=== PATIENT | male | born 1940 | race Caucasian/White ===

== ENCOUNTER 2023-05-15 16:21 | Emergency (ER) | payer MEDICARE, BC, SELFPAY ==
[2023-05-15 16:31] VITALS: BP 130/63
[2023-05-15 16:53] LABS: % Basophils 0.4 % (0-2); % Eosinophils 0.7 % (0-6); % Immature Granulocytes 0.4 % (0-0.5); Absolute Eosinophils 0.1 10^3/uL (0-0.7); Hemoglobin 13.1 g/dL (13.0-18.0); Nucleated Red Blood Cells % 0 % (-)
[2023-05-15 16:55] LABS: % Lymphocytes 4.2 % (20.5-51.1); % Monocytes 8.8 % (1.7-9.3); % Neutrophils 85.5 % (42.2-75.2); Absolute Lymphocytes 0.3 10^3/uL (1.2-3.4); Absolute Monocytes 0.6 10^3/uL (0.1-0.6); Absolute Neutrophils 6.1 10^3/uL (1.4-6.5); Hematocrit 36.7 % (39.0-52.0); Mean Corp Hgb Conc. 35.7 g/dL (33.0-37.0); Mean Corpuscular Hgb 31.7 pg (27.0-31.0); Mean Corpuscular Volume 88.9 fL (80.0-94.0); Mean Platelet Volume 9.6 fL (7.4-10.4); Platelet Count 141 10^3/uL (130-400); Red Blood Cell Count 4.13 10^6/uL (4.70-6.10); Red Cell Dist. Width 12.7 % (11.5-14.5); White Blood Cell Count 7.1 10^3/uL (4.8-10.8)
[2023-05-15 17:07] LABS: COVID-19 Antigen Positive (Negative)
[2023-05-15 17:11] LABS: ALT (SGPT) 14 U/L (0-50); AST (SGOT) 25 U/L (17-59); Albumin 4.1 g/dl (3.5-5.0); Alkaline Phosphatase 56 U/L (38-126); Blood Urea Nitrogen 20 mg/dl (9-20); Calcium 9.7 mg/dl (8.4-10.2); Carbon Dioxide 22 mmol/L (22-30); Chloride 101 mmol/L (98-107); Glucose 149 mg/dl (70-99); Potassium 3.8 mmol/L (3.5-5.1); Sodium 135 mmol/L (135-145); Total Protein 6.9 g/dl (6.3-8.2); eGFR > 60.00
--- NOTE | 2023-05-15 17:32 | ED.GENMED ---
History of Present Illness
General
Chief Complaint: Cold/Flu/URI Symptoms
Source: patient and spouse
Exam Limitations: none
Time Seen by Provider: 05/15/23 17:31
Nursing documentation reviewed up to this point in time: agreed with
Travel History
Have you had any contact with someone who has COVID-19?: No
Do you have any symptoms of coronavirus? Fever > 100 degrees, chills, cough, shortness of breath, sore throat, loss of taste or smell, muscle aches, or headache?: Yes
Symptoms:: cough, sore throat, n/v.
History of Present Illness
History of Present Illness:
83-year-old male with history of HTN, HLD, GERD presents stating he began to feel sick last evening with sore throat and general fatigue. Nausea around midnight and vomited once this afternoon. Denies nausea now. He fell today due to general
weakness and had to call EMS as he couldn't get himself up. He denies hitting head or any injury from the fall.
Denies chest pain, cough or trouble breathing.
Past History
Past History
ED Past Medical History: GERD, HTN and Hypercholesterolemia
Social History
Tobacco: Non-smoker
Personal:
Living: with family
Review of Systems
Review of Systems
Allergies reviewed?: Yes
All Other Systems: ROS reviewed and negative except as documented in HPI and ROS
Constitutional: Reports fatigue; Denies fever
EENT: Reports sore throat
Respiratory: Denies trouble breathing
Cardiac: Denies chest pain or syncope
ABD/GI: Reports nausea and vomiting (Vomited once earlier today. Denies nausea at this time); Denies abdominal pain, diarrhea or constipated
: Denies dysuria
Musculoskeletal: Reports no symptoms; Denies edema
Skin: Reports no symptoms
Neurological: Reports no symptoms
Phy Exam
Physical Exam
Physical Exam:
GENERAL: No acute distress. A&Ox3.
CONSTITUTIONAL: Afebrile.
EYES: PERRL, conjunctivae normal
Neck: Supple
ENMT: moist mucus membranes, Pharynx nl
RESPIRATORY: Regular respirations, nonlabored, lungs clear.
CARDIOVASCULAR: Regular rate and rhythm, no murmurs, no rubs.
GI: Soft, nontender, normal BS
MUSCULOSKELETAL: Moves with ease. Well perfused.
SKIN: Warm, dry, pink
PSYCH: Normal mood and affect. Well kept, interactive and appropriate
NEUROLOGIC: Awake, alert and oriented. No focal neurological deficits
Course
Orders/Labs/Results
Orders:
Orders
05/15/23 16:46
COVID-19 Antigen Urgent
Source: Nasal Swab
Complete Blood Count/With Diff Urgent
Comprehensive Metabolic Panel Urgent
Influenza A+B Rapid Molecular Urgent
LONNIE Source: Nasal Swab
Specimen Description:
05/15/23 17:45
0.9% Sodium Chloride 1000 ml [Nss] 1,000 ml IV BOLUS
Acetaminophen [Tylenol] 1,000 mg PO NOW STA
Abnormal Lab Results
05/15/23
16:46
RBC 4.13 L 10^6/uL
(4.70-6.10)
Hct 36.7 L %
(39.0-52.0)
MCH 31.7 H pg
(27.0-31.0)
Absolute Lymphs (auto) 0.3 L 10^3/uL
(1.2-3.4)
Neutrophils % 85.5 H %
(42.2-75.2)
Lymphocytes % 4.2 L %
(20.5-51.1)
Creatinine 0.6 L mg/dL
(0.7-1.3)
Glucose 149 H mg/dl
(70-99)
SARS-CoV-2 Antigen Positive A
(Negative)
05/15/23 16:46
05/15/23 16:46
Vital Signs
Initial and Last Documented VS:
Initial Vital Signs
Temp Pulse Resp BP Pulse Ox
99.1 F 78 16 130/63 95
05/15/23 16:31 05/15/23 16:31 05/15/23 16:31 05/15/23 16:31 05/15/23 16:31
Last Documented Vital Signs
Temp Pulse Resp BP Pulse Ox
99.1 F 78 16 129/68 93
05/15/23 18:00 05/15/23 16:31 05/15/23 16:31 05/15/23 19:00 05/15/23 19:45
MDM/Problems Addressed
Differential Diagnosis Includes:
Dehydration, COVID, flu
MDM/Problems Addressed:
83-year-old male with history of HTN, HLD, GERD presents stating he began to feel sick last evening with sore throat and general fatigue. Nausea around midnight and vomited once this afternoon. Denies nausea now. He fell today due to general
weakness and had to call EMS as he couldn't get himself up. He denies hitting head or any injury from the fall.
Denies chest pain, cough or trouble breathing.
Afebrile, NAD
05/15/2023 1733 PM
CBC with no clinically significant abnormality
CMP with no clinically significant abnormality
Influenza negative
COVID-positive
is inquiring about Paxlovid. Pt is not immunocompromise, does not appear acutely ill, no significant major medical history, he would have to stop his simvastatin. I explained this to patient and and they are absolutely fine with not
taking the Paxlovid
05/15/2023 1925 PM
IV fluids and Tylenol administered
Patient out of bed and ambulated to bathroom and back initially a little unsteady but then with steady gait
Patient and are comfortable going home, they have help at home to get him into the house if needed
*Critical Care Note
Total Time (30-74mins, 75-104mins- exclusive of procedures): Not Applicable
ED Attending Note
-
Portions of this chart may have been created with voice recognition software.� Occasional wrong word or��sound alike� substitutions may have occurred due to the inherent limitations of voice recognition software.
Discharge Plan
Departure
Patient Disposition: Home (Routine Discharge)
Date of Disposition: 05/15/23
Time of Disposition: 19:46
Patient with high blood pressure during this ER visit?: No
Condition: Fair
Covid-19: Confirmed COVID-19
Discharge Problem:
COVID-19
Instructions: COVID-19 (DC), Coronavirus Home Quarantine
Referrals:
Camilo Troncoso MD [Family Provider] - As needed
Activity Restrictions/Additional Instructions:
As we discussed, rest, drink plenty fluids, Tylenol as needed for body aches or sore throat or fever
Interventions
Interventions:
*Risk Screen - Suicide Last Done: 05/15/23 17:57
*General Assessment Last Done: 05/15/23 17:57
*Neglect/Abuse Screening Last Done: 05/15/23 17:57
ED- Fall Risk Assessment Last Done: 05/15/23 19:57
*ED COVID-19 Vaccine History Last Done: 05/15/23 17:57
*Nursing Disposition Last Done: 05/15/23 19:57
ED- Pulmonary Assessment Last Done: 05/15/23 18:08
[2023-05-15 17:57] VITALS: BMI 26.5
[2023-05-15] MEDS: NSS 1000 IV (18:04)
[2023-05-15 18:05] VITALS: BP 134/60
[2023-05-15] MEDS: TYLENOL 1000 MG PO (18:09)
[2023-05-15 19:00] VITALS: BP 129/68
== END 2023-05-15 19:57 | disposition home or self-care (01) ==
LOC: EMR 16:21
PROVIDERS: EMERGENCY PHYSICIAN Emergency Medicine; FAMILY PHYSICIAN Internal Medicine Geriatric Medicine
DX: U07.1 COVID-19 (principal); R11.2 Nausea with vomiting, unspecified; Z11.52 Encounter for screening for COVID-19; W19.XXXA Unspecified fall, initial encounter; I10 Essential (primary) hypertension; E78.00 Pure hypercholesterolemia, unspecified; K21.9 Gastro-esophageal reflux disease without esophagitis; Z85.828 Personal history of other malignant neoplasm of skin; Z91.048 Other nonmedicinal substance allergy status
CPT/HCPCS: 99283; 80053; 85025; 87502; 87811

== ENCOUNTER → 2023-10-12 06:57 | Outpatient (REF) | payer MEDICARE, BC, SELFPAY ==
[2023-10-12 09:54] LABS: ALT (SGPT) 14 U/L (0-50); AST (SGOT) 27 U/L (17-59); Albumin 4.4 g/dl (3.5-5.0); Alkaline Phosphatase 58 U/L (38-126); Blood Urea Nitrogen 16 mg/dl (9-20); Carbon Dioxide 24 mmol/L (22-30); Chloride 105 mmol/L (98-107); Glucose 105 mg/dl (70-99); Potassium 3.9 mmol/L (3.5-5.1); Sodium 139 mmol/L (135-145); Total Bilirubin 0.8 mg/dl (0.2-1.3); Total Protein 7.1 g/dl (6.3-8.2); eGFR > 60.00
[2023-10-12 10:11] LABS: Vitamin D, 25-OH*** 39.6 ng/mL (30-80)
== END ==
LOC: HWLAB 06:57
PROVIDERS: ATTENDING PHYSICIAN Internal Medicine; FAMILY PHYSICIAN Internal Medicine Geriatric Medicine
DX: E55.9 Vitamin D deficiency, unspecified (principal); M81.0 Age-related osteoporosis without current pathological fracture
CPT/HCPCS: 36415; 80053; 82306

== ENCOUNTER → 2024-05-20 09:39 | Outpatient (REF) | payer MEDICARE, BC, SELFPAY ==
[2024-05-20 12:42] LABS: % Basophils 0.5 % (0-2); % Eosinophils 1.8 % (0-6); % Immature Granulocytes 0.3 % (0-0.5); % Lymphocytes 27.7 % (20.5-51.1); % Neutrophils 60.7 % (42.2-75.2); Absolute Eosinophils 0.1 10^3/uL (0-0.7); Absolute Lymphocytes 2.2 10^3/uL (1.2-3.4); Absolute Monocytes 0.7 10^3/uL (0.1-0.6); Absolute Neutrophils 4.7 10^3/uL (1.4-6.5); Hematocrit 38.7 % (39.0-52.0); Mean Corp Hgb Conc. 33.6 g/dL (33.0-37.0); Mean Corpuscular Hgb 30.8 pg (27.0-31.0); Mean Corpuscular Volume 91.7 fL (80.0-94.0); Mean Platelet Volume 10.3 fL (7.4-10.4); Nucleated Red Blood Cells % 0 % (-); Platelet Count 174 10^3/uL (130-400); Red Blood Cell Count 4.22 10^6/uL (4.70-6.10); Red Cell Dist. Width 12.7 % (11.5-14.5); White Blood Cell Count 7.8 10^3/uL (4.8-10.8)
[2024-05-20 12:48] LABS: Urine Albumin 1+ (Neg - Trace); Urine Bilirubin Negative (Negative); Urine Character Clear (Clear); Urine Color Yellow; Urine Glucose Negative (Negative); Urine Ketone Negative (Negative); Urine Leukocyte Negative (Negative); Urine Nitrite Negative (Negative); Urine Occult Blood 2+ (Negative); Urine Urobilinogen Negative (Neg - 1+)
[2024-05-20 13:16] LABS: ALT (SGPT) 13 U/L (0-50); AST (SGOT) 24 U/L (17-59); Albumin 4.6 g/dl (3.5-5.0); Alkaline Phosphatase 72 U/L (38-126); Blood Urea Nitrogen 20 mg/dl (9-20); Calcium 9.8 mg/dl (8.4-10.2); Carbon Dioxide 24 mmol/L (22-30); Chloride 103 mmol/L (98-107); Glucose 101 mg/dl (70-99); HDL Cholesterol 60 mg/dl; LDL Cholesterol, Calculated 65 mg/dl; Potassium 3.9 mmol/L (3.5-5.1); Sodium 139 mmol/L (135-145); Total Bilirubin 1.3 mg/dl (0.2-1.3); Total Cholesterol 140 mg/dl (50-199); Total Protein 7.3 g/dl (6.3-8.2); Triglyceride 76 mg/dl (10-149); Very Low Density Lipoprotein 15 mg/dl (0-30); eGFR > 60.00
[2024-05-20 13:26] LABS: Urine Hyaline Cast 0-2 /LPF (0-2)
[2024-05-20 13:28] LABS: Urine Bacteria Few (Negative)
[2024-05-20 13:49] LABS: Erythrocyte Sed Rate 1 mm/hour (0-20)
[2024-05-20 13:50] LABS: C-Reactive Protein < 5.00 mg/L (0.0-10.00)
== END ==
LOC: HWLAB 09:39
PROVIDERS: ATTENDING PHYSICIAN Internal Medicine Geriatric Medicine
DX: E78.5 Hyperlipidemia, unspecified (principal); R53.1 Weakness; I73.9 Peripheral vascular disease, unspecified; M79.606 Pain in leg, unspecified; K21.9 Gastro-esophageal reflux disease without esophagitis; I10 Essential (primary) hypertension; R23.3 Spontaneous ecchymoses; R26.89 Other abnormalities of gait and mobility; Z13.89 Encounter for screening for other disorder; R51.9 Headache, unspecified
CPT/HCPCS: 36415; 80053; 80061; 81003; 81015; 85025; 85652; 86140

== ENCOUNTER 2024-06-10 02:27 | Emergency (ER) | payer MEDICARE, BC, SELFPAY ==
[2024-06-10 02:37] VITALS: BP 128/80
[2024-06-10 02:54] LABS: Urine Albumin 1+ (Neg - Trace); Urine Bilirubin Negative (Negative); Urine Character Clear (Clear); Urine Color Yellow; Urine Glucose Negative (Negative); Urine Ketone Negative (Negative); Urine Leukocyte Negative (Negative); Urine Nitrite Negative (Negative); Urine Occult Blood 4+ (Negative); Urine Urobilinogen Negative (Neg - 1+)
[2024-06-10 02:55] LABS: % Basophils 0.5 % (0-2); % Eosinophils 2.6 % (0-6); % Immature Granulocytes 0.2 % (0-0.5); % Lymphocytes 24.8 % (20.5-51.1); % Monocytes 7.3 % (1.7-9.3); % Neutrophils 64.6 % (42.2-75.2); Absolute Eosinophils 0.2 10^3/uL (0-0.7); Absolute Monocytes 0.6 10^3/uL (0.1-0.6); Absolute Neutrophils 5.2 10^3/uL (1.4-6.5); Hematocrit 35.1 % (39.0-52.0); Hemoglobin 12.3 g/dL (13.0-18.0); Mean Corpuscular Hgb 31.1 pg (27.0-31.0); Mean Corpuscular Volume 88.9 fL (80.0-94.0); Mean Platelet Volume 9.8 fL (7.4-10.4); Nucleated Red Blood Cells % 0 % (-); Platelet Count 153 10^3/uL (130-400); Red Blood Cell Count 3.95 10^6/uL (4.70-6.10); Red Cell Dist. Width 12.9 % (11.5-14.5)
[2024-06-10 03:08] VITALS: BP 140/86
[2024-06-10 03:08] LABS: Urine Mucus Moderate
[2024-06-10 03:09] LABS: Urine Red Blood Cell >100 /HPF (0-2)
[2024-06-10 03:11] LABS: ALT (SGPT) 14 U/L (0-50); AST (SGOT) 24 U/L (17-59); Albumin 4.6 g/dl (3.5-5.0); Alkaline Phosphatase 61 U/L (38-126); Blood Urea Nitrogen 25 mg/dl (9-20); Calcium 10.3 mg/dl (8.4-10.2); Carbon Dioxide 25 mmol/L (22-30); Chloride 105 mmol/L (98-107); Glucose 126 mg/dl (70-99); Potassium 3.8 mmol/L (3.5-5.1); Sodium 140 mmol/L (135-145); Total Bilirubin 0.9 mg/dl (0.2-1.3); Total Protein 7.1 g/dl (6.3-8.2); eGFR > 60.00
[2024-06-10 03:19] LABS: Urine Amorphous Seen; Urine Squamous Cell >30 /LPF (Few); Urine Urothelial Cell >30 /LPF (FEW)
[2024-06-10 03:20] VITALS: BMI 25.7
[2024-06-10 03:21] LABS: Urine Bacteria Moderate (Negative)
--- NOTE | 2024-06-10 04:33 | ED.GENMED ---
History of Present Illness
General
Chief Complaint: Flank Pain
Source: patient
Exam Limitations: none
Time Seen by Provider: 06/10/24 04:35
Nursing documentation reviewed up to this point in time: agreed with
History of Present Illness
History of Present Illness:
Pleasant 84-year-old male presents to the emergency department with sudden onset left flank pain. Happened around 11 PM. Family called 911. Patient received Zofran and route to the hospital. Upon arrival, pain has resolved. Patient reports no
fever, chills, nausea or vomiting. Is accompanied by and son.
Past History
Past History
ED Past Medical History: GERD, HTN and Hypercholesterolemia
Social History
Tobacco: Non-smoker
Personal:
Living: with family
Review of Systems
Review of Systems
Allergies reviewed?: Yes
All Other Systems: ROS reviewed and negative except as documented in HPI and ROS
Constitutional: Reports no symptoms
EENT: Reports no symptoms
Respiratory: Reports no symptoms
Cardiac: Reports no symptoms
ABD/GI: Reports no symptoms
: Reports flank pain
Musculoskeletal: Reports no symptoms
Skin: Reports no symptoms
Neurological: Reports no symptoms
Endocrine: Reports no symptoms
Hematologic/Lymphatic: Reports no symptoms
Psychiatric: Reports no symptoms
Phy Exam
General Physical Exam
General Presentation: well appearing and no apparent distress
General Skin: warm and dry
General Habitus: normal
General Mental: alert
General Hydration: appears well hydrated
ENT Exam
ENT Exam: EOMI, pharynx normal, neck supple and normocephalic
Eye Exam
Eye Exam: PERRL, cornea clear and conjunctiva normal
Cardiovascular Exam
Cardiovascular Exam: regular rate/rhythm, no edema, no murmur and normal peripheral pulses
Pulmonary Exam
Pulmonary Exam: lungs clear, no respiratory distress, no rales, no crackles, no rhonchi, no stridor, no wheezing and no cough
Gastrointestinal Exam
Gastrointestinal Exam: normal bowel sounds, non tender, soft, no organomegaly, no pulsatile mass and non distended
Neurological Exam
Neurological Exam: alert and oriented x3
Musculoskeletal Exam
Musculoskeletal Exam: neuro vasc intact and other (No CVA tenderness)
Skin Exam
Skin Exam: normal color
Psychiatric Exam
Psychiatric Exam: normal mood/affect
Course
Orders/Labs/Results
Orders:
Orders
06/10/24 02:41
CMP [Comprehensive Metabolic Panel] Urgent
Complete Blood Count/With Diff Urgent
06/10/24 02:46
Urinalysis Reflex To Culture Urgent
Date Specimen was Collected: 06/10/24
Time Specimen was Collected: 02:36
Urine Microscopic Reflex Cult Urgent
Urine Culture Urgent
LONNIE Source: U
Specimen Description:
Date Specimen was Collected: 06/10/24
Time Specimen was Collected: 02:36
06/10/24 03:06
CT Abd/pel Without Iv Or Oral Urgent
Comment:
Reason For Exam: left flank pain
06/10/24 04:31
0.9% Sodium Chloride 500 ml [Nss] 500 ml IV BOLUS
Abnormal Lab Results
06/10/24 06/10/24
02:41 02:46
RBC 3.95 L 10^6/uL
(4.70-6.10)
Hgb 12.3 L g/dL
(13.0-18.0)
Hct 35.1 L %
(39.0-52.0)
MCH 31.1 H pg
(27.0-31.0)
BUN 25 H mg/dl
(9-20)
Glucose 126 H mg/dl
(70-99)
Calcium 10.3 H mg/dl
(8.4-10.2)
Ur Occult Blood Reflex 4+ A
(Negative)
Urine RBC >100 A /HPF
(0-2)
Urine Bacteria (Reflex) Moderate A
(Negative)
Urine Albumin (Reflex) 1+ A
(Neg - Trace)
06/10/24 02:41
06/10/24 02:41
Vital Signs
Initial and Last Documented VS:
Initial Vital Signs
Temp Pulse BP Pulse Ox
97.8 F 76 128/80 95
06/10/24 02:37 06/10/24 02:37 06/10/24 02:37 06/10/24 02:37
Last Documented Vital Signs
Temp Pulse Resp BP Pulse Ox
98.0 F 72 20 140/86 94
06/10/24 03:08 06/10/24 03:08 06/10/24 03:08 06/10/24 03:08 06/10/24 03:08
*Critical Care Note
Total Time (30-74mins, 75-104mins- exclusive of procedures): Not Applicable
Update Note
Update Note:
Preliminary Radiology Report
[facility], [facility] - Phone
[facility]
NAME: BLAKE ASHBY
DATE OF EXAM: 06/10/2024
Patient No: [id number]
Physician: EFRAIN^Poornima
Date of : 1940
Past Medical History (entered by Technologist):
Reason For Exam (entered by Technologist): lt flank pain
Other Notes (entered by Technologist): priors
Additional Information (per [facility]):
CT ABDOMEN/PELVIS wo CONTRAST
IMPRESSION:
1. Mild gastric wall thickening, can be correlated with signs or symptoms of gastritis. Incidental gastric diverticulum
2. No bowel obstruction. Normal gallbladder.
Incidentals:
-Diverticulosis without evidence diverticulitis. Moderate stool burden. Bladder wall thickening, can be correlated with urinalysis
- No obstructive uropathy.
- No hepatic or pancreatic mass.
- No abdominal aortic aneurysm.
-Age-indeterminate compression deformities of the T12, and L2-L4 vertebral bodies, with approximately 40% height loss, and no significant retropulsion. Unchanged L1 compression deformity.
-Reticulation of the lung peripheries. Calcified coronary atherosclerosis. Bibasilar atelectasis.
- No acute abnormality within the visualized soft tissues.
ED Attending Note
-
Portions of this chart may have been created with voice recognition software.� Occasional wrong word or��sound alike� substitutions may have occurred due to the inherent limitations of voice recognition software.
Discharge Plan
Departure
Patient Disposition: Home (Routine Discharge)
Date of Disposition: 06/10/24
Time of Disposition: 05:47
Patient with high blood pressure during this ER visit?: Yes
Condition: Good
Discharge Problem:
Acute left flank pain
Instructions: Flank Pain (DC), Dehydration in adults - ED discharge instructions, BLOOD PRESSURE
Prescriptions:
New
tamsulosin [Flomax] 0.4 mg Capsule
0.4 mg PO DAILY Qty: 5 0RF
diclofenac sodium 75 mg tablet,delayed release (DR/EC)
75 mg PO BID Qty: 10 0RF
Referrals:
Camilo Troncoso MD [Family Provider] -
Activity Restrictions/Additional Instructions:
Your prescriptions were sent electronically to the pharmacy that you specified.
It was a pleasure meeting you and taking part in your care. We hope for your continued healing and wellness.
Please read discharge instructions in their entirety. However, they are for general education and may not describe your exact diagnosis at discharge. Information on your ER visit and medical conditions were discussed with you along with appropriate
follow up information...
If indicated, please take your medications as instructed and indicated on discharge paperwork.
Please schedule a follow up appointment as directed. Call to schedule an appointment
Please return to the emergency department with ANY change in, persisting, or worsening of symptoms. If any of your symptoms do not improve, or persist, or become more severe within 6-12 hours, please return to the emergency department for further
care.
Please return to the emergency department if you develop a headache, neck pain/stiffness, fever greater than 100.4F, chest pain, shortness of breath, persistent nausea, vomiting, slurred speech, difficulty walking, numbness/tingling, weakness, signs
of infection or any other symptoms that are worrisome to you.
If you have any questions or concerns please do not hesitate to call the Hospital at or E-mail me directly at [email or web address]
Interventions
Interventions:
*Risk Screen - Suicide Last Done: 06/10/24 02:28
*General Assessment Last Done: 06/10/24 02:28
*Neglect/Abuse Screening Last Done: 06/10/24 02:28
*ED- Fall Risk Assessment Last Done: 06/10/24 03:09
*ED COVID-19 Vaccine History Last Done: 06/10/24 02:47
PA-Kvvecf-Mukvwfiphx Assessment Last Done: 06/10/24 03:10
ED-Male Genitourinary Assessment Last Done: 06/10/24 03:13
Discharge Date and Time
Print Language: [id number]
[2024-06-10] MEDS: NSS 500 IV (04:38)
== END 2024-06-10 06:15 | disposition home or self-care (01) ==
LOC: EMR 02:27
PROVIDERS: EMERGENCY PHYSICIAN Student in an Organized Health Care Education/Training Program; FAMILY PHYSICIAN Internal Medicine Geriatric Medicine
DX: R10.9 Unspecified abdominal pain (principal); I10 Essential (primary) hypertension
CPT/HCPCS: 99284; 96360; 74176; 80053; 81003; 81015; 85025; 87086

== ENCOUNTER → 2024-06-21 09:12 | Outpatient (REF) | payer MEDICARE, BC, SELFPAY ==
[2024-06-21 12:37] LABS: Urine Albumin 1+ (Neg - Trace); Urine Bilirubin Negative (Negative); Urine Character Clear (Clear); Urine Color Yellow; Urine Glucose Negative (Negative); Urine Ketone Negative (Negative); Urine Leukocyte Negative (Negative); Urine Nitrite Negative (Negative); Urine Occult Blood 3+ (Negative); Urine Specific Gravity 1.005 (<1.030); Urine Urobilinogen Negative (Neg - 1+)
[2024-06-21 13:11] LABS: Urine Squamous Cell 0-2 /LPF (Few)
== END ==
LOC: HWLAB 09:12
PROVIDERS: ATTENDING PHYSICIAN Internal Medicine Geriatric Medicine
DX: E78.5 Hyperlipidemia, unspecified (principal); R53.1 Weakness; I73.9 Peripheral vascular disease, unspecified; M79.606 Pain in leg, unspecified; K21.9 Gastro-esophageal reflux disease without esophagitis; I10 Essential (primary) hypertension; R25.3 Fasciculation; R26.89 Other abnormalities of gait and mobility; R51.9 Headache, unspecified; Z13.89 Encounter for screening for other disorder
CPT/HCPCS: 81003; 81015

== ENCOUNTER 2024-10-19 14:36 | Emergency (ER) | payer MEDICARE, BC, SELFPAY ==
[2024-10-19 14:42] VITALS: BP 126/71
[2024-10-19 15:14] VITALS: BP 150/82
[2024-10-19 15:54] LABS: Hematocrit 32.7 % (39.0-52.0); Hemoglobin 11.4 g/dL (13.0-18.0); Mean Corp Hgb Conc. 34.9 g/dL (33.0-37.0); Mean Corpuscular Volume 88.6 fL (80.0-94.0); Nucleated Red Blood Cells % 0 % (-); Platelet Count 158 10^3/uL (130-400); Red Cell Dist. Width 13.6 % (11.5-14.5)
[2024-10-19 16:31] LABS: ALT (SGPT) < 10 U/L (0-50); AST (SGOT) 22 U/L (17-59); Albumin 4.1 g/dl (3.5-5.0); Alkaline Phosphatase 58 U/L (38-126); Blood Urea Nitrogen 11 mg/dl (9-20); Calcium 9.8 mg/dl (8.4-10.2); Carbon Dioxide 20 mmol/L (22-30); Chloride 109 mmol/L (98-107); Glucose 101 mg/dl (70-99); Potassium 3.7 mmol/L (3.5-5.1); Sodium 139 mmol/L (135-145); Total Protein 6.9 g/dl (6.3-8.2); eGFR > 60.00
--- NOTE | 2024-10-19 16:40 | ED.GENMED ---
History of Present Illness
<Cecilia Norman CODING SUPPORT SPECIALIST - Last Filed: 10/19/24 23:11>
General
Chief Complaint: Breathing Problem
Source: patient and spouse
Exam Limitations: none
Time Seen by Provider: 10/19/24 16:40
Nursing documentation reviewed up to this point in time: agreed with
History of Present Illness
History of Present Illness:
84-year-old male with history of HTN, HLD, GERD, BPH, appendectomy, hernia repair presents with a chief complaint of worsening insomnia over the past month, which has resulted in significant distress. He reports that he has been unable to sleep at
night and states, 'I cant take this anymore.' As a result of the insomnia, he experiences dizziness and describes feeling 'really bad' and unable to function. Additionally, he reports experiencing shortness of breath, which has been aggravated over
the last two to three weeks, especially upon exertion. He has also been having intermittent chest 'pressure.'
The patient also reports the onset of diarrhea approximately one week ago, occurring twice daily but notes that although the frequency has decreased, he had diarrhea as recently as yesterday. He denies any abdominal pain, nausea, vomiting, or
urinary symptoms.appetite has been poor.
He walked into his doctor's office today to request evaluation and was sent here.
Past History
<Cecilia Norman CODING SUPPORT SPECIALIST - Last Filed: 10/19/24 23:11>
Past History
ED Past Medical History: GERD, HTN and Hypercholesterolemia
Social History
Tobacco: Non-smoker
Personal:
Living: with family
Review of Systems
<Cecilia Norman CODING SUPPORT SPECIALIST - Last Filed: 10/19/24 23:11>
Review of Systems
Allergies reviewed?: Yes
All Other Systems: ROS reviewed and negative except as documented in HPI and ROS
Constitutional: Reports fatigue; Denies fever
Respiratory: Reports trouble breathing (MORENO)
Cardiac: Reports chest pain ('not pain, just pressure' intermittently, none now); Denies diaphoresis, palpitations or syncope
ABD/GI: Reports anorexia; Denies abdominal pain, nausea, vomiting or diarrhea
: Denies dysuria, frequency or difficulty voiding
Musculoskeletal: Reports no symptoms
Skin: Reports no symptoms
Neurological: Reports weakness (generalized); Denies dizzy or numbness
Phy Exam
<Cecilia Norman, CODING SUPPORT SPECIALIST - Last Filed: 10/19/24 23:11>
Physical Exam
Physical Exam:
GENERAL: No acute distress. A&Ox3.
CONSTITUTIONAL: Afebrile.
EYES: clear, conjunctivae normal
ENMT: moist mucus membranes, Pharynx nl
RESPIRATORY: Regular respirations, nonlabored, lungs clear.
CARDIOVASCULAR: Regular rate and rhythm, no murmurs, no rubs.
GI: Soft, nontender, normal BS
MUSCULOSKELETAL: Moves with ease. Well perfused.
SKIN: Warm, dry, pale no edema
PSYCH: Normal mood and affect. Well kept, interactive and appropriate
NEUROLOGIC: Awake, alert and oriented. No focal neurological deficits
Scores
<Cecilia Norman, CODING SUPPORT SPECIALIST - Last Filed: 10/19/24 23:11>
Heart Failure Risk
Heart Failure Risk Score: Yes
History of Stroke or TIA: No
History of intubation for respiratory distress: No
Heart rate on ED arrival >/= 110: No
SaO2 <90% on arrival on room air: No
HR >/=110 during 3min walk test (or too ill to perform test): No
ECG has acute ischemic changes: No
Urea >/=12mmol/L (BUN 33.6mg/dL): No
Serum CO2>/=35mmol/L: No
Troponin I or T elevated to [place] Level (0.4mg/dL): No
NT-proBNP >/=5,000ng/L (5,000pg/ml): Yes
HF Risk Score: 1
Admission Status: MEDIUM RISK 5.1% Consider observation or discharge to home with homecare & f/u visit to PCP/[facility], or SNF for treatment
Course
<Cecilia Norman, CODING SUPPORT SPECIALIST - Last Filed: 10/19/24 23:11>
Orders/Labs/Results
Orders:
Orders
10/19/24 14:37
EKG [Electrocardiogram (*1)] Urgent
Reason for Study: Abnormal EKG
EKG- Treatment ONCE
10/19/24 15:43
Complete Blood Count/With Diff Urgent
Comprehensive Metabolic Panel Urgent
TSH Reflex To Free T4 Urgent
Comment: ADD ON
10/19/24 16:52
Add On- LAB Urgent
Tests Added?: TSH reflex T4
10/19/24 17:48
CT Chest PE Study Urgent
Comment:
Reason For Exam: MORENO, new onset a fib
10/19/24 18:15
NT-proBNP Urgent
Comment: ADD ON
Troponin I Urgent
10/19/24 20:14
Add On- LAB Urgent
Tests Added?: Pro BNP
10/19/24 21:28
Diltiazem Extended Release [Cardizem Cd] 120 mg PO NOW STA
Furosemide [Lasix] 40 mg IV NOW STA
10/19/24 21:30
Apixaban [Eliquis] 10 mg PO NOW STA
Abnormal Lab Results
10/19/24
15:43
RBC 3.69 L 10^6/uL
(4.70-6.10)
Hgb 11.4 L g/dL
(13.0-18.0)
Hct 32.7 L %
(39.0-52.0)
Absolute Monos (auto) 0.7 H 10^3/uL
(0.1-0.6)
Monocytes % 10.8 H %
(1.7-9.3)
Chloride 109 H mmol/L
(98-107)
Carbon Dioxide 20 L mmol/L
(22-30)
Creatinine 0.6 L mg/dL
(0.7-1.3)
Glucose 101 H mg/dl
(70-99)
10/19/24 15:43
10/19/24 15:43
Vital Signs
Initial and Last Documented VS:
Initial Vital Signs
Temp Pulse Resp BP Pulse Ox
98.5 F 66 20 126/71 95
10/19/24 14:42 10/19/24 14:42 10/19/24 14:42 10/19/24 14:42 10/19/24 14:42
Last Documented Vital Signs
Temp Pulse Resp BP Pulse Ox
98.0 F 108 28 144/74 98
10/19/24 15:26 10/19/24 20:30 10/19/24 20:30 10/19/24 17:00 10/19/24 16:45
Business Computers Teacher consulted with Physician
Business Computers Teacher consulted with physician?: Yes
Name of Physician Consulted: Evans
<Deven Krueger MD - Last Filed: 10/19/24 18:06>
Orders/Labs/Results
Orders:
Orders
10/19/24 14:37
EKG [Electrocardiogram (*1)] Urgent
Reason for Study: Abnormal EKG
EKG- Treatment ONCE
10/19/24 15:43
Complete Blood Count/With Diff Urgent
Comprehensive Metabolic Panel Urgent
TSH Reflex To Free T4 Urgent
Comment: ADD ON
10/19/24 16:52
Add On- LAB Urgent
Tests Added?: TSH reflex T4
10/19/24 17:48
CT Chest PE Study Urgent
Comment:
Reason For Exam: MORENO, new onset a fib
10/19/24 18:15
NT-proBNP Urgent
Comment: ADD ON
Troponin I Urgent
10/19/24 20:14
Add On- LAB Urgent
Tests Added?: Pro BNP
10/19/24 21:28
Diltiazem Extended Release [Cardizem Cd] 120 mg PO NOW STA
Furosemide [Lasix] 40 mg IV NOW STA
10/19/24 21:30
Apixaban [Eliquis] 10 mg PO NOW STA
Abnormal Lab Results
10/19/24
15:43
RBC 3.69 L 10^6/uL
(4.70-6.10)
Hgb 11.4 L g/dL
(13.0-18.0)
Hct 32.7 L %
(39.0-52.0)
Absolute Monos (auto) 0.7 H 10^3/uL
(0.1-0.6)
Monocytes % 10.8 H %
(1.7-9.3)
Chloride 109 H mmol/L
(98-107)
Carbon Dioxide 20 L mmol/L
(22-30)
Creatinine 0.6 L mg/dL
(0.7-1.3)
Glucose 101 H mg/dl
(70-99)
10/19/24 15:43
10/19/24 15:43
Vital Signs
Initial and Last Documented VS:
Initial Vital Signs
Temp Pulse Resp BP Pulse Ox
98.5 F 66 20 126/71 95
10/19/24 14:42 10/19/24 14:42 10/19/24 14:42 10/19/24 14:42 10/19/24 14:42
Last Documented Vital Signs
Temp Pulse Resp BP Pulse Ox
98.0 F 108 28 144/74 98
10/19/24 15:26 10/19/24 20:30 10/19/24 20:30 10/19/24 17:00 10/19/24 16:45
<Cecilia Norman NP - Last Filed: 10/19/24 23:11>
MDM/Problems Addressed
Differential Diagnosis Includes:
The Differential Diagnosis includes, in no particular order and is not limited to:
1. New onset a fib
2. Congestive Heart Failure
3. Chronic Obstructive Pulmonary Disease (COPD)
4. Medication Side Effects
5. Anemia
6. Electrolyte Imbalance
MDM/Problems Addressed:
84-year-old male with history of HTN, HLD, GERD, BPH, appendectomy, hernia repair presents with a chief complaint of worsening insomnia over the past month, which has resulted in significant distress. He reports that he has been unable to sleep at
night and states, 'I cant take this anymore.' As a result of the insomnia, he experiences dizziness and describes feeling 'really bad' and unable to function. Additionally, he reports experiencing shortness of breath, which has been aggravated over
the last two to three weeks, especially upon exertion. He has also been having intermittent chest 'pressure.'
The patient also reports the onset of diarrhea approximately one week ago, occurring twice daily but notes that although the frequency has decreased, he had diarrhea as recently as yesterday. He denies any abdominal pain, nausea, vomiting, or
urinary symptoms.appetite has been poor.
He walked into his doctor's office today to request evaluation and was sent here.
EKG: A-fib with RVR rate 119
CBC with no clinically significant abnormality
CMP with no clinically significant abnormality
Troponin WNL
Case discussed with Dr. Krueger who evaluated patient
Plan:
Heart rate stable in 70s-80s, atrial fibrillation without chest pain. Plan to perform chest CT to rule out pulmonary embolism. If negative, consider initiating low-dose diltiazem, starting anticoagulation, and consulting cardiology. Admission
decision pending based on patients comfort and cardiology input.
9:00p.m.
Elderly male with symptomatic new onset a fib, nocturnal and exertional SOB, generalized weakness, HR now 110-124 afib on monitor
Pro BNP [address] radiology report read: IMPRESSION:
1. No evidence of pulmonary embolism.
2. Findings of chronic interstitial lung disease with increased interlobular septal thickening with scattered ground glass opacities, most pronounced in the right upper lobe. There is a small right and trace left pleural effusion. Findings may
represent mild pulmonary edema although pneumonia is possible. There are prominent mediastinal and right hilar lymph nodes, possibly reactive. Recommend follow-up CT chest to ensure resolution.
3. Cardiomegaly with reflux of contrast into the IVC suggestive of elevated right heart pressure.
4. Partially visualized right-sided hydronephrosis. Consider dedicated ultrasound or CT for further evaluation.
5. 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
Pt is refusing admission. Discussed possible complications of uncontrolled a fib including stroke, heart failure, syncope. He is adamant about going home.
Consulted salvage worker Dr. Maya, informed of patient status and starting Eliquis, Cardizem CD120 and Lasix, he will have someone from the office reach out to patient tomorrow for close follow-up.
Patient understands he could without having these problems treated very soon
9:35 PM:
Attempted for the third time to get patient to stay but he refuses.
Prescriptions for Eliquis, Cardizem CD and Lasix sent to his pharmacy
<Cecilia Norman CODING SUPPORT SPECIALIST - Last Filed: 10/19/24 23:11>
*Pulse Oximetry
SaO2: 95
Oxygen Mode of Delivery: Room air
Patient hypoxic: no
*EKG
EKG Intrepretation Date: 10/19/24
Interpretation: abnormal
Heart Rate: 112
Rate: tachycardiac
Rhythm: a-fib
[place]: normal axis
QRS Pattern: right bundle branch block
Ischemia: no ischemia
*Critical Care Note
Total Time (30-74mins, 75-104mins- exclusive of procedures): Not Applicable
ED Attending Note
<Cecilia Norman NP - Last Filed: 10/19/24 23:11>
-
Portions of this chart may have been created with voice recognition software.� Occasional wrong word or��sound alike� substitutions may have occurred due to the inherent limitations of voice recognition software.
<Deven Krueger MD - Last Filed: 10/19/24 18:06>
ED Attending Note
Patient seen and examined by attending physician: Yes
I performed the substantive portion of visit, reviewed & personally made and approve the management plan that is documented in note by myself or GALDINO.: Yes
ED Attending Note:
Patient presents with 3 weeks of shortness of breath with exertion and shortness of breath overnight. No chest pain no palpitations no syncope. Saw his primary physician noted to be in atrial fibrillation and sent to the ER for further evaluation.
Denies current chest pain palpitations pleuritic pain leg pain leg swelling.
On exam patient is nontoxic in no distress. He is warm and dry perfusing well. Lungs are clear and equal. No respiratory distress. Heart irregular irregular no murmur. Abdomen nontender. Warm dry and perfusing well.
EKG shows atrial fibrillation. Labs and thyroid are normal. With shortness of breath with exertion we will get a CT angio to rule out pulmonary emboli. And discussed with cardiology. Clearly warrants anticoagulation. Clinically not in heart
failure. Will discuss whether he needs further rate control and group decision on admission versus close outpatient follow-up
Discharge Plan
Departure
Patient Disposition: Home (Routine Discharge)
Date of Disposition: 10/19/24
Time of Disposition: 21:32
Patient with high blood pressure during this ER visit?: No
Condition: Fair
Discharge Problem:
Bilateral pleural effusion, CHF (congestive heart failure), New onset a-fib, Atrial fibrillation with RVR
Instructions: Apixaban, Atrial fibrillation - Discharge instructions, *CBC Heart Failure Instructions
Prescriptions:
New
furosemide [Lasix] 40 mg tablet
40 mg PO DAILY Qty: 20 0RF
diltiazem HCl [Cardizem CD] 120 mg capsule,extended release 24hr
120 mg PO DAILY Qty: 20 0RF
Eliquis 5 mg tablet
5 mg PO BID Qty: 70 0RF
Rx Instructions:
10 mg BID x 7 days, then 5 mg BID
No Action
tamsulosin [Flomax] 0.4 mg Capsule
0.4 mg PO DAILY Qty: 5 0RF
diclofenac sodium 75 mg tablet,delayed release (DR/EC)
75 mg PO BID Qty: 10 0RF
Referrals:
Richar Maya MD [Active, Cardiology] - Tomorrow
Camilo Troncoso MD [Family Provider, Internal Medicine]
Activity Restrictions/Additional Instructions:
As we discussed, I sent a prescription to your pharmacy for 3 medications you need to start tomorrow
#1. Cardizem CD1 20 mg daily
#2. Eliquis 5 mg tablets, take 10 mg twice a day for 7 days and then 5 mg twice a day until further
#3. Lasix which is a water pill to take 40 mg a day
Start these medications tomorrow as we gave you a dose here tonight
You have atrial fibrillation with an uncontrolled heart rate, you have some heart failure, if these are not treated promptly they could get worse and you could
Someone from the cardiology office will call you tomorrow for an appointment
Interventions
Interventions:
*Risk Screen - Suicide Last Done: 10/19/24 14:42
*General Assessment Last Done: 10/19/24 14:42
*Neglect/Abuse Screening Last Done: 10/19/24 14:42
*ED- Fall Risk Assessment Last Done: 10/19/24 14:42
*ED COVID-19 Vaccine History Last Done: 10/19/24 14:42
*Nursing Disposition Last Done: 10/19/24 21:59
ED- Cardiac Assessment Last Done: 10/19/24 15:21
ED- Pulmonary Assessment Last Done: 10/19/24 15:21
Discharge Date and Time
Discharge Date/Time: 10/19/24 22:00
Print Language: [id number]
[2024-10-19 17:00] VITALS: BP 144/74
[2024-10-19 18:51] LABS: Troponin I 0.020 ng/ml
[2024-10-19] MEDS: CARDIZEM CD 120 MG PO (21:34)
[2024-10-19] MEDS: ELIQUIS 10 MG PO (21:34)
[2024-10-19] MEDS: LASIX 40 MG IV (21:34)
== END 2024-10-19 22:00 | disposition home or self-care (01) ==
LOC: EMR 14:36
PROVIDERS: Registered Nurse; EMERGENCY PHYSICIAN Emergency Medicine; FAMILY PHYSICIAN Internal Medicine Geriatric Medicine
DX: I50.9 Heart failure, unspecified (principal); I48.91 Unspecified atrial fibrillation; I11.0 Hypertensive heart disease with heart failure; K21.9 Gastro-esophageal reflux disease without esophagitis; N40.0 Benign prostatic hyperplasia without lower urinary tract symptoms; E78.00 Pure hypercholesterolemia, unspecified; G47.00 Insomnia, unspecified; Z79.01 Long term (current) use of anticoagulants
CPT/HCPCS: 99284; 96374; 71275; 80053; 83880; 84443; 84484; 85025; 93005; Q9967

== ENCOUNTER → 2024-10-27 10:17 | Outpatient (REF) | payer MEDICARE, BC, SELFPAY ==
[2024-10-27 12:50] LABS: Albumin 4.4 g/dl (3.5-5.0); Blood Urea Nitrogen 17 mg/dl (9-20); Calcium 9.6 mg/dl (8.4-10.2); Carbon Dioxide 30 mmol/L (22-30); Chloride 105 mmol/L (98-107); Glucose 103 mg/dl (70-99); Potassium 3.6 mmol/L (3.5-5.1); Sodium 143 mmol/L (135-145); eGFR > 60.00
== END ==
LOC: HWRCS 10:17
PROVIDERS: ATTENDING PHYSICIAN Internal Medicine Cardiovascular Disease; FAMILY PHYSICIAN Internal Medicine Geriatric Medicine
DX: R07.89 Other chest pain (principal); R06.02 Shortness of breath; I48.92 Unspecified atrial flutter; I50.1 Left ventricular failure, unspecified
CPT/HCPCS: 36415; 80069; 93306

== ENCOUNTER → 2024-10-28 11:27 | Outpatient (REF) | payer MEDICARE, BC, SELFPAY | LOC: HWRAD 11:27 | PROVIDERS: ATTENDING PHYSICIAN Internal Medicine Geriatric Medicine | DX: N13.30 Unspecified hydronephrosis (principal) | CPT/HCPCS: 76770 ==

== ENCOUNTER → 2024-11-04 11:57 | Outpatient (REF) | payer MEDICARE, BC, SELFPAY | LOC: RCS 11:57 | PROVIDERS: ATTENDING PHYSICIAN Internal Medicine Cardiovascular Disease; FAMILY PHYSICIAN Internal Medicine Geriatric Medicine | DX: R07.89 Other chest pain (principal); I42.9 Cardiomyopathy, unspecified | CPT/HCPCS: 78452; 93017; A9500; J2785 ==

== ENCOUNTER → 2024-11-08 07:40 | Outpatient (REF) | payer MEDICARE, BC, SELFPAY ==
[2024-11-08 11:33] LABS: Albumin 4.2 g/dl (3.5-5.0); Blood Urea Nitrogen 17 mg/dl (9-20); Calcium 9.6 mg/dl (8.4-10.2); Carbon Dioxide 26 mmol/L (22-30); Chloride 105 mmol/L (98-107); Glucose 156 mg/dl (70-99); Potassium 3.6 mmol/L (3.5-5.1); Sodium 140 mmol/L (135-145); eGFR > 60.00
== END ==
LOC: HWLAB 07:40
PROVIDERS: ATTENDING PHYSICIAN Internal Medicine Cardiovascular Disease; FAMILY PHYSICIAN Internal Medicine Geriatric Medicine
DX: R07.89 Other chest pain (principal); R06.02 Shortness of breath; I48.92 Unspecified atrial flutter; I50.1 Left ventricular failure, unspecified
CPT/HCPCS: 36415; 80069; 83880

== ENCOUNTER → 2024-12-12 12:43 | Outpatient (REF) | payer MEDICARE, BC, SELFPAY | LOC: RAD 12:43 | PROVIDERS: ATTENDING PHYSICIAN Urology; FAMILY PHYSICIAN Internal Medicine Geriatric Medicine | DX: N13.30 Unspecified hydronephrosis (principal); R31.29 Other microscopic hematuria | CPT/HCPCS: 74178; Q9967 ==

== ENCOUNTER 2024-12-14 01:37 | Inpatient (IN) | payer MEDICARE, BC, SELFPAY ==
[2024-12-13] VITALS (7 sets, daily range): BP systolic 145–181; BP diastolic 81–112; BMI 26.0
[2024-12-13 15:16] LABS: Hematocrit 37.3 % (39.0-52.0); Hemoglobin 12.9 g/dL (13.0-18.0); Mean Corp Hgb Conc. 34.6 g/dL (33.0-37.0); Mean Corpuscular Volume 90.3 fL (80.0-94.0); Nucleated Red Blood Cells % 0 % (-); Platelet Count 171 10^3/uL (130-400); Red Cell Dist. Width 13.3 % (11.5-14.5)
[2024-12-13 15:31] LABS: ALT (SGPT) 13 U/L (0-50); AST (SGOT) 21 U/L (17-59); Albumin 4.4 g/dl (3.5-5.0); Alkaline Phosphatase 79 U/L (38-126); Blood Urea Nitrogen 21 mg/dl (9-20); Calcium 9.7 mg/dl (8.4-10.2); Carbon Dioxide 21 mmol/L (22-30); Chloride 108 mmol/L (98-107); Estimated Creatinine Clearance 75 ml/min; Glucose 162 mg/dl (70-99); Lipase 30 U/L (23-300); Potassium 4.0 mmol/L (3.5-5.1); Sodium 140 mmol/L (135-145); Total Protein 7.4 g/dl (6.3-8.2); eGFR > 60.00
[2024-12-13] MEDS: ZOFRAN 4 MG IV ×2 (16:13→20:24)
[2024-12-13] MEDS: MORPHINE SULFATE 4 MG IV ×3 (16:13→20:24)
[2024-12-13] MEDS: NSS 500 IV (16:14)
--- NOTE | 2024-12-13 17:26 | ED.GENMED ---
History of Present Illness
<Korin Gillis PA-C - Last Filed: 12/14/24 00:57>
General
Chief Complaint: Abdominal Symptoms
Source: patient and family
Exam Limitations: none
Time Seen by Provider: 12/13/24 15:42
Nursing documentation reviewed up to this point in time: agreed with
History of Present Illness
History of Present Illness:
Patient is an 84-year-old male with history atrial fibrillation on Eliquis who presents to the emergency department with abdominal pain and intractable nausea/vomiting. Pain started yesterday around 10 PM after eating pizza for dinner. He
describes pain in his right upper abdomen however also some in the lower abdomen. Pain has been relatively constant. He has had multiple episodes of vomiting throughout the day and has been unable to tolerate oral intake.
Patient denies any fever, diarrhea, urinary symptoms. He denies any chest pain or shortness of breath.
Of note�patient did have a scheduled CT scan of his abdomen/pelvis due yesterday to evaluate ongoing urology issues.
Patient is compliant with Eliquis however has not taken this in the past 3 days in preparation for a dental procedure.
Past History
<Korin Gillis PA-C - Last Filed: 12/14/24 00:57>
Past History
ED Past Medical History: GERD, HTN and Hypercholesterolemia
Social History
Tobacco: Non-smoker
Personal:
Living: with family
Review of Systems
<Korin Gillis PA-C - Last Filed: 12/14/24 00:57>
Review of Systems
Allergies reviewed?: Yes
All Other Systems: ROS reviewed and negative except as documented in HPI and ROS
Phy Exam
<Korin Gillis PA-C - Last Filed: 12/14/24 00:57>
Physical Exam
Physical Exam:
Vitals: Hypertensive, otherwise vital signs stable. Afebrile
General: Patient appears uncomfortable
Skin: Warm and dry, no rashes or lesions
Head: Normocephalic, atraumatic
Eyes: Sclera nonicteric. EOMs intact. No nystagmus.
Throat: Protecting airway
Neck: Normal ROM, no cervical spine tenderness, no meningismus
Cardiac: Irregularly irregular rhythm, normal rate, no murmurs.
Pulm: Normal respiratory effort, no wheezes, rales, rhonchi heard on exam
Abdomen: Abdomen soft with diffuse tenderness and voluntary guarding.
Extremities: No evidence of cyanosis or edema. Perfusing well
Neuro: AAOx3. Grossly intact
Psychiatric: Normal affect.
Course
<Korin Gillis PA-C - Last Filed: 12/14/24 00:57>
Orders/Labs/Results
Orders:
Orders
12/13/24 Dinner
NPO
Allow oral meds: No
Allow clear liquids: No
12/13/24 15:01
Complete Blood Count/With Diff Urgent
Comprehensive Metabolic Panel Urgent
Lipase Urgent
12/13/24 16:02
0.9% Sodium Chloride 500 ml [Nss] 500 ml IV BOLUS
Morphine Sulfate 4 mg IV NOW STA
Ondansetron Injectable [Zofran] 4 mg IV NOW STA
US Abdomen Complete/Upper Urgent
Comment:
Reason For Exam: RUQ pain +nausea/vomiting
12/13/24 16:04
Electrocardiogram (*1) Urgent
Reason for Study: Abdominal Pain
EKG- Treatment ONCE
12/13/24 16:12
Lactic Acid Q4H
Comment: CANCEL 2nd LACTIC ACID IF 1st LACTIC ACID IS LESS THAN 2
12/13/24 18:24
CT Abd/pelvis W Iv Cont Urgent
Comment:
Reason For Exam: Severe abdominal pain; intractable nausea/vomiting
12/13/24 18:40
Morphine Sulfate 4 mg IV NOW STA
12/13/24 19:53
Morphine Sulfate 4 mg IV NOW STA
Ondansetron Injectable [Zofran] 4 mg IV NOW STA
12/13/24 20:38
Dexamethasone Sod Phosphate [Decadron] 20 mg .ROUTE .STK-MED ONE
Fentanyl Citrate/Pf [Sublimaze] 100 mcg .ROUTE .STK-MED ONE
Lidocaine 2% Mpf [Xylocaine Mpf 2%] 100 mg .ROUTE .STK-MED ONE
Ondansetron Injectable [Zofran] 4 mg .ROUTE .STK-MED ONE
Phenylephrine HCl/0.9% NaCl [Armaan-Synephrine] 1,000 mcg .ROUTE .STK-MED ONE
Propofol [Diprivan] 20 ml .ROUTE .STK-MED
Rocuronium [place] [Rocuronium] 50 mg .ROUTE .STK-MED ONE
Succinylcholine Chloride [Succinylcholine] 200 mg .ROUTE .STK-MED ONE
12/13/24 20:53
Fentanyl Citrate/Pf [Sublimaze] 25 mcg IV [id number] PRN
HYDROmorphone [Dilaudid] 0.25 mg IV PACU-Q5MPRN PRN
Morphine Sulfate 1 mg IV PACU-Q5MPRN PRN
Ondansetron Injectable [Zofran] 4 mg IV PACU-ONCEPRN PRN
Prochlorperazine [Compazine] 5 mg IV PACU-ONCEPRN PRN
Notify MD As Directed
Notify physician if: for SDS patients with known or suspected sleep obstructive sleep apnea, monitor in the
PACU.
Notify MD for any apneic/desaturation episodes
O2 Therapy [RESP] Urgent
Titrate/Wean O2 to maintain O2 sat greater than (%): 92
Special Instructions: -Provide supplemental oxygen to achieve O2 sat of 92% or greater.
-After 15 min, may wean O2 and discontinue if patient is able to maintain O2 sat of 92%
or greater during recovery period.
If patient is a discharge home, without oxygen therapy, notify anestheiologist if
unable to maintain O2 SAT of 92% or greater on room air for MD clearance.
12/13/24 21:00
Flush (0.9% Sodium Chloride) [Flush (Nss)] See Dose Instructions IV PER PROTOCOL
Normosol (Mult Electrolytes) [Normosol-R/Plasmalyte-A] 1,000 ml IV PER PROTOCOL
Piperacillin/Tazo 3.375 Gram [Zosyn] 3.375 gram in 50 ml .ROUTE .STK-MED
12/13/24 21:07
Lactic Acid Q4H
Comment: CANCEL 2nd LACTIC ACID IF 1st LACTIC ACID IS LESS THAN 2
12/13/24 21:17
Admit/Transfer Patient As Directed
Co-Sign Provider:
Level of Care: Inpatient admission
Assign to:: IMU- Intermediate Care
Physician / Group: Spencer Norwood
Diagnosis: closed loop bowel obstruction
Reason for Hospitalization: closed loop bowel obstruction
Expected length of stay greater than two midnights?: Yes
ELOS- Estimated Length of Stay in days: 3
I certify the patient meets the requirements for IP care: Yes
PRN Pain Medication Management As Directed
May give lesser potent ordered pain med per pt: Yes
preference::
Protocol:: Medication orders for pain may be administered in a
manner that supports deferring to patient preference
when the pt is:
- Requesting an ordered lesser potent pain medication.
Least to most potent pain medications are defined
as: acetaminophen < NSAID < tramadol < opioids
(morphine, oxycodone, hydromorphone).
- Requesting a lesser dose of the same medication IF
ORDERED.
- Requesting a less intrusive route of administration
if both routes are prescribed by the provider (PO <
IV).
12/13/24 21:18
Code Status As Directed
Resuscitation Status: Do not resuscitate
Reached after discussion with pt or family/Healthcare POA: Yes
Decision communicated with: patient and spouse
DNR Bracelet Application ONCE
12/13/24 21:24
Bupivacaine 0.5%Pf/Epinephrin [Sensorcain-Mpf Epi 0.5%-0.0005] 30 ml .ROUTE .STK-MED ONE
12/13/24 21:50
EPINEPHrine [Adrenalin 1 mg/10 ml] 2 mg .ROUTE .STK-MED ONE
12/13/24 22:06
Calcium CHLORIDE [Calcium Chloride 10% Syringe] 1,000 mg .ROUTE .STK-MED ONE
12/13/24 22:11
Calcium CHLORIDE [Calcium Chloride 10% Syringe] 1,000 mg .ROUTE .STK-MED ONE
12/13/24 22:38
EPINEPHrine PF [Adrenalin] 1 mg .ROUTE .STK-MED ONE
12/13/24 22:52
OR Pathology Routine
Pre-Operative Diagnosis: closed loop small bowel obstruction
Post-Operative Diagnosis: closed loop small bowel obstruction
Operative Procedure: Exploratory laparotomy
Surgeon: Kimmie
Circulating Nurse: Sravanthi Edmonds
Specimen Type: Ileum
12/13/24 23:18
HYDROmorphone [Dilaudid] 1 mg .ROUTE .STK-MED ONE
12/13/24 23:26
Morphine Sulfate 2 mg IV Q4HPRN PRN
Ondansetron Injectable [Zofran] 4 mg IV Q6HPRN PRN
12/13/24 23:26
SURGICAL CONSULT Routine
Consulting Provider: Ki Burks
Was physician already notified: Yes
Activity As Directed
Activity Level: As Tolerated
Pneumatic Compression Sleeves As Directed
Type: Knee high
Vital Signs As Directed
Frequency: Per unit guidelines
O2 Therapy [RESP] Routine
Titrate/Wean O2 to maintain O2 sat greater than (%): 93
Pulse Ox/spot Check [RESP] Routine
Quantity: 1
Pt Eval And Treat Routine
Activity Level: As Tolerated
DX Deep Vein Thrombosis Video Routine
12/13/24 23:56
Sugammadex Sodium [Bridion] 200 mg .ROUTE .STK-MED ONE
12/14/24 00:00
Metoprolol [Lopressor] 2.5 mg IV Q6
12/14/24 00:11
Dextrose 50%-Water [Dextrose 50% Syringe] 12.5 grams IV PROCEDURE-PRN PRN
Insulin Aspart [NOVOLOG vial] See Protocol SC PROCEDURE- Q2H PRN PRN
NORepinephrine 4 MG/250 ML [Levophed] 4 mg in 250 ml IV NOW
Initial dose in mcg/min, then titrate:: 2
Titrate to keep:: MAP > 65 mmHg
Titrate by mcg/min:: taper every 5-15 minutes
Frequency of titrations (minutes):: 5
Maximum dose in ICU in mcg/min:: 30
Maximum dose in IMU in mcg/min:: 8
Maximum dose in IVU in mcg/min:: 4
Begin to taper infusion when:: Other
Begin to taper infusion when (other):: may wean to off if patient maintains goal parameters
Taper by mcg/min:: taper every 5-15 minutes
Frequency of taper (minutes) if patient maintains goal:: 5
Taper to off?: Yes
If infusion off & no longer maintaining goal:: Contact Provider
Additional Taper Instructions:: taper every 5-15 minutes
Bedside Glucose Monitoring As Directed
Frequency: Q2H
Additional Instructions:: UNTIL PATIENT LEAVES PROCEDURE AREA
12/14/24 00:16
Restraints - Non Violent As Directed
Justification-Patient:: 2-Protective Intervention
Restraint Type-: Soft Limb-L&R Wrist/4rail
Apply From (date): 12/14/24
Apply from (time): 00:16
Remove (date): 12/15/24
Remove (time): 23:59
12/14/24 00:29
Transfer Patient As Directed
Transfer to: ICU
Change Service [Change Attending Physician] As Directed
Change attending physician to: Cuco
Comment: This is an inpatient admission to Medicine, not a SDS patient.
12/14/24 00:30
NG Tube [Gastrointestinal Tubes] As Directed
Type: [place] sump
To suction?: Yes
Type of suction: Low intermittent
Irrigate tube?: Yes
Irrigant: Purified/Distilled Water
Frequency: Q4H
Amount in mls: 30
Irrigation Directions: Irrigate Q4H and PRN
12/14/24 06:00
Basic Metabolic Panel IN AM
Complete Blood Count/No Diff IN AM
Abnormal Lab Results
12/13/24 12/13/24
15:01 16:12
RBC 4.13 L 10^6/uL
(4.70-6.10)
Hgb 12.9 L g/dL
(13.0-18.0)
Hct 37.3 L %
(39.0-52.0)
MCH 31.2 H pg
(27.0-31.0)
Neutrophils % 78.3 H %
(42.2-75.2)
Lymphocytes % 15.9 L %
(20.5-51.1)
Chloride 108 H mmol/L
(98-107)
Carbon Dioxide 21 L mmol/L
(22-30)
BUN 21 H mg/dl
(9-20)
Glucose 162 H mg/dl
(70-99)
Lactic Acid 2.1 H mmol/L
(0.7-2.0)
Vital Signs
Initial and Last Documented VS:
Initial Vital Signs
Temp Pulse Resp BP Pulse Ox
98.1 F 84 22 177/97 97
12/13/24 14:48 12/13/24 14:48 12/13/24 14:48 12/13/24 14:48 12/13/24 14:48
Last Documented Vital Signs
Temp Pulse Resp BP Pulse Ox
97.5 F 84 14 116/63 95
12/14/24 00:45 12/14/24 00:45 12/14/24 00:45 12/14/24 00:45 12/14/24 00:45
<Donnie Bernstein, DO - Last Filed: 12/13/24 19:55>
Orders/Labs/Results
Orders:
Orders
12/13/24 Dinner
NPO
Allow oral meds: No
Allow clear liquids: No
12/13/24 15:01
Complete Blood Count/With Diff Urgent
Comprehensive Metabolic Panel Urgent
Lipase Urgent
12/13/24 16:02
0.9% Sodium Chloride 500 ml [Nss] 500 ml IV BOLUS
Morphine Sulfate 4 mg IV NOW STA
Ondansetron Injectable [Zofran] 4 mg IV NOW STA
US Abdomen Complete/Upper Urgent
Comment:
Reason For Exam: RUQ pain +nausea/vomiting
12/13/24 16:04
Electrocardiogram (*1) Urgent
Reason for Study: Abdominal Pain
EKG- Treatment ONCE
12/13/24 16:12
Lactic Acid Q4H
Comment: CANCEL 2nd LACTIC ACID IF 1st LACTIC ACID IS LESS THAN 2
12/13/24 18:24
CT Abd/pelvis W Iv Cont Urgent
Comment:
Reason For Exam: Severe abdominal pain; intractable nausea/vomiting
12/13/24 18:40
Morphine Sulfate 4 mg IV NOW STA
12/13/24 19:53
Morphine Sulfate 4 mg IV NOW STA
Ondansetron Injectable [Zofran] 4 mg IV NOW STA
12/13/24 20:38
Dexamethasone Sod Phosphate [Decadron] 20 mg .ROUTE .STK-MED ONE
Fentanyl Citrate/Pf [Sublimaze] 100 mcg .ROUTE .STK-MED ONE
Lidocaine 2% Mpf [Xylocaine Mpf 2%] 100 mg .ROUTE .STK-MED ONE
Ondansetron Injectable [Zofran] 4 mg .ROUTE .STK-MED ONE
Phenylephrine HCl/0.9% NaCl [Armaan-Synephrine] 1,000 mcg .ROUTE .STK-MED ONE
Propofol [Diprivan] 20 ml .ROUTE .STK-MED
Rocuronium [place] [Rocuronium] 50 mg .ROUTE .STK-MED ONE
Succinylcholine Chloride [Succinylcholine] 200 mg .ROUTE .STK-MED ONE
12/13/24 20:53
Fentanyl Citrate/Pf [Sublimaze] 25 mcg IV [id number] PRN
HYDROmorphone [Dilaudid] 0.25 mg IV PACU-Q5MPRN PRN
Morphine Sulfate 1 mg IV PACU-Q5MPRN PRN
Ondansetron Injectable [Zofran] 4 mg IV PACU-ONCEPRN PRN
Prochlorperazine [Compazine] 5 mg IV PACU-ONCEPRN PRN
Notify MD As Directed
Notify physician if: for SDS patients with known or suspected sleep obstructive sleep apnea, monitor in the
PACU.
Notify MD for any apneic/desaturation episodes
O2 Therapy [RESP] Urgent
Titrate/Wean O2 to maintain O2 sat greater than (%): 92
Special Instructions: -Provide supplemental oxygen to achieve O2 sat of 92% or greater.
-After 15 min, may wean O2 and discontinue if patient is able to maintain O2 sat of 92%
or greater during recovery period.
If patient is a discharge home, without oxygen therapy, notify anestheiologist if
unable to maintain O2 SAT of 92% or greater on room air for MD clearance.
12/13/24 21:00
Flush (0.9% Sodium Chloride) [Flush (Nss)] See Dose Instructions IV PER PROTOCOL
Normosol (Mult Electrolytes) [Normosol-R/Plasmalyte-A] 1,000 ml IV PER PROTOCOL
Piperacillin/Tazo 3.375 Gram [Zosyn] 3.375 gram in 50 ml .ROUTE .STK-MED
12/13/24 21:07
Lactic Acid Q4H
Comment: CANCEL 2nd LACTIC ACID IF 1st LACTIC ACID IS LESS THAN 2
12/13/24 21:17
Admit/Transfer Patient As Directed
Co-Sign Provider:
Level of Care: Inpatient admission
Assign to:: IMU- Intermediate Care
Physician / Group: Spencer Norwood
Diagnosis: closed loop bowel obstruction
Reason for Hospitalization: closed loop bowel obstruction
Expected length of stay greater than two midnights?: Yes
ELOS- Estimated Length of Stay in days: 3
I certify the patient meets the requirements for IP care: Yes
PRN Pain Medication Management As Directed
May give lesser potent ordered pain med per pt: Yes
preference::
Protocol:: Medication orders for pain may be administered in a
manner that supports deferring to patient preference
when the pt is:
- Requesting an ordered lesser potent pain medication.
Least to most potent pain medications are defined
as: acetaminophen < NSAID < tramadol < opioids
(morphine, oxycodone, hydromorphone).
- Requesting a lesser dose of the same medication IF
ORDERED.
- Requesting a less intrusive route of administration
if both routes are prescribed by the provider (PO <
IV).
12/13/24 21:18
Code Status As Directed
Resuscitation Status: Do not resuscitate
Reached after discussion with pt or family/Healthcare POA: Yes
Decision communicated with: patient and spouse
DNR Bracelet Application ONCE
12/13/24 21:24
Bupivacaine 0.5%Pf/Epinephrin [Sensorcain-Mpf Epi 0.5%-0.0005] 30 ml .ROUTE .STK-MED ONE
12/13/24 21:50
EPINEPHrine [Adrenalin 1 mg/10 ml] 2 mg .ROUTE .STK-MED ONE
12/13/24 22:06
Calcium CHLORIDE [Calcium Chloride 10% Syringe] 1,000 mg .ROUTE .STK-MED ONE
12/13/24 22:11
Calcium CHLORIDE [Calcium Chloride 10% Syringe] 1,000 mg .ROUTE .STK-MED ONE
12/13/24 22:38
EPINEPHrine PF [Adrenalin] 1 mg .ROUTE .STK-MED ONE
12/13/24 22:52
OR Pathology Routine
Pre-Operative Diagnosis: closed loop small bowel obstruction
Post-Operative Diagnosis: closed loop small bowel obstruction
Operative Procedure: Exploratory laparotomy
Surgeon: Kimmie
Circulating Nurse: Sravanthi Edmonds
Specimen Type: Ileum
12/13/24 23:18
HYDROmorphone [Dilaudid] 1 mg .ROUTE .STK-MED ONE
12/13/24 23:26
Morphine Sulfate 2 mg IV Q4HPRN PRN
Ondansetron Injectable [Zofran] 4 mg IV Q6HPRN PRN
12/13/24 23:26
SURGICAL CONSULT Routine
Consulting Provider: Ki Burks
Was physician already notified: Yes
Activity As Directed
Activity Level: As Tolerated
Pneumatic Compression Sleeves As Directed
Type: Knee high
Vital Signs As Directed
Frequency: Per unit guidelines
O2 Therapy [RESP] Routine
Titrate/Wean O2 to maintain O2 sat greater than (%): 93
Pulse Ox/spot Check [RESP] Routine
Quantity: 1
Pt Eval And Treat Routine
Activity Level: As Tolerated
DX Deep Vein Thrombosis Video Routine
12/13/24 23:56
Sugammadex Sodium [Bridion] 200 mg .ROUTE .STK-MED ONE
12/14/24 00:00
Metoprolol [Lopressor] 2.5 mg IV Q6
12/14/24 00:11
Dextrose 50%-Water [Dextrose 50% Syringe] 12.5 grams IV PROCEDURE-PRN PRN
Insulin Aspart [NOVOLOG vial] See Protocol SC PROCEDURE- Q2H PRN PRN
NORepinephrine 4 MG/250 ML [Levophed] 4 mg in 250 ml IV NOW
Initial dose in mcg/min, then titrate:: 2
Titrate to keep:: MAP > 65 mmHg
Titrate by mcg/min:: taper every 5-15 minutes
Frequency of titrations (minutes):: 5
Maximum dose in ICU in mcg/min:: 30
Maximum dose in IMU in mcg/min:: 8
Maximum dose in IVU in mcg/min:: 4
Begin to taper infusion when:: Other
Begin to taper infusion when (other):: may wean to off if patient maintains goal parameters
Taper by mcg/min:: taper every 5-15 minutes
Frequency of taper (minutes) if patient maintains goal:: 5
Taper to off?: Yes
If infusion off & no longer maintaining goal:: Contact Provider
Additional Taper Instructions:: taper every 5-15 minutes
Bedside Glucose Monitoring As Directed
Frequency: Q2H
Additional Instructions:: UNTIL PATIENT LEAVES PROCEDURE AREA
12/14/24 00:16
Restraints - Non Violent As Directed
Justification-Patient:: 2-Protective Intervention
Restraint Type-: Soft Limb-L&R Wrist/4rail
Apply From (date): 12/14/24
Apply from (time): 00:16
Remove (date): 12/15/24
Remove (time): 23:59
12/14/24 00:29
Transfer Patient As Directed
Transfer to: ICU
Change Service [Change Attending Physician] As Directed
Change attending physician to: Cuco
Comment: This is an inpatient admission to Medicine, not a SDS patient.
12/14/24 00:30
NG Tube [Gastrointestinal Tubes] As Directed
Type: [place] sump
To suction?: Yes
Type of suction: Low intermittent
Irrigate tube?: Yes
Irrigant: Purified/Distilled Water
Frequency: Q4H
Amount in mls: 30
Irrigation Directions: Irrigate Q4H and PRN
12/14/24 06:00
Basic Metabolic Panel IN AM
Complete Blood Count/No Diff IN AM
Abnormal Lab Results
12/13/24 12/13/24
15:01 16:12
RBC 4.13 L 10^6/uL
(4.70-6.10)
Hgb 12.9 L g/dL
(13.0-18.0)
Hct 37.3 L %
(39.0-52.0)
MCH 31.2 H pg
(27.0-31.0)
Neutrophils % 78.3 H %
(42.2-75.2)
Lymphocytes % 15.9 L %
(20.5-51.1)
Chloride 108 H mmol/L
(98-107)
Carbon Dioxide 21 L mmol/L
(22-30)
BUN 21 H mg/dl
(9-20)
Glucose 162 H mg/dl
(70-99)
Lactic Acid 2.1 H mmol/L
(0.7-2.0)
Vital Signs
Initial and Last Documented VS:
Initial Vital Signs
Temp Pulse Resp BP Pulse Ox
98.1 F 84 22 177/97 97
12/13/24 14:48 12/13/24 14:48 12/13/24 14:48 12/13/24 14:48 12/13/24 14:48
Last Documented Vital Signs
Temp Pulse Resp BP Pulse Ox
97.5 F 84 14 116/63 95
12/14/24 00:45 12/14/24 00:45 12/14/24 00:45 12/14/24 00:45 12/14/24 00:45
<Korin Gillis PA-C - Last Filed: 12/14/24 00:57>
MDM/Problems Addressed
Differential Diagnosis Includes:
Not limited to: Biliary colic, acute cholecystitis, choledocholithiasis, pancreatitis, bowel obstruction, mesenteric ischemia, etc.
MDM/Problems Addressed:
84-year-old male presenting with abdominal pain associated with intractable nausea/vomiting which started last night around 10 PM. No fevers, diarrhea, or urinary complaints. Patient did eat pizza prior to onset of symptoms. He incidentally had a
scheduled CT scan of his abdomen/pelvis performed yesterday for ongoing urology problems without acute findings.
Vital signs stable in ED. On exam � patient uncomfortable appearing. Abdomen soft with the diffuse tenderness + voluntary guarding, most notable in right mid abdomen.
Labs obtained prior to my evaluation without clinically significant abnormalities. No leukocytosis. No LFT abnormalities.
Differential broad, however, did review CT scan yesterday, which showed no acute pathology other than dilation in right renal collecting system � nonspecific without evidence of stones. Will start with abdominal ultrasound and check lactic acid.
Will give IV fluids and treat pain.
Update: Mild lactic acid elevation 2.1. Ultrasound without acute findings. Ultimately, decision was made to obtain repeat CT scan with IV contrast given persistent discomfort as symptoms were not present at time of imaging yesterday.
Update: Radiologist did contact attending physician regarding CT scan, which reveals concern for closed loop bowel obstruction in RLQ.
Immediately discussed with general surgeon, doctor Burks who reviewed images � patient will be brought to OR tonight for exploratory laparoscopy and possible bowel resection.
Patient transferred to OR in stable condition.
Chronic conditions affecting care:
Atrial fibrillation on Eliquis
Acute Exacerbation and/or Progression of Chronic Illness:
N/A
<Korin Gillis PA-C - Last Filed: 12/14/24 00:57>
*Pulse Oximetry
SaO2: 98
Oxygen Mode of Delivery: Room air
Patient hypoxic: no
*EKG
Interpreted by ED Provider?: Yes
EKG Intrepretation Date: 12/13/24
Interpretation: abnormal
Comparison EKG: no comparison EKG present
Heart Rate: 75
Rate: normal
Rhythm: sinus and PVC's
[place]: normal axis
Interval: long QT
QRS Pattern: right bundle branch block
Ischemia: non-specific ST changes
*Vp Clinical Research Interpretation
Rate: normal
Interpretation: abnormal
Heart Rate: 96
Rhythm: sinus
*Critical Care Note
Total Time (30-74mins, 75-104mins- exclusive of procedures): Not Applicable
<Korin Gillis PA-C - Last Filed: 12/14/24 00:57>
Patient Management
Discussion with other providers: Hospitalist, Hand Surgeon (Case discussed with general surgery) and Radiologist (Case discussed with radiologist)
Escalation/DeEscalation of care consider admission/obs:
Admit for concern for closed-loop bowel obstruction, patient transferred OR immediately from emergency department
ED Attending Note
<COLTEN De La O Last Filed: 12/14/24 00:57>
-
Portions of this chart may have been created with voice recognition software.� Occasional wrong word or��sound alike� substitutions may have occurred due to the inherent limitations of voice recognition software.
<Donnie Bernstein DO - Last Filed: 12/13/24 19:55>
ED Attending Note
Patient seen and examined by attending physician: Yes
I performed the substantive portion of visit, reviewed & personally made and approve the management plan that is documented in note by myself or GALDINO.: Yes
ED Attending Note:
I have seen and evaluated the patient with a [id number] encounter. I have spoken to the advance practicer provider and involved in the medical history, the physical exam, medical decision making.
Evaluation and management service: agree unless noted differently below.
Results interpretation: agree unless noted differently below.
Focused HPI: 84-year-old male presenting with pain that started last night. Patient did have a CT scan yesterday of his abdomen and pelvis to evaluate his ongoing urology issue. Patient noted the pain last night and has been complaining of
vomiting. Patient now complains of trouble passing gas
Physical exam: Belly is soft but there is generalized tenderness. He does appear uncomfortable
Medical Decision Making: It was decided to repeat the CT even though he already had 1 yesterday. Radiology did call with concern that he may have a closed-loop bowel obstruction. Surgery made aware immediately.
Discharge Plan
Departure
Patient Disposition: Admit
Date of Disposition: 12/13/24
Time of Disposition: 20:20
Presentation/result/management discussed w/ accepting MD/DO: Hospitalist
Discharge Problem:
Closed loop obstruction of intestine
Interventions
Interventions:
*Risk Screen - Suicide Last Done: 12/13/24 14:48
*General Assessment Last Done: 12/13/24 14:48
*Neglect/Abuse Screening Last Done: 12/13/24 14:48
*ED- Fall Risk Assessment Last Done: 12/13/24 21:19
*ED COVID-19 Vaccine History Last Done: 12/13/24 21:19
*Nursing Disposition Last Done: 12/13/24 21:19
NO-Dtmcok-Mapjwjrnmp Assessment Last Done: 12/13/24 15:34
Discharge Date and Time
Discharge Date/Time: 12/13/24 21:20
--- NOTE | 2024-12-13 20:56 | HPS.HSE ---
Addendum entered and electronically signed by Spencer Norwood DO 12/13/24 21:35:
Patient seen and examined independently. Agree with findings and plan as set forth by ELIZABETH Gutierrez.
Patient is an 84y M with PMH significant for hypertension, A-Fib / Flutter and HFrEF who presents to ED complaining of abdominal pain with N/V. Symptoms started last PM around 10:30 - 11:00. His symptoms persisted throughout the evening and
today he presented to the ED for further evaluation and treatment. No BM in the last 24 hours. He is not certain if he has passed any gas. N/V of non-bloody emesis. No prior history of similar symptoms.
Patient took his most recent dose of Eliquis on Thursday - holding it for upcoming dental procedure.
Ass:
Closed Loop SBO
Paroxysmal Atrial Fibrillation / Flutter
Benign Hypertension
Chronic HFrEF
GERD
Plan:
Patient going urgently to the OR for ex lap.
Appreciate Surgery evaluation.
Admit to IMU post-op.
Pain control / supportive care.
Continue to hold Eliquis.
Hold PO medications acutely.
IV Lopressor with holding parameters for A-Fib / rate control.
Hold diuretic acutely - follow I/Os, daily weights, etc.
Additional post-op plan per Surgery.
Original Note:
Family Physician
-
Family Physician: Camilo Troncoso
Chief Complaint
-
abdominal pain, nausea and vomiting
History of Present Illness
Patient is a 84-year-old male with past medical history significant for hypertension, hyperlipidemia, HFrEF, atrial flutter and GERD who presented to [facility] ED for evaluation of abdominal pain, nausea and vomiting. Patient reports that he went to a
late lunch early dinner yesterday afternoon follow and Abdominal CT for renal concerns. Following eating he felt fine and went to bed. He woke around 1030-11pm with severe abdominal pain associated with nausea and vomiting. This persisted throughout
today and brought him to ED for evaluation. Off note patient stopped Eliquis on Thursday12/10/24 night for scheduled dentist appointment today that he did not go to. Denies any fever, chills, cough, shortness of breath, chest pain,
palpitations, constipation, diarrhea or urinary symptoms. Last bowel movement thought to be 3 days ago.
Medical History
Past Medical History
Past Medical History: Reports Other
Additional Past Medical History:
hypertension
hyperlipidemia
HFrEF
atrial flutter
GERD
Malignant melanoma (2014)
h/o pericarditis
Past Surgical History: Reports Other
Additional Past Surgical History:
Appendectomy
left inguinal hernia repair
melanoma
tonsillectomy
Deviated Septum-surgical repair
Social History
Tobacco: Non-smoker
Alcohol: None
Drug: None
Personal:
Living: With Family
Employment: Retired
Family History
Family History: Not pertinent
Allergies / Home Medications
Allergies reflects when Allergies were last updated in [employer].
Home Medications with original date entered in [employer]
Allergy/Medication List:
Allergies
Allergy/AdvReac Type Severity Reaction Status Date / Time
No Known Drug Allergies Allergy - Verified 12/13/24 14:48
environmental Allergy congestion, Uncoded 12/13/24 14:48
sneezing
Home Medications
apixaban 5 mg tablet (Eliquis) 5 mg PO BID #70 tabs 10/19/24
furosemide 40 mg tablet (Lasix) 40 mg PO DAILY #20 tabs 10/19/24
calcium 600 mg (as carbonate)-vitamin D3 5 mcg (200 unit) tablet 1 tab PO DAILY 12/13/24
denosumab 60 mg/mL subcutaneous syringe (Prolia) 60 mg SC [id number] 12/13/24
doxazosin 8 mg tablet 8 mg PO HS 12/13/24
losartan 50 mg tablet 50 mg PO DAILY 12/13/24
metoprolol succinate 50 mg tablet,extended release 24 hr 50 mg PO DAILY 12/13/24
montelukast 10 mg tablet 10 mg PO HS 12/13/24
multivitamin 1 tab PO DAILY 12/13/24
omeprazole 20 mg capsule,delayed release 20 mg PO DAILY 12/13/24
simvastatin 40 mg tablet 40 mg PO HS 12/13/24
Review of Systems
-
History Source: Patient
Constitutional: Denies Fever or Chills
EENT: Reports No Symptoms
Respiratory: Denies Cough or Trouble Breathing
Cardiac: Denies Chest Pain, Diaphoresis or Palpitations
Abdomen/GI: Reports Abdominal Pain, Nausea and Vomiting; Denies Diarrhea or Constipated
: Reports No Symptoms
Musculoskeletal: Denies Joint Pain or Joint Swelling
Skin: Denies Rash
Neurological: Denies Dizzy, Headache, Weakness or Numbness
Endocrine: Reports No Symptoms
Hematologic/Lymphatic: Reports No Symptoms
Psych: Reports No Symptoms
Physical Exam
Vital Signs
Vital Signs
Temp Pulse Resp BP Pulse Ox
98.1 F 109 27 150/87 96
12/13/24 14:48 12/13/24 20:26 12/13/24 20:26 12/13/24 19:00 12/13/24 20:26
Physical Exam
General: Well Developed, Well Nourished and No Apparent Distress
HEENT: NormoCephalic, Moist mucous membranes and Atraumatic
Respiratory: Clear and Non Labored Respirations
Cardiac: S1/S2 and Irregular Rhythm; No Murmur
Breast: Deferred by me
GI: Soft, Normal Bowel Sounds and Tender (with guarding )
Rectal: Deferred by Provider
Genito-urinary: Deferred by me
Musculoskeletal: No Clubbing, No Cyanosis and No Edema
Skin: Warm and IV/Catheter Site; No Rash
Neuro: Awake, AO x 3 and Nonfocal/grossly intact
Psych: Calm
Laboratory Results
-
12/13/24 15:01
12/13/24 15:01
Laboratory Results
Lactic Acid 2.1 mmol/L (0.7-2.0) H 12/13/24 16:12
Total Bilirubin 0.9 mg/dl (0.2-1.3) 12/13/24 15:
AST 21 U/L (17-59) 12/13/24 15:
ALT 13 U/L (0-50) 12/13/24 15:
Alkaline Phosphatase 79 U/L (38-126) 12/13/24 15:01
Lipase 30 U/L (23-300) 12/13/24 15:01
Data Reviewed
-
Ultrasound: Report Reviewed by me (Abd: o evidence of cholelithiasis, gallbladder wall thickening or biliary tract dilatation. Small volume free fluid in the abdomen most prominent in the right upper quadrant, about the liver and gallbladder. Left
lobe of liver, pancreas, IVC and proximal to mid abdominal aorta significantly obscur)
Medical Tests (Nuc Med, Echo, EKG etc): Report Reviewed by me (EKG: SINUS RHYTHM WITH OCCASIONAL PREMATURE VENTRICULAR COMPLEXES RIGHT BUNDLE BRANCH BLOCK INFERIOR INFARCT (CITED ON OR BEFORE 19-Oct-2024))
Lab Data: Labs Reviewed by me (lactic 2.1)
Impression/Plan
-
IMPRESSION/PLAN:
#abdominal pain, nausea and vomiting likely 2/2 closed loop bowel obstruction
lactic 2.1
Abd US: No evidence of cholelithiasis, gallbladder wall thickening or biliary tract dilatation.
Small volume free fluid in the abdomen most prominent in the right upper quadrant, about the liver and gallbladder.
Left lobe of liver, pancreas, IVC and proximal to mid abdominal aorta significantly obscured, most likely by overlying bowel gas.
Moderate right renal collecting system dilatation as was seen on CT Abdomen of preceding day. Please see separate concurrent CT Abdomen and Pelvis report.
Adb/Pel CT:
- Admit to IMU
- Consult Surgery
- NPO for OR
#hypertension
- hold losartan and doxazosin
#hyperlipidemia
- hold simvastatin
#HFrEF
Patient follows with Dr. Pabon
- daily weights
- I & Os
- hold furosemide
#atrial flutter
EKG: SINUS RHYTHM WITH OCCASIONAL PREMATURE VENTRICULAR COMPLEXES
RIGHT BUNDLE BRANCH BLOCK
INFERIOR INFARCT (CITED ON OR BEFORE 19-Oct-2024)
- hold metoprolol and Eliquis
- IV metoprolol q6 hold for HR <60 or SB <100
#GERD
- hold omeprazole
Code status: DNR
DVT prophylaxis: Eliquis
--- NOTE | 2024-12-13 21:24 | CON.GS ---
Consultation
-
Date/Time Consultation Performed: 12/13/24
Requesting Provider: Carlin
Performing Provider: Kimmie
Reason for Consultation: SBO
Medical History
-
Chief Complaint: Abd pain
History of Present Illness:
84M with n/v/ab pain that began last night around 10PM. Unable to tolerate PO all day and pain is diffuse, progressive and severe. Denies flatus/BM since onset. Paused eliquis 3 days ago for upcoming dental procedure. Denies f/c.
Past Medical History
Past Medical History: Other (hypertension hyperlipidemia HFrEF atrial flutter GERD Malignant melanoma (2014) h/o pericarditis )
Past Surgical History: Other (Appendectomy left inguinal hernia repair melanoma tonsillectomy Deviated Septum-surgical repair)
Social History
Tobacco: Non-Smoker
Alcohol: None
Drug: None
Personal:
Living: With Family
Employment: Retired
Family History
Family History: Reviewed & Noncontributory
Allergies / Home Medications
Allergy/AdvReac Type Severity Reaction Status Date / Time
No Known Drug Allergies Allergy - Verified 12/13/24 14:48
environmental Allergy congestion, Uncoded 12/13/24 14:48
sneezing
�Medication �Instructions �Recorded �Confirmed �Type
apixaban 5 mg tablet (Eliquis) 5 mg PO BID #70 tabs 10/19/24 12/13/24 Rx
furosemide 40 mg tablet (Lasix) 40 mg PO DAILY #20 tabs 10/19/24 12/13/24 Rx
calcium 600 mg (as 1 tab PO DAILY 12/13/24 12/13/24 History
carbonate)-vitamin D3 5 mcg (200
unit) tablet
denosumab 60 mg/mL subcutaneous 60 mg SC [id number] 12/13/24 12/13/24 History
syringe (Prolia)
doxazosin 8 mg tablet 8 mg PO HS 12/13/24 12/13/24 History
losartan 50 mg tablet 50 mg PO DAILY 12/13/24 12/13/24 History
metoprolol succinate 50 mg 50 mg PO DAILY 12/13/24 12/13/24 History
tablet,extended release 24 hr
montelukast 10 mg tablet 10 mg PO HS 12/13/24 12/13/24 History
multivitamin 1 tab PO DAILY 12/13/24 12/13/24 History
omeprazole 20 mg capsule,delayed 20 mg PO DAILY 12/13/24 12/13/24 History
release
simvastatin 40 mg tablet 40 mg PO HS 12/13/24 12/13/24 History
Review of Systems
-
A 10 point review of systems was completed, and was negative except as per HPI.
Physical Exam
Vital Signs
Temp Pulse Resp BP Pulse Ox
98.1 F 106 26 150/87 94
12/13/24 14:48 12/13/24 21:00 12/13/24 21:00 12/13/24 19:00 12/13/24 21:00
12/12/24 12/13/24 12/14/24
06:59 06:59 06:59
Actual Weight 77.5 kg
Body Mass Index (BMI) 26.0
Lab Results
12/13/24 15:01
12/13/24 15:01
WBC 7.6 10^3/uL (4.8-10.8) 12/13/24 15:01
Hgb 12.9 g/dL (13.0-18.0) L 12/13/24 15:01
Hct 37.3 % (39.0-52.0) L 12/13/24 15:01
Plt Count 171 10^3/uL (130-400) 12/13/24 15:01
Abs Immat Gran (auto) 0.0 10^3/uL (0-0.05) 12/13/24 15:01
Neutrophils % 78.3 % (42.2-75.2) H 12/13/24 15:01
Physical Exam
General: Well Developed, Well Nourished and No Apparent Distress
GI: Soft, Tender (diffuse ttp with guarding) and Distended
Neuro: AO x 3
Psych: Calm
Data Reviewed
-
CT Scan: Image Personally Visualized and interpreted, Report Reviewed by me, Discussed with Physician and Discussed with Patient
Labs: Labs Reviewed by me, Discussed with Physician and Discussed with Patient
Assessment / Plan
-
84M with possible closed loop SBO
AFVSS, ttp on exam but no peritonitis
WBC WNL. lactic 2.1
CT with concern for RLQ transition point with 2 distinct loops of bowel likely representing internal hernia and closed loop segment, no pneumotosis, no PV gas, no free air
Plan:
OCTOR for dx ap possible ex lap possible bowel resection
Informed consent obtained
Preop zosyn
Hospitalist admit
[2024-12-14] VITALS (16 sets, daily range): BP systolic 0–151; BP diastolic 48–141; BMI 22.4
--- NOTE | 2024-12-14 00:18 | W.IMMPOSTOP ---
Surgical Immed Post Op Note
-
Primary Surgeon: Kimmie
Pre-op Diagnosis: Closed loop small bowel obstruction
Post-op Diagnosis: Same, ischemic bowel, meckel's diverticulum (incidental)
Procedure Performed: Diagnostic laparoscopy, lysis of adhesions (30 min), exploratory laparotomy, small bowel resection
Anesthesia Type: GETA
Specimen / Cultures: ileum (60cm approx)
Estimated Blood Loss: 40cc
Complications: 2mm enterotomy from bowel grasper, closed in 2 layers with 2-0 vicryl suture
Operative Findings: Dilated proximal small bowel, distal small bowel friable, hemorrhagic, ischemic, omental band adhesion to small bowel mesentery in right lower quadrant with internal herniation of approximately 60cm of small bowel; other
adhesions throughout the abdomen primally omentum to abdominal wall, laparoscopic lysis of adhesions with ligasure for approximately 30 min; 2mm enterotomy in small bowel occurred during lysis of adhesions, repaired with 2-0 vicryl in 2 layers;
cecum and terminal ileum mobilized off pelvic side wall, adhesive band lysed with ligasure and ischemic bowel segment resected with purple 80mm MILENA stapler; moderate contamination with thin watery stool; irrigated with 4L warm sterile saline;
side-side distal small bowel anastomosis, common channel closed with TA stapler, crotch stitch x2 with 2-0 vicryl, mesenteric defect closed with running 2-0 vicryl; 19fr drain to right lower quadrant
2 hours open
3L XL
600cc UOP
EBL 40cc
and family updated in person
[2024-12-14 01:28] LABS: Glucose - Point of Care 174 mg/dl (70-99)
--- NOTE | 2024-12-14 01:30 | PTCARENOTE ---
Pt received from PACU. HR SR w/ very frequent PACs + BBB + PVCs on telemetry. 4L NC POX 96%. R radial A-line zeroed. Alvarado draining yellow urine. NGT in R nare to LIS. MYNOR drain with serous drainage. Midline incision covered by dressing. IVF infusing
as ordered. Pt AAOx4. Very hard of hearing. Denies any pain. and son at bedside, updated on plan of care. Call young within reach
[2024-12-14] MEDS: LR 1000 IV ×2 (02:05→12:45)
[2024-12-14] MEDS: LOPRESSOR 2.5 MG IV ×5 (02:30→23:26)
[2024-12-14 04:28] LABS: Venous Blood Gas B.E. -3.4 mmol/L (-4 to +4); Venous Blood Gas O2 Sat % 99.7 %
--- NOTE | 2024-12-14 04:29 | PTCARENOTE ---
2L NC POX 97%. MYNOR continuing to drain serous drainage.
[2024-12-14 04:40] LABS: Hematocrit 36.7 % (39.0-52.0); Hemoglobin 12.6 g/dL (13.0-18.0); Mean Corp Hgb Conc. 34.3 g/dL (33.0-37.0); Mean Corpuscular Volume 88.6 fL (80.0-94.0); Platelet Count 180 10^3/uL (130-400); Red Cell Dist. Width 13.6 % (11.5-14.5)
[2024-12-14 04:44] LABS: INR 1.18; PT 15.3 Sec (11.4-14.6)
[2024-12-14 04:45] LABS: APTT 30.0 Sec (23.4-35.0)
[2024-12-14 04:55] LABS: Albumin 3.2 g/dl (3.5-5.0); Blood Urea Nitrogen 20 mg/dl (9-20); Calcium 8.5 mg/dl (8.4-10.2); Carbon Dioxide 21 mmol/L (22-30); Chloride 111 mmol/L (98-107); Estimated Creatinine Clearance 75 ml/min; Glucose 141 mg/dl (70-99); Magnesium 1.7 mg/dl (1.6-2.3); Potassium 4.0 mmol/L (3.5-5.1); Sodium 139 mmol/L (135-145); eGFR > 60.00
[2024-12-14] MEDS: MAGNESIUM SULFATE 100 IV (05:29)
--- NOTE | 2024-12-14 06:24 | PTCARENOTE ---
AM labs drawn and sent. Mg low, CUSTOMER PROFESSIONAL aware, Mg rider ordered and administered. Pain remains under control w/o intervention. Pt rates currently 1-2/10 in abdomen at incision site.
[2024-12-14] MEDS: DILAUDID 0.25 MG IV (07:42)
--- NOTE | 2024-12-14 08:17 | CON.INTV ---
Consultation
Consultation Request
Date/Time Consultation Requested: 12/14/2024147
Date/Time Consultation Performed: 12/14/2024810
Requesting Provider: ELIZABETH Gonzalez
Performing Provider: Dr. Heart
Reason for Consultation: SBO s/p ex-lap with bowel resection
Medical History
-
Chief Complaint: N/V
History of Present Illness:
84-year-old male with a past medical history of hypertension, A-fib/flutter on Eliquis, malignant melanoma (2014) s/p resection, GERD, appendectomy and history of left inguinal hernia repair who presented with nausea/vomiting. Also right upper
quadrant pain. Symptoms started the night prior to arrival and persisted throughout that evening and into the day prior to him come to the ER. He has had no bowel movement in the last 24 hours prior to arrival. Also he was not sure if he had
passed gas. His vomitus was nonbloody. He has been holding his Eliquis since this past Thursday (12/10/2024) due to an upcoming dental procedure. Initial vitals showed mild hypothermia to 96.9 �F, pulse rate 93, BP 120/81, 91% on room air and
respiratory rate 17. Initial labs showed Hb 12.9, WBC 7.6, glucose 162, and lipase 30. Abdominal ultrasound performed showing small volume free fluid in the abdomen. CT abdomen/pelvis then performed showing new dilatation of the small bowel with
marked mesenteric stranding, suspicious for possible closed-loop type small bowel obstruction. Patient given fluids in the ER with 500 cc of 0.9% NS, also 4 mg Zofran and 4 mg morphine. Surgery consulted and informed consent obtained for
intervention. Patient underwent a diagnostic laparoscopy with ex lap, lysis of adhesions and small bowel resection. Approximately 60 cm of ileum was collected. EBL was 40 cc. A 2 mm enterotomy from bowel grasper occurred during the procedure
otherwise there were no other immediate complications. Patient transferred to the ICU postoperatively and production cook services consulted for additional management/recommendations.
Pt seen and evaluated this AM. He is doing well, no pain in abdomen unless someone touches his belly; also no SOB, chest pain, CHATTERJEE, N/V/f/c. Pt received 1L bolus of plasmalyte as lactate had started to increase. NGT in place in LIWS with no
output. He is having abdominal and penis pain (where henson located). On levo at 2mcg/min and LR at 100cc/hr.
PMHx: Hypertension, left inguinal hernia s/p repair, history of pericarditis, environmental allergies, deviated septum s/p repair, hyperlipidemia, malignant melanoma (2014) s/p resection, GERD, osteoporosis with fractures of spine, asbestos
exposure, T12 vertebral compression fracture, history of atrial flutter/A-fib on Eliquis
PSHx: Appendectomy, left inguinal hernia repair, melanoma resection, tonsillectomy
Past Medical History
Past Medical History: Other (Above as per HPI)
Past Surgical History: Other (Above as per HPI)
Social History
Tobacco: Former Smoker
Alcohol: None
Drug: None
Family History
Family History: CAD (Brother), Cancer (Mother: Breast cancer; paternal grandmother (unknown type); brother: Prostate + bladder cancer) and Other (Brother: History of CVA)
Allergies / Home Medications
Allergies
Allergy/AdvReac Type Severity Reaction Status Date / Time
No Known Drug Allergies Allergy - Verified 12/13/24 14:48
environmental Allergy congestion, Uncoded 12/13/24 14:48
sneezing
Home Medications
�Medication �Instructions �Recorded �Confirmed �Last Taken �Type
apixaban 5 mg tablet (Eliquis) 5 mg PO BID #70 tabs 10/19/24 12/13/24 12/10/24 Rx
furosemide 40 mg tablet (Lasix) 40 mg PO DAILY #20 tabs 10/19/24 12/13/24 12/12/24 Rx
calcium 600 mg (as 1 tab PO DAILY Supplement 12/13/24 12/13/24 12/12/24 History
carbonate)-vitamin D3 5 mcg (200
unit) tablet
denosumab 60 mg/mL subcutaneous 60 mg SC [id number] Osteoporosis 12/13/24 12/13/24 Unknown History
syringe (Prolia)
doxazosin 8 mg tablet 8 mg PO HS Urinary Issue 12/13/24 12/13/24 12/12/24 History
losartan 50 mg tablet 50 mg PO DAILY Blood Pressure 12/13/24 12/13/24 12/12/24 History
metoprolol succinate 50 mg 50 mg PO DAILY Blood Pressure 12/13/24 12/13/24 12/12/24 History
tablet,extended release 24 hr
montelukast 10 mg tablet 10 mg PO HS Lung/Breathing Issues 12/13/24 12/13/24 1 Day Ago History
~12/12/24
multivitamin 1 tab PO DAILY Supplement 12/13/24 12/13/24 12/12/24 History
omeprazole 20 mg capsule,delayed 20 mg PO DAILY Gastrointestinal 12/13/24 12/13/24 12/12/24 History
release Issue
simvastatin 40 mg tablet 40 mg PO HS High Cholesterol 12/13/24 12/13/24 12/11/24 History
Review of Systems
-
History Source: Patient
All other systems: Negative unless noted
Vitals / Labs / Diagnostic Testing
Vital Signs
Temp Pulse Resp BP Pulse Ox
98 F 134 22 102/89 92
12/14/24 07:14 12/14/24 08:45 12/14/24 08:30 12/14/24 08:12 12/14/24 09:00
Lab Data
12/14/24 04:19
12/14/24 04:19
Laboratory Results
12/14/24
04:19
PT 15.3 H
INR 1.18
APTT 30.0
Diagnostic Testing:
Physical Exam
-
HEENT: Normocephalic and Anicteric
Cardiovascular: S1/S2, Regular Rhythm and Peripheral Edema (negative)
Respiratory: Wheeze (negative), Rales (bibasilar), Rhonchi (negative) and Non-Labored Respirations
GI: Soft, Non Distended, Tender (Right lower quadrant), Other (MYNOR drain in right lower quadrant) and Other (normoactive BS)
Neurology: Awake, Alert, Oriented and Tremors (negative)
Skin: Warm, Dry and Other (Midline bandage at operative site)
General: Respiratory Distress (negative), Comfortable, Chills (negative) and Sweats (negative)
Assessment
-
Assessment: 84-year-old male with a past medical history of hypertension, A-fib/flutter on Eliquis, malignant melanoma (2014) s/p resection, GERD, appendectomy and history of left inguinal hernia repair who presented with nausea/vomiting. Also
right upper quadrant pain. Symptoms started the night prior to arrival and persisted throughout that evening and into the day prior to him come to the ER. He has had no bowel movement in the last 24 hours prior to arrival. Also he was not sure if
he had passed gas. His vomitus was nonbloody. He has been holding his Eliquis since this past Thursday (12/10/2024) due to an upcoming dental procedure. Initial vitals showed mild hypothermia to 96.9 �F, pulse rate 93, BP 120/81, 91% on room air
and respiratory rate 17. Initial labs showed Hb 12.9, WBC 7.6, glucose 162, and lipase 30. Abdominal ultrasound performed showing small volume free fluid in the abdomen. CT abdomen/pelvis then performed showing new dilatation of the small bowel
with marked mesenteric stranding, suspicious for possible closed-loop type small bowel obstruction. Patient given fluids in the ER with 500 cc of 0.9% NS, also 4 mg Zofran and 4 mg morphine. Surgery consulted and informed consent obtained for
intervention. Patient underwent a diagnostic laparoscopy with ex lap, lysis of adhesions and small bowel resection. Approximately 60 cm of ileum was collected. EBL was 40 cc. A 2 mm enterotomy from bowel grasper occurred during the procedure
otherwise there were no other immediate complications. Patient transferred to the ICU postoperatively and production cook services consulted for additional management/recommendations.
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
spine, asbestos exposure, T12 vertebral compression fracture, history of atrial flutter/A-fib on Eliquis
Impression:
#Closed loop small bowel obstruction s/p laparoscopy with lysis of adhesions, ex lap and small bowel resection (POD #1)
#Circulatory shock likely due to translocation of bacteria in the setting of SBO
#Anemia (Hb has been in the 11�12.5 range since June 2024)
#Mild metabolic acidosis with preserved anion gap due to lactic acidosis
#Lactic acidosis
#Chronic HFrEF (LVEF: 28% on Sade scan stress test from 11/04/2024)
#Abnormal stress test with Lexiscan stress test on 11/04/2024 showing multiple large, fixed defects which was concerning for infarction in multivessel distribution.
#Right-sided hydronephrosis
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
#History of malignant melanoma (2014) s/p resection
#GERD
#Atrial flutter/fib on Eliquis
#Former tobacco smoker
Plan:
- Post op management per surgery
- Pain control
- Keep NGT to LIWS and monitor output
- NPO
- TPN to be started as per surgery with assistance with dietary
- Continue ABx, currently on Zosyn
- No cultures sent
- Follow up pathology from OR (ileum)
- Trend WBC and monitor temperature curve
- Maintain SpO2 >90-94%; currently on room air saturating 92%
- Aspiration precautions
- prn nebulized bronchodilators - not currently bronchospastic
- Incentive spirometer encouraged 10x per hour for at least 4 hrs a day
- Maintain MAP>65 with levophed and wean down as tolerated
- Trend lactate until <2mmol/L
- Given Hx of chronic HFrEF, cautiously continue IVF; if lactate downtrends then can consider resuming lasix tomorrow
- Replete electrolytes with K>4, Mg>2
- Trend serum HCO3 level
- Continue follow-up with urology in office for right-sided hydronephrosis. CT urography on 12/12/2024 showed diffuse right-sided calyceal dilation with transition at the UPJ with no obstructive stone or mass
- Maintain euglycemia with goal BG 140-180; check A1C
- Trend H/H and transfuse if needed to keep Hb>7g/dL; keep plt>50k (given post-operative status)
- Stress ulcer ppx: PPI
- DVT ppx: LMWH (if ok with surgery); hold Eliquis until cleared to resume per surgery
Code status: DNR/DNI
Continue ICU level of care for this critically ill patient
Critical care statement: A total of 38 minutes of critical care time was provided for this patient today. This includes management of unstable vital signs, evaluation of the patient at bedside, reviewing the patient's pertinent medical records
including radiographs, microbiology, laboratory evaluations, and discussion with primary team, consultants, pharmacy, nutrition, physical therapy, case management, charge nurse, critical care nursing, and respiratory therapy.
Data:
CT abdomen/pelvis with IV contrast 12/13/2024:
New dilatation of small bowel in the central abdomen to the right with marked mesenteric stranding and some whirling of the mesentery in the right abdomen in comparison to study of preceding day. Findings are at least suspicious for possible
closed-loop type small bowel obstruction (with some relative decreased enhancement of the wall of the small bowel in this area), possibly with accompanying internal hernia with significant increased now small to moderate volume free fluid
particularly in the right abdomen. Findings discussed by telephone with Dr. Bernstein in the emergency department at approximately 1950 hours on December 13, 2024.
[2024-12-14] MEDS: NORMOSOL-R/PLASMALYTE-A 1000 IV (08:38)
--- NOTE | 2024-12-14 08:45 | PTCARENOTE ---
pt medicated for pain prior to getting oob. once oob bp ok, but then dropped. no improvement with elevating legs. restarted levophed. Dr Burks in to see pt and updated. Fluid bolus ordered and initiated. Pt alert, but drowsy. Denies
lightheadedness, only c/o weakness. Needs encouragement to stay oob.
--- NOTE | 2024-12-14 10:13 | W.PN.GS2 ---
Today's Communication / Plan
-
NPO/NGT
PICC/TPN
IV abx
Assessment / Plan
-
84M POD1 s/p diagnostic laparoscopy with JUNE converted to ex lap for closed loop SBO with SBR and repair enterotomy x1 for ischemic bowel
AF, stable ovengiht, this am levo restarted after dilaudid
Marginal UOP, on lasix at home
Eliquis on hold day 3 today
WBC WNL
H/H stable
Ileus is expected
Plan:
NPO/NGT
PICC/TPN
1L XL bolus
May require lasix - d/w ICU team
IV zosyn
PRN IV dilaudid for pain control, rubén IV ofirmev
Tentatively for hep gtt no bolus starting tomorrow
Tentatively for PT/OT stating tomorrow
lovenox ppx
SCDs
Subjective Data
-
Date of Service: December 14, 2024
AF, stable overnight, levo restarted this am after dilaudid, UOP marginal, pain controlled, OOBTC, denies n/v with NGT to suction, denies flatus/BM
Objective Data
-
Intake and Output
12/13/24 12/14/24 12/15/24
06:59 06:59 06:59
Intake Total 800 / 900 230 / 230
Output Total 350 / 370 95 / 95
Balance 450 / 530 135 / 135
Intake:
IV fluids (Total) 600 / 700 200 / 200
LR 600 / 600
Lr 1,000 ml @ 100 mls/hr IV . 200 / 200
Q10H RUBÉN Rx#:[id number]
IV piggybacks 200 / 200
Amount instilled into GI Tube ( 30 / 30
Total)
[place] Sump 30 / 30
Output:
Drain Output (Total) 220 / 240 20 / 20
Abdomen 220 / 240 20 / 20
Gastrointestinal tube output ( 0 / 0
Total)
[place] Sump 0 / 0
Urine, Henson 130 / 130 75 / 75
Vital Signs
Temp Pulse Resp BP Pulse Ox
98 F 134 22 102/89 92
12/14/24 07:14 12/14/24 08:45 12/14/24 08:30 12/14/24 08:12 12/14/24 09:00
Lab Results
12/14/24 04:19
12/14/24 04:19
Calcium 8.5 mg/dl (8.4-10.2) 12/14/24 04:19
Phosphorus 3.5 mg/dl (2.5-4.5) 12/14/24 04:19
Magnesium 1.7 mg/dl (1.6-2.3) 12/14/24 04:19
Total Bilirubin 0.9 mg/dl (0.2-1.3) 12/13/24 15:01
AST 21 U/L (17-59) 12/13/24 15:01
ALT 13 U/L (0-50) 12/13/24 15:01
Alkaline Phosphatase 79 U/L (38-126) 12/13/24 15:01
Total Protein 7.4 g/dl (6.3-8.2) 12/13/24 15:01
Albumin 3.2 g/dl (3.5-5.0) L 12/14/24 04:19
Physical Exam
-
Gen: NAD
Abd: soft, approp ttp, drain ss, mepilex with small strikethrough
Patient has a henson catheter: Yes
Patient has a central line: No
[2024-12-14] MEDS: ZOSYN 50 IV ×3 (10:42→21:21)
[2024-12-14] MEDS: LIDOCAINE URO-JET 2% 1 SYRINGE TOPICAL (10:43)
[2024-12-14] MEDS: OFIRMEV 100 IV ×3 (10:43→21:56)
[2024-12-14] MEDS: LOVENOX 40 MG SC ×2 (10:44→18:03)
[2024-12-14] MEDS: NSS (PRESERVATIVE FREE) 10 ML IV (10:45)
[2024-12-14] MEDS: PROTONIX IV 40 MG IV (10:45)
[2024-12-14] MEDS: MYCOSTATIN ORAL SUSPENSION 5 ML PO ×3 (12:54→21:21)
[2024-12-14 13:00] LABS: Magnesium 1.9 mg/dl (1.6-2.3); Triglycerides 63 mg/dl (10-149)
--- NOTE | 2024-12-14 13:21 | W.PN.HOSP.TC ---
Today's Communication/Plan
-
NPO with NGT, PICC when TPN placed
wean pressors
IV abx
follow GS and ICU recs
Assessment / Plan
Assessment / Plan
Assessment:
Closed Loop acute SBO
- CT: New dilatation of small bowel in the central abdomen to the right with marked mesenteric stranding and some whirling of the mesentery in the right abdomen in comparison to study of preceding day. Findings are at least suspicious for possible
closed-loop type small bowel obstruction (with some relative decreased enhancement of the wall of the small bowel in this area), possibly with accompanying internal hernia with significant increased now small to moderate volume free fluid
particularly in the right abdomen.
- s/p diagnostic laparoscopy with JUNE converted to ex lap for closed loop SBO with SBR and repair enterotomy x1 for ischemic bowel on 12/13/24
- GS managing
- NPO with NGT in place
- TPN ordered; PICC pending
- empiric Zosyn, day 1
- pain control and anti-emetics
Septic shock
- on Levophed; wean as able
- empiric Zosyn, day 1
Paroxysmal Atrial Fibrillation/Flutter
- hold oral Metoprolol; on scheduled IV doses
- hold Eliquis; possibly start IV heparin in 24 hours per GS note
Benign Hypertension
- hold Doxazosin/Losartan
Chronic HFrEF
- hold Lasix
- monitor volume status, may need IV Lasix
GERD - IV PPI
HLD - holding statin
DVT ppx: Lovenox + SCDs
Code: DNR/DNI
Total Critical Care Time 42 minutes. I was immediately available to the patient and staff. I personally examined, reviewed labs, diagnostic images/reports, interpretations, treatment plans, discussed patient care with other providers and family
or caregivers (if patient is unable to make decisions), entered orders as appropriate and documented the medical record.
Anticipated Discharge: > 48 hours
Subjective/Interval History
-
Date of Service: December 14, 2024
pain controlled
remains with NGT
on Levophed 2 mcg/m
Objective Data
-
Labs:
Laboratory Results
12/14/24
04:19
WBC 9.0
Hgb 12.6 L
Hct 36.7 L
Plt Count 180
PT 15.3 H
INR 1.18
APTT 30.0
Sodium 139
Potassium 4.0
Chloride 111 H
Carbon Dioxide 21 L
BUN 20
Creatinine 0.7
Glucose 141 H
Calcium 8.5
Vital Signs:
Vital Signs
Temp Pulse Resp BP Pulse Ox
98.2 F 105 22 110/44 92
12/14/24 11:20 12/14/24 12:50 12/14/24 08:30 12/14/24 12:50 12/14/24 09:00
I&O
12/13/24 12/14/24 12/15/24
06:59 06:59 06:59
Intake Total 800 / 900 230 / 230
Output Total 350 / 370 95 / 95
Balance 450 / 530 135 / 135
Physical Exam
-
General: No Apparent Distress
HEENT: Normocephalic, Atraumatic and Other (+NG tube)
Respiratory: Negative Wheezes
Cardiac: Regular Rhythm and S1/S2
GI: Tender
Neuro: AO x 3
Psych: Calm
Data Reviewed
-
Critical Care Time (in minutes): 42
CT Scan: Report Reviewed by me
Labs: Labs Reviewed by me
--- NOTE | 2024-12-14 14:21 | PTCARENOTE ---
VAT team at bedside to place picc line
--- NOTE | 2024-12-14 15:20 | CM ---
Initial assessment completed with patient who lives with his in a 1 story cottage at [facility] with no basement, 1 step to enter. 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 Does have a SPC, 2 RW and a rollator in the home
which he uses as needed. No in-home services. Does have a HC-POA. No VA benefits. No psychiatric hospitalizations. PCP is Dr. Rober Troncoso. Pharmacy is [facility] on [address] in [place]. Discharge POC: TBD. HH vs No needs.
[2024-12-14] MEDS: DILAUDID 0.5 MG IV (15:34)
--- NOTE | 2024-12-14 15:59 | PTCARENOTE ---
Pt yelling out in pain with repositioning. No change in assessment. Pt reports not asking for medications because he ''doesn't want to bother'. Medicated as charted. Continue to encourage IS, at most pt able to get to 750. Placed on 2lnc as pt
splinting and not taking deep breaths. Denies sob/nausea. Assessment otherwise unchanged. PICC line in place waiting on xray report.
[2024-12-14] MEDS: Parenteral Nutrition, Central 1200 IV (21:26)
--- NOTE | 2024-12-14 21:30 | PTCARENOTE ---
Pt received start of shift, HR SR/ST w/ BBB and PACs/PVCS on telemetry. Levo gtt 1mcg. Pt self-removed NGT. Inserted new NGT [place] to 65cm R nare. Pt tolerated. CXR to verify placement. B/l mitts ordered and placed on pt. Pt confused at times
asking to 'get ready to go home tomorrow' and attempting to shuffle out of bed - bed alarm on. Alvarado draining yellow urine. TPN up as ordered, LR gtt stopped. Pt states pain is 2/10 as long as he is not moving. Refusing any PRN medication at this
time. Midline incision dressing with slight old sanguineous drainage. MYNOR w/ sanguineous drainage. Shallow respirations - 2L NC to maintain POX>90.
[2024-12-14 23:40] LABS: Glucose - Point of Care 161 mg/dl (70-99)
[2024-12-14] MEDS: NOVOLOG FLEXPEN-LOW RESISTANCE 1 UNITS SC (23:47)
--- NOTE | 2024-12-14 23:57 | PTCARENOTE ---
Pt intermittently confused, easily redirectable. Pleasant demeanor. B/l mitt restraints remain on. Levo gtt off. No further change in assessment.
[2024-12-15] VITALS (17 sets, daily range): BP systolic 118–168; BP diastolic 70–106; PULSE 116–122; O2SAT 96; BMI 22.3
[2024-12-15] MEDS: DILAUDID 0.25 MG IV ×3 (01:07→10:44)
[2024-12-15 04:00] LABS: Hematocrit 30.7 % (39.0-52.0); Hemoglobin 10.8 g/dL (13.0-18.0); Mean Corp Hgb Conc. 35.2 g/dL (33.0-37.0); Mean Corpuscular Volume 89.8 fL (80.0-94.0); Platelet Count 149 10^3/uL (130-400); Red Cell Dist. Width 14.1 % (11.5-14.5)
[2024-12-15] MEDS: ZOSYN 50 IV ×4 (04:04→21:13)
[2024-12-15] MEDS: OFIRMEV 100 IV ×3 (04:04→21:01)
[2024-12-15 04:23] LABS: Blood Urea Nitrogen 27 mg/dl (9-20); Calcium 8.6 mg/dl (8.4-10.2); Carbon Dioxide 25 mmol/L (22-30); Chloride 108 mmol/L (98-107); Estimated Creatinine Clearance 57 ml/min; Glucose 151 mg/dl (70-99); Magnesium 2.0 mg/dl (1.6-2.3); Potassium 3.6 mmol/L (3.5-5.1); Sodium 138 mmol/L (135-145); eGFR > 60.00
[2024-12-15] MEDS: KCL 160 MEQ IV (05:19)
[2024-12-15] MEDS: LOPRESSOR 2.5 MG IV (05:24)
[2024-12-15] MEDS: NOVOLOG FLEXPEN-LOW RESISTANCE 1 UNITS SC ×2 (05:29→23:46)
[2024-12-15 05:39] LABS: Glucose - Point of Care 157 mg/dl (70-99)
--- NOTE | 2024-12-15 06:04 | PTCARENOTE ---
Pt repeatedly taking off mitts and attempting to pull at a-line and NGT - b/l wrist restraints ordered. Pt occasionally agitated with restraints. Calm attitude and therapeutic speech utilized - effective. PRN pain medication - see MAR. Still no
drainage from NGT. Yellow urine from henson.
Am labs; Potassium low - K rider (See MAR).
[2024-12-15 06:24] LABS: Glycohemoglobin (HgbA1c) 5.9 % (4.0-5.6)
--- NOTE | 2024-12-15 07:34 | PTCARENOTE ---
recd pt confused, restless, trying to sit up, redirectable at times but forgetful. wants to go meet . very little short term recall. restraints in place for tube safety (NG, art line, PICC). tolerating oxygen. presently denies pain. lights
on, TV turned on. assessment as documented.
[2024-12-15] MEDS: MYCOSTATIN ORAL SUSPENSION 5 ML PO ×3 (07:48→21:13)
[2024-12-15] MEDS: PROTONIX IV 40 MG IV (07:48)
[2024-12-15] MEDS: NSS (PRESERVATIVE FREE) 10 ML IV (07:49)
--- NOTE | 2024-12-15 08:12 | PTCARENOTE ---
troubleshooting Daysi NORTON, no suction, setup changed, irrigated and flushed, drain 350 ml dark bilious thin fluid. Dr. Burks bedside, aware. On low intermittent suction. Forgetful but less irritated at this time. Unrestrained. lights and TV on.
--- NOTE | 2024-12-15 08:27 | W.PN.INTV ---
Today's Communication / Plan
Recommendations
Monitor heart rate with goal <110
Pain control
NPO
Continue NGT to LIWS
Start heparin drip per surgery
Consider starting Lasix tomorrow (takes at home)
If HR remains stable then will downgrade to IMU. If transferred out of ICU, pulmonary service will continue to briefly follow along
Assessment
-
Assessment: 84-year-old male with a past medical history of hypertension, A-fib/flutter on Eliquis, malignant melanoma (2014) s/p resection, GERD, appendectomy and history of left inguinal hernia repair who presented with nausea/vomiting. Also
right upper quadrant pain. Symptoms started the night prior to arrival and persisted throughout that evening and into the day prior to him come to the ER. He has had no bowel movement in the last 24 hours prior to arrival. Also he was not sure if
he had passed gas. His vomitus was nonbloody. He has been holding his Eliquis since this past Thursday (12/10/2024) due to an upcoming dental procedure. Initial vitals showed mild hypothermia to 96.9 �F, pulse rate 93, BP 120/81, 91% on room air
and respiratory rate 17. Initial labs showed Hb 12.9, WBC 7.6, glucose 162, and lipase 30. Abdominal ultrasound performed showing small volume free fluid in the abdomen. CT abdomen/pelvis then performed showing new dilatation of the small bowel
with marked mesenteric stranding, suspicious for possible closed-loop type small bowel obstruction. Patient given fluids in the ER with 500 cc of 0.9% NS, also 4 mg Zofran and 4 mg morphine. Surgery consulted and informed consent obtained for
intervention. Patient underwent a diagnostic laparoscopy with ex lap, lysis of adhesions and small bowel resection. Approximately 60 cm of ileum was collected. EBL was 40 cc. A 2 mm enterotomy from bowel grasper occurred during the procedure
otherwise there were no other immediate complications. 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
spine, asbestos exposure, T12 vertebral compression fracture, history of atrial flutter/A-fib on Eliquis
Impression:
#Closed loop small bowel obstruction s/p laparoscopy with lysis of adhesions, ex lap and small bowel resection (POD #2)
#Circulatory shock likely due to translocation of bacteria in the setting of SBO - shock state now resolved as of 12/14
#Anemia (Hb has been in the 11�12.5 range since June 2024)
#Mild metabolic acidosis with preserved anion gap due to lactic acidosis
#Lactic acidosis
#Chronic HFrEF (LVEF: 28% on Sade scan stress test from 11/04/2024)
#Abnormal stress test with Lexiscan stress test on 11/04/2024 showing multiple large, fixed defects which was concerning for infarction in multivessel distribution.
#Right-sided hydronephrosis
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
#History of malignant melanoma (2014) s/p resection
#GERD
#Atrial flutter/fib on Eliquis
#Former tobacco smoker
Plan:
- Post op management per surgery
- Pain control
- Keep NGT to LIWS and monitor output
- NPO
- TPN started as per surgery with assistance with dietary
- Continue ABx, currently on Zosyn
- No cultures sent
- Follow up pathology from OR (ileum)
- Trend WBC and monitor temperature curve
- Maintain SpO2 >90-94%; currently on room air saturating 92%
- Aspiration precautions
- prn nebulized bronchodilators - not currently bronchospastic
- Incentive spirometer encouraged 10x per hour for at least 4 hrs a day
- Maintain MAP>65; now off levophed since evening of 12/14
- Lactate is now 1.5 as of 12/14; no longer need to continue trending at this time
- Given Hx of chronic HFrEF, cautiously continue IVF; consider stopping IVF and resuming lasix tomorrow
- Replete electrolytes with K>4, Mg>2
- Trend serum HCO3 level (normal as of today)
- Monitor heart rate which is labile today and irregularly irregular
- Low threshold to start amiodarone drip if rate persists >110-120
- Continue follow-up with urology in office for right-sided hydronephrosis. CT urography on 12/12/2024 showed diffuse right-sided calyceal dilation with transition at the UPJ with no obstructive stone or mass
- Maintain euglycemia with goal BG 140-180; A1C: 5.9 on 12/15/2024
- Trend H/H and transfuse if needed to keep Hb>7g/dL; keep plt>50k (given post-operative status)
- Stress ulcer ppx: PPI
- DVT ppx: Starting heparin gtt as per surgery; DC LMWH; hold Eliquis until cleared to resume per surgery
Code status: DNR/DNI
Given the patient's labile heart rate, continue with ICU level of care. If heart rate stabilizes then will downgrade out of ICU to IMU. If transferred, pulmonary service will continue to briefly follow along.
Data:
CT abdomen/pelvis with IV contrast 12/13/2024:
New dilatation of small bowel in the central abdomen to the right with marked mesenteric stranding and some whirling of the mesentery in the right abdomen in comparison to study of preceding day. Findings are at least suspicious for possible
closed-loop type small bowel obstruction (with some relative decreased enhancement of the wall of the small bowel in this area), possibly with accompanying internal hernia with significant increased now small to moderate volume free fluid
particularly in the right abdomen. Findings discussed by telephone with Dr. Bernstein in the emergency department at approximately 1950 hours on December 13, 2024.
Total time spent today was 79 minutes for this encounter. Time includes reviewing laboratory test/imaging results, reviewing pertinent medical records, obtaining and reviewing medical history, performing an appropriate exam, ordering medications,
tests and procedures. Time also includes documentation of this encounter, coordinating patient care and communicating with other healthcare professionals. Total time does not include separately billed tests performed on this date of service.
Subjective Dataa
Subjective Data
Date of Service:
Date of Service: December 15, 2024
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
Subjective:
NGT with 1 L output this morning. Off Levophed since last night. On TPN. HR 109, SpO2 92% on 2L/min, BP 162/84 via A line. He feels well although is confused at times. Patient's granddaughter, storm, and , and, both present at bedside.
Heart rate has been labile this morning, sometimes being as high as the 140�160s.
Review of Systems
General: Other (Negative unless mentioned above)
Objective Data
Data Reviewed
Vital Signs / I&O / Oxygen:
Vital Signs
Temp Pulse Resp BP Pulse Ox
98.1 F 133 29 135/85 96
12/15/24 08:00 12/15/24 07:30 12/15/24 07:30 12/15/24 07:30 12/15/24 08:00
Intake and Output
12/14/24 12/15/24 12/16/24
06:59 06:59 06:59
Intake Total 800 / 900 2331.2 / 2381.2 280 / 280
Output Total 350 / 370 1050 / 1050 960 / 960
Balance 450 / 530 1281.2 / 1331.2 -680 / -680
SaO2 96
Nasal Cannula flow liters per 2
minute
Physical Exam
General: Respiratory Distress (n), Chills (n) and Sweats (n)
HEENT: Normocephalic and Anicteric
Cardiovascular: Irregular Rhythm (Irregularly irregular) and Peripheral Edema (n)
Respiratory: Wheeze (n), Crackles (Bibasilar), Rhonchi (n) and Non-Labored Respirations
GI: Soft, Non Distended, Tender (Periumbilical region) and Normal Bowel Sounds
Neurology: Awake, Alert and Tremors (n)
Skin: Warm, Dry, Cyanosis (n) and Jaundice (n)
Labs/Micro/Reports
Lab Data
12/15/24 03:36
12/15/24 03:36
--- NOTE | 2024-12-15 08:46 | W.PN.GS2 ---
Today's Communication / Plan
-
As above
Assessment / Plan
-
84M POD2 s/p diagnostic laparoscopy with JUNE converted to ex lap for closed loop SBO with SBR and repair enterotomy x1 for ischemic bowel
AF, mild tachycardia noted, suspect rebound from lower beta blockade
UOP improved without lasix
Eliquis on hold
WBC increased to 14K, expected, likely reactive
H/H stable
Ileus is expected
Plan:
NPO/NGT
PICC/TPN
Consider increasing IV lopressor to equivalent of home dose as BP allows (5mg IV Q6H)
Monitor UOP, may ultimately require lasix
IV zosyn
PRN IV dilaudid for pain control, rubén IV ofirmev
OK to start hep gtt with no bolus
PT/OT
lovenox ppx - hold when starting hep gtt
SCDs
Subjective Data
-
Date of Service: December 15, 2024
AF, off pressors 12+ hours, mild tacycardia, denies flatus, sundonwing and pulling tubes, pulled out NGT overnight, pain controlled
Objective Data
-
Intake and Output
12/14/24 12/15/24 12/16/24
06:59 06:59 06:59
Intake Total 800 / 900 2331.2 / 2381.2 130 / 130
Output Total 350 / 370 1050 / 1050 450 / 450
Balance 450 / 530 1281.2 / 1331.2 -320 / -320
Intake:
IV fluids (Total) 600 / 700 1341.2 / 1341.2
LR 600 / 600
Lr 1,000 ml @ 100 mls/hr IV . 1250 / 1250
Q10H RUBÉN Rx#:[id number]
levophed 91.2 / 91.2
IV piggybacks 200 / 200 450 / 450
TPN/PPN 450 / 500 100 / 100
Amount instilled into GI Tube (
Total)
[place] Sump
Output:
Drain Output (Total) 220 / 240
Abdomen / 240
Gastrointestinal tube output ( 0 / 0 0 / 0 350 / 350
Total)
[place] Sump 0 / 0 0 / 0 350 / 350
Urine, Henson 130 / 130 845 / 845 100 / 100
Vital Signs
Temp Pulse Resp BP Pulse Ox
98.1 F 133 29 135/85 95
12/15/24 08:00 12/15/24 07:30 12/15/24 07:30 12/15/24 07:30 12/15/24 07:30
Lab Results
12/15/24 03:36
12/15/24 03:36
Calcium 8.6 mg/dl (8.4-10.2) 12/15/24 03:36
Phosphorus 2.9 mg/dl (2.5-4.5) 12/15/24 03:36
Magnesium 2.0 mg/dl (1.6-2.3) 12/15/24 03:36
Total Bilirubin 0.9 mg/dl (0.2-1.3) 12/13/24 15:01
AST 21 U/L (17-59) 12/13/24 15:01
ALT 13 U/L (0-50) 12/13/24 15:01
Alkaline Phosphatase 79 U/L (38-126) 12/13/24 15:01
Total Protein 7.4 g/dl (6.3-8.2) 12/13/24 15:01
Albumin 3.2 g/dl (3.5-5.0) L 12/14/24 04:19
Physical Exam
-
Gen: NAD
Abd: soft, minimal ttp, dressing midline with small stable strikethrough, drain ss
Patient has a henson catheter: Yes
Patient has a central line: Yes (PICC)
--- NOTE | 2024-12-15 09:18 | PTCARENOTE ---
confused, tried to climb oob, pulled off oxygen, disconnected art line pressure cable, worried about NG tube 'it's going to get in my eye'. Reoriented, calmer, oxygen replaced. presently resting in bed, waving at staff watching from room.
--- NOTE | 2024-12-15 10:10 | W.PN.GS2 ---
Addendum entered and electronically signed by Ki Burks MD 12/15/24 13:08:
I was physically present and personally performed the guillaume portions of the surgical evaluation and/or procedure with the resident. I discussed the findings, reviewed the resident�s note, and confirmed the medical decision-making. I provided direct
supervision as required and agree with the assessment and plan as documented with the following additions/corrections: See my separate note
Original Note:
Today's Communication / Plan
-
See Ap
Assessment / Plan
-
This is an 84 year old man with medical history significant for hypertension , A-Fib / Flutter and HFrEF and surgical history of Appendectomy, left inguinal hernia repair, tonsillectomy and, Deviated Septum-surgical repair who had diagnostic
laparotomy, with adhesiolysis and exploratory laparotomy with small bowel resection done 2 nights ago on account of closed loop bowel obstruction and ischemic bowel.
#Closed loop bowel obstruction and ischemic bowel s/p laparoscopy with adhesiolysis, ex lap and small bowel resection POD#2
-Was confused overnight and pulled out his NGT, same was replaced.
-Currently on NPO, Continue NGT for bowel rest.
-Nutrition with TPN via PICC
-Wound care
-Pain control PRN Dilaudid
#Circulatory shock
-Currently on pressure support on Levophed, maintaining bp
-Titrate to MAP >65
- Monitor I/Os
- Lasix if signs of fluid overload
#Chronic HFrEF LVEF: 28%
- BB given IV with hold parameters
#Atrial flutter/fib on Eliquis
#Tachycardia
- BB given IV with hold parameters
- Eliquis on hold
#Leucocytosis
-Likely reactive, from inflammation and surgery
PT/OT- OOB
DVT PPX- Lovenox, SCD
will be transitioned to Heparin drip per protocol
Subjective Data
-
Date of Service: December 15, 2024
Patient seen.
Has no complains today.
Pain is controlled
Objective Data
-
Intake and Output
12/14/24 12/15/24 12/16/24
06:59 06:59 06:59
Intake Total 800 / 900 2331.2 / 2381.2 130 / 130
Output Total 350 / 370 1050 / 1050 450 / 450
Balance 450 / 530 1281.2 / 1331.2 -320 / -320
Intake:
IV fluids (Total) 600 / 700 1341.2 / 1341.2
LR 600 / 600
Lr 1,000 ml @ 100 mls/hr IV . 1250 / 1250
Q10H [place] Rx#:[id number]
levophed 91.2 / 91.2
IV piggybacks 200 / 200 450 / 450
TPN/PPN 450 / 500 100 / 100
Amount instilled into GI Tube ( 90 / 90 30 / 30
Total)
[place] Sump 90 / 90 30 / 30
Output:
Drain Output (Total) 220 / 240 205 / 205
Abdomen 220 / 240 205 / 205
Gastrointestinal tube output ( 0 / 0 0 / 0 350 / 350
Total)
[place] Sump 0 / 0 0 / 0 350 / 350
Urine, Henson 130 / 130 845 / 845 100 / 100
Vital Signs
Temp Pulse Resp BP Pulse Ox
98.1 F 133 29 135/85 96
12/15/24 08:00 12/15/24 07:30 12/15/24 07:30 12/15/24 07:30 12/15/24 08:00
Lab Results
12/15/24 03:36
12/15/24 03:36
Calcium 8.6 mg/dl (8.4-10.2) 12/15/24 03:36
Phosphorus 2.9 mg/dl (2.5-4.5) 12/15/24 03:36
Magnesium 2.0 mg/dl (1.6-2.3) 12/15/24 03:36
Total Bilirubin 0.9 mg/dl (0.2-1.3) 12/13/24 15:01
AST 21 U/L (17-59) 12/13/24 15:01
ALT 13 U/L (0-50) 12/13/24 15:01
Alkaline Phosphatase 79 U/L (38-126) 12/13/24 15:01
Total Protein 7.4 g/dl (6.3-8.2) 12/13/24 15:01
Albumin 3.2 g/dl (3.5-5.0) L 12/14/24 04:19
Physical Exam
-
Elderly man, met lying in bed in soft restraints. Not in any obvious distress.
NGT In place, not draining liquid
MYNOR Draining serosanguineous fluid
Henson catheter and bag, draining concentrated urine about 100mls (1/O-)
Alert, oriented to place. time and person
Chest- Not dyspneic, saturating adequately on 2L/min of INO2. Normal breath sounds
CVS- Increased rate, irregular rhythm,
ABD- Rounded, moves with respiration. 3 Wound dressing noted. Midline dressing stained with dried blood. Wound dressing also noted around MYNOR Drain site
Soft, No areas of undue tenderness
Patient has a henson catheter: Yes (Draining clear urine about a 100mls)
Patient has a central line: Yes
--- NOTE | 2024-12-15 11:14 | PTCARENOTE ---
OOB to chair with great assistance/encouragement RN and PT/OT. in recliner approx 4 minutes and attempted to get out of chair back to bed without assistance, weak. chair alarm alerted staff, back to bed assist 4, presently in bed, visitor bedside.
[2024-12-15] MEDS: LOPRESSOR 5 MG IV ×3 (11:31→23:44)
[2024-12-15 11:51] LABS: Hematocrit 31.3 % (39.0-52.0); Hemoglobin 10.7 g/dL (13.0-18.0); Mean Corp Hgb Conc. 34.2 g/dL (33.0-37.0); Mean Corpuscular Volume 89.4 fL (80.0-94.0); Platelet Count 147 10^3/uL (130-400); Red Cell Dist. Width 14.1 % (11.5-14.5)
[2024-12-15 11:53] LABS: Glucose - Point of Care 136 mg/dl (70-99)
[2024-12-15] MEDS: NOVOLOG FLEXPEN-LOW RESISTANCE SC ×2 (11:57→18:17)
[2024-12-15 12:20] LABS: APTT 61.7 Sec (23.4-35.0)
--- NOTE | 2024-12-15 12:32 | PTCARENOTE ---
multiple attempts to get out of bed, bed alarm in place and functioning well. verbalizes understanding then attempts again. discontinued own Simpson NG approx noon, Dr. Burks aware. Presently pt refusing to have it replaced, aware, will monitor
closely for distention, nausea, vomiting, with further treatment to be determined if necessary. forgetful. repositioned. art line dcd. labs drawn, sent, pending.
[2024-12-15] MEDS: HEPARIN 25000 UNITS/250 ML IV (12:36)
--- NOTE | 2024-12-15 12:45 | PTCARENOTE ---
heparin gtt initiated per orders.
--- NOTE | 2024-12-15 13:28 | W.PN.HOSP.TC ---
Today's Communication/Plan
-
NPO with NGT, PICC via TPN
IV abx
follow GS and ICU recs
Assessment / Plan
Assessment / Plan
Assessment:
Closed Loop acute SBO
- CT: New dilatation of small bowel in the central abdomen to the right with marked mesenteric stranding and some whirling of the mesentery in the right abdomen in comparison to study of preceding day. Findings are at least suspicious for possible
closed-loop type small bowel obstruction (with some relative decreased enhancement of the wall of the small bowel in this area), possibly with accompanying internal hernia with significant increased now small to moderate volume free fluid
particularly in the right abdomen.
- s/p diagnostic laparoscopy with JUNE converted to ex lap for closed loop SBO with SBR and repair enterotomy x1 for ischemic bowel on 12/13/24
- GS managing
- post-op ileus present
- NPO with NGT in place
- TPN via PICC
- empiric Zosyn, day 2
- pain control and anti-emetics
- PT/OT
Septic shock
- weaned off Levophed
Paroxysmal Atrial Fibrillation/Flutter
- hold oral Metoprolol; on scheduled IV doses
- hold Eliquis; start IV heparin today - requires intensive monitoring
Benign Hypertension
- hold Doxazosin/Losartan
Chronic HFrEF
- hold Lasix
- monitor volume status, may need IV Lasix
GERD - IV PPI
HLD - holding statin
DVT ppx: IV heparin drip
Code: DNR/DNI
Total Critical Care Time 37 minutes. I was immediately available to the patient and staff. I personally examined, reviewed labs, diagnostic images/reports, interpretations, treatment plans, discussed patient care with other providers and family
or caregivers (if patient is unable to make decisions), entered orders as appropriate and documented the medical record.
Anticipated Discharge: > 48 hours
Subjective/Interval History
-
Date of Service: December 15, 2024
sundown last evening and pulled out NGT
since replaced; >1L output
off pressors >12 hours
Objective Data
-
Labs:
Laboratory Results
12/15/24 12/15/24 12/15/24
03:36 11:39 18:30
WBC 14.3 H 14.5 H
Hgb 10.8 L 10.7 L
Hct 30.7 L 31.3 L
Plt Count 149 147
APTT 61.7 H Pending
Sodium 138
Potassium 3.6
Chloride 108 H
Carbon Dioxide 25
BUN 27 H
Creatinine 0.9
Glucose 151 H
Calcium 8.6
Vital Signs:
Vital Signs
Temp Pulse Resp BP Pulse Ox
98.2 F 140 29 157/77 96
12/15/24 11:46 12/15/24 11:31 12/15/24 07:30 12/15/24 11:31 12/15/24 08:00
I&O
12/14/24 12/15/24 12/16/24
06:59 06:59 06:59
Intake Total 800 / 900 2331.2 / 2381.2 388 / 388
Output Total 350 / 370 1050 / 1050 1160 / 1160
Balance 450 / 530 1281.2 / 1331.2 -772 / -772
Physical Exam
-
General: No Apparent Distress
HEENT: Other (+NG tube)
Cardiac: Regular Rhythm and S1/S2
GI: Soft and Nontender
Genito-urinary: No Costovertebral Tender
Neuro: AO x 3
Hematologic / Lymphatic: No Lymphadenopathy
Psych: Calm
Data Reviewed
-
Critical Care Time (in minutes): 37
Labs: Labs Reviewed by me
--- NOTE | 2024-12-15 15:07 | CM ---
Chart reviewed; anticipated discharge >48 hours; PT recommended SNF; referral sent to [facility] via [facility]
Plan: Discharge to SNF when medically stable pending bed availability
--- NOTE | 2024-12-15 15:15 | PTCARENOTE ---
family bedside, still occas attempts to get OOB 'to bathroom' or 'to go lie on the couch'. Redirected. c/o CHATTERJEE, denies nausea, abd soft. No other change. Forgetful, confused, interactive.
--- NOTE | 2024-12-15 15:59 | PTCARENOTE ---
asleep as Ofirmev dose nearly complete, family bedside, leaving now. HR now while asleep 93 NSR to 110 Afib/pacs.
--- NOTE | 2024-12-15 16:06 | CM ---
Met with patient's this afternoon to discuss discharge plan. Explained that SNF was recommended for her when stable for discharge.
They live in the [facility] and SNF preference is [facility]. Referrals sent via [facility]
--- NOTE | 2024-12-15 16:39 | PTCARENOTE ---
awake, restless, repositioned. HR 110-150. watching TV.
--- NOTE | 2024-12-15 17:04 | PTCARENOTE ---
oob to chair with chair alarm. call young in reach along with distractions - stress ball, tissues, IS. forgetful.
[2024-12-15] MEDS: MYCOSTATIN ORAL SUSPENSION PO (17:08)
[2024-12-15 17:53] LABS: Glucose - Point of Care 139 mg/dl (70-99)
[2024-12-15 18:53] LABS: APTT 51.5 Sec (23.4-35.0)
--- NOTE | 2024-12-15 18:55 | PTCARENOTE ---
restless, trying to climb OOB. pulled off pulse ox and HR monitor. Reattached. Family now bedside. pt forgetful, confused. bed alarm remains on and briskly responding to alerts.
[2024-12-15] MEDS: DILAUDID 0.5 MG IV (20:59)
[2024-12-15] MEDS: Parenteral Nutrition, Central 1440 IV (21:05)
--- NOTE | 2024-12-15 22:08 | PTCARENOTE ---
abd soft non distended- medicated with prn pain meds- pt ax1-2- impulsive forgetful . bed alarm in place- able to be redirected. varies between afib/sinus- bp wnl afebrile. henson draining meño. hep gtt per protocol. tpn changed. . midline incision
with dsg intact old shading. rt alma delia draining serosanguineous. ldlp with good blood return
[2024-12-15 23:57] LABS: Glucose - Point of Care 191 mg/dl (70-99)
[2024-12-16] VITALS (26 sets, daily range): BP systolic 115–159; BP diastolic 76–104; PULSE 99–111; O2SAT 98; BMI 23.2
--- NOTE | 2024-12-16 00:23 | PTCARENOTE ---
pt sleeps when left undisturbed- pain much better after earlier dose Dilaudid see mar. remains on room air- hep gtt and tpn through picc- ptt to be drawn at 0130. afebrile ax1-2- bed alarm in place . belly soft without ng tube . afib controlled rate
after brief episode of sinus
[2024-12-16] MEDS: DILAUDID 0.25 MG IV (01:35)
--- NOTE | 2024-12-16 01:47 | PTCARENOTE ---
pt woke up c/o abd pain. Dilaudid given - pt desated to 88. 2 liters placed. 95% on 2 liters- remains in afib controlled- ptt sent awaiting results
[2024-12-16 01:53] LABS: APTT 51.1 Sec (23.4-35.0)
[2024-12-16] MEDS: ZOSYN 50 IV ×4 (03:34→21:21)
--- NOTE | 2024-12-16 03:35 | PTCARENOTE ---
hep gtt increased per protocol. afib controlled . bp wnl afebrile. intermittently confused/forgetful but redirectable. henson draining clear yellow- Ofirmev Dilaudid for pain. bed alarm in place
[2024-12-16 04:04] LABS: Hematocrit 30.8 % (39.0-52.0); Hemoglobin 10.5 g/dL (13.0-18.0); Mean Corp Hgb Conc. 34.1 g/dL (33.0-37.0); Mean Corpuscular Volume 91.4 fL (80.0-94.0); Platelet Count 156 10^3/uL (130-400); Red Cell Dist. Width 14.0 % (11.5-14.5)
[2024-12-16 04:38] LABS: Blood Urea Nitrogen 26 mg/dl (9-20); Calcium 8.7 mg/dl (8.4-10.2); Carbon Dioxide 28 mmol/L (22-30); Chloride 109 mmol/L (98-107); Estimated Creatinine Clearance 75 ml/min; Glucose 162 mg/dl (70-99); Magnesium 2.3 mg/dl (1.6-2.3); Potassium 3.4 mmol/L (3.5-5.1); Sodium 140 mmol/L (135-145); eGFR > 60.00
[2024-12-16] MEDS: OFIRMEV 100 IV ×3 (04:44→17:18)
--- NOTE | 2024-12-16 04:44 | PTCARENOTE ---
aircraft maintenance engineer ordered k phos rider for low k and low phos see mar
[2024-12-16] MEDS: POTASSIUM PHOSPHATE 259.0909 MEQ IV (04:59)
[2024-12-16] MEDS: NOVOLOG FLEXPEN-LOW RESISTANCE 1 UNITS SC ×2 (05:15→12:05)
[2024-12-16 05:21] LABS: Glucose - Point of Care 193 mg/dl (70-99)
[2024-12-16] MEDS: LOPRESSOR 5 MG IV ×4 (05:56→23:44)
[2024-12-16] MEDS: NSS (PRESERVATIVE FREE) 10 ML IV (07:57)
[2024-12-16] MEDS: MYCOSTATIN ORAL SUSPENSION 5 ML PO ×3 (07:57→17:18)
[2024-12-16] MEDS: PROTONIX IV 40 MG IV (07:57)
--- NOTE | 2024-12-16 08:30 | W.PN.INTV ---
Today's Communication / Plan
Recommendations
HR better controlled today
SOB this AM --> lasix resumed
Pulled NGT --> low threshold to replace, but can hold off for now as no abd pain, belly is soft, and he is in NAD - surgery aware
Pain control
Continue heparin drip
Stable for downgrade to IMU. Pulmonary service to briefly follow along.
Assessment
-
Assessment: 84-year-old male with a past medical history of hypertension, A-fib/flutter on Eliquis, malignant melanoma (2014) s/p resection, GERD, appendectomy and history of left inguinal hernia repair who presented with nausea/vomiting. Also
right upper quadrant pain. Symptoms started the night prior to arrival and persisted throughout that evening and into the day prior to him come to the ER. He has had no bowel movement in the last 24 hours prior to arrival. Also he was not sure if
he had passed gas. His vomitus was nonbloody. He has been holding his Eliquis since this past Thursday (12/10/2024) due to an upcoming dental procedure. Initial vitals showed mild hypothermia to 96.9 �F, pulse rate 93, BP 120/81, 91% on room air
and respiratory rate 17. Initial labs showed Hb 12.9, WBC 7.6, glucose 162, and lipase 30. Abdominal ultrasound performed showing small volume free fluid in the abdomen. CT abdomen/pelvis then performed showing new dilatation of the small bowel
with marked mesenteric stranding, suspicious for possible closed-loop type small bowel obstruction. Patient given fluids in the ER with 500 cc of 0.9% NS, also 4 mg Zofran and 4 mg morphine. Surgery consulted and informed consent obtained for
intervention. Patient underwent a diagnostic laparoscopy with ex lap, lysis of adhesions and small bowel resection. Approximately 60 cm of ileum was collected. EBL was 40 cc. A 2 mm enterotomy from bowel grasper occurred during the procedure
otherwise there were no other immediate complications. Patient transferred to the ICU postoperatively and speech/language therapist services consulted for additional management/recommendations.
Chronic conditions SIGN MAINTENANCE: Hypertension, left inguinal hernia s/p repair, history of pericarditis, environmental allergies, deviated septum s/p repair, hyperlipidemia, malignant melanoma (2014) s/p resection, GERD, osteoporosis with fractures of
spine, asbestos exposure, T12 vertebral compression fracture, history of atrial flutter/A-fib on Eliquis
Impression:
#Closed loop small bowel obstruction s/p laparoscopy with lysis of adhesions, ex lap and small bowel resection (POD #3)
#Circulatory shock likely due to translocation of bacteria in the setting of SBO - shock state now resolved as of 12/14
#Anemia (Hb has been in the 11�12.5 range since June 2024)
#Mild metabolic acidosis with preserved anion gap due to lactic acidosis
#Lactic acidosis
#Chronic HFrEF (LVEF: 28% on Sade scan stress test from 11/04/2024)
#Abnormal stress test with Lexiscan stress test on 11/04/2024 showing multiple large, fixed defects which was concerning for infarction in multivessel distribution.
#Right-sided hydronephrosis
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
#History of malignant melanoma (2014) s/p resection
#GERD
#Atrial flutter/fib on Eliquis
#Former tobacco smoker
Plan:
- Post op management per surgery
- Pain control
- Patient pulled out NGT and this should be replaced if possible although currently not complaining of abdominal discomfort, and his abdomen is soft; obtain abdominal flatplate and low threshold to replace NGT; if NGT is replaced, he will need
restraints
- NPO
- TPN started as per surgery with assistance with dietary
- Continue ABx, currently on Zosyn
- No cultures sent
- Follow up pathology from OR (ileum)
- Trend WBC and monitor temperature curve
- Maintain SpO2 >90-94%; currently on room air saturating 92%
- Aspiration precautions
- prn nebulized bronchodilators - not currently bronchospastic
- Incentive spirometer encouraged 10x per hour for at least 4 hrs a day
- More tachypneic today and CXR shows increased interstitial prominence concerning for developing pulmonary edema --> resume lasix
- Maintain MAP>65; now off levophed since evening of 12/14
- Lactate is now 1.5 as of 12/14; no longer need to continue trending at this time
- Given Hx of chronic HFrEF, cautiously continue IVF; consider stopping IVF and resuming lasix tomorrow
- Replete electrolytes with K>4, Mg>2
- Trend serum HCO3 level (normal as of today)
- Monitor heart rate which was labile on 12/15, and is much more controlled today (12/16)
- Seems that flaquito helped a lot on 12/15, as he had a headache at the time
- He is going in an out of A-fib and has frequent PVCs
- Low threshold to start amiodarone drip, livan if NSVT persits/worsens or if HR remains >110-120
- Continue follow-up with urology in office for right-sided hydronephrosis. CT urography on 12/12/2024 showed diffuse right-sided calyceal dilation with transition at the UPJ with no obstructive stone or mass
- Maintain euglycemia with goal BG 140-180; A1C: 5.9 on 12/15/2024
- Trend H/H and transfuse if needed to keep Hb>7g/dL; keep plt>50k (given post-operative status)
- Stress ulcer ppx: PPI
- DVT ppx: Heparin gtt as per surgery; hold Eliquis until cleared to resume per surgery
Code status: DNR/DNI
Patient stable for downgrade out of ICU to IMU. Pulmonary service will continue to briefly follow along.
Data:
CT abdomen/pelvis with IV contrast 12/13/2024:
New dilatation of small bowel in the central abdomen to the right with marked mesenteric stranding and some whirling of the mesentery in the right abdomen in comparison to study of preceding day. Findings are at least suspicious for possible
closed-loop type small bowel obstruction (with some relative decreased enhancement of the wall of the small bowel in this area), possibly with accompanying internal hernia with significant increased now small to moderate volume free fluid
particularly in the right abdomen. Findings discussed by telephone with Dr. Bernstein in the emergency department at approximately 1950 hours on December 13, 2024.
Total time spent today was 38 minutes for this encounter. Time includes reviewing laboratory test/imaging results, reviewing pertinent medical records, obtaining and reviewing medical history, performing an appropriate exam, ordering medications,
tests and procedures. Time also includes documentation of this encounter, coordinating patient care and communicating with other healthcare professionals. Total time does not include separately billed tests performed on this date of service.
Subjective Dataa
Subjective Data
Date of Service:
Date of Service: December 16, 2024
Chief Complaint: Instructor Tap Dancing Follow Up
Subjective:
Patient was seen and evaluated this morning. He was having tachypnea this morning although he did not specifically complain of this to he has periods of confusion and he is not a reliable historian. Patient pulled out NGT, heart rate 95,
saturating 99% BP 149/94. Unclear if he is having flatus or not. Belly not distended and not complaining of abd pain.
Review of Systems
General: Other (Unobtainable as patient is confused)
Objective Data
Data Reviewed
Vital Signs / I&O / Oxygen:
Vital Signs
Temp Pulse Resp BP Pulse Ox
98.3 F 114 23 149/94 92
12/16/24 08:28 12/16/24 11:14 12/16/24 10:00 12/16/24 11:14 12/16/24 10:00
Intake and Output
12/15/24 12/16/24 12/17/24
06:59 06:59 06:59
Intake Total 2331.2 / 2381.2 2031 / 2169 611 / 611
Output Total 1050 / 1050 2600 / 2700 250 / 250
Balance 1281.2 / 1331.2 -568 / -531 361 / 361
SaO2 92
Nasal Cannula flow liters per 2
minute
Physical Exam
General: Respiratory Distress (n), Comfortable, Chills (n) and Sweats (n)
HEENT: Normocephalic and Anicteric
Cardiovascular: Irregular Rhythm (Irregularly irregular) and Peripheral Edema (n)
Respiratory: Wheeze (n), Crackles (Bibasilar), Rhonchi (n) and Non-Labored Respirations
GI: Soft, Non Distended, Non Tender and Normal Bowel Sounds
Neurology: Awake, Alert, Tremors (n) and Other (Confused)
Skin: Warm, Dry, Cyanosis (n) and Jaundice (n)
Labs/Micro/Reports
Lab Data
12/16/24 03:29
12/16/24 03:29
Laboratory Results
12/15/24 12/15/24 12/16/24
11:39 18:33 01:31
APTT 61.7 H 51.5 H 51.1 H
12/16/24
08:25
APTT 41.6 H
[2024-12-16 08:53] LABS: APTT 41.6 Sec (23.4-35.0)
--- NOTE | 2024-12-16 09:19 | W.PN.GS2 ---
Today's Communication / Plan
-
KUB
NPO
TPN
IV abx
Hep gtt
Step down
Assessment / Plan
-
84M POD3 s/p diagnostic laparoscopy with JUNE converted to ex lap for closed loop SBO with SBR and repair enterotomy x1 for ischemic bowel
AF, tachycardia improved
UOP improved
Eliquis on hold, hep gtt started yesterday, H/H stable
WBC stable at 14K, expected, likely reactive
Denies flatus but belly soft, non distended, no belching or nausea
Plan:
NPO
PICC/TPN
Consider increasing IV lopressor to equivalent of home dose as BP allows (5mg IV Q6H)
Monitor UOP, may ultimately require lasix
IV zosyn day 06/10
PRN IV dilaudid for pain control, rubén IV ofirmev
Cont hep gtt
PT/OT
KUB to evaluate bowel, unclear how reliable his memory is about flatus
OK for step down to IMU
Subjective Data
-
Date of Service: December 16, 2024
AFVSS, denies pain, denies n/v, yesterday and pulled NGT, was not replaced, working with PT/OT, denies flatus
Objective Data
-
Intake and Output
12/15/24 12/16/24 12/17/24
06:59 06:59 06:59
Intake Total 2331.2 / 2381.2 2031 / 2169 411 / 411
Output Total 1050 / 1050 2600 / 2700 175 / 175
Balance 1281.2 / 1331.2 -568 / -531 236 / 236
Intake:
Oral fluids 0 / 0
IV fluids (Total) 1341.2 / 1341.2 312 / 389 231 / 231
Lr 1,000 ml @ 100 mls/hr IV . 1250 / 1250
Q10H RUBÉN Rx#:[id number]
heparin 182 / 194 36 / 36
levophed 91.2 / 91.2
potassium phosphate 130 / 195 195 / 195
IV piggybacks 450 / 450 500 / 500
TPN/PPN 450 / 500 1190 / 1250 180 / 180
Amount instilled into GI Tube (
Total)
Tyler Sump
Output:
Drain Output (Total) 75 / 75
Abdomen 75 75
Gastrointestinal tube output ( 0 / 0 800 / 800
Total)
Tyler Sump 0 / 0 800 / 800
Urine, Henson 845 / 845 1725 / 1825 175 / 175
Vital Signs
Temp Pulse Resp BP Pulse Ox
98.3 F 91 27 133/83 98
12/16/24 08:28 12/16/24 07:00 12/16/24 07:00 12/16/24 07:00 12/16/24 08:33
Lab Results
12/16/24 03:29
12/16/24 03:29
Calcium 8.7 mg/dl (8.4-10.2) 12/16/24 03:29
Phosphorus 1.8 mg/dl (2.5-4.5) L 12/16/24 03:29
Magnesium 2.3 mg/dl (1.6-2.3) 12/16/24 03:29
Total Bilirubin 0.9 mg/dl (0.2-1.3) 12/13/24 15:01
AST 21 U/L (17-59) 12/13/24 15:01
ALT 13 U/L (0-50) 12/13/24 15:01
Alkaline Phosphatase 79 U/L (38-126) 12/13/24 15:01
Total Protein 7.4 g/dl (6.3-8.2) 12/13/24 15:01
Albumin 3.2 g/dl (3.5-5.0) L 12/14/24 04:19
Physical Exam
-
Gen: NAD
Abd: soft, non distended, minimal ttp, dressing with stable small strikethrough, drain ss
Patient has a henson catheter: No
Patient has a central line: Yes (PICC)
--- NOTE | 2024-12-16 09:39 | PTCARENOTE ---
Assumed care of pt from night RN. AAOx3. ALGAACIQ. Afib on switchboard installer, HR 90s-110s. SpO2 97% on 2L. VSS. Heparin gtt infusing per protocol. PTT assessment due at 1530. TPN infusing through LUE DL PICC. Midline abdominal dressing with small amount of
old drainage. R MYNOR dressing CDI. MYNOR bulb with serosanguineous drainage. Alvarado draining clear, yellow urine. Pt denies nausea & pain, also denies flatus. Portable abd xray ordered by general surgery. Pt resting in bed with call young in reach.
Assessment documented.
--- NOTE | 2024-12-16 10:36 | W.PN.GS2 ---
Addendum entered and electronically signed by Ki Burks MD 12/19/24 09:23:
I was physically present and personally performed the guillaume portions of the surgical evaluation and/or procedure with the resident. I discussed the findings, reviewed the resident�s note, and confirmed the medical decision-making. I provided direct
supervision as required and agree with the assessment and plan as documented with the following additions/corrections: Pls see my separate prog note from same day
Original Note:
Today's Communication / Plan
-
Continue monitoring
Assessment / Plan
-
84M POD3 s/p diagnostic laparoscopy with JUNE converted to ex lap for closed loop SBO with SBR and repair enterotomy x1 for ischemic bowel
#Closed loop bowel obstruction and ischemic bowel s/p laparoscopy with adhesiolysis, ex lap and small bowel resection POD#2
-Was confused overnight and pulled out his NGT, same was replaced.
-Currently on NPO, Off NGT
-Nutrition with TPN via PICC
-Pain control PRN Dilaudid
#Circulatory shock
- Off pressure support
- Monitor I/Os
- Consider Lasix if signs of fluid overload
#Chronic HFrEF LVEF: 28%
- BB given IV with hold parameters
#Atrial flutter/fib on Eliquis
#Tachycardia
- BB given IV with hold parameters
- Eliquis on hold
#Leucocytosis
-Likely reactive, from inflammation and surgery
PT/OT- OOB
DVT PPX- Heparin drip, SCD
will be transitioned to Heparin drip per protocol
Subjective Data
-
Date of Service: December 16, 2024
No complains
Pain is manageable, not passed gas
Objective Data
-
Intake and Output
12/15/24 12/16/24 12/17/24
06:59 06:59 06:59
Intake Total 2331.2 / 2381.2 2032 / 2169 537 / 537
Output Total 1050 / 1050 2600 / 2700 250 / 250
Balance 1281.2 / 1331.2 -568 / -531 287 / 287
Intake:
Oral fluids 0 / 0
IV fluids (Total) 1341.2 / 1341.2 312 / 389 247 / 247
Lr 1,000 ml @ 100 mls/hr IV . 1250 / 1250
Q10H CORONA Rx#:[id number]
heparin 182 / 194 52 / 52
levophed 91.2 / 91.2
potassium phosphate 130 / 195 195 / 195
IV piggybacks 450 / 450 500 / 500 50 / 50
TPN/PPN 450 / 500 1190 / 1250 240 / 240
Amount instilled into GI Tube ( 90 / 30 / 30
Total)
[place] Sump 90 / 90 30 / 30
Output:
Drain Output (Total) 205 / 205 75 / 75
Abdomen 205 / 205 75 / 75
Gastrointestinal tube output ( 0 / 0 800 / 800
Total)
[place] Sump 0 / 0 800 / 800
Urine, Henson 845 / 845 1725 / 1825 250 / 250
Vital Signs
Temp Pulse Resp BP Pulse Ox
98.3 F 91 27 133/83 98
12/16/24 08:28 12/16/24 07:00 12/16/24 07:00 12/16/24 07:00 12/16/24 08:33
Lab Results
12/16/24 03:29
12/16/24 03:29
Calcium 8.7 mg/dl (8.4-10.2) 12/16/24 03:29
Phosphorus 1.8 mg/dl (2.5-4.5) L 12/16/24 03:29
Magnesium 2.3 mg/dl (1.6-2.3) 12/16/24 03:29
Total Bilirubin 0.9 mg/dl (0.2-1.3) 12/13/24 15:01
AST 21 U/L (17-59) 12/13/24 15:01
ALT 13 U/L (0-50) 12/13/24 15:01
Alkaline Phosphatase 79 U/L (38-126) 12/13/24 15:01
Total Protein 7.4 g/dl (6.3-8.2) 12/13/24 15:
Albumin 3.2 g/dl (3.5-5.0) L 12/14/24 04:19
Physical Exam
-
Elderly man, met lying in bed in soft restraints. Not in any obvious distress.
No NGT
MYNOR Draining serosanguineous fluid
Currently Alert, oriented to place. time and person
Chest- Not dyspneic, saturating adequately on 2L/min of INO2. Bi-basilar creps
CVS-Irregular rhythm,
ABD- Rounded, moves with respiration. Midline dressing stained with dried blood. Wound dressing also noted around MYNOR Drain site
Soft, No areas of undue tenderness
Hypo active bowel sounds
Patient has a henson catheter: Yes
Patient has a central line: Yes (picc)
[2024-12-16] MEDS: HEPARIN 25000 UNITS/250 ML IV (11:11)
--- NOTE | 2024-12-16 11:46 | PN.CDI ---
CDI
- -
CDI:
Physician Documentation Request
Admit Date: 12/14/24 01:37
Dear Doctor Isiah,
Patient admitted with acute SBO.
12/14: Nutrition assessment, 'Patient meets AND and ASPEN criteria for severe protein calorie malnutrition due to a loss of more than 10% BW in 6 months and less than 75% of estimated nutrition needs met for over 1 month....Severe protein calorie
malnutrition chronic illness '
Please provide in your note the diagnosis associated with the above findings and your assessment:
Severe protein calorie malnutrition of chronic illness
Other (please specify)
[place] Criteria ([facility] Hospitalist 2017)
2 or more criteria must be present for either
non severe or severe malnutrition
Note that the criteria differs related to the
presence of an acute or chronic illness
Chronic Illness
Energy Intake Non Severe: <75% for >1 month
Severe: <75% for >1 month
Weight Loss Non Severe: 5% over 1 month
7.5% over 3 months
10% over 6 months
20% over 1 year
Severe: >5% over 1 month
>7.5% over 3 months
>10% over 6 months
>20% over 1 year
Body Fat Non Severe: Mild Loss
Severe: Severe Loss
Muscle Mass Non Severe: Mild Loss
Severe: Severe Loss
Fluid Accumulation Non Severe: Mild Accumulation
Severe: Moderate to severe
accumulation
Reduced Detective Captain Strength Non Severe: N/A
Severe: Measurably reduced
Use of terms such as suspected, likely, concern for, or probable (associated with a specific diagnosis that is being evaluated, monitored, or treated as if it exists) are acceptable and can be coded in the inpatient setting, when documented at the
time of discharge.
Thank you,
Magda OLMOS,RN,CCDS
CDI Specialist
Available via tiger text
Please use your independent medical judgment in providing your response.
[2024-12-16 12:04] LABS: Glucose - Point of Care 174 mg/dl (70-99)
[2024-12-16] MEDS: NOVOLOG FLEXPEN 2 UNITS SC ×2 (12:15→18:07)
[2024-12-16 12:23] LABS: B.E. - POC -6.2 mmol/L; Glucose - POC 204 mg/dl (70-99); HCO3 - POC 21 mmol/L (21-28); Hematocrit - POC 38 % PCV (42-52); Hemodilution- POC Yes; Hemoglobin Calculated - POC 13.0; Ionized Calcium - POC 1.28 mmol/L (1.15-1.33); Lactate - POC 3.13 mmol/L (0.36-0.75); O2 Saturation %Calculated-POC 99.8 % (94-98); PCO2 - POC 47 mmHg (35-48); PO2 - POC 246 mmHg (83-108); Potassium - POC 3.3 mmol/L (3.5-5.1); Sodium - POC 139 mmol/L (136-145); Specimen Type - POC Arterial; pH - POC 7.26 (7.35-7.45)
--- NOTE | 2024-12-16 12:23 | PN.CDI ---
CDI
- -
CDI:
Physician Documentation Request
Admit Date: 12/14/24 01:37
Dear Doctor Isiah,
Patient admitted with acute SBO.
12/15 PN, '....s/p diagnostic laparoscopy with JUNE converted to ex lap for closed loop SBO with SBR and repair enterotomy x1 for ischemic bowel on 12/13/24'
12/13 Hgb 12.9
12/15 Hgb 10.7
Based on the above, could you clarify, in your progress note, which of the following is the most likely diagnosis you are evaluating, monitoring and/or treating?
Acute blood loss anemia on chronic anemia
Acute blood loss anemia only
Other
Use of terms such as suspected, likely, concern for, or probable (associated with a specific diagnosis that is being evaluated, monitored, or treated as if it exists) are acceptable and can be coded in the inpatient setting, when documented at the
time of discharge.
Thank you,
Magda OLMOS,RN,CCDS
CDI Specialist
Available via tiger text
Please use your independent medical judgment in providing your response.
--- NOTE | 2024-12-16 13:18 | PN.CDI ---
CDI
- -
CDI:
Physician Documentation Request
Admit Date: 12/14/24 01:37
Dear Doctor Kimmie,
Patient admitted with closed loop bowel obstruction and ischemic bowel s/p laparoscopy with adhesiolysis, ex lap and small bowel resection..'
12/16 Gen Surg PN, 'closed loop SBO with SBR....Currently on NPO, Off NGT....Nutrition with TPN via PICC.'
Please provide in your note the the likely extent of the documented bowel obstruction:
Complete small bowel obstruction
Partial small bowel obstruction
Other
Use of terms such as suspected, likely, concern for, or probable (associated with a specific diagnosis that is being evaluated, monitored, or treated as if it exists) are acceptable and can be coded in the inpatient setting, when documented at the
time of discharge.
Thank you,
Magda REIDN,RN,CCDS
CDI Specialist
Available via tiger text
Please use your independent medical judgment in providing your response.
--- NOTE | 2024-12-16 13:26 | PN.CDI ---
CDI
- -
CDI:
Physician Documentation Request
Admit Date: 12/14/24 01:37
Dear Doctor Kimmie,
Patient admitted with closed loop bowel obstruction and ischemic bowel s/p laparoscopy with adhesiolysis, ex lap and small bowel resection.
12/16 Gen Surg PN, '... repair enterotomy x1 for ischemic bowel.'
Please clarify which of the following accurately represents the likely acuity of the ischemic bowel:
Acute
Acute on chronic
Chronic
Other
Use of terms such as suspected, likely, concern for, or probable (associated with a specific diagnosis that is being evaluated, monitored, or treated as if it exists) are acceptable and can be coded in the inpatient setting, when documented at the
time of discharge.
Thank you,
Magda OLMOS,RN,CCDS
CDI Specialist
Available via [place] text
Please use your independent medical judgment in providing your response.
--- NOTE | 2024-12-16 13:28 | PTCARENOTE ---
Pt with increased work of breathing, tachypneic with RR in 30s-40s at times. Pt states 'I am having trouble breathing'. Lungs with crackles noted bilaterally upon auscultating. EKG obtained. Unchanged from prior. Portable CXR showing pulmonary
edema. [employer] and Hospitalist aware. 40mg IV Lasix to be ordered and given. Pt currently sating 97% on room air, RR 23, HR 97 & BP 152/70. Call young in reach.
--- NOTE | 2024-12-16 14:12 | PN.CDI ---
CDI
- -
CDI:
Physician Documentation Request
Admit Date: 12/14/24 01:37
Dear Doctor,
Dear Doctor Isiah,
Patient admitted with acute SBO.
12/15 PN, 'Septic shock - weaned off Levophed.'
Please clarify the following:
Sepsis/ septic shock were present on admission (please document source of infection)
Sepsis/ septic shock evolved during hospitalization (please document source of infection)
Other
Use of terms such as suspected, likely, concern for, or probable (associated with a specific diagnosis that is being evaluated, monitored, or treated as if it exists) are acceptable and can be coded in the inpatient setting, when documented at the
time of discharge.
Thank you,
Magda OLMOS,RN,CCDS
CDI Specialist
Available via [place] text
Please use your independent medical judgment in providing your response.
--- NOTE | 2024-12-16 14:36 | CM ---
S/P ischemic bowel, small bowel resection. NGT, TPN, IV/Lopressor, IV/Zosyn. Stat dose of Lasix for SOB, CXR pulmonary edema. Discharge POC: Therapy recommendation for SNF. Referral previously placed.
[2024-12-16 14:44] LABS: APTT 49.8 Sec (23.4-35.0)
[2024-12-16] MEDS: LASIX 40 MG IV (14:44)
--- NOTE | 2024-12-16 15:35 | PTCARENOTE ---
NGT placed at bedside per General Surgery orders. Awaiting Xray confirmation of placement at this time. Pt tolerated placement. SpO2 98% on room air. VSS.
--- NOTE | 2024-12-16 15:38 | W.PN.HOSP.TC ---
Today's Communication/Plan
-
continue Abx
continue NPO and TPN
Hep drip
IV Lasix x 1
Assessment / Plan
Assessment / Plan
Assessment:
Closed Loop acute SBO
- CT: New dilatation of small bowel in the central abdomen to the right with marked mesenteric stranding and some whirling of the mesentery in the right abdomen in comparison to study of preceding day. Findings are at least suspicious for possible
closed-loop type small bowel obstruction (with some relative decreased enhancement of the wall of the small bowel in this area), possibly with accompanying internal hernia with significant increased now small to moderate volume free fluid
particularly in the right abdomen.
- s/p diagnostic laparoscopy with JUNE converted to ex lap for closed loop SBO with SBR and repair enterotomy x1 for ischemic bowel on 12/13/24
- GS managing
- post-op ileus present
- patient removed NGT twice
- TPN via PICC
- empiric Zosyn, day 06/10
- pain control and anti-emetics per GS
- PT/OT - SNF recommended
Circulatory shock from intra-abdominal source (closed loop SBO, ? possible translocation of GI pathogen)
- weaned off Levophed
Paroxysmal Atrial Fibrillation/Flutter
- hold oral Metoprolol; on scheduled IV doses
- hold Eliquis; continue IV heparin drip - requires intensive monitoring of PTTs
Benign Hypertension
- hold Doxazosin/Losartan
acute on Chronic HFrEF, iatrogenic in setting of TPN and infusions
- daily prn Lasix; monitor I/Os, weights, lytes
GERD - IV PPI
HLD - holding statin
Acute blood loss anemia on chronic anemia
Severe protein calorie malnutrition of chronic illness
DVT ppx: IV heparin drip
Code: DNR/DNI
Total Critical Care Time 35 minutes. I was immediately available to the patient and staff. I personally examined, reviewed labs, diagnostic images/reports, interpretations, treatment plans, discussed patient care with other providers and family
or caregivers (if patient is unable to make decisions), entered orders as appropriate and documented the medical record.
Anticipated Discharge: > 48 hours
Subjective/Interval History
-
Date of Service: December 16, 2024
removed NG again overnight
this AM KUB with air distention of bowel loops
patient reports no change in pain pattern - moderate
Objective Data
-
Labs:
Laboratory Results
12/16/24 12/16/24 12/16/24
03:29 08:25 14:13
WBC 14.1 H
Hgb 10.5 L
Hct 30.8 L
Plt Count 156
APTT 41.6 H 49.8 H
Sodium 140
Potassium 3.4 L
Chloride 109 H
Carbon Dioxide 28
BUN 26 H
Creatinine 0.7
Glucose 162 H
Calcium 8.7
12/16/24
21:00
WBC
Hgb
Hct
Plt Count
APTT Pending
Sodium
Potassium
Chloride
Carbon Dioxide
BUN
Creatinine
Glucose
Calcium
Vital Signs:
Vital Signs
Temp Pulse Resp BP Pulse Ox
98.2 F 113 24 152/88 97
12/16/24 15:16 12/16/24 14:44 12/16/24 11:15 12/16/24 14:44 12/16/24 11:15
I&O
12/15/24 12/16/24 12/17/24
06:59 06:59 06:59
Intake Total 2331.2 / 2381.2 2032 / 2169 909 / 909
Output Total 1050 / 1050 2600 / 2700 640 / 640
Balance 1281.2 / 1331.2 -568 / -531 269 / 269
Physical Exam
-
General: No Apparent Distress
HEENT: Normocephalic and Atraumatic
Respiratory: Crackles; Negative Wheezes
Cardiac: Regular Rhythm
GI: Tender and Distended
Neuro: AO x 3
Psych: Calm
Data Reviewed
-
Critical Care Time (in minutes): 35
Labs: Labs Reviewed by me
--- NOTE | 2024-12-16 17:47 | PTCARENOTE ---
NGT placement confirmed via Xray. NGT placed to low intermittent suction per order. Green drainage note in suction container. Assessment otherwise unchanged. Pt resting in bed, call young in reach. Family at bedside.
[2024-12-16 18:05] LABS: Glucose - Point of Care 203 mg/dl (70-99)
[2024-12-16] MEDS: NOVOLOG FLEXPEN-LOW RESISTANCE 2 UNITS SC (18:07)
--- NOTE | 2024-12-16 20:34 | PTCARENOTE ---
Patient transferred to room 3355 in the bed with belongings & RN. Oriented to room and use of call young. Daughter(Beverly) and PEARL at bedside. Patient confused, able to state he is at [facility] but cannot specify which hospital. Disoriented to the
date/year and situation. HR 90-110s Afib. NGT with 500cc green drainage after transport into room; Placed to [facility]. Patient denies any pain. TPN infusing @ 60cc/hr. Heparin gtt infusing @ 1600u/hr. 97% on RA, respirations even and unlabored. [place]
and MYNOR intact. Abd dressing unchanged. Denies any pain. Family updated on plan of care. Bed alarm set for safety. Call young within reach. Re-oriented patient to surroundings and reminded to use call young for assistance.
[2024-12-16] MEDS: Parenteral Nutrition, Central 1430 IV (21:14)
[2024-12-16] MEDS: MYCOSTATIN ORAL SUSPENSION PO (21:21)
--- NOTE | 2024-12-16 21:30 | PTCARENOTE ---
Family left and went home. Pt immediately became visibly anxious and slightly agitated. Asking to be left alone, stating he doesn't want anything more and wants to sleep. Reminded to keep NGT / lines/ drains in place. Support provided. Refused oral
care. Call young within reach. Bed alarm set.
[2024-12-16 21:33] LABS: APTT 92.9 Sec (23.4-35.0)
[2024-12-16 23:57] LABS: Glucose - Point of Care 190 mg/dl (70-99)
[2024-12-17] VITALS (14 sets, daily range): BP systolic 120–151; BP diastolic 77–105; BMI 22.9
[2024-12-17] MEDS: OFIRMEV 100 IV ×4 (00:31→17:29)
[2024-12-17] MEDS: NOVOLOG FLEXPEN 2 UNITS SC ×4 (00:43→17:34)
[2024-12-17] MEDS: NOVOLOG FLEXPEN-LOW RESISTANCE 1 UNITS SC ×4 (00:43→17:33)
--- NOTE | 2024-12-17 03:01 | PTCARENOTE ---
Patient very paranoid, anxious and withdrawn from staff. Attempting to get out of bed multiple times, tubes becoming tangled from patient's restlessness. ELIZABETH Ervin made aware and ordered x1 IM Haldol. RN did not administer as patient apologized for
not trusting and believing staff and acknowledged hallucinations in the room. Patient attempted to get out of bed, setting off the bed alarm and subsequently pulled out NGT around 0300. 16 Fr NGT placed to right nare, taped and secured at 70cm. Pt
tolerated well. 1200cc green fluid immediately drained. ELIZABETH Ervin made aware. Bilateral mitts and wrist restraints applied. Educated on the importance of not pulling at tubes or attempting to get out of bed for safety. Patient re-oriented to time,
place and situation. Pt continues to appear anxious. Bed alarm set, call young within reach.
[2024-12-17] MEDS: HEPARIN 25000 UNITS/250 ML IV ×2 (03:27→20:13)
[2024-12-17] MEDS: ZOSYN 50 IV ×3 (03:43→17:42)
[2024-12-17 04:11] LABS: Hematocrit 33.3 % (39.0-52.0); Hemoglobin 11.4 g/dL (13.0-18.0); Mean Corp Hgb Conc. 34.2 g/dL (33.0-37.0); Mean Corpuscular Volume 88.6 fL (80.0-94.0); Platelet Count 169 10^3/uL (130-400); Red Cell Dist. Width 14.2 % (11.5-14.5)
[2024-12-17 04:24] LABS: APTT 75.8 Sec (23.4-35.0)
[2024-12-17 04:34] LABS: Blood Urea Nitrogen 30 mg/dl (9-20); Calcium 9.1 mg/dl (8.4-10.2); Carbon Dioxide 30 mmol/L (22-30); Chloride 104 mmol/L (98-107); Estimated Creatinine Clearance 75 ml/min; Glucose 156 mg/dl (70-99); Magnesium 2.0 mg/dl (1.6-2.3); Potassium 3.3 mmol/L (3.5-5.1); Sodium 141 mmol/L (135-145); eGFR > 60.00
[2024-12-17] MEDS: LOPRESSOR 5 MG IV ×3 (06:23→17:42)
[2024-12-17 06:37] LABS: Glucose - Point of Care 193 mg/dl (70-99)
[2024-12-17] MEDS: MYCOSTATIN ORAL SUSPENSION 5 ML PO ×3 (09:00→17:35)
[2024-12-17] MEDS: PROTONIX IV 40 MG IV (09:00)
[2024-12-17] MEDS: NSS (PRESERVATIVE FREE) 10 ML IV (09:00)
[2024-12-17] MEDS: KCL 270 MEQ IV ×2 (10:00→19:39)
--- NOTE | 2024-12-17 10:12 | W.PN.HOSP.TC ---
Today's Communication/Plan
-
continue NPO/NGT/TPN
continue IV Heparin and IV Scheduled BB
x1 Lasix dose today
prn restraints
Assessment / Plan
Assessment / Plan
Assessment:
Closed Loop acute SBO
- CT: New dilatation of small bowel in the central abdomen to the right with marked mesenteric stranding and some whirling of the mesentery in the right abdomen in comparison to study of preceding day. Findings are at least suspicious for possible
closed-loop type small bowel obstruction (with some relative decreased enhancement of the wall of the small bowel in this area), possibly with accompanying internal hernia with significant increased now small to moderate volume free fluid
particularly in the right abdomen.
- s/p diagnostic laparoscopy with JUNE converted to ex lap for closed loop SBO with SBR and repair enterotomy x1 for ischemic bowel on 12/13/24
- GS managing
- post-op ileus present
- patient removed NGT twice; now inserted a 3rd time - monitor outputs
- TPN via PICC
- empiric Zosyn, day 07/11
- pain control and anti-emetics per GS
- PT/OT - SNF recommended
Circulatory shock from intra-abdominal source (closed loop SBO, ? possible translocation of GI pathogen)
- weaned off Levophed
Paroxysmal Atrial Fibrillation/Flutter
- hold oral Metoprolol; on scheduled IV doses
- hold Eliquis; continue IV heparin drip - requires intensive monitoring of PTTs
Benign Hypertension
- hold Doxazosin/Losartan until PO route established
acute on Chronic HFrEF, iatrogenic in setting of TPN and infusions
- daily prn Lasix; monitor I/Os, weights, lytes
GERD - IV PPI
HLD - holding statin
Acute blood loss anemia on chronic anemia
Severe protein calorie malnutrition of chronic illness
Hypokalemia - replete prn
Acute delirium, suspect TME in setting of post-op, anesthesia
- prn Haldol
- prn restraints to facilitate safe post-op care
DVT ppx: IV heparin drip
Code: DNR/DNI
Anticipated Discharge: > 48 hours
Subjective/Interval History
-
Date of Service: December 17, 2024
agitation overnight, physically restrained
NG back in place; 2L output
currently denies pain
Objective Data
-
Labs:
Laboratory Results
12/17/24
03:37
WBC 14.9 H
Hgb 11.4 L
Hct 33.3 L
Plt Count 169
APTT 75.8 H
Sodium 141
Potassium 3.3 L
Chloride 104
Carbon Dioxide 30
BUN 30 H
Creatinine 0.7
Glucose 156 H
Calcium 9.1
Vital Signs:
Vital Signs
Temp Pulse Resp BP Pulse Ox
97.8 F 97 25 137/86 96
12/17/24 07:59 12/17/24 08:00 12/17/24 08:00 12/17/24 08:00 12/17/24 06:28
I&O
12/16/24 12/17/24 12/18/24
06:59 06:59 06:59
Intake Total 2031 / 2168
Output Total 2600 / 2700 4515 / 4515
Balance -568 / -531 -2508 / -2508
Physical Exam
-
General: No Apparent Distress
HEENT: Normocephalic, Atraumatic and Other (+NG tube)
Respiratory: Negative Wheezes
Cardiac: Regular Rhythm and S1/S2
GI: Tender (mildly)
Neuro: AO x 3
Psych: Calm
Data Reviewed
-
Total Time Spent with Patient (in minutes): 41
Labs: Labs Reviewed by me
[2024-12-17] MEDS: LASIX 40 MG IV (11:21)
--- NOTE | 2024-12-17 11:32 | W.PN.GS2 ---
Today's Communication / Plan
-
`
Assessment / Plan
-
Assessment: 84M POD#4 s/p diagnostic laparoscopy with JUNE converted to ex lap for closed loop SBO with SBR and repair enterotomy x1 for ischemic bowel
AF - AFib, BP stable
abdomen much softer with NGT in place for ileus
Plan: NGT and TPN renewed
Subjective Data
-
Date of Service: December 17, 2024
pt seen and examined
d/w nursing and hospitalist
NGT with 2L output since replacement overnight
Objective Data
-
Intake and Output
12/16/24 12/17/24 12/18/24
06:59 06:59 06:59
Intake Total 2031 / 2168 420 / 420
Output Total 2600 / 2700 4515 / 4515
Balance -568 / -531 -2508 / -2508 420 / 420
Intake:
Oral fluids 0 / 0
IV fluids (Total) 312 / 389 367 / 367
heparin 182 / 194 172 / 172
potassium phosphate 130 / 195 195 / 195
IV piggybacks 500 / 500 400 / 400 420 / 420
TPN/PPN 1190 / 1250 1200 / 1200
Amount instilled into GI Tube ( 30 / 30 40 / 40
Total)
[place] Sump 30 / 30 40 / 40
Output:
Drain Output (Total) 75 / 75 90 / 90
Abdomen 75 / 75 90 / 90
Gastrointestinal tube output ( 800 / 800 2099 / 2100
Total)
[place] Sump 800 / 800 2099 / 2099
Urine, Alvar[place] 1725 / 1825 2325 / 2325
Vital Signs
Temp Pulse Resp BP Pulse Ox
97.8 F 115 25 151/86 97
12/17/24 07:59 12/17/24 11:21 12/17/24 11:00 12/17/24 11:21 12/17/24 11:18
Lab Results
12/17/24 03:37
12/17/24 03:37
Calcium 9.1 mg/dl (8.4-10.2) 12/17/24 03:37
Phosphorus 3.1 mg/dl (2.5-4.5) 12/17/24 03:37
Magnesium 2.0 mg/dl (1.6-2.3) 12/17/24 03:37
Total Bilirubin 0.9 mg/dl (0.2-1.3) 12/13/24 15:01
AST 21 U/L (17-59) 12/13/24 15:01
ALT 13 U/L (0-50) 12/13/24 15:01
Alkaline Phosphatase 79 U/L (38-126) 12/13/24 15:01
Total Protein 7.4 g/dl (6.3-8.2) 12/13/24 15:01
Albumin 3.2 g/dl (3.5-5.0) L 12/14/24 04:19
Physical Exam
-
NAD AAO but confused
ABD: soft, ND, nontender
midline incision with dressing in place
MYNOR with SSF
[2024-12-17 12:03] LABS: Glucose - Point of Care 180 mg/dl (70-99)
--- NOTE | 2024-12-17 15:53 | W.PN.PUL3 ---
Today's Communication / Plan
-
post-operative management per surgery
NPO
Heparin gtt
Monitor for recurrence of rapid A-fib or NSVT, which he had in ICU likely due to pain (abdomen + headache)
lasix as needed
PPI
Pain control
On room air, breathing comfortably.
Given his interstitial changes, I will arrange for outpatient pulmonary office follow up for full PFTs and possibly serial imaging to monitor his interstitial changes
No additional recommendations at this time. Pulmonary service will now sign off. Please reconsult if there are any additional questions/concerns, or if patient's respiratory status deteriorates.
Assessment
-
Assessment: 84-year-old male with a past medical history of hypertension, A-fib/flutter on Eliquis, malignant melanoma (2014) s/p resection, GERD, appendectomy and history of left inguinal hernia repair who presented with nausea/vomiting. Also
right upper quadrant pain. Symptoms started the night prior to arrival and persisted throughout that evening and into the day prior to him come to the ER. He has had no bowel movement in the last 24 hours prior to arrival. Also he was not sure if
he had passed gas. His vomitus was nonbloody. He has been holding his Eliquis since this past Thursday (12/10/2024) due to an upcoming dental procedure. Initial vitals showed mild hypothermia to 96.9 �F, pulse rate 93, BP 120/81, 91% on room air
and respiratory rate 17. Initial labs showed Hb 12.9, WBC 7.6, glucose 162, and lipase 30. Abdominal ultrasound performed showing small volume free fluid in the abdomen. CT abdomen/pelvis then performed showing new dilatation of the small bowel
with marked mesenteric stranding, suspicious for possible closed-loop type small bowel obstruction. Patient given fluids in the ER with 500 cc of 0.9% NS, also 4 mg Zofran and 4 mg morphine. Surgery consulted and informed consent obtained for
intervention. Patient underwent a diagnostic laparoscopy with ex lap, lysis of adhesions and small bowel resection. Approximately 60 cm of ileum was collected. EBL was 40 cc. A 2 mm enterotomy from bowel grasper occurred during the procedure
otherwise there were no other immediate complications. 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
spine, asbestos exposure, T12 vertebral compression fracture, history of atrial flutter/A-fib on Eliquis
Impression:
#Closed loop small bowel obstruction s/p laparoscopy with lysis of adhesions, ex lap and small bowel resection (POD #4)
#Circulatory shock likely due to translocation of bacteria in the setting of SBO - shock state now resolved as of 12/14
#Anemia (Hb has been in the 11�12.5 range since June 2024)
#Mild metabolic acidosis with preserved anion gap due to lactic acidosis
#Lactic acidosis
#Chronic HFrEF (LVEF: 28% on Sade scan stress test from 11/04/2024)
#Abnormal stress test with Lexiscan stress test on 11/04/2024 showing multiple large, fixed defects which was concerning for infarction in multivessel distribution.
#Right-sided hydronephrosis
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
#History of malignant melanoma (2014) s/p resection
#GERD
#Atrial flutter/fib on Eliquis
#Former tobacco smoker
Plan:
- Post op management per surgery
- Pain control
- Patient pulled out NGT on 12/15, and it was replaced on 12/16; he may need restraints
- NPO
- TPN started as per surgery with assistance with dietary
- Continue ABx, currently on Zosyn
- No cultures sent
- Follow up pathology from OR (ileum)
- Trend WBC and monitor temperature curve
- Maintain SpO2 >90-94%; currently on room air saturating 92%
- Aspiration precautions
- prn nebulized bronchodilators - not currently bronchospastic
- Incentive spirometer encouraged 10x per hour for at least 4 hrs a day
- More tachypneic today and CXR shows increased interstitial prominence concerning for developing pulmonary edema --> resume lasix
- Maintain MAP>65; now off levophed since evening of 12/14
- Lactate is now 1.5 as of 12/14; no longer need to continue trending at this time
- Continue lasix as needed (received a dose earlier today)
- Replete electrolytes with K>4, Mg>2
- Trend serum HCO3 level (no longer acidotic)
- Monitor heart rate which was labile on 12/15, and since 12/16 it has been much more controlled
- Seems that [facility] helped a lot on 12/15 with his tachycardia, as he had a headache at the time
- He is going in an out of A-fib and has frequent PVCs
- Low threshold to start amiodarone drip, livan if NSVT persists/worsens or if HR remains >110-120 --> defer to cardiology
- Continue follow-up with urology in office for right-sided hydronephrosis. CT urography on 12/12/2024 showed diffuse right-sided calyceal dilation with transition at the UPJ with no obstructive stone or mass
- Maintain euglycemia with goal BG 140-180; A1C: 5.9 on 12/15/2024
- Trend H/H and transfuse if needed to keep Hb>7g/dL; keep plt>50k (given post-operative status)
- Stress ulcer ppx: PPI
- DVT ppx: Heparin gtt as per surgery; hold Eliquis until cleared to resume per surgery
Code status: DNR/DNI
No additional recommendations at this time. Pulmonary service will now sign off. Thank you for allowing us to be involved in the care of this patient. Please reconsult if there are any additional questions/concerns, or if patient's respiratory
status deteriorates.
Data:
CT abdomen/pelvis with IV contrast 12/13/2024:
New dilatation of small bowel in the central abdomen to the right with marked mesenteric stranding and some whirling of the mesentery in the right abdomen in comparison to study of preceding day. Findings are at least suspicious for possible
closed-loop type small bowel obstruction (with some relative decreased enhancement of the wall of the small bowel in this area), possibly with accompanying internal hernia with significant increased now small to moderate volume free fluid
particularly in the right abdomen. Findings discussed by telephone with Dr. Bernstein in the emergency department at approximately 1950 hours on December 13, 2024.
Total time spent today was 42 minutes for this encounter. Time includes reviewing laboratory test/imaging results, reviewing pertinent medical records, obtaining and reviewing medical history, performing an appropriate exam, ordering medications,
tests and procedures. Time also includes documentation of this encounter, coordinating patient care and communicating with other healthcare professionals. Total time does not include separately billed tests performed on this date of service.
Subjective Data
-
Date of Service:
Date of Service: December 17, 2024
Chief Complaint: Pulmonary Follow Up
Subjective:
Patient was seen and evaluated today at bedside (late note entry). Patient appears well, breathing comfortably on room air saturating 95%. Heart rate 96. Remains confused. Does not endorse abdominal pain or shortness of breath.
Review of Systems
General: Other (Unobtainable as patient is confused)
Objective Data
Data Reviewed
Vital Signs / I&O / Oxygen:
Vital Signs
Temp Pulse Resp BP Pulse Ox
97.8 F 97 25 137/86 96
12/17/24 07:59 12/17/24 08:00 12/17/24 08:00 12/17/24 08:00 12/17/24 06:28
Intake and Output
12/16/24 12/17/24 12/18/24
06:59 06:59 06:59
Intake Total 2031
Output Total 2600 / 2700 4515 / 4515
Balance -568 / -531 -2508 / -2508
SaO2 96
Nasal Cannula flow liters per 2
minute
Physical Exam
General: Respiratory Distress (negative), Comfortable, Chills (negative) and Sweats (negative)
HEENT: Normocephalic and Anicteric
Cardiovascular: S1-S2 and Peripheral Edema (negative)
Respiratory: Wheeze (negative), Crackles (Bibasilar), Rhonchi (negative) and Non-Labored Respirations
GI: Soft, Non Distended, Non Tender and Normal Bowel Sounds
Neurology: Awake, Alert and Tremors (negative)
Skin: Warm, Dry, Cyanosis (negative) and Jaundice (negative)
Labs/Micro/Reports
Lab Data
12/17/24 03:37
12/17/24 03:37
Laboratory Results
12/16/24 12/16/24 12/17/24
14: 21:13 03:37
APTT 49.8 H 92.9 H 75.8 H
--- NOTE | 2024-12-17 16:30 | PTCARENOTE ---
Assumed care of patient at beginning of this shift from previous RN with b/l mitts and soft wrist restraints in use. Patient reoriented to time and place, and did remember on next rounds, but very forgetful. He continues to mention NGT and wants to
'adjust it.' Education provided but patient remains forgetful. Family up to visit (, daughter and son-in-law). Daughter notified this nurse that patient c/o heartburn and looked as if he was going to vomit. She was also concerned that drainage
in NGT would go up tubing but not into container (there is some drainage in canister which is dark green). Explained that NGT is set to LIWS but she stated she was still concerned. Patient denied nausea but stated he did have heartburn. TT sent to
Dr Dupont who responded that patient is probably already decrompressed so not going to be a constant drain and to follow for now. Patient continues with TPN and heparin infusions. See worklist for full assessment, interventions and vital signs
--- NOTE | 2024-12-17 17:40 | PTCARENOTE ---
HR briefly went to 170s-180; patient was talking about trying to get OOB. HR broke to 100s-114; patient asymptomatic. Unable to capture HR 170s. TT sent to Dr Joyce with picture of EKG.
[2024-12-17 17:44] LABS: Glucose - Point of Care 163 mg/dl (70-99)
[2024-12-17] MEDS: LOPRESSOR 2.5 MG IV (18:23)
[2024-12-17 18:56] LABS: Blood Urea Nitrogen 34 mg/dl (9-20); Calcium 9.1 mg/dl (8.4-10.2); Carbon Dioxide 30 mmol/L (22-30); Chloride 102 mmol/L (98-107); Estimated Creatinine Clearance 65 ml/min; Glucose 160 mg/dl (70-99); Magnesium 1.8 mg/dl (1.6-2.3); Potassium 3.3 mmol/L (3.5-5.1); Sodium 139 mmol/L (135-145); eGFR > 60.00
[2024-12-17] MEDS: HALDOL 1 MG IV (20:15)
--- NOTE | 2024-12-17 20:38 | PTCARENOTE ---
ELIZABETH Bautista aware of K+ result of 3.3. STAT K rider ordered, refer to MAR. Family at bedside; Daughter/ grandson/ PEARL. Pt becoming restless and attempting to get oob to 'go home'. Re-oriented to surroundings. PRN Haldol administered per the JUN. Plan
for EKG in AM.
[2024-12-17] MEDS: Parenteral Nutrition, Central 1440 IV (21:32)
[2024-12-17] MEDS: MYCOSTATIN ORAL SUSPENSION PO (21:34)
[2024-12-17] MEDS: DILAUDID 0.25 MG IV (23:01)
--- NOTE | 2024-12-17 23:05 | PTCARENOTE ---
Patient able to rest for about 2.5 hours post Haldol administration before becoming restless again, attempting to take off restraints using teeth and knees. Patient is visibly working himself up and causing his HR to increase to 130-170s Afib
rhythm. BP 120/80. Patient's breathing appears labored when attempting to sit up in bed and put legs over the side of the bed. Complete CHG done, linens changed. Repositioned and warm blanket provided. Pt does better with staff in the room to
reorient. No sitter available to be with pt. RN sitting outside closest nursing station as much as possible. ELIZABETH Bautista updated. PRN Dilaudid provided for CPOT score 5.
[2024-12-17] MEDS: LOPRESSOR 7.5 MG IV (23:15)
[2024-12-18] VITALS (15 sets, daily range): BP systolic 106–155; BP diastolic 67–109; O2SAT 94; BMI 23.4
[2024-12-18] MEDS: ZOSYN 50 IV ×5 (00:03→21:03)
[2024-12-18] MEDS: NOVOLOG FLEXPEN 2 UNITS SC ×4 (00:11→17:51)
[2024-12-18] MEDS: NOVOLOG FLEXPEN-LOW RESISTANCE 1 UNITS SC ×3 (00:11→17:51)
[2024-12-18 00:22] LABS: Glucose - Point of Care 158 mg/dl (70-99)
[2024-12-18] MEDS: HALDOL 1 MG IV ×2 (00:41→05:19)
[2024-12-18] MEDS: OFIRMEV 100 IV ×4 (00:41→17:12)
--- NOTE | 2024-12-18 00:56 | PTCARENOTE ---
Patient less restless for about one hour after Dilaudid administration. Pt woke up again attempting to get oob. Pt using his teeth to untie the mitt restraints. At one point pt became very frustrated and resisting staff's attempt at readjusting
restraints. PRN Haldol given per JUN.
[2024-12-18] MEDS: NOVOLOG FLEXPEN-LOW RESISTANCE SC (05:26)
[2024-12-18 05:37] LABS: Glucose - Point of Care 149 mg/dl (70-99)
[2024-12-18] MEDS: LOPRESSOR 7.5 MG IV ×3 (06:00→17:11)
[2024-12-18 06:32] LABS: Hematocrit 34.7 % (39.0-52.0); Hemoglobin 11.9 g/dL (13.0-18.0); Mean Corp Hgb Conc. 34.3 g/dL (33.0-37.0); Mean Corpuscular Volume 88.7 fL (80.0-94.0); Platelet Count 196 10^3/uL (130-400); Red Cell Dist. Width 14.3 % (11.5-14.5)
[2024-12-18 06:36] LABS: APTT 87.1 Sec (23.4-35.0)
[2024-12-18 06:44] LABS: Blood Urea Nitrogen 35 mg/dl (9-20); Calcium 9.0 mg/dl (8.4-10.2); Carbon Dioxide 28 mmol/L (22-30); Chloride 106 mmol/L (98-107); Estimated Creatinine Clearance 75 ml/min; Glucose 159 mg/dl (70-99); Potassium 3.4 mmol/L (3.5-5.1); Sodium 143 mmol/L (135-145); eGFR > 60.00
[2024-12-18] MEDS: MYCOSTATIN ORAL SUSPENSION 5 ML PO ×4 (08:41→21:04)
[2024-12-18] MEDS: NSS (PRESERVATIVE FREE) 10 ML IV (08:41)
[2024-12-18] MEDS: PROTONIX IV 40 MG IV (08:41)
[2024-12-18] MEDS: KCL 270 MEQ IV (08:42)
--- NOTE | 2024-12-18 10:50 | W.PN.GS2 ---
Addendum entered and electronically signed by Ki Burks MD 12/19/24 09:22:
CDI query: at the time of surgery the bowel was acutely ischemic. The bowel obstruction was complete.
Addendum entered and electronically signed by Car Dupont MD 12/18/24 11:13:
Patient seen and examined with surgical BUCKLE ASSEMBLER. Agree with documented progress note.
Oriented to self and pleasantly confused
No significant abdominal pain but reports irritation/burning discomfort after bowel movement
No nausea, he has tolerated NG tube being in place without removal in the last 24 hours
AFVSS
ABD: Soft, nondistended, nontender; incision dressing with occlusive silver dressing in place
NG tube with bilious output
A/P: POD #5 status post ex lap, SBR and repair of enterotomy secondary to closed-loop obstruction
Ileus improving but still with high NG tube outputs, maintain NG tube today as patient is tolerating
Renew TPN
Continue Henson until more robust GI recovery and will likely remove 1 remove NG tube
Will order follow-up abdominal x-ray for tomorrow to assess bowel gas pattern and help guide possible removal of NG tube
Original Note:
Today's Communication / Plan
-
NGT/TPN
Assessment / Plan
-
Assessment: 84M POD#5 s/p diagnostic laparoscopy with JUNE converted to ex lap for closed loop SBO with SBR and repair enterotomy x1 for ischemic bowel
AF - AFib, BP stable, afebrile
abdomen much softer with NGT in place for ileus, beginning to have more bowel activity
WBC trending down
H/H stable on heparin gtt
Mild hypokalemia (replaced)
Plan: Continue NGT
TPN renewed
Continue henson
Continue MYNOR
Continue heparin gtt, Eliquis on hold until better bowel recovery
Subjective Data
-
Date of Service: December 18, 2024
Pt seen and examined at bedside with Dr. Dupont. Denies pain. Notes BM overnight, feels a little rectal soreness since passing bm. Small brown bm per nursing. Very active overnight.
Objective Data
-
Intake and Output
12/17/24 12/18/24 12/19/24
06:59 06:59 06:59
Intake Total 2006 1750 / 1750
Output Total 4515 / 4515 3330 / 3330
Balance -2508 / -2508 -1580 / -1580
Intake:
IV fluids (Total) 367 / 367
heparin 172 / 172
potassium phosphate 195 / 195
IV piggybacks 400 / 400 990 / 990
TPN/PPN 1200 / 1200 720 / 720
Amount instilled into GI Tube ( 40 / 40 40 / 40
Total)
Jarratt Sump 40 / 40 40 / 40
Output:
Drain Output (Total) 90 / 90 80 / 80
Abdomen 90 / 90 80 / 80
Gastrointestinal tube output ( 2099 / 2099 1100 / 1100
Total)
Jarratt Sump 2099 / 2099 1100 / 1100
Urine, Henson 2325 / 2325 2150 / 2150
Vital Signs
Temp Pulse Resp BP Pulse Ox
98.2 F 95 25 141/109 98
12/18/24 07:24 12/18/24 09:00 12/18/24 09:00 12/18/24 08:00 12/18/24 10:46
Lab Results
12/18/24 06:10
12/18/24 06:10
Calcium 9.0 mg/dl (8.4-10.2) 12/18/24 06:10
Phosphorus 3.1 mg/dl (2.5-4.5) 12/17/24 03:37
Magnesium 1.8 mg/dl (1.6-2.3) 12/17/24 18:21
Total Bilirubin 0.9 mg/dl (0.2-1.3) 12/13/24 15:01
AST 21 U/L (17-59) 12/13/24 15:01
ALT 13 U/L (0-50) 12/13/24 15:01
Alkaline Phosphatase 79 U/L (38-126) 12/13/24 15:01
Total Protein 7.4 g/dl (6.3-8.2) 12/13/24 15:01
Albumin 3.2 g/dl (3.5-5.0) L 12/14/24 04:19
Physical Exam
-
NAD Alert but confused
ABD: soft, ND, nontender
NGT with bilious outputs
midline incision with dressing in place
MYNOR with SSF
[2024-12-18] MEDS: HEPARIN 25000 UNITS/250 ML IV (12:03)
--- NOTE | 2024-12-18 12:21 | PTCARENOTE ---
Assumed care of patient at beginning of this shift from fast food shift lead RN. Patient continues to be Ox3 but forgetful/confused; asking to eat and asks to take tube out of his nose. He is able to be reoriented to condition, but is very frequently
forgetful. Continues with b/l soft wrist restraints and b/l mitts, as well as 4 siderails; order renewed by Dr Joyce. Heparin infusing at 1600 units/hr via L double lumen PICC line. TPN continues. Patient receiving K+ rider; level this morning was
3.4. He had small liquid/loose brown bm this morning. See worklist for full assessment, interventions and vital signs.
[2024-12-18 12:45] LABS: Glucose - Point of Care 171 mg/dl (70-99)
--- NOTE | 2024-12-18 12:49 | W.PN.HOSP.TC ---
Today's Communication/Plan
-
continue NPO/TPN/IV Heparin
IV abx
Xray in AM
IV Lopressor
IV Valium for agitation (stopped Haldol for prolonged QTc)
Assessment / Plan
Assessment / Plan
Assessment:
Closed Loop acute SBO
- CT: New dilatation of small bowel in the central abdomen to the right with marked mesenteric stranding and some whirling of the mesentery in the right abdomen in comparison to study of preceding day. Findings are at least suspicious for possible
closed-loop type small bowel obstruction (with some relative decreased enhancement of the wall of the small bowel in this area), possibly with accompanying internal hernia with significant increased now small to moderate volume free fluid
particularly in the right abdomen.
- s/p diagnostic laparoscopy with JUNE converted to ex lap for closed loop SBO with SBR and repair enterotomy x1 for ischemic bowel on 12/13/24
- GS managing
- post-op ileus present
- patient removed NGT twice; now inserted a 3rd time - monitor outputs
- TPN via PICC
- empiric Zosyn, day 08/10
- pain control and anti-emetics per GS
- PT/OT - SNF recommended
Circulatory shock from intra-abdominal source (closed loop SBO, ? possible translocation of GI pathogen)
- weaned off Levophed
Paroxysmal Atrial Fibrillation/Flutter
- hold oral Metoprolol; on scheduled IV doses
- hold Eliquis; continue IV heparin drip - requires intensive monitoring of PTTs
Benign Hypertension
- hold Doxazosin/Losartan until PO route established
acute on Chronic HFrEF, iatrogenic in setting of TPN and infusions
- daily prn Lasix; monitor I/Os, weights, lytes. Last dose 12/17.
GERD - IV PPI
HLD - holding statin
Acute blood loss anemia on chronic anemia
Severe protein calorie malnutrition of chronic illness
Hypokalemia - replete prn
Acute delirium, suspect TME in setting of post-op, anesthesia
- prn Valium - Haldol stopped due to prolonged QTc
- prn restraints to facilitate safe post-op care
DVT ppx: IV heparin drip
Code: DNR/DNI
Anticipated Discharge: > 48 hours
Subjective/Interval History
-
Date of Service: December 18, 2024
small BM overnight
required Haldol x 2 overnight; prolong QTc
Objective Data
-
Labs:
Laboratory Results
12/18/24
06:10
WBC 11.5 H
Hgb 11.9 L
Hct 34.7 L
Plt Count 196
APTT 87.1 H
Sodium 143
Potassium 3.4 L
Chloride 106
Carbon Dioxide 28
BUN 35 H
Creatinine 0.7
Glucose 159 H
Calcium 9.0
Vital Signs:
Vital Signs
Temp Pulse Resp BP Pulse Ox
98.1 F 100 21 155/106 100
12/18/24 11:05 12/18/24 11:06 12/18/24 11:00 12/18/24 11:06 12/18/24 11:00
I&O
12/17/24 12/18/24 12/19/24
06:59 06:59 06:59
Intake Total 2006 1750 / 1750
Output Total 4515 / 4515 3330 / 3330
Balance -2508 / -2508 -1580 / -1580
Physical Exam
-
General: No Apparent Distress
HEENT: Normocephalic, Atraumatic and Other (+ NGT)
Cardiac: Regular Rhythm and S1/S2
GI: Soft
Genito-urinary: No Costovertebral Tender
Neuro: Sedated (post-Haldol)
Psych: Calm
Data Reviewed
-
Total Time Spent with Patient (in minutes): 45
Labs: Labs Reviewed by me
[2024-12-18 17:54] LABS: Glucose - Point of Care 152 mg/dl (70-99)
[2024-12-18] MEDS: Parenteral Nutrition, Central 1450 IV (21:04)
[2024-12-19] VITALS (20 sets, daily range): BP systolic 88–144; BP diastolic 56–125; PULSE 93; BMI 23.2
[2024-12-19 00:10] LABS: Glucose - Point of Care 159 mg/dl (70-99)
[2024-12-19] MEDS: NOVOLOG FLEXPEN-LOW RESISTANCE 1 UNITS SC (00:57)
[2024-12-19] MEDS: LOPRESSOR 7.5 MG IV ×4 (00:58→17:12)
[2024-12-19] MEDS: OFIRMEV 100 IV ×2 (00:58→06:16)
[2024-12-19] MEDS: NOVOLOG FLEXPEN 2 UNITS SC ×4 (00:58→17:52)
--- NOTE | 2024-12-19 02:44 | PTCARENOTE ---
Pt aaox3 able to make needs known. Pt with multiple liquid bowel movements overnight. Abdominal XR to be done in AM. NSR with PAC BBB and prolonged QT. EKG to be done in AM d/t recent haldol dose. Abdomen tender to palpation. Midline incision
covered with aquacell dressing. R MYNOR drain with sanguinous drainage. Positive bowel sounds. NGT remains in place, green output. Alvarado remains in place. L dual lumen PICC with TPN@60ml/hr and heparin@16ml/hr. PTT due in AM. VSS. Pt resting
comfortably in bed at this time. Care ongoing.
[2024-12-19] MEDS: HEPARIN 25000 UNITS/250 ML IV ×2 (04:22→21:21)
[2024-12-19] MEDS: ZOSYN 50 IV ×4 (04:22→21:05)
--- NOTE | 2024-12-19 05:38 | PTCARENOTE ---
Walked into patients room and noticed that he had ripped off his bracelets while in wrist restraints. Upon further inspection this RN noted his PICC line lying on the bed beside him. VAT team notified. Peripheral IV placed. Heparin gtt resumed. TPN
on hold until PICC can be placed. Of note, patient states he 'doesn't want to go through all of this anymore' and that he 'just wants to '. VSS. Minimal bleeding from PICC line site. Care ongoing.
[2024-12-19 06:23] LABS: Hematocrit 36.7 % (39.0-52.0); Hemoglobin 12.6 g/dL (13.0-18.0); Mean Corp Hgb Conc. 34.3 g/dL (33.0-37.0); Mean Corpuscular Volume 88.9 fL (80.0-94.0); Platelet Count 236 10^3/uL (130-400); Red Cell Dist. Width 14.5 % (11.5-14.5)
[2024-12-19] MEDS: NOVOLOG FLEXPEN-LOW RESISTANCE SC ×4 (06:23→23:56)
[2024-12-19 06:40] LABS: APTT 31.9 Sec (23.4-35.0)
[2024-12-19 06:42] LABS: Glucose - Point of Care 119 mg/dl (70-99)
[2024-12-19] MEDS: MYCOSTATIN ORAL SUSPENSION 5 ML PO ×4 (08:40→21:05)
[2024-12-19] MEDS: NSS (PRESERVATIVE FREE) 10 ML IV (08:40)
[2024-12-19] MEDS: PROTONIX IV 40 MG IV (08:40)
[2024-12-19 09:56] LABS: ALT (SGPT) 17 U/L (0-50); AST (SGOT) 25 U/L (17-59); Albumin 3.5 g/dl (3.5-5.0); Alkaline Phosphatase 88 U/L (38-126); Blood Urea Nitrogen 40 mg/dl (9-20); Calcium 9.5 mg/dl (8.4-10.2); Carbon Dioxide 25 mmol/L (22-30); Chloride 108 mmol/L (98-107); Estimated Creatinine Clearance 58 ml/min; Glucose 119 mg/dl (70-99); Magnesium 1.7 mg/dl (1.6-2.3); Potassium 3.7 mmol/L (3.5-5.1); Sodium 141 mmol/L (135-145); Total Protein 6.4 g/dl (6.3-8.2); Triglycerides 105 mg/dl (10-149); eGFR > 60.00
--- NOTE | 2024-12-19 10:24 | W.PN.GS2 ---
Addendum entered and electronically signed by José Chambers MD 12/19/24 11:30:
I saw and examined the patient independently.
The resident's documentation was reviewed and I agree with the note, assessment and plan except where noted below.
Comment: This is a 84-year-old male postoperative day 5 from a diagnostic lap converted to an ex lap JUNE, small bowel resection for a closed-loop small bowel obstruction. Postoperative course notable for shock, heart failure, expected ileus,
altered mental status.
Patient dislodged PICC yesterday, having return of bowel function.
NG with minimal output, okay to remove and will plan to restart clears.
Surgery will continue to follow
Original Note:
Today's Communication / Plan
-
See A/P
Assessment / Plan
-
84M POD3 s/p diagnostic laparoscopy with JUNE converted to ex lap for closed loop SBO with SBR and repair enterotomy x1 for ischemic bowel
#Closed loop bowel obstruction and ischemic bowel s/p laparoscopy with adhesiolysis, ex lap and small bowel resection POD#2
-Was confused overnight and pulled out his NGT, same was replaced.
-Currently on NPO, NGT
-No PICC
-Advance diet
-DC NGT
-Pain control PRN Dilaudid
#Circulatory shock
- Off pressure support
- Monitor I/Os
- Has had 2 X Lasix for fluid overload
#Chronic HFrEF LVEF: 28%
- BB given IV with hold parameters
#Atrial flutter/fib on Eliquis
#Currently not Tachycardic
- BB given IV with hold parameters
#Leucocytosis
-14.6, up from yesterday
- Afebrile, monitor
#Altered mental/Psych state
-Patient intermittently confused, removing his NGT/Lines
-Get Psych consult
PT/OT- OOB, will need SNF
DVT PPX- Heparin drip, SCD
Subjective Data
-
Date of Service: December 19, 2024
Patient seen
Pulled out his PICC line overnight
On soft restraint
Has had multiple liquid stools overnight
No vomit
Patient is agitated and saying he is tired, and has no will to live and that 'if I had a gun right now I will shoot myself'
Objective Data
-
Intake and Output
12/18/24 12/19/24 12/20/24
06:59 06:59 06:59
Intake Total 1750 / 1750
Output Total 3330 / 3330 1580 / 1580 200 / 200
Balance -1580 / -1580 -1580 / -1580 -200 / -200
Intake:
IV piggybacks 990 / 990
TPN/PPN 720 / 720
Amount instilled into GI Tube ( 40 / 40
Total)
Rolette Sump 40 / 40
Output:
Drain Output (Total) 80 / 80 30 / 30
Abdomen 80 / 80 30 / 30
Gastrointestinal tube output ( 1100 / 1100 400 / 400 200 / 200
Total)
Rolette Sump 1100 / 1100 400 / 400 200 / 200
Urine, Henson 2150 / 2150 1150 / 1150
Vital Signs
Temp Pulse Resp BP Pulse Ox
98.1 F 108 26 114/91 95
12/19/24 07:50 12/19/24 06:22 12/18/24 18:00 12/19/24 06:22 12/18/24 22:49
Lab Results
12/19/24 05:32
12/19/24 08:48
Calcium 9.5 mg/dl (8.4-10.2) 12/19/24 08:48
Phosphorus 4.2 mg/dl (2.5-4.5) 12/19/24 08:48
Magnesium 1.7 mg/dl (1.6-2.3) 12/19/24 08:48
Total Bilirubin 0.8 mg/dl (0.2-1.3) 12/19/24 08:48
AST 25 U/L (17-59) 12/19/24 08:48
ALT 17 U/L (0-50) 12/19/24 08:48
Alkaline Phosphatase 88 U/L (38-126) 12/19/24 08:48
Total Protein 6.4 g/dl (6.3-8.2) 12/19/24 08:48
Albumin 3.5 g/dl (3.5-5.0) 12/19/24 08:48
Physical Exam
-
Elderly man, met lying in bed in soft restraints.
No NGT
MYNOR Draining serosanguineous fluid
Currently Alert, oriented to place. time and person
Chest- Not dyspneic, saturating adequately on room air
CVS-Irregular rhythm, rate about >80s
ABD- Rounded, moves with respiration. Midline dressing stained with dried blood. Wound dressing also noted around MYNOR Drain site
Soft, No areas of undue tenderness
Present bowel sounds
SCDs seen No pedal edema
Patient is aggitated
Patient has a henson catheter: Yes
Patient has a central line: No
[2024-12-19 13:10] LABS: Glucose - Point of Care 104 mg/dl (70-99)
--- NOTE | 2024-12-19 13:47 | W.PN.HOSP.TC ---
Today's Communication/Plan
-
Psych consult
Continue n.p.o.
Assessment / Plan
Assessment / Plan
Assessment:
Closed Loop acute SBO
- CT: New dilatation of small bowel in the central abdomen to the right with marked mesenteric stranding and some whirling of the mesentery in the right abdomen in comparison to study of preceding day. Findings are at least suspicious for possible
closed-loop type small bowel obstruction (with some relative decreased enhancement of the wall of the small bowel in this area), possibly with accompanying internal hernia with significant increased now small to moderate volume free fluid
particularly in the right abdomen.
- s/p diagnostic laparoscopy with JUNE converted to ex lap for closed loop SBO with SBR and repair enterotomy x1 for ischemic bowel on 12/13/24
- GS managing
- post-op ileus present
- patient removed NGT twice; now inserted a 3rd time - monitor outputs
- TPN via PICC
- empiric Zosyn, day 08/10
- pain control and anti-emetics per GS
- PT/OT - SNF recommended
12/19
Continue NG tube suction
Acute metabolic encephalopathy/hospital delirium/suicidal ideation
Acute delirium, suspect TME in setting of post-op, anesthesia
- prn Valium - Haldol stopped due to prolonged QTc
- prn restraints to facilitate safe post-op care
Psych consulted.
Continue restraint for now
Circulatory shock from intra-abdominal source (closed loop SBO, ? possible translocation of GI pathogen)
- weaned off Levophed
Paroxysmal Atrial Fibrillation/Flutter
- hold oral Metoprolol; on scheduled IV doses
- hold Eliquis; continue IV heparin drip - requires intensive monitoring of PTTs
Benign Hypertension
- hold Doxazosin/Losartan until PO route established
acute on Chronic HFrEF, iatrogenic in setting of TPN and infusions
- daily prn Lasix; monitor I/Os, weights, lytes. Last dose 12/17.
GERD - IV PPI
HLD - holding statin
Acute blood loss anemia on chronic anemia
Severe protein calorie malnutrition of chronic illness
Hypokalemia - replete prn
CODE STATUS: DNI/DNR
DVT prophylaxis: Heparin drip
Diet: NPO diet
Family communication: Discussed with and son at bedside
Disposition: Psych consult
Continue n.p.o.
Total time spent on today's encounter was 65 minutes which included time spent in counseling the patient/family regarding diagnosis and treatment plan as listed above, goals of care, and symptom management. Case was discussed with nursing staff,
specialists, and care coordinators/case management. All labs and imaging personally reviewed by me. Remainder the time spent in detailed review of previous records, lab data, imaging, and other medical provider documentation.
Anticipated Discharge: > 48 hours
Subjective/Interval History
-
Date of Service: December 19, 2024
Patient still restrained, patient provide interval history, answer question appropriately, but still mental status not back to baseline.
Objective Data
-
Labs:
Laboratory Results
12/19/24 12/19/24 12/19/24
05:32 08:48 14:00
WBC 14.6 H
Hgb 12.6 L
Hct 36.7 L
Plt Count 236 D
APTT 31.9 Pending
Sodium Cancelled 141
Potassium Cancelled 3.7
Chloride Cancelled 108 H
Carbon Dioxide Cancelled 25
BUN Cancelled 40 H
Creatinine Cancelled 0.9
Glucose Cancelled 119 H
Calcium Cancelled 9.5
Total Bilirubin Cancelled 0.8
AST Cancelled 25
ALT Cancelled 17
Alkaline Phosphatase Cancelled 88
Vital Signs:
Vital Signs
Temp Pulse Resp BP Pulse Ox
97.8 F 81 26 112/72 95
12/19/24 11:28 12/19/24 13:03 12/18/24 18:00 12/19/24 13:03 12/18/24 22:49
I&O
12/18/24 12/19/24 12/20/24
06:59 06:59 06:59
Intake Total 1750 / 1750 50 / 50
Output Total 3330 / 3330 1580 / 1580 200 / 200
Balance -1580 / -1580 -1580 / -1580 -150 / -150
Physical Exam
-
General: Well Developed
HEENT: Normocephalic, Atraumatic, Moist Mucous Membranes, No Ptosis, PERRLA, Nose Appears Normal and Other (NG tube)
Respiratory: Rales and Rhonchi
Cardiac: Regular Rhythm and S1/S2
Breast: Deferred by me
GI: Other (Midline incision, drainage in place)
Genito-urinary: No Costovertebral Tender
Musculoskeletal: No Clubbing, No Cyanosis and No Edema
Skin: Warm
Neuro: Awake, Alert, Oriented, AO x 3 and No Motor Deficits
Psych: Calm
Data Reviewed
-
Diagnostic Radiology: Image personally visualized and interpreted and Report Reviewed by me
CT Scan: Image personally visualized and interpreted and Report Reviewed by me
Ultrasound: Image personally visualized and interpreted and Report Reviewed by me
MRI: Image personally visualized and interpreted and Report Reviewed by me
Medical Tests (Nuc Med, Echo etc): Image personally visualized and interpreted and Report Reviewed by me
Labs: Labs Reviewed by me
Old Records: Reviewed
[2024-12-19 14:37] LABS: APTT 38.6 Sec (23.4-35.0)
--- NOTE | 2024-12-19 16:54 | CS.PSYCHR ---
Consult Summary - Psychiatry
-
pt seen by me for psychiatric assessment due to telliing member of team that he has lost the will to live and that if he had a gun he would kill himself.
84 yo man with chronic a fib, GERD, htn, heart failure admitted with abdominal pain s/p exploratory lap to treat small bowel obstruction. Has pulled out NG tube twice, arms now in soft restraints to prevent a third time.
No prior psychiatric history, though many years ago was given time off work from stressful environment on the advice of a psychiatrist. Lives with , she was at bedside earlier today as was son.
Earlier visis to ED document similar statements when he has had heart issues On 10/19/24 had shortness of breath, could not sleep at night 'I can't take this anymore.'
On my exam today pt lying in bed with multiple lines running, RN trying to start IV. Hands restrained. On questioning about how he feels, says 'A bit better' and smiles. I explained that I was a psychiatrist, which he found amusing. We discussed his
statement about having a gun to kill himself, jokes 'well I guess it's good I don't have one.' Denies feeling suicidal at present, states he has his family to live for. Asked his age, responds 'I'll be 85 soon' which is true; was able to tell me the
date when that will happen. States that he is not happy here, would like to be somewhere where people are nicer and it is airier, but agreed when I told hi that his room is actually quite large and airy, and that the nurses attending to him seem
especailly nice. Again smiles at this.
Impression: mild delirium
Would to avoid antipsychotics given prolonged QTc. prn diazepam IV reasonable. When can tolerate po could use depakote 250 for management of agitation
No need for suicide precautions
[2024-12-19 18:01] LABS: Glucose - Point of Care 134 mg/dl (70-99)
--- NOTE | 2024-12-19 19:26 | PTCARENOTE ---
Patient alert but confused and attempts to remove NG and wrist restraints throughout the day. PICC line was out this am and after 2 attempts by VAT, IRAD placed PICC in Rt upper extremity. Pt has denied abdominal pain and only discomfort is his
scrotal MASD which we are cleaning frequently, padding with ABD pads and calazime lotion. and grandson here this afternoon, met with Hospitalist and discussed plan of care. PICC line in and good to use, TPN resumed. Pt continues with
restraints, family verbalizes understanding for need of continued restraints.
[2024-12-19 21:43] LABS: APTT 74.2 Sec (23.4-35.0)
--- NOTE | 2024-12-19 22:48 | W.PN.UPDATE ---
Update Note
Progress Note Update
Received report that patient pulled out his NG tube. NG tube not replaced at this time, please confirm plan of care.
[2024-12-19 23:54] LABS: Glucose - Point of Care 140 mg/dl (70-99)
[2024-12-20] VITALS (13 sets, daily range): BP systolic 89–145; BP diastolic 56–111; BMI 21.3
--- NOTE | 2024-12-20 00:31 | PTCARENOTE ---
Pt pulled NGT despite being in B/L wrist restraints and B/L mitts. DISEASE CASE MANAGER notified. Instructed to keep NGT out overnight and let hospitalist team decide if it is necessary to replace in AM.
[2024-12-20] MEDS: NOVOLOG FLEXPEN SC ×3 (00:55→13:14)
[2024-12-20] MEDS: LOPRESSOR 7.5 MG IV ×2 (01:35→11:29)
[2024-12-20 04:32] LABS: Glucose - Point of Care 122 mg/dl (70-99)
[2024-12-20 04:57] LABS: Hematocrit 35.5 % (39.0-52.0); Hemoglobin 12.1 g/dL (13.0-18.0); Mean Corp Hgb Conc. 34.1 g/dL (33.0-37.0); Mean Corpuscular Volume 91.7 fL (80.0-94.0); Platelet Count 255 10^3/uL (130-400); Red Cell Dist. Width 14.8 % (11.5-14.5)
[2024-12-20 05:00] LABS: APTT 123.6 Sec (23.4-35.0)
[2024-12-20] MEDS: ZOSYN 50 IV ×4 (05:07→21:26)
[2024-12-20] MEDS: LOPRESSOR IV (05:08)
[2024-12-20] MEDS: NOVOLOG FLEXPEN-LOW RESISTANCE SC ×2 (05:09→14:35)
[2024-12-20 05:51] LABS: Blood Urea Nitrogen 55 mg/dl (9-20); Calcium 9.5 mg/dl (8.4-10.2); Carbon Dioxide 27 mmol/L (22-30); Chloride 109 mmol/L (98-107); Estimated Creatinine Clearance 49 ml/min; Glucose 126 mg/dl (70-99); Potassium 3.6 mmol/L (3.5-5.1); Sodium 144 mmol/L (135-145); eGFR > 60.00
[2024-12-20] MEDS: NSS (PRESERVATIVE FREE) 10 ML IV (09:03)
[2024-12-20] MEDS: PROTONIX IV 40 MG IV (09:03)
[2024-12-20] MEDS: MYCOSTATIN ORAL SUSPENSION 5 ML PO ×3 (09:03→21:25)
--- NOTE | 2024-12-20 10:17 | W.PN.HOSP.TC ---
Today's Communication/Plan
-
Start clear liquid diet.
Assessment / Plan
Assessment / Plan
Assessment:
Closed Loop acute SBO
- CT: New dilatation of small bowel in the central abdomen to the right with marked mesenteric stranding and some whirling of the mesentery in the right abdomen in comparison to study of preceding day. Findings are at least suspicious for possible
closed-loop type small bowel obstruction (with some relative decreased enhancement of the wall of the small bowel in this area), possibly with accompanying internal hernia with significant increased now small to moderate volume free fluid
particularly in the right abdomen.
- s/p diagnostic laparoscopy with JUNE converted to ex lap for closed loop SBO with SBR and repair enterotomy x1 for ischemic bowel on 12/13/24
- GS managing
- post-op ileus present
- patient removed NGT twice; now inserted a 3rd time - monitor outputs
- TPN via PICC
- empiric Zosyn, day 08/10
- pain control and anti-emetics per GS
- PT/OT - SNF recommended
12/19
Continue NG tube suction
12/20
Patient removed his NG tube overnight.
NG tube was not replaced
Started on clear liquid
Acute metabolic encephalopathy/hospital delirium/suicidal ideation
Acute delirium, suspect TME in setting of post-op, anesthesia
- prn Valium - Haldol stopped due to prolonged QTc
- prn restraints to facilitate safe post-op care
Psych consulted.
Continue restraint for now
Circulatory shock from intra-abdominal source (closed loop SBO, ? possible translocation of GI pathogen)
- weaned off Levophed, currently off
Paroxysmal Atrial Fibrillation/Flutter
- hold oral Metoprolol; on scheduled IV doses-will switch to oral metoprolol
- hold Eliquis; continue IV heparin drip - requires intensive monitoring of PTTs
Benign Hypertension
- History doxazosin/Losartan once start oral intake,.
acute on Chronic HFrEF, iatrogenic when patient received TPN and infusions
- daily prn Lasix; monitor I/Os, weights, lytes. Last dose 12/17.
GERD - IV PPI
HLD - holding statin
Acute blood loss anemia on chronic anemia
Severe protein calorie malnutrition of chronic illness
Hypokalemia - replete prn
CODE STATUS: DNI/DNR
DVT prophylaxis: Heparin drip
Diet: CLD
Family communication: Discussed with and son at bedside
Disposition: Start clear liquid diet
Total time spent on today's encounter was 65 minutes which included time spent in counseling the patient/family regarding diagnosis and treatment plan as listed above, goals of care, and symptom management. Case was discussed with nursing staff,
specialists, and care coordinators/case management. All labs and imaging personally reviewed by me. Remainder the time spent in detailed review of previous records, lab data, imaging, and other medical provider documentation.
Anticipated Discharge: > 48 hours
Subjective/Interval History
-
Date of Service: December 20, 2024
Patient seen and examined at bedside, denies any chest pain or shortness of breath, overnight he pulled his NG tube.
Patient still on restraint.
NG tube was not replaced, started on clear liquid diet.
Objective Data
-
Labs:
Laboratory Results
12/20/24 12/20/24
04:24 11:00
WBC 14.4 H
Hgb 12.1 L
Hct 35.5 L
Plt Count 255
APTT 123.6 H Pending
Sodium 144
Potassium 3.6
Chloride 109 H
Carbon Dioxide 27
BUN 55 H
Creatinine 1.0
Glucose 126 H
Calcium 9.5
Vital Signs:
Vital Signs
Temp Pulse Resp BP Pulse Ox
98.1 F 85 23 122/80 92
12/20/24 08:00 12/20/24 07:00 12/20/24 07:00 12/20/24 06:00 12/20/24 07:00
I&O
12/19/24 12/20/24 12/21/24
06:59 06:59 06:59
Intake Total 408 / 408
Output Total 1580 / 1580 1175 / 1175
Balance -1580 / -1580 -767 / -767
Physical Exam
-
General: Well Developed
HEENT: Normocephalic, Atraumatic, Moist Mucous Membranes, No Ptosis, PERRLA, Nose Appears Normal and Other (NG tube)
Respiratory: Rales and Rhonchi
Cardiac: Regular Rhythm and S1/S2
Breast: Deferred by me
GI: Other (Midline incision, drainage in place)
Genito-urinary: No Costovertebral Tender
Musculoskeletal: No Clubbing, No Cyanosis and No Edema
Skin: Warm
Neuro: Awake, Alert, Oriented, AO x 3 and No Motor Deficits
Psych: Calm
--- NOTE | 2024-12-20 10:35 | W.PN.GS2 ---
Addendum entered and electronically signed by Ki Burks MD 12/20/24 10:44:
called. Unable to reach VM left
Original Note:
Today's Communication / Plan
-
Start CLD
Assessment / Plan
-
84M POD6 s/p diagnostic laparoscopy with JUNE converted to ex lap for closed loop SBO with SBR and repair enterotomy x1 for ischemic bowel
-Sundowning and pulling tubes, pulled PICC (replaced) and NGT (not replaced)
-Multiple BMs
-Persistent leukocytosis
-Adv to CLD with ensure
-Pain control PRN
-Home BB given IV with hold parameters (IV)
-Psych recs appreciated
-If PO goes well today plan to restart home meds tomorrow including PO AC
-Henson and PICC tentatively to be DC'ed tomorrow
PT/OT- OOB, will need SNF
DVT PPX- Heparin drip
Subjective Data
-
Date of Service: December 20, 2024
AFVSS, sundowning, no n/v, multiple recorded BMs, denies pain
Objective Data
-
Intake and Output
12/19/24 12/20/24 12/21/24
06:59 06:59 06:59
Intake Total 408 / 408
Output Total 1580 / 1580 1175 / 1175
Balance -1580 / -1580 -767 / -767
Intake:
IV fluids (Total) 188 / 188
IV piggybacks 100 / 100
TPN/PPN 60 / 60
Amount instilled into Drain ( 60 / 60
Total)
Abdomen 60 / 60
Output:
Drain Output (Total) 30 / 30
Abdomen 30 / 30
Gastrointestinal tube output ( 400 / 400 400 / 400
Total)
[place] Sump 400 / 400 400 / 400
Urine, Henson 1150 / 1150 775 / 775
Other:
Number of unmeasured liquid
stools
Rectum 4
Vital Signs
Temp Pulse Resp BP Pulse Ox
98.1 F 85 23 122/80 92
12/20/24 08:00 12/20/24 07:00 12/20/24 07:00 12/20/24 06:00 12/20/24 07:00
Lab Results
12/20/24 04:24
12/20/24 04:24
Calcium 9.5 mg/dl (8.4-10.2) 12/20/24 04:24
Phosphorus 4.2 mg/dl (2.5-4.5) 12/19/24 08:48
Magnesium 1.7 mg/dl (1.6-2.3) 12/19/24 08:48
Total Bilirubin 0.8 mg/dl (0.2-1.3) 12/19/24 08:48
AST 25 U/L (17-59) 12/19/24 08:48
ALT 17 U/L (0-50) 12/19/24 08:48
Alkaline Phosphatase 88 U/L (38-126) 12/19/24 08:48
Total Protein 6.4 g/dl (6.3-8.2) 12/19/24 08:48
Albumin 3.5 g/dl (3.5-5.0) 12/19/24 08:48
Physical Exam
-
Gen: NAD
Abd: soft, miimal ttp, incision cdi with rachael, drain ss
Patient has a henson catheter: Yes
Patient has a central line: Yes (PICC)
[2024-12-20] MEDS: ZOFRAN 4 MG IV (11:51)
[2024-12-20 11:56] LABS: APTT 58.0 Sec (23.4-35.0)
[2024-12-20] MEDS: HEPARIN 25000 UNITS/250 ML IV (13:30)
[2024-12-20] MEDS: MYCOSTATIN ORAL SUSPENSION PO (14:39)
--- NOTE | 2024-12-20 16:50 | CM ---
Following up on Patient. RN stated that patient is confused and on restraints. LEO Sin saw note that he lives at [facility] at [facility] so will talk to the about referrals to SNF once he can be off restraints.
PLAN: SNF
--- NOTE | 2024-12-20 17:34 | PTCARENOTE ---
Rec'd pt this AM. much less agitated today. More reality oriented. upgraded to clear liquid diet. tolerating well. incontinent of large amounts of stool. AAO x3, in good spirits. family updated at bedside.
[2024-12-20] MEDS: TOPROL XL PO (17:50)
[2024-12-20] MEDS: ELIQUIS 5 MG PO (19:42)
[2024-12-20] MEDS: LIPITOR 20 MG PO (21:25)
[2024-12-20] MEDS: SINGULAIR 10 MG PO (21:26)
[2024-12-21] VITALS (16 sets, daily range): BP systolic 96–139; BP diastolic 63–99; PULSE 91–95; BMI 22.2
[2024-12-21] MEDS: ZOSYN 50 IV ×4 (03:23→21:19)
[2024-12-21 03:53] LABS: Hematocrit 32.9 % (39.0-52.0); Hemoglobin 10.9 g/dL (13.0-18.0); Mean Corp Hgb Conc. 33.1 g/dL (33.0-37.0); Mean Corpuscular Volume 91.1 fL (80.0-94.0); Platelet Count 257 10^3/uL (130-400); Red Cell Dist. Width 14.8 % (11.5-14.5)
[2024-12-21] MEDS: COZAAR PO (07:32)
[2024-12-21] MEDS: PROTONIX 40 MG PO (07:33)
[2024-12-21] MEDS: ELIQUIS 5 MG PO ×2 (07:33→21:19)
[2024-12-21] MEDS: TOPROL XL PO (07:33)
[2024-12-21] MEDS: MYCOSTATIN ORAL SUSPENSION 5 ML PO ×4 (07:34→21:19)
[2024-12-21] MEDS: LASIX 40 MG PO (07:34)
[2024-12-21] MEDS: QUESTRAN 4 GRAM PO ×2 (09:58→22:44)
--- NOTE | 2024-12-21 11:17 | W.PN.GS2 ---
Addendum entered and electronically signed by Ki Burks MD 12/21/24 11:35:
I was physically present and personally performed the guillaume portions of the surgical evaluation and/or procedure with the resident. I discussed the findings, reviewed the resident�s note, and confirmed the medical decision-making. I provided direct
supervision as required and agree with the assessment and plan as documented with the following additions/corrections:
Continues to improve
Veronica CLD
Exam approp, drain ss
Adv to FLD
DC PICC
Restart home meds
PT/OT
Original Note:
Today's Communication / Plan
-
See A/P
Assessment / Plan
-
84M POD7 s/p diagnostic laparoscopy with JUNE converted to ex lap for closed loop SBO with SBR and repair enterotomy x1 for ischemic bowel
#Closed loop bowel obstruction and ischemic bowel s/p laparoscopy with adhesiolysis, ex lap and small bowel resection POD#7
-Currently not on NG tube
-Fecal management system
-Advance diet, full liquid
-DC PICC,
-Commence home meds
-Pain control PRN Dilaudid
#Circulatory shock
-Resolved
#Chronic HFrEF LVEF: 28%
- Commence home meds
#Atrial flutter/fib on Eliquis
#Currently not Tachycardic
-Commence home meds
#Leucocytosis
-Now downtrending (11.9 from 14.4)
#Altered mental/Psych state/ Sundowning
-Patient intermittently confused, removing his NGT/Lines
-Continue orientation attempts
PT/OT- OOB, will need SNF
DVT PPX- Heparin drip, SCD Transition to Elliquis
Subjective Data
-
Date of Service: December 21, 2024
Patient seen
No vomiting or abdominal pain
Still having multiple liquid stool
Perianal soreness from multiple cleaning
Off NG tube, restraints
Objective Data
-
Intake and Output
12/20/24 12/21/24 12/22/24
06:59 06:59 06:59
Intake Total 408 / 408 460 / 460
Output Total 1175 / 1175 720 / 720
Balance -767 / -767 -260 / -260
Intake:
Oral fluids 360 / 360
IV fluids (Total) 188 / 188
IV piggybacks 100 / 100 100 / 100
TPN/PPN 60 / 60
Amount instilled into Drain ( 60 / 60
Total)
Abdomen 60 / 60
Output:
Drain Output (Total) 20 / 20
Abdomen 20 / 20
Gastrointestinal tube output ( 400 / 400
Total)
[place] Sump 400 / 400
Urine, Henson 775 / 775 700 / 700
Other:
Number of unmeasured liquid
stools
Rectum 4 7
Vital Signs
Temp Pulse Resp BP Pulse Ox
98.2 F 95 13 110/77 94
12/21/24 07:39 12/21/24 10:00 12/21/24 10:00 12/21/24 10:00 12/21/24 10:13
Lab Results
12/21/24 03:22
12/20/24 04:24
Calcium 9.5 mg/dl (8.4-10.2) 12/20/24 04:24
Phosphorus 4.2 mg/dl (2.5-4.5) 12/19/24 08:48
Magnesium 1.7 mg/dl (1.6-2.3) 12/19/24 08:48
Total Bilirubin 0.8 mg/dl (0.2-1.3) 12/19/24 08:48
AST 25 U/L (17-59) 12/19/24 08:48
ALT 17 U/L (0-50) 12/19/24 08:48
Alkaline Phosphatase 88 U/L (38-126) 12/19/24 08:48
Total Protein 6.4 g/dl (6.3-8.2) 12/19/24 08:48
Albumin 3.5 g/dl (3.5-5.0) 12/19/24 08:48
Physical Exam
-
Currently Alert, oriented to place. time and person
ABD- Rounded, moves with respiration.
Midline laparotomy incision, well opposed, rachael in place.
Wound dressing also noted around MYNOR Drain site
MYNOR Draining scant serosanguineous fluid
Soft, No areas of undue tenderness
Present bowel sounds
Patient has a henson catheter: Yes
Patient has a central line: Yes
--- NOTE | 2024-12-21 12:38 | PTCARENOTE ---
FMS inserted D/T large amount of loose watery stools. pt tolerated, no other physical change in assessment, PT OT this afternoon.
--- NOTE | 2024-12-21 13:39 | W.PN.HOSP.TC ---
Today's Communication/Plan
-
Start full liquid diet.
Cholestyramine.
Send stool for studies.
Fecal management system.
Assessment / Plan
Assessment / Plan
Assessment/ Plan:
Closed Loop acute SBO
- CT: New dilatation of small bowel in the central abdomen to the right with marked mesenteric stranding and some whirling of the mesentery in the right abdomen in comparison to study of preceding day. Findings are at least suspicious for possible
closed-loop type small bowel obstruction (with some relative decreased enhancement of the wall of the small bowel in this area), possibly with accompanying internal hernia with significant increased now small to moderate volume free fluid
particularly in the right abdomen.
- s/p diagnostic laparoscopy with JUNE converted to ex lap for closed loop SBO with SBR and repair enterotomy x1 for ischemic bowel on 12/13/24
- GS managing
- post-op ileus present
- patient removed NGT twice; now inserted a 3rd time - monitor outputs
- TPN via PICC
- empiric Zosyn, day 08/10
- pain control and anti-emetics per GS
- PT/OT - SNF recommended
12/19
Continue NG tube suction
12/20
Patient removed his NG tube overnight.
NG tube was not replaced
Started on clear liquid
12/21
Patient tolerated clear liquid, will advance to full liquid.
Secretory diarrhea.
Noted to have bloody diarrhea.
Status post fecal management for system.
Send stool for C. difficile and cultures.
Added cholestyramine
Acute metabolic encephalopathy/hospital delirium/suicidal ideation
Acute delirium, suspect TME in setting of post-op, anesthesia
- prn Valium - Haldol stopped due to prolonged QTc
- prn restraints to facilitate safe post-op care
Psych consulted.
Continue restraint for now
Circulatory shock from intra-abdominal source (closed loop SBO, ? possible translocation of GI pathogen)
- weaned off Levophed, currently off
Paroxysmal Atrial Fibrillation/Flutter
- hold oral Metoprolol; on scheduled IV doses-will switch to oral metoprolol
- hold Eliquis; continue IV heparin drip - requires intensive monitoring of PTTs
Benign Hypertension
- History doxazosin/Losartan once start oral intake,.
acute on Chronic HFrEF, iatrogenic when patient received TPN and infusions
- daily prn Lasix; monitor I/Os, weights, lytes. Last dose 12/17.
GERD - IV PPI
HLD - holding statin
Acute blood loss anemia on chronic anemia
Severe protein calorie malnutrition of chronic illness
Hypokalemia - replete prn
CODE STATUS: DNI/DNR
DVT prophylaxis: Heparin drip
Diet: CLD
Family communication: Discussed with and son at bedside
Disposition: Start full liquid diet
Total time spent on today's encounter was 65 minutes which included time spent in counseling the patient/family regarding diagnosis and treatment plan as listed above, goals of care, and symptom management. Case was discussed with nursing staff,
specialists, and care coordinators/case management. All labs and imaging personally reviewed by me. Remainder the time spent in detailed review of previous records, lab data, imaging, and other medical provider documentation.
Anticipated Discharge: > 48 hours
Subjective/Interval History
-
Date of Service: December 21, 2024
Patient seen and examined at bedside, more awake and oriented compared to yesterday, denies any chest pain or shortness of breath, no abdominal pain, no nausea, no vomiting, tolerating clear liquid diet but patient still having significant diarrhea,
added cholestyramine.
Objective Data
-
Labs:
Laboratory Results
12/21/24
03:22
WBC 11.9 H
Hgb 10.9 L
Hct 32.9 L
Plt Count 257
Vital Signs:
Vital Signs
Temp Pulse Resp BP Pulse Ox
98.2 F 95 13 110/77 94
12/21/24 07:39 12/21/24 10:00 12/21/24 10:00 12/21/24 10:00 12/21/24 10:13
I&O
12/20/24 12/21/24 12/22/24
06:59 06:59 06:59
Intake Total 408 / 408 460 / 460
Output Total 1175 / 1175 720 / 720
Balance -767 / -767 -260 / -260
Physical Exam
-
General: Well Developed
HEENT: Normocephalic, Atraumatic, Moist Mucous Membranes, No Ptosis, PERRLA and Nose Appears Normal
Respiratory: Rales and Rhonchi
Cardiac: Regular Rhythm and S1/S2
Breast: Deferred by me
GI: Other (Midline incision clean)
Genito-urinary: No Costovertebral Tender
Musculoskeletal: No Clubbing, No Cyanosis and No Edema
Skin: Warm
Neuro: Awake, Alert, Oriented, AO x 3 and No Motor Deficits
Psych: Calm
[2024-12-21] MEDS: LIPITOR 20 MG PO (21:19)
[2024-12-21] MEDS: SINGULAIR 10 MG PO (21:19)
[2024-12-22] VITALS (15 sets, daily range): BP systolic 94–149; BP diastolic 59–94; BMI 22.5
--- NOTE | 2024-12-22 00:40 | PTCARENOTE ---
Assumed care of pt from perry RN. Pt aaox3, but forgetful. SpO2 96% on RA. NSR with BBB and PACS on monitor. Irregular pulse. FMS in place draining liquid stool. Alvarado in place. Hygiene completed. VS and assessment as documented. Pt resting in
bed with call young in reach and bed alarm on.
[2024-12-22] MEDS: ZOSYN 50 IV (03:26)
[2024-12-22] MEDS: DILAUDID 0.5 MG IV ×2 (03:47→08:00)
[2024-12-22 04:27] LABS: Hematocrit 31.5 % (39.0-52.0); Hemoglobin 10.9 g/dL (13.0-18.0); Mean Corp Hgb Conc. 34.6 g/dL (33.0-37.0); Mean Corpuscular Volume 89.0 fL (80.0-94.0); Platelet Count 266 10^3/uL (130-400); Red Cell Dist. Width 14.5 % (11.5-14.5)
[2024-12-22 04:50] LABS: Blood Urea Nitrogen 35 mg/dl (9-20); Calcium 8.4 mg/dl (8.4-10.2); Carbon Dioxide 25 mmol/L (22-30); Chloride 109 mmol/L (98-107); Estimated Creatinine Clearance 56 ml/min; Glucose 114 mg/dl (70-99); Magnesium 1.9 mg/dl (1.6-2.3); Potassium 3.2 mmol/L (3.5-5.1); Sodium 139 mmol/L (135-145); eGFR > 60.00
[2024-12-22] MEDS: KCL ELIXIR 40 MEQ PO (07:56)
[2024-12-22] MEDS: COZAAR 50 MG PO (07:56)
[2024-12-22] MEDS: LASIX 40 MG PO (07:57)
[2024-12-22] MEDS: ELIQUIS 5 MG PO ×2 (07:57→20:50)
[2024-12-22] MEDS: MYCOSTATIN ORAL SUSPENSION 5 ML PO ×4 (07:58→20:51)
[2024-12-22] MEDS: PROTONIX 40 MG PO (07:58)
[2024-12-22] MEDS: QUESTRAN 4 GRAM PO ×2 (07:59→22:30)
[2024-12-22] MEDS: TOPROL XL 50 MG PO (07:59)
--- NOTE | 2024-12-22 08:21 | W.PN.HOSP.TC ---
Today's Communication/Plan
-
Advance diet.
continue Cholestyramine.
Send stool for studies.
Dc Zosyn
Assessment / Plan
Assessment / Plan
Impression:
Patient is a 84-year-old male with past medical history significant for hypertension, hyperlipidemia, HFrEF, atrial flutter and GERD who presented to [facility] ED for evaluation of abdominal pain, nausea and vomiting
CT: New dilatation of small bowel in the central abdomen to the right with marked mesenteric stranding and some whirling of the mesentery in the right abdomen in comparison to study of preceding day. Findings are at least suspicious for possible
closed-loop type small bowel obstruction (with some relative decreased enhancement of the wall of the small bowel in this area), possibly with accompanying internal hernia with significant increased now small to moderate volume free fluid
particularly in the right abdomen.
- s/p diagnostic laparoscopy with JUNE converted to ex lap for closed loop SBO with SBR and repair enterotomy x1 for ischemic bowel on 12/13/24
- GS managing
- post-op ileus present
- patient removed NGT twice; now inserted a 3rd time - monitor outputs
- was given TPN via PICC
- empiric Zosyn, day 08/10
- pain control and anti-emetics per GS
- PT/OT - SNF recommended
Continueed on NG tube suction
on 12/20 Patient removed his NG tube overnight.
NG tube was not replaced
Started on clear liquid
Patient tolerated clear liquid, then tolerated full liquid
Assessment/ Plan:
Assessment/plan:
Closed Loop acute SBO
- CT: New dilatation of small bowel in the central abdomen to the right with marked mesenteric stranding and some whirling of the mesentery in the right abdomen in comparison to study of preceding day. Findings are at least suspicious for possible
closed-loop type small bowel obstruction (with some relative decreased enhancement of the wall of the small bowel in this area), possibly with accompanying internal hernia with significant increased now small to moderate volume free fluid
particularly in the right abdomen.
- s/p diagnostic laparoscopy with JUNE converted to ex lap for closed loop SBO with SBR and repair enterotomy x1 for ischemic bowel on 12/13/24
- GS managing
- post-op ileus present
- patient removed NGT twice; now inserted a 3rd time - monitor outputs
- was given TPN via PICC
- Completed 7 days of Zosyn
- pain control and anti-emetics per GS
- PT/OT - SNF recommended
Continueed on NG tube suction
on 12/20 Patient removed his NG tube overnight.
NG tube was not replaced
Started on clear liquid
Patient tolerated clear liquid, then tolerated full liquid.
Secretory diarrhea.
Noted to have bloody diarrhea.
Status post fecal management for system.
pending stool for C. difficile and cultures.
Added cholestyramine
Acute metabolic encephalopathy/hospital delirium/suicidal ideation
Acute delirium, suspect TME in setting of post-op, anesthesia
- prn Valium - Haldol stopped due to prolonged QTc
- prn restraints to facilitate safe post-op care
Psych consulted.
12/22
Overall improving, currently off restraint
Circulatory shock from intra-abdominal source (closed loop SBO, ? possible translocation of GI pathogen)
- weaned off Levophed, currently off
Paroxysmal Atrial Fibrillation/Flutter
- Resumed metoprolol and
Benign Hypertension
- Resume doxazosin/Losartan.
acute on Chronic HFrEF, iatrogenic when patient received TPN and infusions
- daily prn Lasix; monitor I/Os, weights, lytes. Last dose 12/17.
GERD -
Continue PPI
Hyperlipidemia
-resume statin
Acute blood loss anemia on chronic anemia
Hemoglobin stable
Severe protein calorie malnutrition of chronic illness
Hypokalemia - replete prn
CODE STATUS: DNI/DNR
DVT prophylaxis: Eliquis
Diet: Full liquid
Family communication: Discussed with and son at bedside
Disposition: advance diet
Dc Zosyn
Total time spent on today's encounter was 65 minutes which included time spent in counseling the patient/family regarding diagnosis and treatment plan as listed above, goals of care, and symptom management. Case was discussed with nursing staff,
specialists, and care coordinators/case management. All labs and imaging personally reviewed by me. Remainder the time spent in detailed review of previous records, lab data, imaging, and other medical provider documentation.
Anticipated Discharge: 24 - 48 hours
Subjective/Interval History
-
Date of Service: December 22, 2024
Patient seen and examined at bedside, awake and oriented compared, denies any chest pain or shortness of breath, no abdominal pain, no nausea, no vomiting, tolerating full liquid diet but patient still having diarrhea, but overall improved.
Objective Data
-
Labs:
Laboratory Results
12/22/24
03:40
WBC 11.0 H
Hgb 10.9 L
Hct 31.5 L
Plt Count 266
Sodium 139
Potassium 3.2 L
Chloride 109 H
Carbon Dioxide 25
BUN 35 H
Creatinine 0.9
Glucose 114 H
Calcium 8.4
Vital Signs:
Vital Signs
Temp Pulse Resp BP Pulse Ox
98.3 F 85 19 116/76 98
12/22/24 03:00 12/22/24 07:59 12/22/24 06:00 12/22/24 07:59 12/22/24 00:33
I&O
12/21/24 12/22/24 12/23/24
06:59 06:59 06:59
Intake Total 460 / 460 240 / 240
Output Total 720 / 720 710 / 710
Balance -260 / -260 -470 / -470
Physical Exam
-
General: Well Developed
HEENT: Normocephalic, Atraumatic, Moist Mucous Membranes, No Ptosis, PERRLA and Nose Appears Normal
Respiratory: Rales and Rhonchi
Cardiac: Regular Rhythm and S1/S2
Breast: Deferred by me
GI: Other (Midline incision clean)
Genito-urinary: No Costovertebral Tender
Musculoskeletal: No Clubbing, No Cyanosis and No Edema
Skin: Warm
Neuro: Awake, Alert, Oriented, AO x 3 and No Motor Deficits
Psych: Calm
--- NOTE | 2024-12-22 08:49 | PTCARENOTE ---
MYNOR drain removed by surgery. diet order changed to low residue.
--- NOTE | 2024-12-22 09:01 | W.PN.GS2 ---
Today's Communication / Plan
-
LRD
Assessment / Plan
-
84M POD8 s/p diagnostic laparoscopy with JUNE converted to ex lap for closed loop SBO with SBR and repair enterotomy x1 for ischemic bowel
AFVSS, continuies to improve, ongoing issues with high volume liquid stool output
Drain ss, removed this am
Plan:
Adv to LRD
DC henson, DTV
F/U stool studies
Paulette-op abx complete
Home meds
PRN pain control
PT/OT
Dispo planning
Subjective Data
-
Date of Service: December 22, 2024
AFVSS, rafael FLD, denies n/v, cont with liquid stool output via FMS, pain controlled
Objective Data
-
Intake and Output
12/21/24 12/22/24 12/23/24
06:59 06:59 06:59
Intake Total 460 / 460 240 / 240
Output Total 720 / 720 710 / 710
Balance -260 / -260 -470 / -470
Intake:
Oral fluids 360 / 360 240 / 240
IV piggybacks 100 / 100
Output:
Drain Output (Total) 20 / 20 10 / 10
Abdomen 20 / 20 10 / 10
Urine, Henson 700 / 700 700 / 700
Other:
Number of unmeasured liquid
stools
Rectum 7
Vital Signs
Temp Pulse Resp BP Pulse Ox
98.2 F 85 19 116/76 98
12/22/24 07:00 12/22/24 07:59 12/22/24 06:00 12/22/24 07:59 12/22/24 00:33
Lab Results
12/22/24 03:40
12/22/24 03:40
Calcium 8.4 mg/dl (8.4-10.2) 12/22/24 03:40
Phosphorus 4.2 mg/dl (2.5-4.5) 12/19/24 08:48
Magnesium 1.9 mg/dl (1.6-2.3) 12/22/24 03:40
Total Bilirubin 0.8 mg/dl (0.2-1.3) 12/19/24 08:48
AST 25 U/L (17-59) 12/19/24 08:48
ALT 17 U/L (0-50) 12/19/24 08:48
Alkaline Phosphatase 88 U/L (38-126) 12/19/24 08:48
Total Protein 6.4 g/dl (6.3-8.2) 12/19/24 08:48
Albumin 3.5 g/dl (3.5-5.0) 12/19/24 08:48
Physical Exam
-
Gen: NAD
Abd: soft, approp ttp, incision cdi, drain ss
Patient has a henson catheter: Yes (due to be DC'd this am)
Patient has a central line: No
[2024-12-22] MEDS: CARDURA 8 MG PO (20:49)
[2024-12-22] MEDS: SINGULAIR 10 MG PO (20:50)
[2024-12-22] MEDS: LIPITOR 20 MG PO (20:51)
--- NOTE | 2024-12-22 21:45 | PTCARENOTE ---
Assumed care of pt from dayshift RN. Pt aaox3, but forgetful. SpO2 96% on RA. NSR with BBB, PVCs and PACs on the monitor. Irregular pulse. FMS in place draining liquid stool. Pt bladder scanned for 590 mL. This RN straight cathed patient patient for
650 mL of yellow urine. Hygiene completed. VS and assessment as documented. Pt resting in bed with call young in reach and bed alarm on.
[2024-12-23] VITALS (26 sets, daily range): BP systolic 76–123; BP diastolic 26–101; PULSE 91–112; BMI 22.3
[2024-12-23 04:30] LABS: Hematocrit 31.6 % (39.0-52.0); Hemoglobin 11.2 g/dL (13.0-18.0); Mean Corp Hgb Conc. 35.4 g/dL (33.0-37.0); Mean Corpuscular Volume 90.3 fL (80.0-94.0); Platelet Count 269 10^3/uL (130-400); Red Cell Dist. Width 14.5 % (11.5-14.5)
[2024-12-23 05:39] LABS: Blood Urea Nitrogen 27 mg/dl (9-20); Calcium 8.4 mg/dl (8.4-10.2); Carbon Dioxide 20 mmol/L (22-30); Chloride 111 mmol/L (98-107); Estimated Creatinine Clearance 72 ml/min; Glucose 121 mg/dl (70-99); Magnesium 2.0 mg/dl (1.6-2.3); Potassium 3.7 mmol/L (3.5-5.1); Sodium 138 mmol/L (135-145); eGFR > 60.00
[2024-12-23] MEDS: COZAAR PO (07:10)
[2024-12-23] MEDS: TOPROL XL PO (07:11)
[2024-12-23] MEDS: LASIX PO (07:40)
[2024-12-23] MEDS: ELIQUIS 5 MG PO ×2 (08:11→21:53)
[2024-12-23] MEDS: MYCOSTATIN ORAL SUSPENSION 5 ML PO ×4 (08:11→21:54)
[2024-12-23] MEDS: PROTONIX 40 MG PO (08:11)
--- NOTE | 2024-12-23 10:23 | W.PN.GS2 ---
Addendum entered and electronically signed by Car Dupont MD 12/23/24 11:01:
I was physically present and personally performed the guillaume portions of the surgical evaluation and/or procedure with the resident. I discussed the findings, reviewed the resident�s note, and confirmed the medical decision-making. I provided direct
supervision as required and agree with the assessment and plan as documented with the following additions/corrections:
Patient tolerating low residue diet.
Denies significant abdominal pain.
Loose bowel movements but appear to be a bit less frequent and liquid
AFVSS (asymptomatic borderline low BP)
ABD: Soft, nondistended, nontender to palpation. Midline incision with rachael. No erythema, no drainage, no open wounds. Old MYNOR site dry and without drainage.
Assessment/plan: POD #9 status post ex lap JUNE, SBR
Expected loose stools improving slowly.
Low residue diet
Stable for discharge from surgical standpoint
Original Note:
Today's Communication / Plan
-
See A/p
Assessment / Plan
-
84M POD9 s/p diagnostic laparoscopy with JUNE converted to ex lap for closed loop SBO with SBR and repair enterotomy x1 for ischemic bowel
#Closed loop bowel obstruction and ischemic bowel s/p laparoscopy with adhesiolysis, ex lap and small bowel resection POD#9
-Continue low residue diet as tolerated, counseled on small quantities at a time
-Pain control PRN Dilaudid
-Stool studies C Diff negative, Pending others
#Circulatory shock
-Blood pressure is soft
-Hold off anti-hypertensives/hold parameters
-
#Chronic HFrEF LVEF: 28%
- Per medical team
#Atrial flutter/fib on Eliquis
#Currently not Tachycardic
-Commence home meds
#Leucocytosis
-Improving
#Altered mental/Psych state/ Sundowning
-Improving
-Continue orientation attempts
PT/OT- OOB, will need SNF
Dispo planning- Per CM
DVT PPX- SCD, Samanthais
Subjective Data
-
Date of Service: December 23, 2024
Patient seen
No vomiting or abdominal pain
Azalea slight nausea with first meal yesterday, However tolerating his meals
Still having multiple liquid stool, having candace-anal soreness/pain, was on FMS yesterday but discontinued due to discomfort
Complains of weakness with PT
Off NG tube, restraints, henson, PICC/TPN
Objective Data
-
Intake and Output
12/22/24 12/23/24 12/24/24
06:59 06:59 06:59
Intake Total 240 / 240 530 / 530
Output Total 710 / 710 1150 / 1150
Balance -470 / -470 -620 / -620
Intake:
Oral fluids 240 / 240 480 / 480
IV fluids (Total) 0 / 0
Fecal management system 50 / 50
irrigation (mL)
Rectum 50 / 50
Output:
Drain Output (Total) 10 / 10
Abdomen 10 / 10
Urine, Henson 700 / 700 400 / 400
Urine, Voided 100 / 100
Straight cath output 650 / 650
Other:
How many times incontinent 1
SATURATED amount urine
Vital Signs
Temp Pulse Resp BP Pulse Ox
98.1 F 92 24 90/65 96
12/23/24 07:30 12/23/24 06:14 12/23/24 06:14 12/23/24 07:11 12/22/24 21:39
Lab Results
12/23/24 04:10
12/23/24 04:10
Calcium 8.4 mg/dl (8.4-10.2) 12/23/24 04:10
Phosphorus 4.2 mg/dl (2.5-4.5) 12/19/24 08:48
Magnesium 2.0 mg/dl (1.6-2.3) 12/23/24 04:10
Total Bilirubin 0.8 mg/dl (0.2-1.3) 12/19/24 08:48
AST 25 U/L (17-59) 12/19/24 08:48
ALT 17 U/L (0-50) 12/19/24 08:48
Alkaline Phosphatase 88 U/L (38-126) 12/19/24 08:48
Total Protein 6.4 g/dl (6.3-8.2) 12/19/24 08:48
Albumin 3.5 g/dl (3.5-5.0) 12/19/24 08:48
Physical Exam
-
Currently Alert, oriented to place. time and person
ABD- Rounded, moves with respiration.
Midline laparotomy incision, well opposed, rachael in place.
Wound dressing also noted around MYNOR Drain site, exposed, healing satisfactorily
Soft, No areas of undue tenderness
Present bowel sounds
CVS- 90/65, S1S2, Irregular
RS- Vesicular breath sounds
Patient has a henson catheter: No
Patient has a central line: No
--- NOTE | 2024-12-23 11:42 | W.PN.HOSP.TC ---
Today's Communication/Plan
-
Medically clear for Dc
Assessment / Plan
Assessment / Plan
Impression:
Patient is a 84-year-old male with past medical history significant for hypertension, hyperlipidemia, HFrEF, atrial flutter and GERD who presented to [facility] ED for evaluation of abdominal pain, nausea and vomiting
CT: New dilatation of small bowel in the central abdomen to the right with marked mesenteric stranding and some whirling of the mesentery in the right abdomen in comparison to study of preceding day. Findings are at least suspicious for possible
closed-loop type small bowel obstruction (with some relative decreased enhancement of the wall of the small bowel in this area), possibly with accompanying internal hernia with significant increased now small to moderate volume free fluid
particularly in the right abdomen.
- s/p diagnostic laparoscopy with JUNE converted to ex lap for closed loop SBO with SBR and repair enterotomy x1 for ischemic bowel on 12/13/24
- GS managing
- post-op ileus present
- patient removed NGT twice; now inserted a 3rd time - monitor outputs
- was given TPN via PICC
- empiric Zosyn, day 08/10
- pain control and anti-emetics per GS
- PT/OT - SNF recommended
Continueed on NG tube suction
on 12/20 Patient removed his NG tube overnight.
NG tube was not replaced
Started on clear liquid then full liquid then low residual diet.
Patient tolerating diet.
Had diarrhea which is improving with cholestyramine and Imodium
Physical therapy recommending rehab.
Assessment/plan:
Closed Loop acute SBO
- CT: New dilatation of small bowel in the central abdomen to the right with marked mesenteric stranding and some whirling of the mesentery in the right abdomen in comparison to study of preceding day. Findings are at least suspicious for possible
closed-loop type small bowel obstruction (with some relative decreased enhancement of the wall of the small bowel in this area), possibly with accompanying internal hernia with significant increased now small to moderate volume free fluid
particularly in the right abdomen.
- s/p diagnostic laparoscopy with JUNE converted to ex lap for closed loop SBO with SBR and repair enterotomy x1 for ischemic bowel on 12/13/24
- GS managing
- post-op ileus present
- patient removed NGT twice; now inserted a 3rd time - monitor outputs
- was given TPN via PICC
- Completed 7 days of Zosyn
- pain control and anti-emetics per GS
- PT/OT - SNF recommended
Continueed on NG tube suction
on 12/20 Patient removed his NG tube overnight.
NG tube was not replaced
Started on clear liquid then full liquid then low residual diet.
Patient tolerating LR diet.
Medically clear for discharge
Secretory diarrhea.
Noted to have bloody diarrhea.
Status post fecal management for system--->Now removed.
Negative stool for C. difficile and cultures.
Added cholestyramine/Imodium
Acute metabolic encephalopathy/hospital delirium/suicidal ideation
Acute delirium, suspect TME in setting of post-op, anesthesia
- prn Valium - Haldol stopped due to prolonged QTc
- prn restraints to facilitate safe post-op care
Psych consulted.
12/22
Overall improving, currently off restraint
Circulatory shock from intra-abdominal source (closed loop SBO, ? possible translocation of GI pathogen)
- weaned off Levophed, currently off
Paroxysmal Atrial Fibrillation/Flutter
- Resumed metoprolol and
Benign Hypertension
- Resume doxazosin/Losartan.
acute on Chronic HFrEF, iatrogenic when patient received TPN and infusions
- daily prn Lasix; monitor I/Os, weights, lytes. Last dose 12/17.
GERD -
Continue PPI
Hyperlipidemia
-resume statin
Acute blood loss anemia on chronic anemia
Hemoglobin stable
Severe protein calorie malnutrition of chronic illness
Hypokalemia - replete prn
CODE STATUS: DNI/DNR
DVT prophylaxis: Eliquis
Diet: Full liquid
Family communication: Discussed with and son at bedside
Disposition: Medically clear for Dc
Total time spent on today's encounter was 65 minutes which included time spent in counseling the patient/family regarding diagnosis and treatment plan as listed above, goals of care, and symptom management. Case was discussed with nursing staff,
specialists, and care coordinators/case management. All labs and imaging personally reviewed by me. Remainder the time spent in detailed review of previous records, lab data, imaging, and other medical provider documentation.
Anticipated Discharge: Today
Subjective/Interval History
-
Date of Service: December 23, 2024
Patient seen and examined at bedside, looks tired, more awake and oriented denies any chest pain or shortness of breath, no abdominal pain, no nausea, no vomiting, tolerating residual diet, diarrhea improved, fecal management system removed.
Objective Data
-
Labs:
Laboratory Results
12/23/24
04:10
WBC 12.1 H
Hgb 11.2 L
Hct 31.6 L
Plt Count 269
Sodium 138
Potassium 3.7
Chloride 111 H
Carbon Dioxide 20 L
BUN 27 H
Creatinine 0.7
Glucose 121 H
Calcium 8.4
Vital Signs:
Vital Signs
Temp Pulse Resp BP Pulse Ox
98.1 F 92 24 90/65 96
12/23/24 07:30 12/23/24 06:14 12/23/24 06:14 12/23/24 07:11 12/22/24 21:39
I&O
12/22/24 12/23/24 12/24/24
06:59 06:59 06:59
Intake Total 240 / 240 530 / 530
Output Total 710 / 710 1150 / 1150
Balance -470 / -470 -620 / -620
Physical Exam
-
General: Well Developed
HEENT: Normocephalic, Atraumatic, Moist Mucous Membranes, No Ptosis, PERRLA and Nose Appears Normal
Respiratory: Rales and Rhonchi
Cardiac: Regular Rhythm and S1/S2
Breast: Deferred by me
GI: Other (Midline incision clean)
Genito-urinary: No Costovertebral Tender
Musculoskeletal: No Clubbing, No Cyanosis and No Edema
Skin: Warm
Neuro: Awake, Alert, Oriented, AO x 3 and No Motor Deficits
Psych: Calm
[2024-12-23] MEDS: QUESTRAN 4 GRAM PO ×2 (12:00→21:54)
[2024-12-23] MEDS: NSS 500 IV (13:00)
[2024-12-23] MEDS: IMODIUM 2 MG PO (13:01)
--- NOTE | 2024-12-23 13:41 | W.PN.UPDATE ---
Update Note
Progress Note Update
pt seen for followup assessment. vastly improved, pleasant and interactive. sitting up getting breakfast. grateful for his care. encouraged to call if he has any psychiatric needs, which he laughed about. signing off
--- NOTE | 2024-12-23 16:23 | CM ---
Following up on Patient. The Medical Attending said that patient is ready, but then is blood pressure dropped so he is not ready. LEO Sin met with the family/ patient, had a good discussion, patient agreed to inpatient rehab.
Family (, son, dtr in law) only want [facility] so spoke to Ana [phone] who said that they can hold a bed tomorrow ONLY. LEO Sin told the Medical Attending who plans to discharge him tomorrow.
LEO Sin updated family and Case Management. IMM Completed
PLAN: Discharge to SNF tomorrow at [facility]
[2024-12-23] MEDS: SINGULAIR 10 MG PO (21:54)
[2024-12-23] MEDS: LIPITOR 20 MG PO (21:54)
[2024-12-23] MEDS: CARDURA PO (21:59)
[2024-12-24] VITALS (30 sets, daily range): BP systolic 81–141; BP diastolic 44–121; PULSE 90–110; BMI 22.7
--- NOTE | 2024-12-24 03:12 | PTCARENOTE ---
Pt cont to have loose bms, scrotal and rectal area remains reddened and sensitive to touch. attention given to clean area when Pt having BMs with extra caution. Q2T maintained.
[2024-12-24 05:35] LABS: Hematocrit 29.8 % (39.0-52.0); Hemoglobin 10.2 g/dL (13.0-18.0); Mean Corp Hgb Conc. 34.2 g/dL (33.0-37.0); Mean Corpuscular Volume 89.8 fL (80.0-94.0); Platelet Count 283 10^3/uL (130-400); Red Cell Dist. Width 14.4 % (11.5-14.5)
[2024-12-24 05:53] LABS: Blood Urea Nitrogen 20 mg/dl (9-20); Calcium 8.2 mg/dl (8.4-10.2); Carbon Dioxide 22 mmol/L (22-30); Chloride 111 mmol/L (98-107); Estimated Creatinine Clearance 72 ml/min; Glucose 111 mg/dl (70-99); Magnesium 1.9 mg/dl (1.6-2.3); Potassium 3.3 mmol/L (3.5-5.1); Sodium 138 mmol/L (135-145); eGFR > 60.00
[2024-12-24] MEDS: PROTONIX 40 MG PO (08:33)
[2024-12-24] MEDS: IMODIUM 2 MG PO ×2 (08:33→19:48)
[2024-12-24] MEDS: ELIQUIS 5 MG PO ×2 (08:33→19:48)
[2024-12-24] MEDS: MYCOSTATIN ORAL SUSPENSION 5 ML PO ×4 (08:34→21:43)
[2024-12-24] MEDS: QUESTRAN 4 GRAM PO (08:34)
--- NOTE | 2024-12-24 10:06 | PTCARENOTE ---
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 Ox3, forgetful and AKHIOK. Attempted to get OOB to the chair first thing this morning and pt became dizzy upon standing, ortho's documented, pt settled back in bed. Will attempt to get him to the chair again at 1030. NSR
on tele with a 1� AVB. Breath sounds clear, 97% on RA. He complains of some difficulty urinating. Attempting to obtain urine sample. Immodium given for his frequent diarrhea. The skin around his scrotum is red and macerated. Calazyme applied.
Midline ABD incision intact. Call young within reach. Pt makes needs known.
[2024-12-24] MEDS: KCL 40 MEQ PO (10:42)
--- NOTE | 2024-12-24 12:52 | W.PN.HOSP.TC ---
Today's Communication/Plan
-
Added midodrine.
Monitor blood pressure.
Orthostatic vitals.
Not ready for discharge
Assessment / Plan
Assessment / Plan
Impression:
Patient is a 84-year-old male with past medical history significant for hypertension, hyperlipidemia, HFrEF, atrial flutter and GERD who presented to [facility] ED for evaluation of abdominal pain, nausea and vomiting
CT: New dilatation of small bowel in the central abdomen to the right with marked mesenteric stranding and some whirling of the mesentery in the right abdomen in comparison to study of preceding day. Findings are at least suspicious for possible
closed-loop type small bowel obstruction (with some relative decreased enhancement of the wall of the small bowel in this area), possibly with accompanying internal hernia with significant increased now small to moderate volume free fluid
particularly in the right abdomen.
- s/p diagnostic laparoscopy with JUNE converted to ex lap for closed loop SBO with SBR and repair enterotomy x1 for ischemic bowel on 12/13/24
- GS managing
- post-op ileus present
- patient removed NGT twice; now inserted a 3rd time - monitor outputs
- was given TPN via PICC
- empiric Zosyn, day 08/10
- pain control and anti-emetics per GS
- PT/OT - SNF recommended
Continueed on NG tube suction
on 12/20 Patient removed his NG tube overnight.
NG tube was not replaced
Started on clear liquid then full liquid then low residual diet.
Patient tolerating diet.
Had diarrhea which is improving with cholestyramine and Imodium
Physical therapy recommending rehab.
Blood pressure dropped and started on midodrine
Assessment/plan:
Closed Loop acute SBO
- CT: New dilatation of small bowel in the central abdomen to the right with marked mesenteric stranding and some whirling of the mesentery in the right abdomen in comparison to study of preceding day. Findings are at least suspicious for possible
closed-loop type small bowel obstruction (with some relative decreased enhancement of the wall of the small bowel in this area), possibly with accompanying internal hernia with significant increased now small to moderate volume free fluid
particularly in the right abdomen.
- s/p diagnostic laparoscopy with JUNE converted to ex lap for closed loop SBO with SBR and repair enterotomy x1 for ischemic bowel on 12/13/24
- GS managing
- post-op ileus present
- patient removed NGT twice; now inserted a 3rd time - monitor outputs
- was given TPN via PICC
- Completed 7 days of Zosyn
- pain control and anti-emetics per GS
- PT/OT - SNF recommended
Continueed on NG tube suction
on 12/20 Patient removed his NG tube overnight.
NG tube was not replaced
Started on clear liquid then full liquid then low residual diet.
Patient tolerating LR diet.
Medically clear for discharge
Secretory diarrhea.
Noted to have bloody diarrhea.
Status post fecal management for system--->Now removed.
Negative stool for C. difficile and cultures.
Added cholestyramine/Imodium
Acute metabolic encephalopathy/hospital delirium/suicidal ideation
Acute delirium, suspect TME in setting of post-op, anesthesia
- prn Valium - Haldol stopped due to prolonged QTc
- prn restraints to facilitate safe post-op care
Psych consulted.
12/22
Overall improving, currently off restraint
Circulatory shock from intra-abdominal source (closed loop SBO, ? possible translocation of GI pathogen)
- weaned off Levophed, currently off
12/24
Blood pressure dropped again.
Blood pressure medication on hold.
Started admitted
Paroxysmal Atrial Fibrillation/Flutter
- Resumed metoprolol and Eliquis.
Metoprolol currently on hold
Benign prostatic hyperplasia.
After resuming Cardura, patient developed hypotension, Cardura on hold
Benign Hypertension
- Patient currently hypotensive holding doxazosin/Losartan/metoprolol.
acute on Chronic HFrEF, iatrogenic when patient received TPN and infusions
- Hold Lasix; monitor I/Os, weights, lytes. Last dose 12/17.
GERD -
Continue PPI
Hyperlipidemia
-resume statin
Acute blood loss anemia on chronic anemia
Hemoglobin stable
Severe protein calorie malnutrition of chronic illness
Hypokalemia - replete prn
CODE STATUS: DNI/DNR
DVT prophylaxis: Eliquis
Diet: Full liquid
Family communication: Discussed with and son at bedside
Disposition: Added midodrine.
Monitor blood pressure.
Orthostatic vitals.
Not ready for discharge
Total time spent on today's encounter was 65 minutes which included time spent in counseling the patient/family regarding diagnosis and treatment plan as listed above, goals of care, and symptom management. Case was discussed with nursing staff,
specialists, and care coordinators/case management. All labs and imaging personally reviewed by me. Remainder the time spent in detailed review of previous records, lab data, imaging, and other medical provider documentation.
Anticipated Discharge: > 48 hours
Subjective/Interval History
-
Date of Service: December 24, 2024
Patient seen and examined at bedside, overall improving and diarrhea improved.
Denies any chest pain or shortness of breath, blood pressure dropped, started on midodrine.
Objective Data
-
Labs:
Laboratory Results
12/24/24
05:11
WBC 10.6
Hgb 10.2 L
Hct 29.8 L
Plt Count 283
Sodium 138
Potassium 3.3 L
Chloride 111 H
Carbon Dioxide 22
BUN 20
Creatinine 0.7
Glucose 111 H
Calcium 8.2 L
Vital Signs:
Vital Signs
Temp Pulse Resp BP Pulse Ox
97.6 F 93 23 92/74 97
12/24/24 11:43 12/24/24 11:53 12/24/24 11:53 12/24/24 11:53 12/24/24 10:16
I&O
12/23/24 12/24/24 12/25/24
06:59 06:59 06:59
Intake Total 530 / 530 1220 / 1220
Output Total 1150 / 1150 700 / 700 450 / 450
Balance -620 / -620 520 / 520 -450 / -450
Physical Exam
-
General: Well Developed
HEENT: Normocephalic, Atraumatic, Moist Mucous Membranes, No Ptosis, PERRLA and Nose Appears Normal
Respiratory: Rales and Rhonchi
Cardiac: Regular Rhythm and S1/S2
Breast: Deferred by me
GI: Other (Midline incision clean)
Genito-urinary: No Costovertebral Tender
Musculoskeletal: No Clubbing, No Cyanosis and No Edema
Skin: Warm
Neuro: Awake, Alert, Oriented, AO x 3 and No Motor Deficits
Psych: Calm
[2024-12-24 12:58] LABS: Urine Character Clear (Clear)
[2024-12-24 13:25] LABS: Urine Red Blood Cell 21-25 /HPF (0-2); Urine White Cell 30-40 /HPF (0-5)
--- NOTE | 2024-12-24 14:18 | CM ---
campaign management senior manager received contact from nursing that patient's spouse wanted to talk with briefcase sewer briefcase sewer attempted to reach out to patient's spouse however no answer message left.
Plan; Per physician notes patient is not stable for discharge today.
--- NOTE | 2024-12-24 18:03 | W.PN.UPDATE ---
Update Note
Progress Note Update
Called by nurse to assess patient for lower abdominal pain, bladder spasms.
Patient having acute urinary retention and subsequent bladder spasms. Bladder scan today showed 500 cc of urine.
Currently getting straight cath.
Order placed for Alvarado catheter, tamsulosin.
Recommend follow-up with his urologist after discharge, Dr. Tobin.
Urinalysis noted to have hematuria, pyuria, suspect related to urinary retention. Urine culture sent, hold off on starting antibiotics for now. No signs or symptoms of sepsis.
[2024-12-24] MEDS: FLOMAX 0.4 MG PO (18:17)
--- NOTE | 2024-12-24 18:19 | PTCARENOTE ---
Pt complaining of burning while attempting to urinate. Today, he has not been able to pass any urine, requiring straight cath earlier in the day and pyridium was added. Pt stating now that pain is getting much more severe and coming in waves. Cross
coverage notified and a henson catheter was placed and flomax was initiated. Pt now much more comfortable.
--- NOTE | 2024-12-24 20:45 | PTCARENOTE ---
Assumed care of Pt from dayshift RN after change of shift report. Pt is AAOx3 can be forgetful at times. Alvarado in place draining yellow urine. HR 93 bpm, BP 136/109. assessment as documented. call light in reach.
[2024-12-24] MEDS: SINGULAIR 10 MG PO (21:41)
[2024-12-24] MEDS: CARDURA 8 MG PO (21:42)
[2024-12-24] MEDS: LIPITOR 20 MG PO (21:43)
[2024-12-25] VITALS (17 sets, daily range): BP systolic 96–123; BP diastolic 53–89
[2024-12-25] MEDS: QUESTRAN 4 GRAM PO ×3 (01:42→20:08)
[2024-12-25] MEDS: FLOMAX 0.4 MG PO (09:25)
[2024-12-25] MEDS: ELIQUIS 5 MG PO ×2 (09:25→20:07)
[2024-12-25] MEDS: PROTONIX 40 MG PO (09:25)
[2024-12-25] MEDS: MYCOSTATIN ORAL SUSPENSION 5 ML PO ×3 (09:25→16:38)
[2024-12-25 09:49] LABS: Hematocrit 29.2 % (39.0-52.0); Hemoglobin 10.2 g/dL (13.0-18.0); Mean Corp Hgb Conc. 34.9 g/dL (33.0-37.0); Mean Corpuscular Volume 89.8 fL (80.0-94.0); Platelet Count 306 10^3/uL (130-400); Red Cell Dist. Width 14.4 % (11.5-14.5)
[2024-12-25 10:12] LABS: Blood Urea Nitrogen 13 mg/dl (9-20); Calcium 8.5 mg/dl (8.4-10.2); Carbon Dioxide 20 mmol/L (22-30); Chloride 114 mmol/L (98-107); Estimated Creatinine Clearance 74 ml/min; Glucose 131 mg/dl (70-99); Potassium 3.5 mmol/L (3.5-5.1); Sodium 138 mmol/L (135-145); eGFR > 60.00
[2024-12-25] MEDS: TYLENOL 650 MG PO (13:07)
--- NOTE | 2024-12-25 13:23 | W.PN.HOSP.TC ---
Today's Communication/Plan
-
Blood pressure improved.
Status post Alvarado for urinary retention.
possible discharge to [facility] once bed available
Assessment / Plan
Assessment / Plan
Impression:
Patient is a 84-year-old male with past medical history significant for hypertension, hyperlipidemia, HFrEF, atrial flutter and GERD who presented to [facility] ED for evaluation of abdominal pain, nausea and vomiting
CT: New dilatation of small bowel in the central abdomen to the right with marked mesenteric stranding and some whirling of the mesentery in the right abdomen in comparison to study of preceding day. Findings are at least suspicious for possible
closed-loop type small bowel obstruction (with some relative decreased enhancement of the wall of the small bowel in this area), possibly with accompanying internal hernia with significant increased now small to moderate volume free fluid
particularly in the right abdomen.
- s/p diagnostic laparoscopy with JUNE converted to ex lap for closed loop SBO with SBR and repair enterotomy x1 for ischemic bowel on 12/13/24
- GS managing
- post-op ileus present
- patient removed NGT twice; now inserted a 3rd time - monitor outputs
- was given TPN via PICC
- empiric Zosyn, day 08/10
- pain control and anti-emetics per GS
- PT/OT - SNF recommended
Continueed on NG tube suction
on 12/20 Patient removed his NG tube overnight.
NG tube was not replaced
Started on clear liquid then full liquid then low residual diet.
Patient tolerating diet.
Had diarrhea which is improving with cholestyramine and Imodium
Physical therapy recommending rehab.
Blood pressure dropped and started on midodrine.
Urinary retention required Alvarado catheter.
Assessment/plan:
Closed Loop acute SBO
- CT: New dilatation of small bowel in the central abdomen to the right with marked mesenteric stranding and some whirling of the mesentery in the right abdomen in comparison to study of preceding day. Findings are at least suspicious for possible
closed-loop type small bowel obstruction (with some relative decreased enhancement of the wall of the small bowel in this area), possibly with accompanying internal hernia with significant increased now small to moderate volume free fluid
particularly in the right abdomen.
- s/p diagnostic laparoscopy with JUNE converted to ex lap for closed loop SBO with SBR and repair enterotomy x1 for ischemic bowel on 12/13/24
- GS managing
- post-op ileus present
- patient removed NGT twice; now inserted a 3rd time - monitor outputs
- was given TPN via PICC
- Completed 7 days of Zosyn
- pain control and anti-emetics per GS
- PT/OT - SNF recommended
Continueed on NG tube suction
on 12/20 Patient removed his NG tube overnight.
NG tube was not replaced
Started on clear liquid then full liquid then low residual diet.
Patient tolerating LR diet.
Blood pressure dropped and required midodrine.
Secretory diarrhea.
Noted to have bloody diarrhea.
Status post fecal management for system--->Now removed.
Negative stool for C. difficile and cultures.
Added cholestyramine/Imodium
Diarrhea improved
Acute metabolic encephalopathy/hospital delirium/suicidal ideation
Acute delirium, suspect TME in setting of post-op, anesthesia
- prn Valium - Haldol stopped due to prolonged QTc
- prn restraints to facilitate safe post-op care
Psych consulted.
12/22
Overall improving, currently off restraint
Circulatory shock from intra-abdominal source (closed loop SBO, ? possible translocation of GI pathogen)
- weaned off Levophed, currently off
12/24
Blood pressure dropped again.
Blood pressure medication on hold.
Started midodrine
12/25
Blood pressure improved
Paroxysmal Atrial Fibrillation/Flutter
- Resumed metoprolol and Eliquis.
Metoprolol currently on hold
Benign prostatic hyperplasia.
After resuming Cardura, patient developed hypotension, Cardura on hold
Benign Hypertension
- Patient currently hypotensive holding doxazosin/Losartan/metoprolol.
acute on Chronic HFrEF, iatrogenic when patient received TPN and infusions
- Hold Lasix; monitor I/Os, weights, lytes. Last dose 12/17.
GERD -
Continue PPI
Hyperlipidemia
-resume statin
Acute blood loss anemia on chronic anemia
Hemoglobin stable
Severe protein calorie malnutrition of chronic illness
Hypokalemia - replete prn
CODE STATUS: DNI/DNR
DVT prophylaxis: Eliquis
Diet: Full liquid
Family communication: Discussed with and son at bedside
Disposition: Blood pressure improved.
Status post Alvarado for urinary retention.
possible discharge to [facility] once bed available
Total time spent on today's encounter was 65 minutes which included time spent in counseling the patient/family regarding diagnosis and treatment plan as listed above, goals of care, and symptom management. Case was discussed with nursing staff,
specialists, and care coordinators/case management. All labs and imaging personally reviewed by me. Remainder the time spent in detailed review of previous records, lab data, imaging, and other medical provider documentation.
Anticipated Discharge: Within 24 hours
Subjective/Interval History
-
Date of Service: December 25, 2024
Diarrhea improved, patient had issues with urinary retention required Alvarado catheter last night and started on Flomax and Cardura.
Blood pressure improved.
Objective Data
-
Labs:
Laboratory Results
12/25/24 12/25/24
09:41 09:42
WBC 10.8
Hgb 10.2 L
Hct 29.2 L
Plt Count 306
Sodium 138
Potassium 3.5
Chloride 114 H
Carbon Dioxide 20 L
BUN 13
Creatinine 0.7
Glucose 131 H
Calcium 8.5
Vital Signs:
Vital Signs
Temp Pulse Resp BP Pulse Ox
98.5 F 95 26 108/63 98
12/25/24 07:00 12/25/24 10:00 12/25/24 10:00 12/25/24 10:00 12/24/24 20:05
I&O
12/24/24 12/25/24 12/26/24
06:59 06:59 06:59
Intake Total 1220 / 1220
Output Total 700 / 700 1700 / 1700
Balance 520 / 520 -1700 / -1700
Physical Exam
-
General: Well Developed
HEENT: Normocephalic, Atraumatic, Moist Mucous Membranes, No Ptosis, PERRLA and Nose Appears Normal
Respiratory: Rales and Rhonchi
Cardiac: Regular Rhythm and S1/S2
Breast: Deferred by me
GI: Other (Midline incision clean)
Genito-urinary: No Costovertebral Tender
Musculoskeletal: No Clubbing, No Cyanosis and No Edema
Skin: Warm
Neuro: Awake, Alert, Oriented, AO x 3 and No Motor Deficits
Psych: Calm
--- NOTE | 2024-12-25 13:41 | CM ---
CM reviewed chart, care ongoing.
Updates to [facility] sent via [facility], will need to review with admissions liaison Wednesday 12/27 if bed available.
CM will continue to follow for all d/c planning.
Plan; Updates to [facility] for SNF, potential d/c Thursday pending bed availability
[2024-12-25] MEDS: IMODIUM 2 MG PO (16:41)
--- NOTE | 2024-12-25 18:04 | PTCARENOTE ---
OOB x 4 hours today min/mod assist 2 RW. Intense pain this am rectal area/ scrotum- cleansed with warm bar soapy water - patted dry- Improved. Tylenol also ordered and given with good relief. Alvarado care completed. Tearful at times family was not
present worried that will resent him - emotional support provided. Family visited this pm. Having looser soft stools this pm- Immodium given- will monitor. SCDs intact. Appetite fair- will look around for ensure.
[2024-12-25] MEDS: LIPITOR 20 MG PO (20:08)
[2024-12-25] MEDS: SINGULAIR 10 MG PO (20:08)
[2024-12-25] MEDS: MYCOSTATIN ORAL SUSPENSION PO (23:09)
[2024-12-25] MEDS: CARDURA PO (23:09)
[2024-12-26] VITALS (16 sets, daily range): BP systolic 90–131; BP diastolic 39–88; PULSE 90–116; BMI 23.4
[2024-12-26 05:12] LABS: Hematocrit 29.3 % (39.0-52.0); Hemoglobin 10.3 g/dL (13.0-18.0); Mean Corp Hgb Conc. 35.2 g/dL (33.0-37.0); Mean Corpuscular Volume 90.4 fL (80.0-94.0); Platelet Count 315 10^3/uL (130-400); Red Cell Dist. Width 14.2 % (11.5-14.5)
[2024-12-26 05:48] LABS: Blood Urea Nitrogen 14 mg/dl (9-20); Calcium 8.3 mg/dl (8.4-10.2); Carbon Dioxide 21 mmol/L (22-30); Chloride 113 mmol/L (98-107); Estimated Creatinine Clearance 75 ml/min; Glucose 99 mg/dl (70-99); Potassium 3.7 mmol/L (3.5-5.1); Sodium 138 mmol/L (135-145); eGFR > 60.00
[2024-12-26] MEDS: MYCOSTATIN ORAL SUSPENSION 5 ML PO ×2 (08:35→12:19)
[2024-12-26] MEDS: FLOMAX 0.4 MG PO (08:35)
[2024-12-26] MEDS: PROTONIX 40 MG PO (08:35)
[2024-12-26] MEDS: QUESTRAN 4 GRAM PO (08:36)
[2024-12-26] MEDS: ELIQUIS 5 MG PO (08:36)
[2024-12-26] MEDS: TYLENOL 650 MG PO ×2 (09:16→15:52)
--- NOTE | 2024-12-26 11:36 | W.PN.HOSP.TC ---
Today's Communication/Plan
-
dc to SNF today
Assessment / Plan
Assessment / Plan
Impression:
Patient is a 84-year-old male with past medical history significant for hypertension, hyperlipidemia, HFrEF, atrial flutter and GERD who presented to [facility] ED for evaluation of abdominal pain, nausea and vomiting
CT: New dilatation of small bowel in the central abdomen to the right with marked mesenteric stranding and some whirling of the mesentery in the right abdomen in comparison to study of preceding day. Findings are at least suspicious for possible
closed-loop type small bowel obstruction (with some relative decreased enhancement of the wall of the small bowel in this area), possibly with accompanying internal hernia with significant increased now small to moderate volume free fluid
particularly in the right abdomen.
- s/p diagnostic laparoscopy with JUNE converted to ex lap for closed loop SBO with SBR and repair enterotomy x1 for ischemic bowel on 12/13/24
- GS managing
- post-op ileus present
- patient removed NGT twice; now inserted a 3rd time - monitor outputs
- was given TPN via PICC
- empiric Zosyn, day 08/10
- pain control and anti-emetics per GS
- PT/OT - SNF recommended
Continueed on NG tube suction
on 12/20 Patient removed his NG tube overnight.
NG tube was not replaced
Started on clear liquid then full liquid then low residual diet.
Patient tolerating diet.
Had diarrhea which is improving with cholestyramine and Imodium
Physical therapy recommending rehab.
Blood pressure dropped and started on midodrine.
Urinary retention required Alvarado catheter.
Assessment:
Closed Loop acute SBO
- CT: New dilatation of small bowel in the central abdomen to the right with marked mesenteric stranding and some whirling of the mesentery in the right abdomen in comparison to study of preceding day. Findings are at least suspicious for possible
closed-loop type small bowel obstruction (with some relative decreased enhancement of the wall of the small bowel in this area), possibly with accompanying internal hernia with significant increased now small to moderate volume free fluid
particularly in the right abdomen.
- s/p diagnostic laparoscopy with JUNE converted to ex lap for closed loop SBO with SBR and repair enterotomy x1 for ischemic bowel on 12/13/24
- s/p TPN and NGT due to post-op ileus which is now resolved. now tolerating LRD
- completed 7 days Zosyn
- GS f/u OP
- PT/OT - SNF
Secretory diarrhea post-op
- C. Diff negative
- continue cholestyramine/Imodium
Postural hypotension (orthostasis)
- prn midodrine
- compression
- PT/OT
Acute metabolic encephalopathy/hospital delirium/suicidal ideation
- Acute delirium, suspect TME in setting of post-op, anesthesia
- prn Valium - Haldol stopped due to prolonged QTc
- prn restraints to facilitate safe post-op care
- Psych was following
- overall improved, back to baseline
Circulatory shock from intra-abdominal source (closed loop SBO, ? possible translocation of GI pathogen)
- weaned off Levophed, currently off
Paroxysmal Atrial Fibrillation/Flutter
- continue Eliquis.
- resume Metoprolol as 12.5mg daily
Benign prostatic hyperplasia
Urinary retention
- continue Flomax
- continue Alvarado
- stopped Cardura
Benign Hypertension
- Patient currently hypotensive holding doxazosin/Losartan
- low dose metoprolol for Afib
- Midodrine as above
acute on Chronic HFrEF, iatrogenic when patient received TPN and infusions
- s/p periodic Lasix doses. hold oral Lasix at discharge. Resume as outpatient in 1-2 weeks when BP improving.
GERD - continue PPI
Hyperlipidemia
- resume statin
Acute blood loss anemia on chronic anemia
- Hemoglobin stable
Severe protein calorie malnutrition of chronic illness
Hypokalemia - replete prn
DVT prophylaxis: Eliquis
Code: DNI/DNR
Dispo: [facility]
Anticipated Discharge: Today
Subjective/Interval History
-
Date of Service: December 26, 2024
slightly orthostatic with activity, responds to midodrine
compression added
tolerating diet
Objective Data
-
Labs:
Laboratory Results
12/26/24
05:06
WBC 10.0
Hgb 10.3 L
Hct 29.3 L
Plt Count 315
Sodium 138
Potassium 3.7
Chloride 113 H
Carbon Dioxide 21 L
BUN 14
Creatinine 0.7
Glucose 99
Calcium 8.3 L
Vital Signs:
Vital Signs
Temp Pulse Resp BP Pulse Ox
98.4 F 98 21 112/58 96
12/26/24 07:36 12/26/24 10:00 12/26/24 10:00 12/26/24 10:00 12/25/24 18:03
I&O
12/25/24 12/26/24 12/27/24
06:59 06:59 06:59
Intake Total 930 / 930
Output Total 1700 / 1700 1600 / 1600
Balance -1700 / -1700 -670 / -670
Physical Exam
-
General: No Apparent Distress
HEENT: Normocephalic and Atraumatic
Respiratory: Negative Wheezes
Cardiac: Regular Rhythm and S1/S2
GI: Soft and Nontender
Neuro: AO x 3
Psych: Calm
Data Reviewed
-
Total Time Spent with Patient (in minutes): 41
Labs: Labs Reviewed by me
--- NOTE | 2024-12-26 11:53 | CM ---
Following up on Patient. Patient did not leave on Thursday as planned due to his blood pressure.
LEO Sin checked with Medical Attending who said that patient can discharge. Ana at [facility] does have a bed today. LEO Sin arranged 4pm and on transport time & getting a COVID test completed.
LEO Sin met with the patient, had IMM completed again. LEO Sin spoke to spouse and just let her know if issue with transportation than will call back. There was no issue, patient has enough criteria that he met as thought so decided to leave
message with the son via voice message of this discharge and that there no issue with transport.
Report: #[phone]
Fax: #[phone]
PLAN: Discharge to SNF at [facility]
--- NOTE | 2024-12-26 11:54 | W.DCSUMMARY ---
Discharge Summary
Discharge Data
Date of Admission: 12/14/24
Date of Discharge: 12/26/24
-
Pending Results: No
Hospital Course
84 y/o M presented on 12/13/24 with abdominal pain and found to have closed loop bowel obstruction. He went to OR for diagnostic laparoscopy with JUNE converted to ex lap for closed loop SBO with SBR and repair enterotomy x1 for ischemic bowel on
12/13/24 and was placed into ICU on pressors. He required NGT and PICC/TPN for post-op ileus but eventually was able to tolerated a diet. He completed 7 days of Zosyn. His hospital course was complicated by in-hospital delirium requiring psych eval.
Additional he developed urinary retention requiring a Alvarado and orthostasis requiring Midodrine support. Patients Losartan/Lasix/Doxazosin were stopped and Toprol reduced to 12.5mg daily. He was seen by PT/OT and discharged to SNF.
Discharge Plan
-
Patient Disposition: Group Home/SNF
Discharge Diagnosis/Procedures: Closed Loop acute small bowel obstruction.
Diarrhea.
Acute metabolic encephalopathy.
Paroxysmal A-fib.
Benign hypertension
Urinary retention
Condition: Fair
Diet: Low Residue
Activity: With assistance and As tolerated
Bathing Restrictions: None
Other Services: PT and OT
Referrals:
Gary Heart MD [Active, Pulmonary Medicine] - in three to four weeks
Ki Burks MD [Active, Surgical] - in one to two weeks
Camilo Troncoso MD [Family Provider, Internal Medicine] - in two weeks
Additional Discharge Medication Instructions: Losartan/Doxazosin/Lasix stopped for now. Toprol reduced to 12.5mg daily. Midodrine added.
Prescriptions:
New
midodrine 5 mg Tablet
10 mg PO TID@0800,1300,1800 Qty: 90 0RF
tamsulosin 0.4 mg Capsule
0.4 mg PO DAILY Qty: 30 0RF
cholestyramine (with sugar) 4 gram Powder In Packet
1 ea PO BID Qty: 30 0RF
metoprolol succinate [Toprol XL] 25 mg tablet extended release 24 hr
12.5 mg PO DAILY Qty: 30 0RF
loperamide 2 mg Capsule
2 mg PO Q6HPRN PRN (Reason: Diarrhea) Qty: 20 0RF
phenazopyridine 200 mg Tablet
200 mg PO Q8 PRN (Reason: Pain) Qty: 20 0RF
Continued
Eliquis 5 mg tablet
5 mg PO BID Qty: 70 0RF
Rx Instructions:
10 mg BID x 7 days, then 5 mg BID
multivitamin Tablet
1 tab PO DAILY
calcium carbonate-vitamin D3 600 mg-5 mcg (200 unit) Tablet
1 tab PO DAILY
simvastatin 40 mg tablet
40 mg PO HS
omeprazole 20 mg capsule,delayed release(DR/EC)
20 mg PO DAILY
montelukast 10 mg tablet
10 mg PO HS
Prolia 60 mg/mL Syringe
60 mg SC [id number]
Discontinued
furosemide [Lasix] 40 mg tablet
40 mg PO DAILY Qty: 20 0RF
losartan 50 mg tablet
50 mg PO DAILY
metoprolol succinate 50 mg tablet extended release 24 hr
50 mg PO DAILY
doxazosin 8 mg tablet
8 mg PO HS
Discharge Orders:
Discharge Patient (As Directed); Ordered 12/26/24
Ordered By: Umang Joyce
Discharge Date and Time
Print Language: KENYAN
[2024-12-26 12:32] LABS: COVID-19 Antigen Negative (Negative)
--- NOTE | 2024-12-28 11:34 | OR.RPT ---
Operative Report
Operative Report
Primary Surgeon: Kimmie
Pre-op Diagnosis: Closed loop small bowel obstruction
Post-op Diagnosis: Same, ischemic bowel, meckel's diverticulum (incidental)
Procedure Performed: Diagnostic laparoscopy, lysis of adhesions (30 min), exploratory laparotomy, small bowel resection
Anesthesia Type: GETA
Specimen / Cultures: ileum (60cm approx)
Estimated Blood Loss: 40cc
Complications: 2mm enterotomy from bowel grasper, closed in 2 layers with 2-0 vicryl suture
Operative Findings: Dilated proximal small bowel, distal small bowel friable, hemorrhagic, ischemic, omental band adhesion to small bowel mesentery in right lower quadrant with internal herniation of approximately 60cm of small bowel; other
adhesions throughout the abdomen primally omentum to abdominal wall, laparoscopic lysis of adhesions with ligasure for approximately 30 min; 2mm enterotomy in small bowel occurred during lysis of adhesions, repaired with 2-0 vicryl in 2 layers;
cecum and terminal ileum mobilized off pelvic side wall, adhesive band lysed with ligasure and ischemic bowel segment resected with purple 80mm MILENA stapler; moderate contamination with thin watery stool; irrigated with 4L warm sterile saline;
side-side distal small bowel anastomosis, common channel closed with TA stapler, crotch stitch x2 with 2-0 vicryl, mesenteric defect closed with running 2-0 vicryl; 19fr drain to right lower quadrant
DOS: 12/14/24
Indications: 84M presented with abdominal pain, nausea and vomiting and imaging concerning for closed loop small owel obstruction. Urgent diagnostic laparoscopy, possible exploratory laparotomy, possible bowel resection was planned.
Description of procedure: The patient was placed on the operating table in the supine position. General anesthesia was induced. A time-out was completed verifying correct patient, procedure, site, positioning, and special equipment prior to
beginning this procedure. An orogastric tube was placed. The abdomen was prepped and draped in the usual sterile fashion. A stab incision was made in left upper quadrant and the Veress needle was inserted. Proper position was confirmed by aspiration
and saline meniscus test. The abdomen was insufflated with carbon dioxide to a pressure of 12 mmHg. The patient tolerated insufflation well.
A 5mm optical trocar was then inserted at the left upper quadrant. The laparoscope was inserted and the abdomen inspected. No injuries from initial trocar placement or Veress needle insertion were noted. Additional 5mm trocars were then inserted in
the following locations: at the umbilicus and at the midline in the suprapubic space. The abdomen was inspected and extensive adhesions to from bowel to the abdominal wall were identified. Lysis of adhesions commenced laparoscopically until the
right lower quadrant was accessible. Ligasure was used for this process. Ultimatly a band adhesions in the right lower quadrant was identified along with ischemic appearing small bowel herniated under the band. The procedure was converted to open by
creating a midline incision asnd placing an sancho wound retractor. A small bowel enterotomy was created during the lysis and this was now addressed with a 2 layer repair with 2-0 silk suture. The cecum and right colon were mobilized off the
abdominal wall allowing enhanced exposure of the adhesive band. The band was lysed and the bowel observed. It appeared to have irreversible ischemia. This distal ileal segment of ischemic small bowel measured approximately 60cm, it was resected with
a MILENA 80mm purple load stapler and a side-side anastomosis was created. The common channel was closed with a TA stapler. The mesenteric defect was closed wth a running vicryl suture and 2 crotch stitches were placed with the same suture. A 19 fr
bret drain was placed into the right lower quadrant and brought out through the abdominal wall and secured with a 2-0 nylon suture. The abdomen was irrigated thoroughly with warm sterile saline. The fascia was closed with a #1 PDS stratafix suture
and skin was closed with rachael at the midline. The two lap sites were incorporated into the midline incision and a staple was used to close the left sided port site at the skin. A mepilex dressing was applied.
The patient tolerated the procedure well and was taken to the postanesthesia care unit in stable condition.
== END 2024-12-26 16:20 | DRG 329 ==
LOC: IMU 01:37
PROVIDERS: General Practice; Nurse Practitioner Family; Physician Assistant; Radiology Diagnostic Radiology; Radiology Vascular & Interventional Radiology; ADMITTING PHYSICIAN Hospitalist; ATTENDING PHYSICIAN Internal Medicine; CONSULT PHYSICIAN Internal Medicine Critical Care Medicine; CONSULT PHYSICIAN Psychiatry & Neurology Psychiatry; CONSULT PHYSICIAN Surgery; EMERGENCY PHYSICIAN Student in an Organized Health Care Education/Training Program; FAMILY PHYSICIAN Internal Medicine Geriatric Medicine
PROC: 02HV33Z Insertion of Infusion Device into Superior Vena Cava, Percutaneous Approach (ICD-10-PCS; 2024-12-14)
PROC: 0DQ84ZZ Repair Small Intestine, Percutaneous Endoscopic Approach (ICD-10-PCS; 2024-12-14)
PROC: 0D9670Z Drainage of Stomach with Drainage Device, Via Natural or Artificial Opening (ICD-10-PCS; 2024-12-14)
PROC: 0DN84ZZ Release Small Intestine, Percutaneous Endoscopic Approach (ICD-10-PCS; 2024-12-14)
PROC: 0DBB0ZZ Excision of Ileum, Open Approach (ICD-10-PCS; 2024-12-14)
PROC: 3E0436Z Introduction of Nutritional Substance into Central Vein, Percutaneous Approach (ICD-10-PCS; 2024-12-14)
DX: K56.52 Intestinal adhesions [bands] with complete obstruction (principal); E43 Unspecified severe protein-calorie malnutrition; I50.23 Acute on chronic systolic (congestive) heart failure; K55.019 Acute (reversible) ischemia of small intestine, extent unspecified; G92.8 Other toxic encephalopathy; E87.20 Acidosis, unspecified; I48.92 Unspecified atrial flutter; N13.30 Unspecified hydronephrosis; D62 Acute posthemorrhagic anemia; F05 Delirium due to known physiological condition; T82.524A Displacement of infusion catheter, initial encounter; R45.851 Suicidal ideations; K91.71 Accidental puncture and laceration of a digestive system organ or structure during a digestive system procedure; I48.0 Paroxysmal atrial fibrillation; E78.00 Pure hypercholesterolemia, unspecified; I11.0 Hypertensive heart disease with heart failure; M81.0 Age-related osteoporosis without current pathological fracture; K21.9 Gastro-esophageal reflux disease without esophagitis; D64.9 Anemia, unspecified; G47.33 Obstructive sleep apnea (adult) (pediatric); Q43.0 Meckel's diverticulum (displaced) (hypertrophic); I49.3 Ventricular premature depolarization; I45.10 Unspecified right bundle-branch block; K56.7 Ileus, unspecified; E87.6 Hypokalemia; I95.1 Orthostatic hypotension; D72.829 Elevated white blood cell count, unspecified; R33.9 Retention of urine, unspecified; R94.39 Abnormal result of other cardiovascular function study; T41.205A Adverse effect of unspecified general anesthetics, initial encounter; Y92.239 Unspecified place in hospital as the place of occurrence of the external cause; Y65.8 Other specified misadventures during surgical and medical care; Y81.2 Prosthetic and other implants, materials and accessory general- and plastic-surgery devices associated with adverse incidents; N40.1 Benign prostatic hyperplasia with lower urinary tract symptoms; Z66 Do not resuscitate; Z77.090 Contact with and (suspected) exposure to asbestos; Z53.31 Laparoscopic surgical procedure converted to open procedure; Z85.820 Personal history of malignant melanoma of skin; Z79.01 Long term (current) use of anticoagulants; Z87.891 Personal history of nicotine dependence; Z82.49 Family history of ischemic heart disease and other diseases of the circulatory system; Z80.3 Family history of malignant neoplasm of breast; Z80.52 Family history of malignant neoplasm of bladder; Z80.8 Family history of malignant neoplasm of other organs or systems; Z82.3 Family history of stroke; Z11.52 Encounter for screening for COVID-19; Z79.899 Other long term (current) drug therapy; Z68.23 Body mass index [BMI] 23.0-23.9, adult; Z78.1 Physical restraint status
CPT/HCPCS: 36597; 71045; 74018; 74177; 74178; 76000; 76700; 80048; 80053; 81003; 81015; 82040; 82805; 82962; 83036; 83605; 83690; 83735; 84100; 84478; 85025; 85027; 85610; 85730; 87045; 87046; 87086; 87324; 87427; 87449; 87811; 88307; 89055; 93005; 96361; 96374; 96375; 96376; 97116; 97163; 97167; 97530; 97535; 99285; Q9967

== ENCOUNTER 2025-01-02 23:33 | Inpatient (IN) | payer MEDICARE, BC, SELFPAY ==
[2025-01-02] VITALS (20 sets, daily range): BP systolic 92–142; BP diastolic 57–99
--- NOTE | 2025-01-02 19:32 | ED.GENMED ---
History of Present Illness
General
Chief Complaint: Fever
Source: patient
Exam Limitations: none
Time Seen by Provider: 01/02/25 19:26
Nursing documentation reviewed up to this point in time: agreed with
History of Present Illness
History of Present Illness:
Patient status post partial small bowel resection last week secondary to closed loop obstruction, discharged from the hospital 5 days ago, returns to ED from rehab facility secondary to fever with vomiting. Patient reports feeling weak and tired.
Denies coughing. Upon arrival, patient found to be febrile, which he was not aware of. Denies diarrhea. Patient reports diffuse abdominal discomfort.
Past History
Past History
ED Past Medical History: GERD, HTN and Hypercholesterolemia
Social History
Tobacco: Non-smoker
Personal:
Living: with family
Review of Systems
Review of Systems
Allergies reviewed?: Yes
All Other Systems: ROS reviewed and negative except as documented in HPI and ROS
Constitutional: Reports fever
EENT: Reports no symptoms
Respiratory: Reports no symptoms
Cardiac: Reports no symptoms
ABD/GI: Reports abdominal pain, nausea and vomiting
Musculoskeletal: Reports no symptoms
Skin: Reports no symptoms
Neurological: Reports weakness; Denies dizzy or headache
Phy Exam
Physical Exam
Physical Exam:
Physical Exam
General: mild distress, weak appearing. febrile. tachycardic
Head: nc/at. eomi
Neck: supple. normal range of motion.
Heart: s1/s2 regular rate and rhythm
Lungs: no acute respiratory distress. clear bilaterally
Abdomen: normal bowel sounds. not tender.
Neuro: alert and oriented x 3. no focal neurological deficits
Skin: no rash
Psychiatric: well kept. interactive and cooperative
Extremities: no edema. no calf tenderness.
Sepsis
Sepsis Screening
Sepsis Assessment: Sepsis
Sepsis Screen
Sepsis Screen: Sepsis
Date: 01/03/25
Time: 02:33
Course
Orders/Labs/Results
Orders:
Orders
01/02/25 19:26
Electrocardiogram (*1) Urgent
Reason for Study: Bradycardia / Tachycardia
EKG- Treatment ONCE
01/02/25 19:31
Acetaminophen [Tylenol/Feverall] 650 mg .ROUTE .STK-MED ONE
Ondansetron Injectable [Zofran] 4 mg .ROUTE .STK-MED ONE
01/02/25 19:32
Acetaminophen [Tylenol/Feverall] 650 mg RECTAL NOW STA
Ondansetron Injectable [Zofran] 4 mg IV NOW STA
01/02/25 19:33
CT Abd/pelvis W Iv Cont Urgent
Comment:
Reason For Exam: fever/abd pain, recent colectomy
01/02/25 19:44
COVID-19 Antigen Urgent
Source: Nasal Swab
Complete Blood Count/With Diff Urgent
Comprehensive Metabolic Panel Urgent
Lactic Acid Q4H
Comment: CANCEL 2nd LACTIC ACID IF 1st LACTIC ACID IS LESS THAN 2
Lipase Urgent
Magnesium Urgent
Blood Culture Q30M
LONNIE Source: Blood/Venous
Specimen Description:
Influenza A+B Rapid Molecular Urgent
LONNIE Source: Nasal Swab
Specimen Description:
01/02/25 19:53
Blood Culture Q30M
LONNIE Source: Blood/Venous
Specimen Description:
01/02/25 19:54
0.9% Sodium Chloride 500 ml [Nss] 500 ml IV BOLUS
01/02/25 20:35
Magnesium Sulfate 1 grams 0.9% Sodium Chloride 100 ml [Nss] 100 ml IV NOW
01/02/25 21:59
Urinalysis Reflex To Culture Urgent
Date Specimen was Collected: 01/02/25
Time Specimen was Collected: 21:57
Urine Microscopic Reflex Cult Urgent
Urine Culture Urgent
LONNIE Source: U
Specimen Description:
Date Specimen was Collected: 01/02/25
Time Specimen was Collected: 21:57
01/02/25 23:05
CefTRIAXone [Rocephin] 1,000 mg IV NOW STA
01/02/25 23:12
0.9% Sodium Chloride 500 ml [Nss] 500 ml IV BOLUS
01/02/25 23:16
Magnesium Sulfate 2 Gram/50 ml [Magnesium Sulfate] 2 gram in 50 ml IV NOW
01/02/25 23:23
Admit/Transfer Patient As Directed
Co-Sign Provider:
Level of Care: Inpatient admission
Assign to:: IMU- Intermediate Care
Physician / Group: Jose Ramony
Diagnosis: Sepsis
Reason for Hospitalization: IVFs, IV abx
Expected length of stay greater than two midnights?: Yes
ELOS- Estimated Length of Stay in days: 3
I certify the patient meets the requirements for IP care: Yes
PRN Pain Medication Management As Directed
May give lesser potent ordered pain med per pt: Yes
preference::
Protocol:: Medication orders for pain may be administered in a
manner that supports deferring to patient preference
when the pt is:
- Requesting an ordered lesser potent pain medication.
Least to most potent pain medications are defined
as: acetaminophen < NSAID < tramadol < opioids
(morphine, oxycodone, hydromorphone).
- Requesting a lesser dose of the same medication IF
ORDERED.
- Requesting a less intrusive route of administration
if both routes are prescribed by the provider (PO <
IV).
01/02/25 23:25
Code Status As Directed
Resuscitation Status: Do not resuscitate
Reached after discussion with pt or family/Healthcare POA: Yes
DNR Bracelet Application ONCE
01/02/25 23:28
Acetaminophen [Tylenol] 650 mg PO NOW STA
01/03/25 00:35
Ondansetron Injectable [Zofran] 4 mg IV Q6HPRN PRN
01/03/25 01:47
0.9% Sodium Chloride 1000 ml [Nss] 1,000 ml IV 75 mls/hr
Acetaminophen [Tylenol] 650 mg PO Q4HPRN PRN
Metoprolol [Lopressor] 2.5 mg IV Q6HPRN PRN
01/03/25 01:47
Consult Notification Routine
Specialty to Notify: Surgical
SURGICAL CONSULT Routine
Consulting Provider: Gary Severino
Was physician already notified: No
Reason for consult: Questionable Abscess at Anastamosis
Activity As Directed
Activity Level: Out of Bed-Early Mobility
With Assistance
Alvarado Catheter [Catheter- Indwelling] As Directed
Reason for insertion: Chronic Alvarado on Admit
I&O [Intake/ Output] As Directed
Frequency: q12h
Vital Signs As Directed
Frequency: Per unit guidelines
Weight As Directed
Frequency: Daily
01/03/25 Breakfast
Clear Liquid
At Your Request: Limited Participation
Basic Metabolic Panel IN AM
Complete Blood Count/No Diff IN AM
Magnesium IN AM
01/03/25 08:00
Apixaban [Eliquis] 5 mg PO BID
Cholestyramine [Questran] 4 gram PO BID
Metoprolol Xl [Toprol Xl] 12.5 mg PO DAILY
Midodrine [ProAmatine] 10 mg PO TID@0800,1300,1800
Tamsulosin [Flomax] 0.4 mg PO DAILY
01/03/25 22:00
CefTRIAXone [Rocephin] 1,000 mg IV Q24H
Montelukast Sodium [Singulair] 10 mg PO HS
Abnormal Lab Results
01/02/25 01/02/25
19:44 21:59
WBC 14.1 H 10^3/uL
(4.8-10.8)
RBC 3.64 L 10^6/uL
(4.70-6.10)
Hgb 11.0 L g/dL
(13.0-18.0)
Hct 32.0 L %
(39.0-52.0)
Abs Immat Gran (auto) 0.1 H 10^3/uL
(0-0.05)
Absolute Neuts (auto) 10.7 H 10^3/uL
(1.4-6.5)
Absolute Monos (auto) 1.7 H 10^3/uL
(0.1-0.6)
Neutrophils % 75.5 H %
(42.2-75.2)
Lymphocytes % 11.8 L %
(20.5-51.1)
Monocytes % 11.8 H %
(1.7-9.3)
Sodium 133 L mmol/L
(135-145)
Glucose 175 H mg/dl
(70-99)
Magnesium 0.9 L* mg/dl
(1.6-2.3)
Albumin 3.3 L g/dl
(3.5-5.0)
Lipase 16 L U/L
(23-300)
Ur Occult Blood Reflex 4+ A
(Negative)
Urine Nitrite (Reflex) Positive A
(Negative)
Leukocyte Esterase Rfl 3+ A
(Negative)
Urine RBC 3-6 A /HPF
(0-2)
Urine WBC (Reflex) >100 A /HPF
(0-5)
Urine Bacteria (Reflex) Moderate A
(Negative)
Urine Albumin (Reflex) 3+ A
(Neg - Trace)
01/02/25 19:44
01/02/25 19:44
Vital Signs
Initial and Last Documented VS:
Initial Vital Signs
Pulse Resp Pulse Ox
129 21 96
01/02/25 19:37 01/02/25 19:37 01/02/25 19:37
Last Documented Vital Signs
Temp Pulse Resp BP Pulse Ox
98.7 F 111 25 124/53 94
01/03/25 02:01 01/03/25 01:30 01/03/25 01:30 01/03/25 01:30 01/03/25 02:13
MDM/Problems Addressed
MDM/Problems Addressed:
CT report reviewed, difficult to exclude possibility of developing abscess from recent procedure.
Blood work and urinalysis noted. Patient will be started on Rocephin for potential urinary tract infection.
Blood culture and urine culture pending. Patient will be admitted for further evaluation and treatment.
*Pulse Oximetry
Patient hypoxic: no
*EKG
Interpreted by ED Provider?: Yes
EKG Intrepretation Date: 01/02/25
Heart Rate: 138
Rate: tachycardiac
Rhythm: sinus
[place]: normal axis
Interval: normal interval
QRS Pattern: right bundle branch block
*Critical Care Note
Total Time (30-74mins, 75-104mins- exclusive of procedures): Not Applicable
ED Attending Note
-
Portions of this chart may have been created with voice recognition software.� Occasional wrong word or��sound alike� substitutions may have occurred due to the inherent limitations of voice recognition software.
Discharge Plan
Departure
Patient Disposition: Admit
Date of Disposition: 01/02/25
Time of Disposition: 23:06
Admit to: IMU
Presentation/result/management discussed w/ accepting MD/DO: Hospitalist
Discharge Problem:
Sepsis, Acute UTI, Hypomagnesemia
Interventions
Interventions:
*Risk Screen - Suicide Last Done: 01/02/25 19:56
*General Assessment Last Done: 01/02/25 19:56
*Neglect/Abuse Screening Last Done: 01/02/25 19:56
*ED- Fall Risk Assessment Last Done: 01/02/25 19:56
*ED COVID-19 Vaccine History Last Done: 01/02/25 19:56
*ED Influenza Vaccine History Last Done: 01/02/25 19:56
*Nursing Disposition Last Done: 01/03/25 01:43
ED- Neurological Assessment Last Done: 01/02/25 19:56
ED-Skin Assessment Last Done: 01/02/25 19:56
Discharge Date and Time
Discharge Date/Time: 01/03/25 01:44
[2025-01-02] MEDS: ZOFRAN 4 MG IV (19:45)
[2025-01-02] MEDS: TYLENOL/FEVERALL 650 MG RECTAL (19:45)
[2025-01-02 20:01] LABS: Hematocrit 32.0 % (39.0-52.0); Hemoglobin 11.0 g/dL (13.0-18.0); Mean Corp Hgb Conc. 34.4 g/dL (33.0-37.0); Mean Corpuscular Volume 87.9 fL (80.0-94.0); Nucleated Red Blood Cells % 0 % (-); Platelet Count 259 10^3/uL (130-400); Red Cell Dist. Width 14.3 % (11.5-14.5)
[2025-01-02] MEDS: NSS 500 IV ×2 (20:06→23:15)
[2025-01-02 20:18] LABS: COVID-19 Antigen Negative (Negative)
[2025-01-02 20:30] LABS: ALT (SGPT) 14 U/L (0-50); AST (SGOT) 21 U/L (17-59); Albumin 3.3 g/dl (3.5-5.0); Alkaline Phosphatase 78 U/L (38-126); Blood Urea Nitrogen 16 mg/dl (9-20); Calcium 8.5 mg/dl (8.4-10.2); Carbon Dioxide 22 mmol/L (22-30); Chloride 102 mmol/L (98-107); Estimated Creatinine Clearance 55 ml/min; Glucose 175 mg/dl (70-99); Lipase 16 U/L (23-300); Magnesium 0.9 mg/dl (1.6-2.3); Potassium 3.5 mmol/L (3.5-5.1); Sodium 133 mmol/L (135-145); Total Protein 6.7 g/dl (6.3-8.2); eGFR > 60.00
[2025-01-02] MEDS: MAGNESIUM SULFATE 102 GRAMS IV (21:08)
[2025-01-02 22:11] LABS: Urine Character Cloudy (Clear)
[2025-01-02 22:17] LABS: Urine Squamous Cell 0-2 /LPF (Few)
[2025-01-02 22:18] LABS: Urine White Cell >100 /HPF (0-5)
--- NOTE | 2025-01-02 23:14 | W.PN.UPDATE ---
Addendum entered and electronically signed by Brenden De La Fuente MD 01/02/25 23:51:
Case dw son regarding guarded clinical state
Son aware
Confirmed DNR
Case dw House CHANNEL BUSINESS MANAGER
Original Note:
Update Note
Progress Note Update
This note serves as an addendum to the H&P by link knitting machine operator GALDINO�
Lizette DIETERICK
HPI
84M HX chr HFrEF, A flutter, HTN and GERD s/p partial colectomy last week due closed loop obstruction, discharged from the hospital 5 days ago, returns to ED from rehab facility secondary to fever with vomiting. Patient reports feeling weak and
tired.
He wear post indwelling F Cath
ROS
Denies coughing.
Upon arrival, patient found to be febrile, which he was not aware of.
Denies diarrhea.
Patient reports diffuse abdominal discomfort.
Relevant VS
Temp Pulse Resp BP Pulse Ox
98.4 F 112 19 130/75 96
01/02/25 21:11 01/02/25 22:00 01/02/25 22:00 01/02/25 22:00 01/02/25 22:00
PE
Spiked fever
Gen:looks toxic
HEENT: anicteric
Neck: supple
Lungs:CTA
Cor:fast VR
Abdomen:soft , NT , NG �
RN REFERRAL: [facility]
Relevant data�
01/02/25 01/02/25
19:44 21:59
WBC 14.1 H
RBC 3.64 L
Hgb 11.0 L
Hct 32.0 L
Abs Immat Gran (auto) 0.1 H
Absolute Neuts (auto) 10.7 H
Absolute Monos (auto) 1.7 H
Neutrophils % 75.5 H
Lymphocytes % 11.8 L
Monocytes % 11.8 H
Sodium 133 L
Glucose 175 H
Magnesium 0.9 L*
Albumin 3.3 L
Lipase 16 L
Ur Occult Blood Reflex 4+ A
Urine Nitrite (Reflex) Positive A
Leukocyte Esterase Rfl 3+ A
Urine RBC 3-6 A
Urine WBC (Reflex) >100 A
Urine Bacteria (Reflex) Moderate A
Urine Albumin (Reflex) 3+ A
CT AP W Iv Cont
- Despite the provided history of recent colectomy, the colon is present. There are surgical clips in right lower quadrant, which appear to be related to a small bowel anastomosis, suggesting previous partial small bowel resection. Correlation with
surgical history is therefore necessary.
Adjacent to the anastomosis, there is localized subtle soft tissue of indistinct margins and a small focus of gas, as described. While this may be related to the recent surgical procedure, the possibility of developing abscess would be difficult to
exclude with certainty. Therefore, close clinical and imaging follow-up would be recommended.
Otherwise, a small amount of free air is present predominantly nondependently in the right upper quadrant. This is probably related to the recent surgical procedure.
No CT evidence to suggest bowel obstruction.
Alvarado catheter in a collapsed urinary bladder. Prominent urinary bladder wall thickening. Clinical correlation recommended possibility of cystitis.
Nonspecific moderate perirectal and presacral edema.
There continues to be element of obstructive uropathy affecting the right kidney. As stated previously, further evaluation with retrograde pyelogram would be recommended.
Mild interstitial fibrotic changes with slightly increased interstitial markings, which could be related to interstitial fluid, such as volume overload or mild congestive heart failure.
Last hospitalist admission: Date of Admission: 12/14/24 - Date of Discharge: 12/26/24
DC DX
Closed Loop acute small bowel obstruction.
Diarrhea.
Acute metabolic encephalopathy.
Paroxysmal A-fib.
Benign hypertension
Urinary retention
ASSESSMENT & PLAN
Sepsis
CAUTI
Questionable CT AP findings of paraanastomotic, localized subtle soft tissue of indistinct margins and a small focus of gas- the possibility of developing abscess would be difficult to exclude with certainty.
- UCx
- Empiric IV CFTX
- NS IVF
- clears
- s/p FC exchanged
- GS consulted
Fast AF
HX Prx AF, Flutter
- on Eliquis
- IV Metoprolol 2.5 mg q6h prn PRN for HR > 130
- CBC Card consult
HX Postural hypotension (orthostasis)
- prn midodrine
- compression
Known HX
S/P TME on last admission
Benign prostatic hyperplasia
Urinary retention HX - on Flomax
Benign Hypertension; Midodrine as above
Chronic HFrEF
GERD - continue PPI
Hyperlipidemia; on statin
Severe protein calorie malnutrition of chronic illness
DVT prophylaxis: Eliquis
DNR
IMU
[2025-01-02] MEDS: ROCEPHIN 1000 MG IV (23:15)
--- NOTE | 2025-01-02 23:29 | HPS.HSE ---
Family Physician
-
Family Physician: Camilo Troncoso
Chief Complaint
-
Fever
History of Present Illness
Patient is an 84 y/o male past medical history of CHF, A-Fib, Orthostatic Hypotension and recent hospitalization form Dec 14 with closed loop small bowel obstruction s/p small bowel resection who presents with fever. Additional history obtained
from patient's family at the bedside. Patient has not been doing well since his recent discharge. Family reports patient has had very poor appetite and frequently complains about nausea after eating. Over the past few days symptoms have progressed
with development of vomiting. Today patient developed fevers and was sent to the emergency department for evaluation. Upon my evaluation patient is having active rigors. Family notes patient had a Alvarado catheter placed during the prior
hospitalization, but failed voiding trial prior to discharge and Alvarado was replaced.
Medical History
Past Medical History
Past Medical History: Reports Other
Additional Past Medical History:
Chronic HFrEF
Paroxysmal Atrial Fibrillation / Flutter
Interstitial Lung Disease
Orthostatic Hypotension
Hyperlipidemia
GERD
Osteoporosis
Malignant Melanoma
Past Surgical History: Reports Other
Additional Past Surgical History:
Small Bowel Resection
Appendectomy
Left Inguinal Hernia Repair
Melanoma Resection
Tonsillectomy
Septoplasty
Social History
Tobacco: Non-smoker
Alcohol: None
Personal:
Living: Other (Patient is currently at [facility] for short rehab)
Family History
Family History: Not pertinent
Allergies / Home Medications
Allergies reflects when Allergies were last updated in [facility].
Home Medications with original date entered in [facility]
Allergy/Medication List:
Allergies
Allergy/AdvReac Type Severity Reaction Status Date / Time
No Known Drug Allergies Allergy - Verified 12/13/24 14:48
environmental Allergy congestion, Uncoded 12/13/24 14:48
sneezing
Home Medications
apixaban 5 mg tablet (Eliquis) 5 mg PO BID #70 tabs 10/19/24
calcium 600 mg (as carbonate)-vitamin D3 5 mcg (200 unit) tablet 1 tab PO DAILY Supplement 12/13/24
denosumab 60 mg/mL subcutaneous syringe (Prolia) 60 mg SC [id number] Osteoporosis 12/13/24
montelukast 10 mg tablet 10 mg PO HS Lung/Breathing Issues 12/13/24
multivitamin 1 tab PO DAILY Supplement 12/13/24
omeprazole 20 mg capsule,delayed release 20 mg PO DAILY Gastrointestinal Issue 12/13/24
simvastatin 40 mg tablet 40 mg PO HS High Cholesterol 12/13/24
loperamide 2 mg capsule 2 mg PO Q6HPRN PRN Diarrhea #20 caps 12/26/24
metoprolol succinate 25 mg tablet,extended release 24 hr (Toprol XL) 12.5 mg (1/2 x 25 mg) PO DAILY #30 tabs 12/26/24
midodrine 5 mg tablet 10 mg (2 x 5 mg) PO TID@0800,1300,1800 #90 tabs 12/26/24
tamsulosin 0.4 mg capsule 0.4 mg PO DAILY #30 caps 12/26/24
acetaminophen 500 mg tablet (Tylenol Extra Strength) 1,000 mg PO TID 01/02/25
bisacodyl 10 mg rectal suppository (Dulcolax (bisacodyl)) 10 mg ND DAILYPRN PRN if no bm aftr mom 01/02/25
cholestyramine (with sugar) 4 gram powder for susp in a packet 1 ea PO BID 01/02/25
lidocaine 4 %-menthol 1 % topical patch (Icy Hot Patch (lidocaine-menthol)) 1 patch topical DAILY upper back 01/02/25
magnesium hydroxide 400 mg/5 mL oral suspension (Milk of Magnesia) 2,400 mg PO DAILYPRN PRN if no bm by 2nd day 01/02/25
phenazopyridine 200 mg tablet 200 mg PO Q8HPRN PRN mild Pain 01/02/25
sodium phosphates 19 gram-7 gram/118 mL enema (Fleet Enema) 118 ml ND DAILYPRN PRN if no bm aftr dulcolax 01/02/25
tramadol 50 mg tablet 50 mg PO Q8HPRN PRN moderate pain 01/02/25
zinc oxide 20 % topical ointment 1 applic topical TID b/l buttock 01/02/25
Review of Systems
-
A 12 point ROS was completed and negative except as noted: Yes
Constitutional: Reports Fever and Chills
Respiratory: Denies Cough or Trouble Breathing
Cardiac: Denies Chest Pain or Palpitations
Abdomen/GI: Reports See HPI
Physical Exam
Vital Signs
Vital Signs
Temp Pulse Resp BP Pulse Ox
98.4 F 112 19 130/75 96
01/02/25 21:11 01/02/25 22:00 01/02/25 22:00 01/02/25 22:00 01/02/25 22:00
Physical Exam
General: Conversant and Chills
HEENT: Anicteric and Moist mucous membranes
Respiratory: Clear and Non Labored Respirations
Cardiac: S1/S2, Irregular Rhythm and Tachycardia
GI: Soft and Non Tender
Genito-urinary: Alvarado
Musculoskeletal: No Clubbing and No Cyanosis
Skin: Warm and Dry
Neuro: Awake, Alert and Nonfocal/grossly intact
Psych: Calm
Laboratory Results
-
01/02/25 19:44
01/02/25 19:44
Laboratory Results
Lactic Acid Cancelled 01/02/25 23:45
Total Bilirubin 0.8 mg/dl (0.2-1.3) 01/02/25 19:44
AST 21 U/L (17-59) 01/02/25 19:44
ALT 14 U/L (0-50) 01/02/25 19:44
Alkaline Phosphatase 78 U/L (38-126) 01/02/25 19:44
Lipase 16 U/L (23-300) L 01/02/25 19:44
Data Reviewed
-
CT Scan: Report Reviewed by me
Lab Data: Labs Reviewed by me
Impression/Plan
-
Sepsis secondary to Catheter-Associated Urinary Tract Infection
-Continue ceftriaxone
-Await urine and blood cultures
-Alvarado catheter exchanged in ED
Atrial Fibrillation with Rapid Ventricular Response
-Heart Rate elevated in setting of sepsis
-Add Lopressor 2.5mg IV PRN HR >130
-Continue Eliquis for anticoagulation
-Consult Cardiology
Hypomagnesemia
-Patient given magnesium 1gm IV in ED
-Give additional magnesium 2gm IV Now
-Recheck magnesium level in AM
Recent Closed Loop Small Bowel Obstruction s/p Small Bowel Resection
-CT scan raises concern for possible developing abscess at anastomosis site
-Consult General Surgery
Chronic HFrEF
-Monitor Daily Weights
-Diuretics on hold from prior admission
Orthostatic Hypotension
-Continue Midodrine
Hyperlipidemia
-Continue simvastatin
BPH / Urinary Retention
-Continue Flomax
Secretory Diarrhea
-Continue cholestyramine
DVT proph: Eliquis
Code Status: DNR
[2025-01-02] MEDS: MAGNESIUM SULFATE 50 IV (23:34)
[2025-01-02] MEDS: TYLENOL 650 MG PO (23:34)
[2025-01-03] VITALS (22 sets, daily range): BP systolic 85–159; BP diastolic 51–107; BMI 20.7; BMI 21.2
[2025-01-03] MEDS: ZOFRAN 4 MG IV (00:39)
[2025-01-03] MEDS: TORADOL 15 MG IV (00:58)
[2025-01-03] MEDS: LOPRESSOR 2.5 MG IV (00:59)
--- NOTE | 2025-01-03 01:08 | W.PN.UPDATE ---
Update Note
Progress Note Update
patient continuos to have fever, received Tylenol 2330, 102.9F. HR between 130s-150s. BP 159/93. Pulse ox 93% RR 30.
Toradol 15mg IVx1
Metoprolol 2.5mg IVx1
one hour later 98.7 HR 90-111 25 124/53 95% RA
no new complaints at this time.
[2025-01-03] MEDS: NSS 1000 IV ×2 (02:24→14:58)
[2025-01-03 05:14] LABS: Hematocrit 28.9 % (39.0-52.0); Hemoglobin 9.9 g/dL (13.0-18.0); Mean Corp Hgb Conc. 34.3 g/dL (33.0-37.0); Mean Corpuscular Volume 88.4 fL (80.0-94.0); Platelet Count 220 10^3/uL (130-400); Red Cell Dist. Width 14.4 % (11.5-14.5)
--- NOTE | 2025-01-03 05:18 | PTCARENOTE ---
pt admitted from ED, pt is oriented to self only, able to make needs known. denies any nausea at this time. VSS. a-fib on the monitor, HR 90s-110s at times. [place]. bed alarm on. henson intact, replaced in ED before coming up to floors per notes and ED
verbal report. MASD to groin, non-blanchable red to sacrum, calazime cream applied. IV fluids infusing. care ongoing.
[2025-01-03 05:39] LABS: Blood Urea Nitrogen 18 mg/dl (9-20); Calcium 8.1 mg/dl (8.4-10.2); Carbon Dioxide 21 mmol/L (22-30); Chloride 108 mmol/L (98-107); Estimated Creatinine Clearance 58 ml/min; Glucose 142 mg/dl (70-99); Magnesium 1.7 mg/dl (1.6-2.3); Potassium 3.8 mmol/L (3.5-5.1); Sodium 135 mmol/L (135-145); eGFR > 60.00
--- NOTE | 2025-01-03 07:44 | PTCARENOTE ---
Pt AAOx1, [place] on RA 94% with crackles in bases. Pt in AFIB at 90. NSS at 75 ml/hr. Chronic henson in place. Pt has rachael in abd that are scabbed.
--- NOTE | 2025-01-03 08:20 | W.PN.HOSP.TC ---
Addendum entered and electronically signed by Tino Glynn MD 01/03/25 17:46:
Attending Addendum-
I saw and evaluated the patient. I reviewed the resident�s note and agree with findings and plan as documented in the resident�s note. Sub: Seen with and children. Feels improved. Appetite improved. More energy. Denies NV. was febrile
overnight. Denies cough abd pain diarrhea. Full 12 point ROS reviewed and negative except as documented Exam: Vitals reviewed in chart GEN-NAd heart irreg irreg tachycardic lungs fine crackles at bases abd incision CDI rachael in place pos BS NT ND
LE trace b/l LE edema henson in place with concentrated urine
Plan:
#Sepsis secondary to Catheter-Associated Urinary Tract Infection
-Continue ceftriaxone
-check cxr
-cont gentle IVF
-Await urine and blood cultures
-Henson catheter exchanged in ED
#Atrial Fibrillation with Rapid Ventricular Response
-cont metoprolol and Eliquis for now
-appreciate Cardiology input
#Hypomagnesemia
-resolved
#Recent Closed Loop Small Bowel Obstruction s/p Small Bowel Resection-12/14
-CT scan raises concern for possible developing abscess at anastomosis site
-General Surgery input appreciated add flagyl for anaerobic coverage
#Chronic HFrEF
-lexiscan stress 11/04/24-Large, fixed defect of the basal inferior, basal inferolateral, basal inferoseptal, mid inferior, mid inferolateral, mid inferoseptal, apical inferior and part of the apical inferoseptal and inferoapical inferolateral lateral
wall. Findings are consistent with infarction in multivessel distribution. Negative ECG for ischemia given the pharmacological study. Systolic function is severely reduced. The ejection fraction is 28%.
-Monitor Daily Weights
-Diuretics on hold from prior admission
-cont gentle IVF as patient appears dehydrated
#Orthostatic Hypotension
-Continue Midodrine
#Hyperlipidemia
-Continue simvastatin
#BPH / Urinary Retention with henson placed last admission
-Continue Flomax, cont henson
#Secretory Diarrhea
-Continue cholestyramine
# Hyponatremia- resolved with IVF
DVT proph: Eliquis
Code Status: DNR
Dispo- from SNF
ACP
Patient consented to discuss, was with and children, time spent explanation of advance directives, changes in health status, patient�s health care wishes if the patient becomes unable to make health decisions, goals of care, code status, and
prognosis veriied DNR status and expressed understanding- 16 minutes
Time spent coordinating care, review of plan of care with resident, personally reviewed previous records in EMR, med rec, labs, radiology, d/w nursing, family total time documented is exclusive of any additional time listed that was spent in advance
care planning discussion -� 53 minutes
Original Note:
Today's Communication/Plan
-
Continue antibiotics
Started atorvastatin
Ordered Chest-Xray
Started Protonix
Assessment / Plan
Assessment / Plan
Assessment:
This is an 84 y/o male with pmhx of Heart Failure with reduced Ejection Fraction (28% 11/04/2024 Stress Test vs 40-45% 10/27/2024 Echo)) atrial flutter, orthostatic hypotension who was recently hospitalized here on 12/14 to 12/26 due to closed loop small
bowel obstruction s/p small bowel resection who required henson catheter on discharge for acute urinary retention who presented back to the ED on 01/02 with nausea, vomiting, fevers and was found to have a catheter associated UTI.
Plan:
Sepsis 2/2 catheter associated UTI
Urinary Retention
Vomiting-Resolved
-Patient with catheter replaced on 12/24 prior to discharge on 12/26 presented to the ED with nausea/vomiting/fevers
-Pending urine culture, blood culture
-Henson catheter was replaced in the ED on 01/02
-Patient did have some reported delirium by staff overnight, being only oriented to self. When I went in to see him, he was much more oriented
-Continue ceftriaxone while cultures are pending
-Ultimately, will need to address patient�s Henson catheter and see if he can pass a voiding trial
-In light of vomiting, ordered Chest-Xray and Protonix
-Will monitor
Aflutter
Cardiomyopathy
-Patient with atrial flutter and elevated heart rate in the setting of sepsis
-Patient is on Metoprolol PO + PRN IV for HR >130. Added hold parameters to metoprolol for hypotension today
-Continue Eliquis for anticoagulation
-Cardiology is following, will appreciate their insight into his case.
Hypomagnesemia-Resolved
-S/p 3 g IV Magnesium
-Continue to follow magnesium in the AM
H/o closed loop small bowel obstruction
-CT concerning for possible abscess that cannot be ruled out.
-Incisions appear to be well healing with surgical rachael still in place
-Surgery is following, will appreciate their insight into his case
Chronic HFrEF
-EF was noted at 28% from 11/04/2024 Stress Test, vs 40-45% on 10/27/2024 Echo
-Upon admission his diuretics were on hold from prior admission
-Cardiology is following, will appreciate their insight into his case.
Orthostatic hypotension
-Continue home midodrine
-Added hold parameters
HLD
-Simvastatin 40mg not available on formulary, started atorvastatin 20mg
BPH
-Continue flomax
Anticipated Discharge: 24 - 48 hours
Subjective/Interval History
-
Date of Service: January 03, 2025
Patient was sitting comfortably when I arrived. By nursing report he was just recently only oriented to himself, but now is fully oriented. He states that he 'feels great', which is a large change compared to yesterday when he came in. He is
currently free of nausea, though does recall being terribly nauseous in the ED. He also reports dysuria upon recent urination. He is currently free of chest pain, shortness of breath, chills, constipation, diarrhea, abdominal pain. He does report
feeling weak.
Last bowel movement was reportedly 2 days prior.
Objective Data
-
Labs:
Laboratory Results
01/02/25 01/03/25
19:44 05:01
WBC 16.5 H
Hgb 9.9 L
Hct 28.9 L
Plt Count 220
Sodium 133 L 135
Potassium 3.5 3.8
Chloride 102 108 H
Carbon Dioxide 22 21 L
BUN 16 18
Creatinine 0.9 0.9
Glucose 175 H 142 H
Calcium 8.5 8.1 L
Total Bilirubin 0.8
AST 21
ALT 14
Alkaline Phosphatase 78
Vital Signs:
Vital Signs
Temp Pulse Resp BP Pulse Ox
98.7 F 92 22 104/67 94
01/03/25 02:01 01/03/25 06:07 01/03/25 06:07 01/03/25 06:07 01/03/25 06:07
Review of Systems
-
Respiratory: Denies Cough, Trouble Breathing or Wheezing
Cardiac: Denies Chest Pain or Palpitations
Abdomen/GI: Denies Abdominal Pain, Nausea, Vomiting, Diarrhea or Constipated
Genitourinary: Reports Dysuria and Other (Henson catheter)
Neuro: Reports Weakness; Denies Dizzy, Headache or Numbness
Physical Exam
-
General: Well Developed, Well Nourished, No Apparent Distress and Comfortable
HEENT: Normocephalic and Atraumatic
Respiratory: Clear to Auscultation
Cardiac: S1/S2 and Irregular Rhythm
GI: Soft, Nontender (To gentle palpation), Nondistended, Normal Bowel Sounds and Other (Midline surgical incision still with stables, healing well, no current signs of infection. Several smaller incisions are seen consistent with healing laparoscopy
scars.)
Genito-urinary: Henson (Approximately 200mL in Henson bag)
Skin: Warm and Dry
Neuro: Awake, Alert and Oriented (Oriented to himself, place, month, year. Uncertain of the day)
Psych: Calm
--- NOTE | 2025-01-03 08:21 | CON.CAR ---
Consultation
Consultation Request
Date/Time Consultation Requested: 01/03/2025 7:30 AM
Date/Time Consultation Performed: 01/03/2025 7:30 AM
Requesting Provider: Hospitalist
Performing Provider: Dr. Pabon
Reason for Consultation: Irregular rhythm
Medical History
-
History of Present Illness:
84-year-old male with a history of cardiomyopathy, CHF, atrial flutter , PAT and orthostatic hypotension who had a recent hospitalization December 14 through December 26 with small bowel obstruction and resection who is now readmitted with fever
of 102. Patient admitted to the hospital service on 12/24 at 12/29 patient states he is feeling better this morning. No complaints of chest pain or shortness of breath no orthopnea or lower extremity edema no palpitations or heart racing.
Recent hospitalization with SBO and small bowel resection. Hospital course notable for postop ileus, postop delirium, urinary retention.
From a cardiac standpoint he had some issues with CHF which was treated as an outpatient. Noted to have new cardiomyopathy. He had a nuclear perfusion stress test which showed areas of prior infarct. There was discussions regarding invasive
versus noninvasive evaluation. Patient was noted to have some right sided hydronephrosis. Urologic CT showed right sided calyceal dilation. He has been seen by urology. Ultimately patient opted not to proceed with cardiac catheterization plan
was for medical therapy. Nuclear perfusion stress with areas of infarct without ischemia
Past medical history
Heart failure with reduced ejection fraction
Cardiomyopathy
Atrial flutter
Orthostatic hypotension
Hydronephrosis
December 2024 SBO small bowel resection and repair enterotomy for ischemic bowel on 12/13/2024.
Hypertension
History of pericarditis
hypercholesterolemia
Melanoma 2015 GERD
Osteoporosis
compression fracture T12 s
Lexiscan nuclear perfusion stress test 11/04/2024 large fixed perfusion defects involving inferior, inferoseptal inferolateral and apical inferior elise consistent with infarct no reversibility to suggest ischemia. Ejection fraction 28%
Echocardiogram 10/27/2024 mildly reduced left ventricular function ejection fraction 40 to 45% severe hypokinesis of the inferior wall no significant valve abnormalities
Holter monitor 11/06/2024 sinus rhythm with average heart rate of 63 bpm 18 short runs of atrial tachycardia 3-7 beats in duration 2 runs of NSVT longest 4 beats
Past Medical History
Past Medical History: Other (As noted)
Social History
Tobacco: Non-Smoker
Family History
Family History: Reviewed & Not Pertinent
Allergies / Home Medications
Allergy/AdvReac Type Severity Reaction Status Date / Time
No Known Drug Allergies Allergy - Verified 12/13/24 14:48
environmental Allergy congestion, Uncoded 12/13/24 14:48
sneezing
�Medication �Instructions �Recorded �Confirmed �Type
apixaban 5 mg tablet (Eliquis) 5 mg PO BID #70 tabs 10/19/24 01/02/25 Rx
calcium 600 mg (as 1 tab PO DAILY Supplement 12/13/24 01/02/25 History
carbonate)-vitamin D3 5 mcg (200
unit) tablet
denosumab 60 mg/mL subcutaneous 60 mg SC [id number] Osteoporosis 12/13/24 01/02/25 History
syringe (Prolia)
montelukast 10 mg tablet 10 mg PO HS Lung/Breathing Issues 12/13/24 01/02/25 History
multivitamin 1 tab PO DAILY Supplement 12/13/24 01/02/25 History
omeprazole 20 mg capsule,delayed 20 mg PO DAILY Gastrointestinal 12/13/24 01/02/25 History
release Issue
simvastatin 40 mg tablet 40 mg PO HS High Cholesterol 12/13/24 01/02/25 History
loperamide 2 mg capsule 2 mg PO Q6HPRN PRN Diarrhea #20 12/26/24 01/02/25 Rx
caps
metoprolol succinate 25 mg 12.5 mg (1/2 x 25 mg) PO DAILY #30 12/26/24 01/02/25 Rx
tablet,extended release 24 hr tabs
(Toprol XL)
midodrine 5 mg tablet 10 mg (2 x 5 mg) PO 12/26/24 01/02/25 Rx
TID@0800,1300,1800 #90 tabs
tamsulosin 0.4 mg capsule 0.4 mg PO DAILY #30 caps 12/26/24 01/02/25 Rx
acetaminophen 500 mg tablet 1,000 mg PO TID 01/02/25 01/02/25 History
(Tylenol Extra Strength)
bisacodyl 10 mg rectal suppository 10 mg MO DAILYPRN PRN if no bm 01/02/25 01/02/25 History
(Dulcolax (bisacodyl)) aftr mom
cholestyramine (with sugar) 4 gram 1 ea PO BID 01/02/25 01/02/25 History
powder for susp in a packet
lidocaine 4 %-menthol 1 % topical 1 patch topical DAILY upper back 01/02/25 01/02/25 History
patch (Icy Hot Patch
(lidocaine-menthol))
magnesium hydroxide 400 mg/5 mL 2,400 mg PO DAILYPRN PRN if no bm 01/02/25 01/02/25 History
oral suspension (Milk of Magnesia) by 2nd day
phenazopyridine 200 mg tablet 200 mg PO Q8HPRN PRN mild Pain 01/02/25 01/02/25 History
sodium phosphates 19 gram-7 118 ml MO DAILYPRN PRN if no bm 01/02/25 01/02/25 History
gram/118 mL enema (Fleet Enema) aftr dulcolax
tramadol 50 mg tablet 50 mg PO Q8HPRN PRN moderate pain 01/02/25 01/02/25 History
zinc oxide 20 % topical ointment 1 applic topical TID b/l buttock 01/02/25 01/02/25 History
Review of Systems
-
All other systems: Negative unless noted
Physical Exam
Vital Signs
Temp Pulse Resp BP Pulse Ox
98.7 F 92 22 104/67 94
01/03/25 02:01 01/03/25 06:07 01/03/25 06:07 01/03/25 06:07 01/03/25 06:07
Lab Results
01/03/25 05:01
01/03/25 05:01
Physical Exam
General: Well Developed, No Apparent Distress and Other (Comfortable feeling well hard of hearing)
HEENT: Normocephalic and Anicteric
Respiratory: Other (No wheezes rales or rhonchi)
Cardiac: Regular Rhythm
GI: Non Tender and Other (Midline scar appears well-healed)
Musculoskeletal: No Clubbing, No Cyanosis and No Edema
Skin: Warm and Dry
Neuro: Awake
Hematologic/Lymphatic: No Lymphadenopathy
Psych: Calm
Impression / Plan
-
.84-year-old male with a history of cardiomyopathy ejection fraction 40 to 45%, CHF, atrial flutter , PAT and orthostatic hypotension who had a recent hospitalization December 14 through December 26 with small bowel obstruction and resection who
is now readmitted with fever of 102.
.
Fever. Temp up to 102
- Would suspect urinary source based on urinalysis, history of urinary retention patient also with known right calyceal dilation by last CT
- Patient also with recent abdominal surgery. Currently without significant abdominal symptoms. Incision appears fine
- Antibiotics as directed by primary team
- Await cultures
.
PAT/paroxysmal flutter
-tachycardia. On admission ECG heart rate 138 ECG read as irregular atrial tachycardia. Patient with both history of atrial flutter and PAT
- Currently in sinus rhythm
- Brief periods of PAT on telemetry. Cannot entirely exclude brief periods of atrial flutter or A-fib
- Continue metoprolol
- Continue Eliquis
.
Cardiomyopathy.
- Presumed ischemic cardiomyopathy based on previous nuclear stress suggesting prior infarct. Most recent echo with ejection fraction 40 to 45%
- Euvolemic.
- GDMT limited by BP
- With suspected urinary infection issues would not use Farxiga or Jardiance
-Continue to monitor for signs of decompensated heart failure
.
Orthostatic hypotension. Previous history. Currently on midodrine blood pressure stable. Monitor.
.
Postop abdominal surgery for SBO. Previous surgery 12/14/2024
Data Reviewed
-
EKG: Report Reviewed by me
Radiology: Report Reviewed by me
Medical Tests (Nuc Med, Echo etc): Report Reviewed by me
Labs: Labs Reviewed by me
[2025-01-03] MEDS: TOPROL XL 12.5 MG PO (08:32)
[2025-01-03] MEDS: ELIQUIS 5 MG PO ×2 (08:33→19:24)
[2025-01-03] MEDS: FLOMAX 0.4 MG PO (08:50)
--- NOTE | 2025-01-03 10:44 | CON.GS ---
Addendum entered and electronically signed by Ki Burks MD 01/03/25 11:58:
I was physically present and personally performed the guillaume portions of the surgical evaluation and/or procedure with the resident. I discussed the findings, reviewed the resident�s note, and confirmed the medical decision-making. I provided direct
supervision as required and agree with the assessment and plan as documented with the following additions/corrections:
Pt feels improved, denies abd pain, denies nausea, on exam he is non-toxic appearing, belly is soft, nt, incisions cdi with rachael, he has finished 100% of his CLD tray and feels well, leukocytosis noted as well as UA c/w UTI, CT with some limited
free air (likely post-op) and localized area of stranding/small gas bubble near anastomosis, no sign of obstruction; plan for UTI tx with abx, henson has been exchanged, will add flagyl for GI coverage, will follow.
called, unable to reach, VM left
Original Note:
Consultation
-
Reason for Consultation: Recent Small Bowel Resection, possible abscess, or leak?
Medical History
-
Chief Complaint: Fever
History of Present Illness:
84-year-old male with past medical history significant for CHF, atrial fibrillation on Eliquis, GERD, orthostatic hypotension, hypertension, hyperlipidemia, osteoporosis, degenerative disc disease, and arterial nephrosclerosis. Past surgical history
includes appendectomy, left inguinal hernia repair, tonsillectomy, melanoma excision, septoplasty, and small bowel resection. He was recently hospitalized from December 13.
He now presents with fever. One week prior to admission, the patient reported �feeling awful and having poor sleep�, though he was unable to elaborate further. Symptoms were associated with non-bloody, large-volume diarrhea 1�2 times daily,
anorexia, and nausea. He was unaware of having fever but endorsed chills. In the ED, he was noted to be febrile and vomited a small amount.
The patient has been using a Henson catheter since his prior hospitalization after failing a voiding trial post-surgery. He reports chronic dysuria. He denies abdominal pain.
CT scan: small amount of free air is noted predominantly nondependently in the right upper quadrant. In addition, adjacent to the small bowel anastomosis, there is a small region of indistinct soft tissue attenuation with poorly defined margins
measuring approximately 2.6 cm, containing a focus of air measuring 1 cm. Small amount of gas as well as fluid scattered throughout nondistended small bowel loops, (-) obstruction.�Diffuse pancreatic atrophy.
Henson catheter within the urinary bladder. The bladder is collapsed; prominent urinary bladder wall thickening.
Past Medical History
Past Medical History: Arrhythmias (Atrial Fibrillation on Eliquis) and CHF
Social History
Tobacco: Former Smoker
Alcohol: None
Personal:
Living: With Family
Employment: Retired
Family History
Family History: Reviewed & Not Pertinent
Allergies / Home Medications
Allergy/AdvReac Type Severity Reaction Status Date / Time
No Known Drug Allergies Allergy - Verified 12/13/24 14:48
environmental Allergy congestion, Uncoded 12/13/24 14:48
sneezing
�Medication �Instructions �Recorded �Confirmed �Type
apixaban 5 mg tablet (Eliquis) 5 mg PO BID #70 tabs 10/19/24 01/02/25 Rx
calcium 600 mg (as 1 tab PO DAILY Supplement 12/13/24 01/02/25 History
carbonate)-vitamin D3 5 mcg (200
unit) tablet
denosumab 60 mg/mL subcutaneous 60 mg SC [id number] Osteoporosis 12/13/24 01/02/25 History
syringe (Prolia)
montelukast 10 mg tablet 10 mg PO HS Lung/Breathing Issues 12/13/24 01/02/25 History
multivitamin 1 tab PO DAILY Supplement 12/13/24 01/02/25 History
omeprazole 20 mg capsule,delayed 20 mg PO DAILY Gastrointestinal 12/13/24 01/02/25 History
release Issue
simvastatin 40 mg tablet 40 mg PO HS High Cholesterol 12/13/24 01/02/25 History
loperamide 2 mg capsule 2 mg PO Q6HPRN PRN Diarrhea #20 12/26/24 01/02/25 Rx
caps
metoprolol succinate 25 mg 12.5 mg (1/2 x 25 mg) PO DAILY #30 12/26/24 01/02/25 Rx
tablet,extended release 24 hr tabs
(Toprol XL)
midodrine 5 mg tablet 10 mg (2 x 5 mg) PO 12/26/24 01/02/25 Rx
TID@0800,1300,1800 #90 tabs
tamsulosin 0.4 mg capsule 0.4 mg PO DAILY #30 caps 12/26/24 01/02/25 Rx
acetaminophen 500 mg tablet 1,000 mg PO TID Pain 01/02/25 01/02/25 History
(Tylenol Extra Strength)
bisacodyl 10 mg rectal suppository 10 mg WA DAILYPRN PRN if no bm 01/02/25 01/02/25 History
(Dulcolax (bisacodyl)) aftr mom
cholestyramine (with sugar) 4 gram 1 ea PO BID DIARRHEA 01/02/25 01/02/25 History
powder for susp in a packet
lidocaine 4 %-menthol 1 % topical 1 patch topical DAILY upper back 01/02/25 01/02/25 History
patch (Icy Hot Patch
(lidocaine-menthol))
magnesium hydroxide 400 mg/5 mL 2,400 mg PO DAILYPRN PRN if no bm 01/02/25 01/02/25 History
oral suspension (Milk of Magnesia) by 2nd day
phenazopyridine 200 mg tablet 200 mg PO Q8HPRN PRN mild Pain 01/02/25 01/02/25 History
sodium phosphates 19 gram-7 118 ml WA DAILYPRN PRN if no bm 01/02/25 01/02/25 History
gram/118 mL enema (Fleet Enema) aftr dulcolax
tramadol 50 mg tablet 50 mg PO Q8HPRN PRN moderate pain 01/02/25 01/02/25 History
zinc oxide 20 % topical ointment 1 applic topical TID b/l buttock 01/02/25 01/02/25 History
Review of Systems
-
History Source: Patient
A 10 point review of systems was completed, and was negative except as per HPI.
Physical Exam
Vital Signs
Temp Pulse Resp BP Pulse Ox
97.8 F 114 16 106/59 96
01/03/25 07:40 01/03/25 08:32 01/03/25 08:00 01/03/25 08:32 01/03/25 08:00
01/02/25 01/03/25 01/04/25
06:59 06:59 06:59
Actual Weight 68.9 kg
Body Mass Index (BMI) 21.2
Lab Results
01/03/25 05:01
01/03/25 05:01
WBC 16.5 10^3/uL (4.8-10.8) H 01/03/25 05:01
Hgb 9.9 g/dL (13.0-18.0) L 01/03/25 05:01
Hct 28.9 % (39.0-52.0) L 01/03/25 05:01
Plt Count 220 10^3/uL (130-400) 01/03/25 05:01
Abs Immat Gran (auto) 0.1 10^3/uL (0-0.05) H 01/02/25 19:44
Neutrophils % 75.5 % (42.2-75.2) H 01/02/25 19:44
Physical Exam
General: No Apparent Distress
HEENT: Normocephalic and Other (Dimished hearing)
Respiratory: Non Labored Respirations
Cardiac: Irregular Rhythm
GI: Soft, Non Tender, Non Distended and Incisions (well approximated, well healing)
Musculoskeletal: No Edema
Skin: Warm
Neuro: AO x 3
Psych: Calm
Data Reviewed
-
CT Scan: Image Personally Visualized and interpreted (by attending surgeon), Report Reviewed by me (by attending surgeon) and Discussed with Patient (by attending surgeon)
Assessment / Plan
-
84-year-old male with past medical history significant for CHF, atrial fibrillation on Eliquis, GERD, orthostatic hypotension, hypertension, hyperlipidemia, osteoporosis, degenerative disc disease, and arterial nephrosclerosis. Past surgical history
includes appendectomy, left inguinal hernia repair, tonsillectomy, melanoma excision, septoplasty, and small bowel resection. POD#20 Diagnostic laparoscopy, lysis of adhesions, exploratory laparotomy, small bowel resection due to Closed Loop acute
small bowel obstruction presenting with fever, non-bloody diarrhea, anorexia, nausea, and vomiting.
To note, the patient has been using a Henson catheter since his prior hospitalization after failing a voiding trial post-surgery. He reports chronic dysuria. He denies abdominal pain.
CT scan: small amount of free air is noted predominantly nondependent in the right upper quadrant. In addition, adjacent to the small bowel anastomosis, there is a small region of indistinct soft tissue attenuation with poorly defined margins
measuring approximately 2.6 cm, containing a focus of air measuring 1 cm. Small amount of gas as well as fluid scattered throughout nondistended small bowel loops, (-) obstruction.�Diffuse pancreatic atrophy.
Henson catheter within the urinary bladder. The bladder is collapsed; prominent urinary bladder wall thickening.
#Fever
POD#20 Diagnostic laparoscopy, lysis of adhesions, exploratory laparotomy, small bowel resection due to Closed Loop acute small bowel obstruction
CT: small region of indistinct soft tissue attenuation with poorly defined margins measuring approximately 2.6 cm, containing a focus of air measuring 1 cm
Complicated by Catheter-associated UTI
Abscess vs Anastomotic Leak vs Sterile Post-surgical change
-IV antibiotics
-Possible IR drain
-Pain management and antiemetic as needed
-DVT prophylaxis
-Medical management per primary team
[2025-01-03] MEDS: QUESTRAN 4 GRAM PO ×2 (11:28→19:24)
--- NOTE | 2025-01-03 12:12 | CM ---
Initial Assessment Completed by LEO Sin
Patient who lives with his in a 1 story cottage at [facility] with no basement, 1 step to enter. Patient was independent in ADL's and ambulation, drives. Does have a SPC, 2 RW and a rollator in the home which he uses as needed. No in-home
services. Does have a HC-POA. No VA benefits. No psychiatric hospitalizations.
PCP is Dr. Rober Troncoso.
Pharmacy is [facility] on [facility] in [place].
Patient was sent to [facility] last admission. Patient had had very poor appetite at SNF as well as complaints about nausea after eating. OThen Patient developed fevers and sent here. A Alvarado catheter was placed during the prior hospitalization,
but failed voiding trial prior to discharge and Alvarado was replaced, therefore, patient could have a UTI.
Family said that he was walking to the bathroom with a rolling walker and down at the gym at the SNF.
PLAN: Return to SNF
[2025-01-03] MEDS: PROTONIX 40 MG PO (12:53)
[2025-01-03] MEDS: FLAGYL 500 MG 100 IV ×2 (14:55→23:52)
[2025-01-03] MEDS: LIPITOR 20 MG PO (17:19)
[2025-01-03] MEDS: TYLENOL 650 MG PO (19:24)
[2025-01-03] MEDS: SINGULAIR 10 MG PO (21:26)
[2025-01-03] MEDS: ROCEPHIN 1000 MG IV (21:26)
[2025-01-03] MEDS: STERILE WATER FOR INJECTION 10 ML IV (21:27)
[2025-01-04] VITALS (16 sets, daily range): BP systolic 85–136; BP diastolic 60–83; BMI 21.3
--- NOTE | 2025-01-04 00:09 | PTCARENOTE ---
assumed care of patient. pt is oriented to self only, bed alarm on. able to make needs known. [place], VSS. pulse ox 95% RA. some crackles at the bases, cough noted at times. rachael intact to midline abdomen. q2t. henson intact, henson wipes done. able
to take pills whole with water without issues. pt with 101.6 fever at the start of the shift. PO tylenol given, fever broke to 99.0. IV fluids infusing. care ongoing.
[2025-01-04] MEDS: LOPRESSOR 2.5 MG IV (01:57)
[2025-01-04] MEDS: NSS 1000 IV ×2 (05:09→19:45)
[2025-01-04] MEDS: TYLENOL 650 MG PO ×3 (05:09→21:07)
[2025-01-04] MEDS: ZOFRAN 4 MG IV ×2 (05:17→13:00)
[2025-01-04 05:34] LABS: Hematocrit 27.5 % (39.0-52.0); Hemoglobin 9.2 g/dL (13.0-18.0); Mean Corp Hgb Conc. 33.5 g/dL (33.0-37.0); Mean Corpuscular Volume 89.0 fL (80.0-94.0); Platelet Count 200 10^3/uL (130-400); Red Cell Dist. Width 14.6 % (11.5-14.5)
--- NOTE | 2025-01-04 05:37 | PTCARENOTE ---
pt with fevers on and off all night. PO tylenol given. pt also with complaints of nausea. IV zofran given. pt reports not feeling well this morning. care ongoing.
[2025-01-04 05:54] LABS: Blood Urea Nitrogen 19 mg/dl (9-20); Calcium 7.5 mg/dl (8.4-10.2); Carbon Dioxide 21 mmol/L (22-30); Chloride 108 mmol/L (98-107); Estimated Creatinine Clearance 66 ml/min; Glucose 108 mg/dl (70-99); Magnesium 1.6 mg/dl (1.6-2.3); Potassium 3.8 mmol/L (3.5-5.1); Sodium 134 mmol/L (135-145); eGFR > 60.00
--- NOTE | 2025-01-04 07:11 | W.PN.CD ---
Today's Communication / Plan
-
short runsof symptomatic atrial arrhythmias. Stable on current therapy
continue metoprolol and Eliquis
monitor for clinical signs of HF
tmax last 24hours 101.6. Cultures ending continue abx a directed by the primary team
call if additonal assistnace required
Impression / Plan
-
.84-year-old male with a history of cardiomyopathy ejection fraction 40 to 45%, CHF, atrial flutter , PAT and orthostatic hypotension who had a recent hospitalization December 14 through December 26 with small bowel obstruction and resection who
is now readmitted with fever of 102.
.
Fever. Temp up to 102on admit. tmax last 24 hours 101.6
- Urinary vs GI/abdominal
- Would suspect urinary source based on urinalysis, history of urinary retention patient also with known right calyceal dilation by last CT
- Patient also with recent abdominal surgery. Currently without significant abdominal symptoms. Incision appears fine - Surgical consultants following
- Antibiotics as directed by primary team
- Await cultures
.
PAT/paroxysmal flutter
-tachycardia. On admission ECG heart rate 138 ECG read as irregular atrial tachycardia. Patient with both history of atrial flutter and PAT
- Currently in sinus rhythm
- Brief periods of PAT on telemetry. Cannot entirely exclude brief periods of atrial flutter or A-fib
- Continue metoprolol
- Continue Eliquis
.
Cardiomyopathy.
- Presumed ischemic cardiomyopathy based on previous nuclear stress suggesting prior infarct. Most recent echo with ejection fraction 40 to 45%
- Euvolemic.
- GDMT limited by BP
- With suspected urinary infection issues would not use Farxiga or Jardiance
-Continue to monitor for signs of decompensated heart failure
.
Orthostatic hypotension. Previous history. Currently on midodrine blood pressure stable. Monitor.
.
Postop abdominal surgery for SBO. Previous surgery 12/14/2024
Physical Exam
Vital Signs/Labs
Vital Signs
Temp Pulse Resp BP Pulse Ox
100.5 F H 93 19 121/78 95
01/04/25 05:23 01/04/25 06:00 01/04/25 06:00 01/04/25 06:00 01/04/25 06:00
01/03/25 01/04/25 01/05/25
06:59 06:59 06:59
Actual Weight 68.9 kg 69.088 kg
01/04/25 05:15
01/04/25 05:15
Magnesium 1.6 mg/dl (1.6-2.3) 01/04/25 05:15
Physical Exam
Constitutional: No acute distress
Cardiovascular: Rhythm/rate is irregular
Respiratory: Wheeze Absent and Rhonchi Absent
GI: Soft
Neuro/Psych: Alert
Data Reviewed
-
Date of Service: January 04, 2025
Medical Decision Making: Reviewed Test Results
EKG: Other (telemetry reviewed )
X-Ray/CT/US/MRI/NUC/PET: Report Reviewed by me
Medical Tests (PFT, Pathology etc): Report Reviewed by me
Labs: Labs Reviewed by me
[2025-01-04] MEDS: FLOMAX 0.4 MG PO (08:19)
[2025-01-04] MEDS: TOPROL XL 12.5 MG PO (08:20)
[2025-01-04] MEDS: PROTONIX 40 MG PO (08:20)
[2025-01-04] MEDS: ELIQUIS PO (08:26)
[2025-01-04] MEDS: QUESTRAN PO (08:26)
--- NOTE | 2025-01-04 08:30 | PTCARENOTE ---
Patient received from car shifter. Patient resting comfortably in bed. AAO mostly to self and birthday with periods of confusion, VSS. No events noted over night. No complaints of pain. Some nausea overnight, see JUN. NSS @ 75mL/hr. Midline
incisions with rachael intact, possible staple removal at discharge. Continue with ABX. Patient made NPO and is in for a CT this AM, no other tests scheduled at this time. Call young in reach.
[2025-01-04] MEDS: OMNIPAQUE 50 ML PO (09:12)
--- NOTE | 2025-01-04 11:06 | W.PN.HOSP.TC ---
Addendum entered and electronically signed by Tino Glynn MD 01/04/25 21:41:
Attending Addendum-
I saw and evaluated the patient. I reviewed the resident�s note and agree with findings and plan as documented in the resident�s note. Sub: Seen with and children post CT scan. 'i feel horrible! I feel nauseous' was febrile overnight. Denies
cough abd pain. Having loose stools. Full 12 point ROS reviewed and negative except as documented Exam: Vitals reviewed in chart GEN-NAd heart irreg irreg lungs fine crackles at bases abd incision CDI rachael in place pos BS NT ND LE trace b/l LE
edema henson in place with clear yellow urine
Plan:
#Sepsis secondary to Catheter-Associated Urinary Tract Infection
-Continue ceftriaxone
-cont gentle IVF
-urine cx e coli- sensi pend, blood cultures- NGTD
-Henson catheter exchanged in ED
#Atrial Fibrillation with Rapid Ventricular Response
-cont metoprolol and Eliquis for now
-appreciate Cardiology input
# Hyponatremia- mild
- hypovolemic
- cont gentle IVF
#Recent Closed Loop Small Bowel Obstruction s/p Small Bowel Resection-12/14
-CT A/P-01/02-Adjacent to the anastomosis, there is localized subtle soft tissue of indistinct margins and a small focus of gas, as described. While this may be related to the recent surgical procedure, the possibility of developing abscess would be
difficult to exclude with certainty
-repeat CT A/P-01/04-There is a small focus of fluid and air density within the mesentery of the right lower abdomen upper pelvis, adjacent to the region of small bowel anastomosis. This appears similar to recent examination of January 02, 2025.
Infection of this small collection cannot be excluded.
-General Surgery input appreciated
-DC flagyl- CTM for fevers
-advance diet
#Chronic HFrEF
-lexiscan stress 11/04/24-Large, fixed defect of the basal inferior, basal inferolateral, basal inferoseptal, mid inferior, mid inferolateral, mid inferoseptal, apical inferior and part of the apical inferoseptal and inferoapical inferolateral lateral
wall. Findings are consistent with infarction in multivessel distribution. Negative ECG for ischemia given the pharmacological study. Systolic function is severely reduced. The ejection fraction is 28%.
-Monitor Daily Weights
-Diuretics on hold from prior admission
-cont gentle IVF as patient appears dehydrated
#Orthostatic Hypotension
-Continue Midodrine
#Hyperlipidemia
-Continue simvastatin
#BPH / Urinary Retention with henson placed last admission
-Continue Flomax, cont henson
-TOV this hospital stay if able
#Secretory Diarrhea
-Continue cholestyramine
# Hyponatremia- resolved with IVF
DVT proph: Eliquis
Code Status: DNR
Dispo- from [facility]
Time spent coordinating care, review of plan of care with resident, personally reviewed records in EMR, med rec, consults, notes, labs, radiology, d/w nursing surgery and family � 52 mins
Original Note:
Today's Communication/Plan
-
Continue IV fluids
CT scan today
Continue antibiotics
Assessment / Plan
Assessment / Plan
Assessment:
This is an 84 y/o male with pmhx of Heart Failure with reduced Ejection Fraction (28% 11/04/2024 Stress Test vs 40-45% 10/27/2024 Echo)) atrial flutter, orthostatic hypotension who was recently hospitalized here on 12/14 to 12/26 due to closed loop small
bowel obstruction s/p small bowel resection who required henson catheter on discharge for acute urinary retention who presented back to the ED on 01/02 with nausea, vomiting, fevers and was found to have a catheter associated UTI.
Plan:
Sepsis 2/2 catheter associated UTI
Urinary Retention
Vomiting-Resolved
-Patient with catheter replaced on 12/24 prior to discharge on 12/26 presented to the ED with nausea/vomiting/fevers
-Urine culture positive for E. Coli, blood culture no growth to date
-Henson catheter was replaced in the ED on 01/02
-He continues to be oriented x3 when I speak to him, but also continues to have fevers
-Continue ceftriaxone
-Ultimately, will need to address patient�s Henson catheter and see if he can pass a voiding trial
-Continue gentle IV Fluid hydration in light of fevers and tachycardia
-Will monitor
Aflutter
Cardiomyopathy
-Patient with atrial flutter and elevated heart rate in the setting of sepsis
-Patient is on Metoprolol PO + PRN IV for HR >130, hold parameters in place
-Hold Eliquis
-Cardiology is following, will appreciate their insight into his case.
Hypomagnesemia-Resolved
-S/p 3 g IV Magnesium
-Continue to follow magnesium
H/o closed loop small bowel obstruction
-CT concerning for possible abscess that cannot be ruled out. Repeat CT today with IV and oral contrast
-Metronidazole added yesterday
-Incisions appear to be well healing with surgical rachael still in place
-Surgery is following, will appreciate their insight into his case
Chronic HFrEF
-EF was noted at 28% from 11/04/2024 Stress Test, vs 40-45% on 10/27/2024 Echo
-Upon admission his diuretics were on hold from prior admission
-Cardiology is following, will appreciate their insight into his case.
Orthostatic hypotension
-Continue home midodrine with hold precautions
HLD
-Simvastatin 40mg not available on formulary, continue atorvastatin 20mg
BPH
-Continue flomax
Anticipated Discharge: 24 - 48 hours
Subjective/Interval History
-
Date of Service: January 04, 2025
Patient states he is doing well today, although he is disappointed he still has to remain in the hospital. He continues to be free of nausea, vomiting, diarrhea, constipation, abdominal pain, or chills. He states he did have a fever this morning,
but did not feel it and did not know he was having it until his temperature was taken.
He is asking about having his rachael removed from his incision soon.
Objective Data
-
Labs:
Laboratory Results
01/04/25
05:15
WBC 11.2 H
Hgb 9.2 L
Hct 27.5 L
Plt Count 200
Sodium 134 L
Potassium 3.8
Chloride 108 H
Carbon Dioxide 21 L
BUN 19
Creatinine 0.8
Glucose 108 H
Calcium 7.5 L
Vital Signs:
Vital Signs
Temp Pulse Resp BP Pulse Ox
98.4 F 81 19 110/72 95
01/04/25 07:15 01/04/25 08:20 01/04/25 06:00 01/04/25 08:20 01/04/25 06:00
I&O
01/03/25 01/04/25 01/05/25
06:59 06:59 06:59
Intake Total 1220 / 1220
Output Total 1050 / 1050
Balance 170 / 170
Review of Systems
-
History Source: Patient
Constitutional: Denies Fever, Chills or Weakness
Respiratory: Denies Cough or Trouble Breathing
Cardiac: Denies Chest Pain
Abdomen/GI: Denies Abdominal Pain, Nausea, Vomiting, Diarrhea or Constipated
Neuro: Denies Dizzy, Headache or Weakness
Physical Exam
-
General: Well Developed, Well Nourished, No Apparent Distress and Comfortable
HEENT: Normocephalic and Atraumatic
Respiratory: Clear to Auscultation
Cardiac: S1/S2 and Irregular Rhythm
GI: Soft, Nontender, Nondistended, Normal Bowel Sounds and Other (Midline incision with rachael, healing well)
Musculoskeletal: No Edema
Skin: Warm and Dry
Neuro: Awake, Alert and Oriented
Psych: Calm
--- NOTE | 2025-01-04 11:59 | W.PN.GS2 ---
Addendum entered and electronically signed by Ki Burks MD 01/04/25 13:29:
called, unable to reach, VM left
Addendum entered and electronically signed by Ki Burks MD 01/04/25 13:26:
CT reviewed, formal read pending, free air resolving (likely post-op), no PO contrast extrav, bladder wall thickened c/w urinary source, full liqs ordered
Addendum entered and electronically signed by Ki Burks MD 01/04/25 12:32:
addendum: BCx NGTD, UCx e coli >100K cfu
Addendum entered and electronically signed by Ki Burks MD 01/04/25 12:31:
addendum: cont rocephin/flagyl
Addendum entered and electronically signed by Ki Burks MD 01/04/25 12:31:
I was physically present and personally performed the guillaume portions of the surgical evaluation and/or procedure with the resident. I discussed the findings, reviewed the resident�s note, and confirmed the medical decision-making. I provided direct
supervision as required and agree with the assessment and plan as documented with the following additions/corrections:
Improving, nausea improved, rafael cld, denies abd pain, exam benign, incisions cdi, WBC trending down, 100.5F tmax (improved), rpt CT A/P for today to re-eval intra-abdominal areas of concern
Original Note:
Today's Communication / Plan
-
-NPO for CT abdomen/pelvis with IV and oral contrast
-hold eliquis
-will continue to follow
Assessment / Plan
-
84-year-old male with past medical history significant for CHF, atrial fibrillation on Eliquis, GERD, orthostatic hypotension, hypertension, hyperlipidemia, osteoporosis, degenerative disc disease, and arterial nephrosclerosis. Past surgical history
includes appendectomy, left inguinal hernia repair, tonsillectomy, melanoma excision, septoplasty, and small bowel resection. He was recently hospitalized from December 13, failed voiding trial post surgery and has been in Henson Catheter since,
presenting with fever, non-bloody diarrhea, anorexia, nausea and dysuria.
CT scan: small amount of free air is noted predominantly nondependently in the right upper quadrant. In addition, adjacent to the small bowel anastomosis, there is a small region of indistinct soft tissue attenuation with poorly defined margins
measuring approximately 2.6 cm, containing a focus of air measuring 1 cm. Small amount of gas as well as fluid scattered throughout nondistended small bowel loops, (-) obstruction.�Diffuse pancreatic atrophy.
Henson catheter within the urinary bladder. The bladder is collapsed; prominent urinary bladder wall thickening.
#Fever with GI/Urinary symptoms/Leukocytosis
POD#21 Diagnostic laparoscopy, lysis of adhesions, exploratory laparotomy, small bowel resection due to Closed Loop acute small bowel obstruction
CT: small region of indistinct soft tissue attenuation with poorly defined margins measuring approximately 2.6 cm, containing a focus of air measuring 1 cm
-Catheter-associated UTI
WBC 14.1-->16.5-->11.2, (+) fever and chills, (+) flatus, (-) abdominal pain
Abscess vs Anastomotic Leak vs Sterile Post-surgical change
-IV antibiotics
-NPO for CT abdomen/pelvis with IV and oral contrast
-hold eliquis
-Pain management and antiemetic as needed
-DVT prophylaxis
-Medical management per primary team
-will continue to follow
Subjective Data
-
Date of Service: January 04, 2025
The patient had fever tmax 101.6, chills, and diaphoresis last night. He continues to deny any abdominal pain; passing flatus, but no bowel movement yet. Denies N/V and dysuria.
Objective Data
-
Intake and Output
01/03/25 01/04/25 01/05/25
06:59 06:59 06:59
Intake Total 1220 / 1220
Output Total 1050 / 1050
Balance 170 / 170
Intake:
Oral fluids 120 / 120
IV fluids (Total) 900 / 900
IV piggybacks 200 / 200
Output:
Urine, Henson 1050 / 1050
Vital Signs
Temp Pulse Resp BP Pulse Ox
98.4 F 81 19 110/72 94
01/04/25 07:15 01/04/25 08:20 01/04/25 06:00 01/04/25 08:20 01/04/25 11:04
Lab Results
01/04/25 05:15
01/04/25 05:15
Calcium 7.5 mg/dl (8.4-10.2) L 01/04/25 05:15
Magnesium 1.6 mg/dl (1.6-2.3) 01/04/25 05:15
Total Bilirubin 0.8 mg/dl (0.2-1.3) 01/02/25 19:44
AST 21 U/L (17-59) 01/02/25 19:44
ALT 14 U/L (0-50) 01/02/25 19:44
Alkaline Phosphatase 78 U/L (38-126) 01/02/25 19:44
Total Protein 6.7 g/dl (6.3-8.2) 01/02/25 19:44
Albumin 3.3 g/dl (3.5-5.0) L 01/02/25 19:44
Physical Exam
-
General: NAD
Cardio: irregular, 80's-90's
Lungs: non-labored breathing
Abdomen: soft, non-tender, non-distended, midline incision approximated with rachael--well healing.
Patient has a henson catheter: Yes
Patient has a central line: No
[2025-01-04] MEDS: FLAGYL 500 MG 100 IV (13:00)
--- NOTE | 2025-01-04 14:49 | CM ---
Following up on Patient. Medical Progress notes state that patient need to continue gentle IV Fluid hydration in light of fevers and tachycardia and may need to pass voiding trial so still not ready.
PLAN: Return to [facility] when ready pending bed.
[2025-01-04] MEDS: LIPITOR 20 MG PO (17:41)
[2025-01-04] MEDS: SINGULAIR 10 MG PO (21:07)
[2025-01-04] MEDS: ROCEPHIN 1000 MG IV (21:07)
[2025-01-04] MEDS: STERILE WATER FOR INJECTION 10 ML IV (21:07)
[2025-01-05] VITALS (12 sets, daily range): BP systolic 107–141; BP diastolic 67–87; BMI 21.4
--- NOTE | 2025-01-05 03:27 | PTCARENOTE ---
assumed care of patient. pt is AAOx1-2. confused at times. [place]. VSS. able to make needs known. pt is a-fib on the monitor, pt did have a 10 beat run of v-tach, pt was sleeping during event. notified covering [employer]- no new orders. henson intact. no
complaints of nausea. pt complaining of extreme burning to rectum. pt cleaned with hot soapy water, barrier cream applied. pt stated that it did help and he feels better. care ongoing.
[2025-01-05] MEDS: ZOFRAN 4 MG IV ×2 (04:08→13:31)
[2025-01-05 04:49] LABS: Hematocrit 26.9 % (39.0-52.0); Hemoglobin 9.5 g/dL (13.0-18.0); Mean Corp Hgb Conc. 35.3 g/dL (33.0-37.0); Mean Corpuscular Volume 88.8 fL (80.0-94.0); Platelet Count 195 10^3/uL (130-400); Red Cell Dist. Width 14.3 % (11.5-14.5)
[2025-01-05 04:57] LABS: Blood Urea Nitrogen 13 mg/dl (9-20); Calcium 7.1 mg/dl (8.4-10.2); Carbon Dioxide 20 mmol/L (22-30); Chloride 108 mmol/L (98-107); Estimated Creatinine Clearance 75 ml/min; Glucose 115 mg/dl (70-99); Potassium 3.4 mmol/L (3.5-5.1); Sodium 134 mmol/L (135-145); eGFR > 60.00
[2025-01-05 05:55] LABS: Magnesium 1.6 mg/dl (1.6-2.3)
[2025-01-05] MEDS: NSS 1000 IV (06:13)
[2025-01-05] MEDS: KCL 270 MEQ IV (06:13)
[2025-01-05] MEDS: TYLENOL 650 MG PO (06:17)
--- NOTE | 2025-01-05 07:28 | W.PN.CD ---
Today's Communication / Plan
-
Patient remained stable and euvolemic with no evidence of decompensated heart failure.
Patient in sinus rhythm with short runs of PAT/PAF which are asymptomatic..
Patient with intermittent pain and burning which appears related to catheter. Management directed by primary team. These episodes likely also add to some of the elevation in heart rate.
Continue metoprolol
Check orthostatics when patient is ambulatory. If pressures are stable then could consider increasing metoprolol 12.5 mg twice daily. Otherwise can continue on current dosing.
Continue treatment of infection as directed by primary team.
.
Please call if additional assistance required.. We will see as needed.
Impression / Plan
-
.84-year-old male with a history of cardiomyopathy ejection fraction 40 to 45%, CHF, atrial flutter , PAT and orthostatic hypotension who had a recent hospitalization December 14 through December 26 with small bowel obstruction and resection who
is now readmitted with fever of 102.
.
Fever. Temp up to 102 on admit.
- improving
- urine ecoli
- Would suspect urinary source based on urinalysis, history of urinary retention patient also with known right calyceal dilation by last CT
- Patient also with recent abdominal surgery. Currently without significant abdominal symptoms. Incision appears fine - Surgical consultants following
- Antibiotics as directed by primary team
UTI -
-Alvarado catheter in place. Patient also with known calyceal dilation on prior CTs.
-E. coli on culture. Antibiotics as per primary team.
-Patient with intermittent pain and burning which occurred during exam today may be bladder spasm. Additional management per primary
PAT/paroxysmal flutter
-tachycardia. On admission ECG heart rate 138 ECG read as irregular atrial tachycardia. Patient with both history of atrial flutter and PAT
- Currently in sinus rhythm
- Brief periods of PAT on telemetry. Cannot entirely exclude brief periods of atrial flutter or A-fib
- Continue metoprolol
- Continue Eliquis
.
Cardiomyopathy.
- Presumed ischemic cardiomyopathy based on previous nuclear stress suggesting prior infarct. Most recent echo with ejection fraction 40 to 45%
- Euvolemic.
- GDMT limited by BP
- With suspected urinary infection issues would not use Farxiga or Jardiance
-Continue to monitor for signs of decompensated heart failure
.
Orthostatic hypotension. Previous history. Currently on midodrine blood pressure stable. Monitor.
.
Postop abdominal surgery for SBO. Previous surgery 12/14/2024
Physical Exam
Vital Signs/Labs
Vital Signs
Temp Pulse Resp BP Pulse Ox
99.5 F 105 30 119/74 95
01/05/25 03:11 01/05/25 06:00 01/05/25 06:00 01/05/25 06:00 01/05/25 04:00
01/04/25 01/05/25 01/06/25
06:59 06:59 06:59
Actual Weight 69.088 kg 69.456 kg
01/05/25 04:19
01/05/25 04:19
Magnesium 1.6 mg/dl (1.6-2.3) 01/05/25 04:19
Physical Exam
Constitutional: No acute distress
Cardiovascular: Rhythm & rate is regular
Respiratory: Wheeze Absent and Rhonchi Absent
GI: Soft and Non tender
Neuro/Psych: Alert and Oriented
Data Reviewed
-
Date of Service: January 05, 2025
Medical Decision Making: Reviewed Test Results
Echo: Report Reviewed by me
Medical Tests (PFT, Pathology etc): Report Reviewed by me
Labs: Labs Reviewed by me
--- NOTE | 2025-01-05 07:47 | W.PN.HOSP.TC ---
Addendum entered and electronically signed by Tino Glynn MD 01/05/25 20:18:
Attending Addendum-
I saw and evaluated the patient. I reviewed the resident�s note and agree with findings and plan as documented in the resident�s note. Sub: per nursing has non sustained asymptomatic VT. Seen with and children. Having BMs and passing gas.
complains of severe intermittent rectal pain. No blood in stools. Denies NV. afebrile. Denies cough abd pain diarrhea. Full 12 point ROS reviewed and negative except as documented Exam: Vitals reviewed in chart GEN-mod distress due to pain heart
irreg irreg tachycardic lungs fine crackles at bases abd incision CDI pos BS NT ND LE trace b/l LE edema henson in place with clear yellow urine
Plan:
#Sepsis secondary to Catheter-Associated Urinary Tract Infection
-leukocytosis resolved
-Continue ceftriaxone #3
-DC IVF
-urine cx e coli- torres sensi blood cultures- NGTD
-Henson catheter exchanged in ED
#Atrial Fibrillation with Rapid Ventricular Response
-uncontrolled
-increase metoprolol XL to BID and continue Eliquis
-appreciate Cardiology input
# Hyponatremia- mild
-DC IVF
-repeat BMP in am
# Hypokalemia-replete
# rectal pain-traumatic from previous use of rectal tube- start prep H max ATC and add tramadol - CTM closely
#Recent Closed Loop Small Bowel Obstruction s/p Small Bowel Resection-12/14
-CT A/P-01/02-Adjacent to the anastomosis, there is localized subtle soft tissue of indistinct margins and a small focus of gas, as described. While this may be related to the recent surgical procedure, the possibility of developing abscess would be
difficult to exclude with certainty
-repeat CT A/P-01/04-There is a small focus of fluid and air density within the mesentery of the right lower abdomen upper pelvis, adjacent to the region of small bowel anastomosis. This appears similar to recent examination of January 02, 2025.
Infection of this small collection cannot be excluded.
-General Surgery input appreciated
-CTM for fevers
-advance diet to LR
#Chronic HFrEF
-lexiscan stress 11/04/24-Large, fixed defect of the basal inferior, basal inferolateral, basal inferoseptal, mid inferior, mid inferolateral, mid inferoseptal, apical inferior and part of the apical inferoseptal and inferoapical inferolateral lateral
wall. Findings are consistent with infarction in multivessel distribution. Negative ECG for ischemia given the pharmacological study. Systolic function is severely reduced. The ejection fraction is 28%.
-Monitor Daily Weights
-Diuretics on hold from prior admission
#Orthostatic Hypotension
-Continue Midodrine
#Hyperlipidemia
-Continue simvastatin
#BPH / Urinary Retention with henson placed last admission
-Continue Flomax, cont henson
-TOV this hospital stay if able
#Secretory Diarrhea
-Continue cholestyramine
DVT proph: Eliquis
Code Status: DNR
Dispo- DC to SNF in am
Time spent coordinating care, review of plan of care with resident, personally reviewed records in EMR, med rec, consults, notes, labs, radiology, d/w nursing and family � 53 mins
Original Note:
Today's Communication/Plan
-
Continue antibiotics
Assessment / Plan
Assessment / Plan
Assessment:
This is an 84 y/o male with pmhx of Heart Failure with reduced Ejection Fraction (28% 11/04/2024 Stress Test vs 40-45% 10/27/2024 Echo)) atrial flutter, orthostatic hypotension who was recently hospitalized here on 12/14 to 12/26 due to closed loop small
bowel obstruction s/p small bowel resection who required henson catheter on discharge for acute urinary retention who presented back to the ED on 01/02 with nausea, vomiting, fevers and was found to have a catheter associated UTI.
Plan:
Sepsis 2/2 catheter associated UTI
Urinary Retention
Vomiting-Resolved
-Patient with catheter replaced on 12/24 prior to discharge on 12/26 presented to the ED with nausea/vomiting/fevers
-Urine culture positive for E. Coli, blood culture no growth to date
-Henson catheter was replaced in the ED on 01/02
-He continues to be oriented x3 when I speak to him, and has been fever free since 01/04. However, he does still have tachycardia
-Continue ceftriaxone, goal to eventually switch to PO medications
-Ultimately, will need to address patient�s Henson catheter and see if he can pass a voiding trial
-Will monitor
Rectal Pain
-New to him as of last night/today. Heart rate becomes tachycardic during episodes of pain.
-Nursing reports exam to be unremarkable for anything that could cause this significant level of pain. He most recently received a bath yesterday
-Suspect pain may be referred from bladder spasms due to catheter
-At home, patient uses phenazopyridine and tramadol PRN for pain. He does not remember how long he has been taking phenazopyridine for
-Prescribed phenazopyridine scheduled Q8h for 2 days, and Tramadol PRN for moderate to severe pain
-Will monitor pain on new medications and adjust dosages accordingly.
Aflutter
Cardiomyopathy
-Patient with atrial flutter and elevated heart rate in the setting of sepsis
-Patient is on Metoprolol PO + PRN IV for HR >130, hold parameters in place
-Hold Eliquis
-Cardiology is following, will appreciate their insight into his case.
Hypomagnesemia-Resolved
-S/p 3 g IV Magnesium
-Continue to follow magnesium
H/o closed loop small bowel obstruction
-CT concerning for possible abscess that cannot be ruled out. Repeat CT with IV and oral contrast on 01/04 showed NO contrast extravasation of the small collection
-D/c'ed metranidzole on 01/04
-Incisions appear to be well healing with surgical rachael still in place
-Surgery is following, will appreciate their insight into his case
-Hopefully surgical rachael can be removed prior to his discharge
Chronic HFrEF
-EF was noted at 28% from 11/04/2024 Stress Test, vs 40-45% on 10/27/2024 Echo
-Upon admission his diuretics were on hold from prior admission
-Cardiology is following, will appreciate their insight into his case.
Orthostatic hypotension
-Continue home midodrine with hold precautions
HLD
-Simvastatin 40mg not available on formulary, continue atorvastatin 20mg
BPH
-Continue flomax
Anticipated Discharge: 24 - 48 hours
Subjective/Interval History
-
Date of Service: January 05, 2025
Patient reports he had a terrible night last night, as he has begun to experience waves of horrible, burning sensation in his rectum. He clarifies this as feeling it deep inside his butt. It is unaffected by bowel movements, as he just had one
earlier. During my exam he had two episodes of pain where he was inconsolable and crying out. Each resolved within 30 seconds, and was spaced apart by around 10 minutes. He also has some mild episodes of nausea after drinking the contrast dye
yesterday.
Objective Data
-
Labs:
Laboratory Results
01/05/25
04:19
WBC 8.3
Hgb 9.5 L
Hct 26.9 L
Plt Count 195
Sodium 134 L
Potassium 3.4 L
Chloride 108 H
Carbon Dioxide 20 L
BUN 13
Creatinine 0.7
Glucose 115 H
Calcium 7.1 L
Vital Signs:
Vital Signs
Temp Pulse Resp BP Pulse Ox
99.5 F 105 30 119/74 95
01/05/25 03:11 01/05/25 06:00 01/05/25 06:00 01/05/25 06:00 01/05/25 04:00
I&O
01/04/25 01/05/25 01/06/25
06:59 06:59 06:59
Intake Total 1220 / 1220 120 / 120
Output Total 1050 / 1050 2199 / 2199
Balance 170 / 170 -2079 /
Review of Systems
-
History Source: Patient
Constitutional: Denies Fever or Chills
Respiratory: Denies Cough or Trouble Breathing
Cardiac: Denies Chest Pain
Abdomen/GI: Reports Other (Rectal Pain); Denies Abdominal Pain, Vomiting, Diarrhea or Constipated
Musculoskeletal: Denies Joint Pain
Neuro: Denies Dizzy, Headache or Weakness
Physical Exam
-
General: Well Developed, Well Nourished, No Apparent Distress (At baseline, in obvious pain during flares of rectal pain as noted in HPI) and Comfortable; Negative Fever or Chills
HEENT: Normocephalic and Atraumatic
Respiratory: Clear to Auscultation
Cardiac: S1/S2 and Irregular Rhythm
GI: Soft, Nontender, Nondistended and Other (Surgical [place] still in place over midline incision)
Skin: Warm and Dry
Neuro: Awake, Alert and Oriented
Psych: Calm
[2025-01-05] MEDS: FLOMAX 0.4 MG PO (08:26)
[2025-01-05] MEDS: PROTONIX 40 MG PO (08:26)
[2025-01-05] MEDS: TOPROL XL 12.5 MG PO (08:26)
--- NOTE | 2025-01-05 08:54 | PTCARENOTE ---
Patient received from shift supervisor melting. Patient resting comfortably in bed. AAO and continues to mostly be oriented to self and birthday with periods of confusion, VSS. Patient started with rectal discomfort over night. NSS @ 75mL/hr. Midline
incisions with rachael now removed. Continue with ABX. Patient continues with poor appetite. No tests scheduled at this time. Call young in reach.
--- NOTE | 2025-01-05 11:12 | W.PN.GS2 ---
Today's Communication / Plan
-
`
Assessment / Plan
-
Assessment: 84-year-old male POD #22 status post DxLap, JUNE converted to laparotomy with small bowel resection readmitted with fever, diarrhea anorexia nausea and dysuria
CT imaging more likely suggestive of postoperative inflammatory changes. Small volume residual free air stable between CT scans. Perianastomotic inflammatory changes but no evidence of contrast extravasation. Given clinical improvement since
admission and lack of abdominal tenderness/distention no strong clinical signs suggestive of anastomotic leak.
Catheter associated UTI - ecoli torres senstive
AFVSS
Leukocytosis resolved
Plan: Okay to resume low residue diet
Continue antibiotics for catheter associated UTI
Tucks pads PRN BMs for perianal pain/excoriation (no signs of hemorroids, infectious process, mass on exam today)
Subjective Data
-
Date of Service: January 05, 2025
Patient seen and examined.
Chief complaint is perianal/rectal pain and difficulty controlling bowel movements
Stools are semiformed
Intermittent mild nausea but no vomiting
No significant abdominal pain reported
Objective Data
-
Intake and Output
01/04/25 01/05/25 01/06/25
06:59 06:59 06:59
Intake Total 1220 / 1220 120 / 120
Output Total 1050 / 1050 2200 / 2200 450 / 450
Balance 170 / 170 -2080 / -2080 -450 / -450
Intake:
Oral fluids 120 / 120 120 / 120
IV fluids (Total) 900 / 900
IV piggybacks 200 / 200
Output:
Urine, Alvarado 1050 / 1050 2200 / 2200 450 / 450
Vital Signs
Temp Pulse Resp BP Pulse Ox
98.7 F 93 30 107/73 95
01/05/25 08:00 01/05/25 08:26 01/05/25 06:00 01/05/25 08:26 01/05/25 10:19
Lab Results
01/05/25 04:19
01/05/25 04:19
Calcium 7.1 mg/dl (8.4-10.2) L 01/05/25 04:19
Magnesium 1.6 mg/dl (1.6-2.3) 01/05/25 04:19
Total Bilirubin 0.8 mg/dl (0.2-1.3) 01/02/25 19:44
AST 21 U/L (17-59) 01/02/25 19:44
ALT 14 U/L (0-50) 01/02/25 19:44
Alkaline Phosphatase 78 U/L (38-126) 01/02/25 19:44
Total Protein 6.7 g/dl (6.3-8.2) 01/02/25 19:44
Albumin 3.3 g/dl (3.5-5.0) L 01/02/25 19:44
Physical Exam
-
NAD AAO x 2
ABD: Soft, nondistended, nontender to palpation
Ramon removed; midline incision and laparoscopic incision sites healing well. No open wounds, no active drainage, no erythema
Perianal examination without hemorrhoids, some excoriation noted but no open wounds, no masses/fluctuance suggestive of infectious process
Soft formed stool with previous ingestion of oral contrast
[2025-01-05] MEDS: ULTRAM 50 MG PO ×2 (14:08→22:17)
[2025-01-05] MEDS: PREPARATION H MAX STRENGTH PAIN RELIEF CREAM 1 APPLIC RECTAL ×2 (16:10→21:04)
[2025-01-05] MEDS: LIPITOR 20 MG PO (18:33)
[2025-01-05] MEDS: STERILE WATER FOR INJECTION 10 ML IV (21:05)
[2025-01-05] MEDS: ROCEPHIN 1000 MG IV (21:05)
[2025-01-05] MEDS: SINGULAIR 10 MG PO (21:05)
[2025-01-05] MEDS: TYLENOL/FEVERALL 650 MG RECTAL (22:16)
--- NOTE | 2025-01-05 22:55 | PTCARENOTE ---
Assumed care for patient overnight. Pt disoriented to time, confused at times. Pt having intense periods of pain described as 'sharp' to his rectum. Scheduled Preparation H administered. PRN Tramadol administered. ELIZABETH Cardenas made aware. Order for
Tylenol via rectum. A-fib on the monitor. IVF d/c'd. Alvarado intact draining yellow urine. Midline incision open to air, C/D/I. IV abx cont. Call young is within reach.
[2025-01-06] VITALS (10 sets, daily range): BP systolic 117–135; BP diastolic 72–100; PULSE 85–89; BMI 21.9
[2025-01-06] MEDS: PREPARATION H MAX STRENGTH PAIN RELIEF CREAM 1 APPLIC RECTAL ×2 (04:43→10:51)
[2025-01-06] MEDS: ULTRAM 50 MG PO ×2 (04:43→10:59)
[2025-01-06 04:46] LABS: Hematocrit 29.6 % (39.0-52.0); Hemoglobin 10.2 g/dL (13.0-18.0); Mean Corp Hgb Conc. 34.5 g/dL (33.0-37.0); Mean Corpuscular Volume 90.0 fL (80.0-94.0); Platelet Count 212 10^3/uL (130-400); Red Cell Dist. Width 14.3 % (11.5-14.5)
[2025-01-06 05:14] LABS: Blood Urea Nitrogen 8 mg/dl (9-20); Calcium 7.5 mg/dl (8.4-10.2); Carbon Dioxide 22 mmol/L (22-30); Chloride 111 mmol/L (98-107); Estimated Creatinine Clearance 91 ml/min; Glucose 121 mg/dl (70-99); Magnesium 1.6 mg/dl (1.6-2.3); Potassium 3.8 mmol/L (3.5-5.1); Sodium 135 mmol/L (135-145); eGFR > 60.00
--- NOTE | 2025-01-06 07:38 | W.PN.HOSP.TC ---
Addendum entered and electronically signed by Tino Glynn MD 01/06/25 21:51:
Attending Addendum-
I saw and evaluated the patient. I reviewed the resident�s note and agree with findings and plan as documented in the resident�s note. Sub: Having BMs and passing gas. rectal pain greatly improved. No blood in stools. Denies NV. afebrile. Denies
cough abd pain diarrhea. Full 12 point ROS reviewed and negative except as documented Exam: Vitals reviewed in chart GEN-NAD heart irreg irreg lungs fine crackles at bases abd incision CDI pos BS NT ND LE trace b/l LE edema henson in place with
clear yellow urine
Plan:
#Sepsis secondary to Catheter-Associated Urinary Tract Infection
-leukocytosis resolved
-Continue ceftriaxone #4->Augmentin on DC
-urine cx e coli- torres sensi blood cultures- NGTD
-Henson catheter exchanged in ED
#Atrial Fibrillation with Rapid Ventricular Response
-controlled
-cont increase metoprolol XL to BID and continue Eliquis
-appreciate Cardiology input
# Hyponatremia-resolved
# Hypokalemia-replete
# rectal pain-traumatic from previous use of rectal tube- cont prep H max ATC and add tramadol - CTM closely
#Recent Closed Loop Small Bowel Obstruction s/p Small Bowel Resection-12/14
-CT A/P-01/02-Adjacent to the anastomosis, there is localized subtle soft tissue of indistinct margins and a small focus of gas, as described. While this may be related to the recent surgical procedure, the possibility of developing abscess would be
difficult to exclude with certainty
-repeat CT A/P-01/04-There is a small focus of fluid and air density within the mesentery of the right lower abdomen upper pelvis, adjacent to the region of small bowel anastomosis. This appears similar to recent examination of January 02, 2025.
Infection of this small collection cannot be excluded.
-General Surgery input appreciated
-CTM for fevers - per surgery note cont flagyl but patient not on this- Augmentin should provide adequate anaerobic coverage prophylactically
-tolerating diet to LR
#Chronic HFrEF
-lexiscan stress 11/04/24-Large, fixed defect of the basal inferior, basal inferolateral, basal inferoseptal, mid inferior, mid inferolateral, mid inferoseptal, apical inferior and part of the apical inferoseptal and inferoapical inferolateral lateral
wall. Findings are consistent with infarction in multivessel distribution. Negative ECG for ischemia given the pharmacological study. Systolic function is severely reduced. The ejection fraction is 28%.
-Monitor Daily Weights
-Diuretics on hold from prior admission
#Orthostatic Hypotension
-Continue Midodrine
#Hyperlipidemia
-Continue simvastatin
#BPH / Urinary Retention with henson placed last admission
-Continue Flomax, cont henson
-TOV at when more ambulatory
#Secretory Diarrhea
-Continue cholestyramine
DVT proph: Eliquis
Code Status: DNR
Dispo- DC to SNF
Time spent coordinating care, DC planning, review of DC plan of care with resident, transition of care, review of records, med rec/scripts sent electronically, consults, notes, d/w consultants, nursing, family, and CM� 33 mins >50% of this time was
devoted to counseling and coordination of care
Original Note:
Today's Communication/Plan
-
Discharge planning
Assessment / Plan
Assessment / Plan
Assessment:
This is an 84 y/o male with pmhx of Heart Failure with reduced Ejection Fraction (28% 11/04/2024 Stress Test vs 40-45% 10/27/2024 Echo)) atrial flutter, orthostatic hypotension who was recently hospitalized here on 12/14 to 12/26 due to closed loop small
bowel obstruction s/p small bowel resection who required henson catheter on discharge for acute urinary retention who presented back to the ED on 01/02 with nausea, vomiting, fevers and was found to have a catheter associated UTI.
Plan:
Sepsis 2/2 catheter associated UTI
Urinary Retention
Vomiting-Resolved
-Patient with catheter replaced on 12/24 prior to discharge on 12/26 presented to the ED with nausea/vomiting/fevers
-Urine culture positive for E. Coli, blood culture no growth to date
-Henson catheter was replaced in the ED on 01/02
-He continues to be oriented x3 when I speak to him, and has been fever free since 01/04. However, he does still have tachycardia specifically while experiencing rectal pain
-Stop Ceftriaxone today, will switch to Augmentin 875mg BID for 3 days for 7 day total course
-Ultimately, will need to address patient�s Henson catheter and see if he can pass a voiding trial outpatient
-Will monitor
Rectal Pain
-New to him as of prior hospitalization during which family reported he had a rectal catheter removed. Only began to experience this pain during this hospitalization yesterday.
-At home, patient uses phenazopyridine and tramadol PRN for pain. Continue Tramadol for moderatepain
-Continue Preparation H extra strength
Aflutter
Cardiomyopathy
-Patient with atrial flutter and elevated heart rate in the setting of sepsis
-Patient is on Metoprolol PO + PRN IV for HR >130, hold parameters in place
-Resume Eliquis upon discharge
-Cardiology is following, will appreciate their insight into his case.
Hypomagnesemia-Resolved
-S/p 3 g IV Magnesium
-Continue to follow magnesium
H/o closed loop small bowel obstruction
-CT concerning for possible abscess that cannot be ruled out. Repeat CT with IV and oral contrast on 01/04 showed NO contrast extravasation of the small collection
-D/c'ed metranidzole on 01/04
-Incisions appear to be well healing with surgical rachael removed yesterday
Chronic HFrEF
-EF was noted at 28% from 11/04/2024 Stress Test, vs 40-45% on 10/27/2024 Echo
-Cardiology is following, will appreciate their insight into his case.
-Encouraged follow up with outpatient cardiology office
Orthostatic hypotension
-Continue home midodrine with hold precautions
HLD
-Simvastatin 40mg not available on formulary, continue atorvastatin 20mg
BPH
-Continue flomax
Anticipated Discharge: Today
Subjective/Interval History
-
Date of Service: January 06, 2025
Patient was sitting comfortably in his bed when I arrived. He has been experiencing fewer episodes of burning rectal pain since using Preparation H starting yesterday, and when they do happen last for less time. He did have one such episode while I
was present in the room, lasting for approximately 15 seconds in total. He is free of fevers, chills, abdominal pain, nausea, vomiting. He
Objective Data
-
Labs:
Laboratory Results
01/06/25
04:35
WBC 8.8
Hgb 10.2 L
Hct 29.6 L
Plt Count 212
Sodium 135
Potassium 3.8
Chloride 111 H
Carbon Dioxide 22
BUN 8 L
Creatinine 0.6 L
Glucose 121 H
Calcium 7.5 L
Vital Signs:
Vital Signs
Temp Pulse Resp BP Pulse Ox
98.4 F 90 20 132/74 97
01/06/25 07:18 01/06/25 06:00 01/06/25 06:00 01/06/25 06:00 01/05/25 22:43
I&O
01/05/25 01/06/25 01/07/25
06:59 06:59 06:59
Intake Total 120 / 120 625 / 625
Output Total 2200 / 2200 3100 / 3100
Balance -0 / -0 -5 / -2475
Review of Systems
-
History Source: Patient
Constitutional: Denies Fever, Chills or Weakness
Respiratory: Denies Cough or Trouble Breathing
Cardiac: Denies Chest Pain
Abdomen/GI: Reports Other (Rectal Pain); Denies Abdominal Pain, Nausea or Vomiting
Neuro: Denies Dizzy or Headache
Physical Exam
-
General: Well Developed, Well Nourished, No Apparent Distress and Comfortable (Aside from episode lasting 15 seconds of burning rectal pain, after which he was comfortable again)
HEENT: Normocephalic and Atraumatic
Respiratory: Clear to Auscultation
Cardiac: S1/S2 and Irregular Rhythm
GI: Soft, Nontender, Nondistended, Normal Bowel Sounds and Other (Surgical Rachael have been removed. Midline, well healing incision present with no visible signs of infection.)
Musculoskeletal: No Edema
Skin: Warm and Dry
Neuro: Awake, Alert and Oriented
Psych: Calm
--- NOTE | 2025-01-06 07:44 | W.PN.GS2 ---
Today's Communication / Plan
-
Cont flagyl until abx complete for UTI
GS s/o
Pls call with ?s
Assessment / Plan
-
Assessment: 84-year-old male POD #23 status post DxLap, JUNE converted to laparotomy with small bowel resection readmitted with fever, diarrhea anorexia nausea and dysuria
CT imaging more likely suggestive of postoperative inflammatory changes. Small volume residual free air stable between CT scans. Perianastomotic inflammatory changes but no evidence of contrast extravasation. Given clinical improvement since
admission and lack of abdominal tenderness/distention no strong clinical signs suggestive of anastomotic leak.
Catheter associated UTI - ecoli torres senstive
AFVSS
Leukocytosis resolved
Plan: Okay to resume low residue diet
Continue antibiotics for catheter associated UTI, would cont flagyl along with UTI abx upon DC
Tucks pads PRN BMs for perianal pain/excoriation (no signs of hemorroids, infectious process, mass on exam today)
Subjective Data
-
Date of Service: January 06, 2025
AFVSS, rectal discomfort improved, denies n/v, rafael LRD, denies abd pain
Objective Data
-
Intake and Output
01/05/25 01/06/25 01/07/25
06:59 06:59 06:59
Intake Total 120 / 120 625 / 625
Output Total 2200 / 2200 3100 / 3100
Balance -2079 / -2080 -5 / -2475
Intake:
Oral fluids 120 / 120 625 / 625
Output:
Urine, Alvarado 2200 / 2200 3100 / 3100
Other:
Number of unmeasured liquid
stools
Rectum 3
Vital Signs
Temp Pulse Resp BP Pulse Ox
98.4 F 90 20 132/74 97
01/06/25 07:18 01/06/25 06:00 01/06/25 06:00 01/06/25 06:00 01/05/25 22:43
Lab Results
01/06/25 04:35
01/06/25 04:35
Calcium 7.5 mg/dl (8.4-10.2) L 01/06/25 04:35
Magnesium 1.6 mg/dl (1.6-2.3) 01/06/25 04:35
Total Bilirubin 0.8 mg/dl (0.2-1.3) 01/02/25 19:44
AST 21 U/L (17-59) 01/02/25 19:44
ALT 14 U/L (0-50) 01/02/25 19:44
Alkaline Phosphatase 78 U/L (38-126) 01/02/25 19:44
Total Protein 6.7 g/dl (6.3-8.2) 01/02/25 19:44
Albumin 3.3 g/dl (3.5-5.0) L 01/02/25 19:44
Physical Exam
-
Gen: NAD
Abd: soft, nt, incisions well healed
--- NOTE | 2025-01-06 08:06 | PTCARENOTE ---
Pt AAOx3 , crying with rectal pain.
[2025-01-06] MEDS: TYLENOL/FEVERALL 650 MG RECTAL (08:09)
[2025-01-06] MEDS: TOPROL XL 12.5 MG PO (08:49)
[2025-01-06] MEDS: PROTONIX 40 MG PO (08:49)
[2025-01-06] MEDS: FLOMAX 0.4 MG PO (08:50)
--- NOTE | 2025-01-06 10:42 | CM ---
Following up on Patient. Medical Team stated that patient can discharge. LEO Sin confirmed a bed at [facility] today and patient needs to leave no later than 1pm.
Transport is arranged for 1pm.
Report: #[phone]
Fax: #[phone]
is aware and IMM Completed.
PLAN: SNF to [facility]
--- NOTE | 2025-01-06 10:45 | W.DCSUMMARY ---
Addendum entered and electronically signed by Tino Glynn MD 01/06/25 21:52:
Read, reviewed, and agree. See same day progress note for additional details.
George Glynn MD
Original Note:
Documented by User: Dominga Azar DO, Resident 01/06/25 11:47
Discharge Summary
Discharge Data
Date of Admission: 01/02/25
Date of Discharge: 01/06/25
-
Pending Results: No
Hospital Course
Discharging Physician : Dr. Glynn
Disposition : Fair
Primary care physician : Camilo Troncoso MD
Principal Discharge diagnosis : Catheter-Associated Urinary Tract Infection
Chronic Discharge diagnosis : Heart Failure with reduced Ejection Fraction, atrial flutter, orthostatic hypotension
Hospital Course : This is an 84 y/o male with pmhx of Heart Failure with reduced Ejection Fraction (28% 11/04/2024 Stress Test vs 40-45% 10/27/2024 Echo)) atrial flutter, orthostatic hypotension who was recently hospitalized here on 12/14 to 12/26 due
to closed loop small bowel obstruction s/p small bowel resection.
Briefly, he presented to the ED on 12/13 with abdominal pain and was found to have a closed loop bowel obstruction. He went to the OR for diagnostic laparoscopy with JUNE which was converted to an ex-lap for closed loop small bowel obstruction with SBR
and repair enterotomy x1 for ischemic bowel. Following this procedure he was placed in the ICU requiring pressers, NGT, PICC/TPN for post-op ileum. He also completed 7 days of Zosyn at that time. During his hospitalization he began delirious and
removed his NG tube twice, requiring replacement. His hospital course was also complicated by delirium and urinary retention, requiring a Henson catheter to be placed. A voiding trial was attempted on 12/24, but he continued to retain urine so his
henson was replaced.
His family reports that since discharge he has had very poor appetite with nausea after eating and eventually vomiting, as well as episodes of burning rectal pain. They report these episodes of rectal pain immediately following removal of a rectal
catheter at the end of his prior hospitalization. He represented to the ED on 01/02 after developing a fever earlier that day.
In the ED he was noted to have rigors. His WBC was elevated at 14.1. His magnesium was low at 0.9, requiring repletion with 3 gram of IV magnesium sulfate. Urinalysis was positive for nitrites (4+), leukocyte esterase (3+), WBC (>100), and moderate
bacteria. A CT scan of his abdomen/pelvis revealed that a present colon with surgical clips in the right lower quadrant, suggestive of previous partial small bowel resection. Adjacent to the anastomosis there is localized subtle soft tissue of
indistinct margins and a small focus of gas, as described. While this may be related to the recent surgical procedure, the possibility of developing abscess would be difficult to exclusive with certainty. Close clinical and imaging follow-up
recommended. Otherwise, a small amount of free air is present predominantly non dependently in the right upper quadrant. No CT evidence for small bowel obstruction. Henson catheter in a collapsed urinary bladder with prominent urinary bladder wall
thickening. Continued obstructive uropathy of the right kidney. Retrograde pyelogram would be recommended. Mild interstitial fibrotic changes with slight increased interstitial markings, which could be related to interstitial fluid, such as volume
overload or mild congestive heart failure. He was started on IV Ceftriaxone and admitted to the IMU for further management. His Henson catheter was replaced in the ED on 01/02/2025. Cardiology and general surgery were consulted.
His fevers persisted past midnight despite Tylenol 650mg x2 with a temperature of 102.9. His heart rate was also elevated at 130s-150s, and his blood pressure was elevated at 159/93. He had respirations of 30. He was given Toradol 15mg and
Metoprolol 2.5mg both via IV, at which time his temperature decreased to 98.7, his heart rate to 90-111,a and his BP to 124/53.
On 01/03 his WBC increased to 16.5. Due to the concern for abscess noted above on the CT scan, Flagyl was added to his antibiotic regimen. IV Fluid was also continued. A chest X-ray showed low lung volumes and vascular congestion. There was no
consolidation, effusion, or pneumothorax. Overnight, his temperature letitia to 101.6, and was again recorded at 100.5 on the morning of 01/04.
On 01/04, a second CT scan with oral and IV contrast was performed. The free air was resolving, and the oral contrast showed no contrast extravasation of the small collection noted above. Flagyl was discontinued, and Ceftriaxone alone was continued.
On 01/05, his WBC decreased to 8.3, his potassium to 3.4 and his calcium to 7.1. His Magnesium was 1.6. He was free of fevers overnight, but was still experiencing tachycardia up to 116 overnight which was determined to be due to his rectal pain. He
was started on scheduled doses of Preparation H Maximum strength with significant relief in his symptoms. He continued to be fever free overnight.
On 01/06 he was found to be medically stable and discharged to [facility]. He was sent home with a 3 day course of Augmentin 875mg, for a total antibiotic course of 7 days. He was also sent home with an increased dose of metoprolol of 25mg and
instructions to continue Preparation H as needed. He is to follow up with his PCP in less than 1 week.
Important imaging findings :
01/02 CT scan of his abdomen/pelvis revealed that a present colon with surgical clips in the right lower quadrant, suggestive of previous partial small bowel resection. Adjacent to the anastomosis there is localized subtle soft tissue of indistinct
margins and a small focus of gas, as described. While this may be related to the recent surgical procedure, the possibility of developing abscess would be difficult to exclusive with certainty. Close clinical and imaging follow-up recommended.
Otherwise, a small amount of free air is present predominantly non dependently in the right upper quadrant. No CT evidence for small bowel obstruction. Henson catheter in a collapsed urinary bladder with prominent urinary bladder wall thickening.
Continued obstructive uropathy of the right kidney. Retrograde pyelogram would be recommended. Mild interstitial fibrotic changes with slight increased interstitial markings, which could be related to interstitial fluid, such as volume overload or
mild congestive heart failure.
01/04 CT scan with oral and IV contrast: The free air was resolving, and the oral contrast showed no contrast extravasation of the small collection noted above.
Procedure findings : N/a
Discharge Plan
-
Patient Disposition: Senior Living/SNF
Discharge Diagnosis/Procedures: Urinary Tract Infection
Condition: Fair
Diet: No restrictions
Activity: No restrictions
Driving Restrictions: As prior to admission
Bathing Restrictions: None
Specialty Instructions: Weigh Daily- Call MD for wt gain/loss 3 lbs overnight/5 lbs in 1 week
Referrals:
Camilo Troncoso MD [Family Provider, Internal Medicine] - in less than 1 week
Additional Discharge Medication Instructions: You are being prescribed an antibiotic called amoxicillin-pot clavulanate. Please take 1 tablet by mouth twice a day for 3 days in total.
Your dose of metoprolol was changed. Please take 25mg daily.
You may use Preparation H extra strength as needed up to 4 times a day for your rectal pain.
STOP taking loperamide, cholestyramine and phenazopyridine. You should talk to your primary care physician about these medications and if you should resume them.
Prescriptions:
New
metoprolol succinate 25 mg Tablet Extended Release 24 Hr
12.5 mg PO BID Qty: 60 0RF
Hemorrhoidal Cream 0.25-1 % cream
1 applic VT QID PRN (Reason: Rectal Pain) Qty: 28 0RF
amoxicillin-pot clavulanate 875-125 mg tablet
1 tab PO BID Qty: 6 0RF
Continued
multivitamin Tablet
1 tab PO DAILY
calcium carbonate-vitamin D3 600 mg-5 mcg (200 unit) Tablet
1 tab PO DAILY
simvastatin 40 mg tablet
40 mg PO HS
omeprazole 20 mg capsule,delayed release(DR/EC)
20 mg PO DAILY
montelukast 10 mg tablet
10 mg PO HS
Prolia 60 mg/mL Syringe
60 mg SC [id number]
tramadol 50 mg Tablet
50 mg PO Q8HPRN PRN (Reason: moderate pain)
zinc oxide 20 % Ointment
1 applic TOPICAL TID
acetaminophen [Tylenol Extra Strength] 500 mg Tablet
1,000 mg PO TID
Fleet Enema 19-7 gram/118 mL Enema
118 ml VT DAILYPRN PRN (Reason: if no bm aftr dulcolax)
lidocaine-menthol [Icy Hot Patch (lido-menthol)] 4-1 % Adhesive Patch,Medicated
1 patch TOPICAL DAILY
midodrine 5 mg Tablet
10 mg PO TID@0800,1300,1800 Qty: 90 0RF
magnesium hydroxide [Milk of Magnesia] 400 mg/5 mL Suspension
2,400 mg PO DAILYPRN PRN (Reason: If no Bowel Movement after 2 days) Qty: 0 0RF
tamsulosin 0.4 mg Capsule
0.4 mg PO DAILY Qty: 30 0RF
bisacodyl [Dulcolax (bisacodyl)] 10 mg Suppository
10 mg VT DAILYPRN PRN (Reason: If No Bowel Movement after Milk of M) Qty: 0 0RF
Eliquis 5 mg tablet
5 mg PO BID Qty: 70 0RF
Rx Instructions:
10 mg BID x 7 days, then 5 mg BID
Discontinued
metoprolol succinate [Toprol XL] 25 mg tablet extended release 24 hr
12.5 mg PO DAILY Qty: 30 0RF
loperamide 2 mg Capsule
2 mg PO Q6HPRN PRN (Reason: Diarrhea) Qty: 20 0RF
phenazopyridine 200 mg tablet
200 mg PO Q8HPRN PRN (Reason: mild Pain)
cholestyramine (with sugar) 4 gram powder in packet
1 ea PO BID
Discharge Orders:
Discharge Patient (As Directed); Ordered 01/06/25
Ordered By: Dominga Azar
Discharge Date and Time
Discharge Date/Time: 01/06/25 12:30
Print Language: [place]

Documented by User: Tino Glynn MD 01/06/25 21:47
Discharge Summary
Discharge Data
Date of Admission: 01/02/25
Date of Discharge: 01/06/25
Discharge Plan
-
Patient Disposition: Senior Living/SNF
Discharge Diagnosis/Procedures: Urinary Tract Infection
Condition: Fair
Diet: No restrictions
Activity: No restrictions
Driving Restrictions: As prior to admission
Bathing Restrictions: None
Specialty Instructions: Weigh Daily- Call MD for wt gain/loss 3 lbs overnight/5 lbs in 1 week
Referrals:
Camilo Troncoso MD [Family Provider, Internal Medicine] - in less than 1 week
Additional Discharge Medication Instructions: You are being prescribed an antibiotic called amoxicillin-pot clavulanate. Please take 1 tablet by mouth twice a day for 3 days in total.
Your dose of metoprolol was changed. Please take 25mg daily.
You may use Preparation H extra strength as needed up to 4 times a day for your rectal pain.
STOP taking loperamide, cholestyramine and phenazopyridine. You should talk to your primary care physician about these medications and if you should resume them.
Prescriptions:
New
metoprolol succinate 25 mg Tablet Extended Release 24 Hr
12.5 mg PO BID Qty: 60 0RF
Hemorrhoidal Cream 0.25-1 % cream
1 applic VT QID PRN (Reason: Rectal Pain) Qty: 28 0RF
amoxicillin-pot clavulanate 875-125 mg tablet
1 tab PO BID Qty: 6 0RF
Continued
multivitamin Tablet
1 tab PO DAILY
calcium carbonate-vitamin D3 600 mg-5 mcg (200 unit) Tablet
1 tab PO DAILY
simvastatin 40 mg tablet
40 mg PO HS
omeprazole 20 mg capsule,delayed release(DR/EC)
20 mg PO DAILY
montelukast 10 mg tablet
10 mg PO HS
Prolia 60 mg/mL Syringe
60 mg SC [id number]
tramadol 50 mg Tablet
50 mg PO Q8HPRN PRN (Reason: moderate pain)
zinc oxide 20 % Ointment
1 applic TOPICAL TID
acetaminophen [Tylenol Extra Strength] 500 mg Tablet
1,000 mg PO TID
Fleet Enema 19-7 gram/118 mL Enema
118 ml VT DAILYPRN PRN (Reason: if no bm aftr dulcolax)
lidocaine-menthol [Icy Hot Patch (lido-menthol)] 4-1 % Adhesive Patch,Medicated
1 patch TOPICAL DAILY
midodrine 5 mg Tablet
10 mg PO TID@0800,1300,1800 Qty: 90 0RF
magnesium hydroxide [Milk of Magnesia] 400 mg/5 mL Suspension
2,400 mg PO DAILYPRN PRN (Reason: If no Bowel Movement after 2 days) Qty: 0 0RF
tamsulosin 0.4 mg Capsule
0.4 mg PO DAILY Qty: 30 0RF
bisacodyl [Dulcolax (bisacodyl)] 10 mg Suppository
10 mg VT DAILYPRN PRN (Reason: If No Bowel Movement after Milk of M) Qty: 0 0RF
Eliquis 5 mg tablet
5 mg PO BID Qty: 70 0RF
Rx Instructions:
10 mg BID x 7 days, then 5 mg BID
Discontinued
metoprolol succinate [Toprol XL] 25 mg tablet extended release 24 hr
12.5 mg PO DAILY Qty: 30 0RF
loperamide 2 mg Capsule
2 mg PO Q6HPRN PRN (Reason: Diarrhea) Qty: 20 0RF
phenazopyridine 200 mg tablet
200 mg PO Q8HPRN PRN (Reason: mild Pain)
cholestyramine (with sugar) 4 gram powder in packet
1 ea PO BID
Discharge Orders:
Discharge Patient (As Directed); Ordered 01/06/25
Ordered By: Dominga Azar
Discharge Date and Time
Discharge Date/Time: 01/06/25 12:30
Print Language: [place]
--- NOTE | 2025-01-06 11:43 | PTCARENOTE ---
report to [facility] Covid test done, RX for Tramadol obtained
[2025-01-06 11:50] LABS: COVID-19 Antigen Negative (Negative)
--- NOTE | 2025-01-06 12:30 | PTCARENOTE ---
Pt left via stretcher for [facility] without incident.
== END 2025-01-06 12:30 | DRG 698 ==
LOC: IMU 23:33
PROVIDERS: Physician Assistant Medical; ADMITTING PHYSICIAN Internal Medicine; ATTENDING PHYSICIAN Family Medicine; EMERGENCY PHYSICIAN Emergency Medicine; FAMILY PHYSICIAN Internal Medicine Geriatric Medicine; OTHER PHYSICIAN Internal Medicine Cardiovascular Disease; OTHER PHYSICIAN Surgery
PROC: 0T2BX0Z Change Drainage Device in Bladder, External Approach (ICD-10-PCS; 2025-01-02)
DX: T83.511A Infection and inflammatory reaction due to indwelling urethral catheter, initial encounter (principal); A41.9 Sepsis, unspecified organism; E43 Unspecified severe protein-calorie malnutrition; N13.6 Pyonephrosis; I50.22 Chronic systolic (congestive) heart failure; I13.0 Hypertensive heart and chronic kidney disease with heart failure and stage 1 through stage 4 chronic kidney disease, or unspecified chronic kidney disease; J84.9 Interstitial pulmonary disease, unspecified; I48.92 Unspecified atrial flutter; E87.1 Hypo-osmolality and hyponatremia; F05 Delirium due to known physiological condition; I47.19 Other supraventricular tachycardia; E78.00 Pure hypercholesterolemia, unspecified; K21.9 Gastro-esophageal reflux disease without esophagitis; I95.1 Orthostatic hypotension; I45.10 Unspecified right bundle-branch block; N40.1 Benign prostatic hyperplasia with lower urinary tract symptoms; M81.0 Age-related osteoporosis without current pathological fracture; R33.8 Other retention of urine; I25.5 Ischemic cardiomyopathy; E83.42 Hypomagnesemia; K86.89 Other specified diseases of pancreas; E87.6 Hypokalemia; I48.0 Paroxysmal atrial fibrillation; B96.20 Unspecified Escherichia coli [E. coli] as the cause of diseases classified elsewhere; Y84.6 Urinary catheterization as the cause of abnormal reaction of the patient, or of later complication, without mention of misadventure at the time of the procedure; Y92.9 Unspecified place or not applicable; Y73.2 Prosthetic and other implants, materials and accessory gastroenterology and urology devices associated with adverse incidents; Z66 Do not resuscitate; Z68.21 Body mass index [BMI] 21.0-21.9, adult; Z11.52 Encounter for screening for COVID-19; Z85.820 Personal history of malignant melanoma of skin; Z79.899 Other long term (current) drug therapy; Z90.49 Acquired absence of other specified parts of digestive tract; Z79.01 Long term (current) use of anticoagulants; Z87.891 Personal history of nicotine dependence
CPT/HCPCS: 71046; 74177; 80048; 80053; 81003; 81015; 83605; 83690; 83735; 85025; 85027; 87040; 87077; 87086; 87186; 87502; 87811; 93005; 96365; 96375; 97163; 97167; 99285; Q9967